=== PATIENT | female | born 1995 | race Caucasian/White ===

== ENCOUNTER 2022-02-16 20:12 | Emergency (ER) | payer BC, SELFPAY ==
[2022-02-16 20:23] VITALS: BP 123/67; PULSE 105; RESP 18; TEMP 36.9; O2SAT 99; BMI 30.3
--- NOTE | 2022-02-16 20:42 | CRLHL7_ITS ---
For Patients: As a result of the Cures Act, medical imaging exams and procedure reports are released immediately into your electronic medical record. You may view this report before your referring provider. If you have questions, please contact your health care provider. INDICATION: Cough. TECHNIQUE: Chest 2 view(s) COMPARISON: None available. FINDINGS: Postsurgical changes of median sternotomy. Heart size is within normal limits. Stent is noted at the aortic arch. Prominence of the central perihilar interstitial lung markings, nonspecific, can be seen with viral process versus reactive airways disease. No significant layering pleural effusion, no pneumothorax. No acute chest wall abnormality. IMPRESSION: Prominence of the central perihilar interstitial lung markings, nonspecific, can be seen with viral process versus reactive airways disease. Dictated by Sang Rogel MD @ 02/16/2022 9:17:38 PM (Electronically Signed)
--- NOTE | 2022-02-16 20:43 | ED_ITS ---
HPI - URI/Sore Throat General Chief Complaint: Cough Stated Complaint: Heart Condition,Stats are up and down Time Seen by Provider: 02/16/22 20:35 History of Present Illness HPI Narrative: Pt is a 26 year old woman with a history of hypoplastic left heart who presents with 2 days of cough and congestion. Pt has had a number of surgeries for her hypoplastic left heart in the past and has poor exercise tolerance. Review of her record shows that she is SP Fontan and Romain procedures. Pt is under close watch of her Career Development Manager. Pt returned from [place] in the past week and was noted to have an indurated insect bite on her abd and was placed on Keflex by her Career Development Manager. Pt has had no fevers, chills, nausea or vomiting. No chest pain. Mild shortness of breath is noted but her oxygen saturation is 99% on room air. Pt has had no treatments prior to arrival. No sick contacts. Pt is not vaccinated for COVID 19. Cough is nonproductive. No hemoptysis noted. Related Data Home Medications Medication Instructions Recorded Confirmed cephalexin 500 mg capsule 500 mg PO TID 02/16/22 02/16/22 Allergies Allergy/AdvReac Type Severity Reaction Status Date / Time hydrocodone Allergy Mild Itching Verified 02/16/22 20:41 oxycodone Allergy Mild Itching Verified 02/16/22 20:41 morphine AdvReac Mild Nausea/Vomi Verified 02/16/22 20:41 ting Review of Systems Status of ROS: Reports: 10 or more systems reviewed and unremarkable except as noted in History and below [facility] Medical History Bicornuate uterus Cardiac arrhythmia, unspecified Dyspnea on exertion History of left heart catheterization Hypoplastic left heart Surgical History History of Amplatzer atrial septal defect closure History of right heart catheterization Status post aortic coarctation stent placement Social History Smoking Status: Never smoker How often do you have a drink containing alcohol: never AUDIT-C Alcohol total score: 0 Non-prescribed substance use: denies use Exam Narrative: Exam Narrative: EXAM GENERAL: Patient appears comfortable and well. EYES: No scleral icterus. ENT: Tympanic membranes and oropharynx normal. THYROID: no thyroid nodules or thyromegaly. LYMPH: No supraclavicular or cervical lymphadenopathy. SKIN: Some induration noted at the previously mentioned bug bite on the left lower abd. No signs of infection or cellulitis. EXT: No dependent lower extremity pedal edema. HEART: Distant heart tones noted. LUNGS: Clear to auscultation bilaterally with no crackles or wheezes. ABD: Soft, non tender, non distended. PSYCH: Good eye contact, speech is not pressured. Const: Vital Signs, click to edit/add: Vital Signs - 24 hr 02/16/22 20:23 Temperature 98.4 F Pulse Rate [Right Pulse Oximeter] 105 H Respiratory Rate 18 Blood Pressure [Ri ght Upper Arm] 123/67 Pulse Oximetry 99 Oxygen Delivery Me thod Room Air Course Course Hospital Course: Pt seen and examined. Medical record reviewed. EKG shows mild sinus tachycardia upon my review. Chest X ray ordered. Viral studies collected. Reevaluation(s) Reevaluation #1: Chest x ray shows no acute cardiopulmonary process upon my review. Time: 21:05 Vital Signs Vital signs: Initial Vital Signs Temperature 98.4 F 02/16/22 20:23 Temperature Source Temporal Artery Scan 02/16/22 20:23 Pulse Rate 105 H 02/16/22 20:23 Respiratory Rate 18 02/16/22 20:23 Blood Pressure 123/67 02/16/22 20:23 Blood Pressure Mean 85 02/16/22 20:23 Blood Pressure Position Sitting 02/16/22 20:23 Pulse Oximetry 99 02/16/22 20:23 Oxygen Delivery Method 02/16/22 20:23 Vital Signs Temperature 98.4 F 02/16/22 20:23 Pulse Rate 105 H 02/16/22 20:23 Respiratory Rate 18 02/16/22 20:23 Blood Pressure 123/67 02/16/22 20:23 Pulse Oximetry 99 02/16/22 20:23 Oxygen Delivery Method 02/16/22 20:23 Temperature 98.4 F 02/16/22 20:23 Pulse Rate 105 H 02/16/22 20:23 Respiratory Rate 18 02/16/22 20:23 Blood Pressure 123/67 02/16/22 20:23 Pulse Oximetry 99 02/16/22 20:23 Oxygen Delivery Method 02/16/22 20:23 MDM - URI/Sore Throat MDM Narrative Medical decision making narrative: Pt is a 26 year old with a complex past medical history as noted above who presents with cough and congestion. Pt's EKG shows mild sinus tachycardia which is typical for her. Chest x ray shows no acute processes upon my review. Pt swabbed for COVID, RSV and Influenza. I did offer to call her Career Development Manager which she declined. Will treat symptomatically and follow up on her viral studies. Differential Diagnosis Differential diagnosis: Likely upper respiratory infection, croup, sinusitis, viral infection, bronchitis, influenza and pharyngitis Medical Records Attestation: I reviewed the patient's medical records. Discharge Plan Discharge Clinical Impression: Acute viral syndrome Condition: Stable Instructions: Viral Syndrome (ED) Additional Instructions: Tylenol Motrin Rest Fluids Await viral studies Contact your Career Development Manager if symptoms do not improve. Activity Level: No Restrictions Discharge Diet: Regular Prescriptions: No Action cephalexin 500 mg capsule 500 mg PO TID Label Comments: TAKE 1 CAPSULE BY MOUTH 3 TIMES A DAY FOR 7 DAYS Stand Alone Forms: [facility] [employer] Info Instructions
[2022-02-16 21:06] LABS: PCR FLU A POSITIVE PCR FLU A (Negative); PCR FLU B Negative PCR FLU B (Negative); PCR RSV Negative PCR RSV (Negative)
[2022-02-16 21:07] LABS: SARS PCR* Negative SARS-CoV-2 (Negative)
[2022-02-16 21:16] VITALS: BP 115/57; PULSE 108; RESP 20; TEMP 36.9; O2SAT 99
[2022-02-16 21:22] VITALS: BP 115/57; PULSE 108; RESP 20; TEMP 36.9
== END 2022-02-16 21:23 | disposition home or self-care (01) ==
PROVIDERS: Emergency Provider Internal Medicine
DX: B34.9 Viral infection, unspecified (principal)
CPT/HCPCS: 71046; 87502; 87634; 87635; 93005; 99283; 99284

== ENCOUNTER 2022-03-31 22:19 | Emergency (ER) | payer BC, SELFPAY ==
[2022-03-31 22:33] VITALS: BP 119/91; PULSE 93; RESP 16; TEMP 36.2; O2SAT 93; BMI 28.3
[2022-03-31 23:04] VITALS: BP 107/75; PULSE 87; RESP 16; O2SAT 95
--- NOTE | 2022-03-31 23:18 | CRLHL7_ITS ---
For Patients: As a result of the Cures Act, medical imaging exams and procedure reports are released immediately into your electronic medical record. You may view this report before your referring provider. If you have questions, please contact your health care provider. INDICATION: History of cardiac surgery. COMPARISON: 02/16/2022 chest radiographs. FINDINGS/IMPRESSION: Portable AP chest radiograph. Lungs appear clear of acute consolidation. No pleural effusions are noted. Cardiac configuration appears stable. There is an unchanged stent in the aortic arch. Median sternotomy wires are again noted. Dictated by Delfino Aviles MD @ 04/01/2022 12:49:44 AM Dictated by: Delfino Aviles MD @ 04/01/2022 00:50:21 (Electronically Signed)
--- NOTE | 2022-03-31 23:19 | ED.CHESTPAIN ---
HPI - Chest Pain General Chief Complaint: Chest Pain Stated Complaint: Half of heart condition,having chest pain&tightnes Time Seen by Provider: 03/31/22 23:08 History of Present Illness HPI narrative: 26 year old young woman presenting with two days of a general chest pressure/tightness in the mid chest. Intermittent stabs of pain which she says feels like when she ultimately needed ?a stent in my descending aorta?. Apparently they were also planning to dilate something. History of left side hypoplastic heart. Pending ZIO patch placement after conversation with project manager process development. No SOA, no fever, no cough or cold sxs. No radiation of symptoms into extremities. Related Data Home Medications Medication Instructions Recorded Confirmed cephalexin 500 mg capsule 500 mg PO TID 02/16/22 02/16/22 Previous Rx's Medication Instructions Recorded oseltamivir 75 mg capsule (Tamiflu) 75 mg PO Q12H 5 days #10 caps 02/16/22 Allergies Allergy/AdvReac Type Severity Reaction Status Date / Time hydrocodone Allergy Mild Itching Verified 02/16/22 20:41 oxycodone Allergy Mild Itching Verified 02/16/22 20:41 morphine AdvReac Mild Nausea/Vomi Verified 02/16/22 20:41 ting Review of Systems Status of ROS Reports: 6 or more systems reviewed and unremarkable except as noted in History and below [facility] Medical History Bicornuate uterus Cardiac arrhythmia, unspecified Dyspnea on exertion History of left heart catheterization Hypoplastic left heart Surgical History History of Amplatzer atrial septal defect closure History of right heart catheterization Status post aortic coarctation stent placement Social History Smoking Status: Never smoker How often do you have a drink containing alcohol: never AUDIT-C Alcohol total score: 0 Non-prescribed substance use: denies use Exam Narrative Exam Narrative: pleasant, nad. cn 2 - 12 look to be intact. skin warm and dry. well-perfused and with equal pulses in distal upper extremities. neck supple without mass, pulsatile or otherwise. lungs clear heart with regular rate and rhythm; no mrg appreciated. abd soft and nt. no LE edema or tenderness. Const Vital Signs, click to edit/add: Vital Signs - 24 hr 03/31/22 22:33 03/31/22 23:04 03/31/22 23:33 Temperature 97.1 F L Pulse Rate [Pulse Oximeter] 93 87 87 Respiratory Rate 16 16 16 Blood Pressure [Left Upper Arm] 119/91 H 107/75 107/75 Pulse Oximetry 93 95 94 Oxygen Delivery Method Room Air Room Air Room Air 04/01/22 00:23 04/01/22 01:24 Temperature Pulse Rate [Pulse Oximeter] 84 81 Respiratory Rate 16 16 Blood Pressure [Left Upper Arm] 108/63 Pulse Oximetry 94 95 Oxygen Delivery Method Room Air Room Air Documenting provider has reviewed patient's vital signs: yes Course Vital Signs Vital signs: Initial Vital Signs Temperature 97.1 F L 03/31/22 22:33 Temperature Source Temporal Artery Scan 03/31/22 22:33 Pulse Rate 93 03/31/22 22:33 Pulse Rhythm 03/31/22 22:33 Respiratory Rate 16 03/31/22 22:33 Blood Pressure 119/91 H 03/31/22 22:33 Blood Pressure Mean 100 03/31/22 22:33 Pulse Oximetry 93 03/31/22 22:33 Oxygen Delivery Method 03/31/22 22:33 Vital Signs Temperature 97.1 F L 03/31/22 22:33 Pulse Rate 93 03/31/22 22:33 Respiratory Rate 16 03/31/22 22:33 Blood Pressure 119/91 H 03/31/22 22:33 Pulse Oximetry 93 03/31/22 22:33 Oxygen Delivery Method 03/31/22 22:33 Temperature 97.1 F L 03/31/22 22:33 Pulse Rate 81 04/01/22 01:24 Respiratory Rate 16 04/01/22 01:24 Blood Pressure 108/63 04/01/22 00:23 Pulse Oximetry 95 04/01/22 01:24 Oxygen Delivery Method 04/01/22 01:24 MDM - Chest Pain MDM Narrative Medical decision making narrative: eval for pneumonia, pneumothorax, pe, dissection, ischemic cardiac event, inflammatory cardiac condition, arrythmia, gerd EKG reviewed as below. Looks similar to prior. CXR with what appear to be post-op changes o/w normal mediastinum. reviewed by me. Lab Data Attestation: I reviewed the patient's lab results. Labs: Lab Results 03/31/22 03/31/22 03/31/22 Range/Units 23:30 23:30 23:30 WBC 5.70 (4.50-11.00) K/uL RBC 4.43 (4.00-5.20) m/uL Hgb 13.2 (12.0-16.0) gm/dL Hct 41.2 (33.0-51.0) % MCV 93 (80-100) fL MCH 30 (26-34) pg MCHC 32 (32-36) gm/dL RDW Coeff of Jessie 13.5 (11.5-15.5) % Plt Count 171 (140-440) K/uL Neut % (Auto) 70.6 (42.0-72.0) % Lymph % (Auto) 17.5 L (20-44) % Valencia % (Auto) 7.5 (0.0-11.0) % Eos % (Auto) 3.7 (0.0-7.0) % Baso % (Auto) 0.5 (0.0-3.0) % Neut # (Auto) 4.02 (1.7-7.0) K/uL Lymph # (Auto) 1.00 (0.90-2.90) K/uL Valencia # (Auto) 0.40 (0.00-0.90) K/UL Eos # (Auto) 0.21 (0.00-0.50) K/uL Baso # (Auto) 0.03 (0.00-0.30) K/uL D-Dimer Quant (PE/DVT) < 0.27 (0.00-0.50) ug/ml Sodium 139 (135-149) mmol/L Potassium 3.8 (3.6-5.1) mmol/L Chloride 109 (96-114) mmol/L Carbon Dioxide 23 (20-32) mmol/L BUN 17 (5-24) mg/dL Creatinine 0.7 (0.5-1.5) mg/dL Estimated Creat Clear 88.25 Estimated GFR 123 ml/min Glucose 94 (60-115) mg/dL Calcium 8.8 (8.4-10.6) mg/dL Magnesium 2.0 (1.5-2.6) mg/dL Troponin I < 0.01 L (0.01-0.04) ng/mL C-Reactive Protein 1.2 H (0.5-1.0) mg/dL NT-Pro-B Natriuret Pep 173 pg/mL ECG Data Attestation: I personally reviewed and interpreted this ECG as follows: (Sinus rhythm rate of 91 incomplete right bundle. Right ventricle does look large possibly in the setting of hypoplastic left side. QT of 390. Similar to prior Similar to prior) Discharge Plan Discharge Clinical Impression: Chest pressure, Chest pain Patient Disposition: Home, Self-Care Condition: Improved Additional Instructions: Labs are overall reassuring. 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 Await the ZIO patch as recommended. Focus on hydration. Return for increasing and persistent pain, increasing shortness of breath, associated fever. Prescriptions: No Action cephalexin 500 mg capsule 500 mg PO TID Label Comments: TAKE 1 CAPSULE BY MOUTH 3 TIMES A DAY FOR 7 DAYS oseltamivir [Tamiflu] 75 mg capsule 75 mg PO Q12H 5 Days Qty: 10 0RF Follow Up/Referrals: Provider,Not a Local [Primary Care Provider] - Stand Alone Forms: [facility] Info Instructions
[2022-03-31 23:33] VITALS: BP 107/75; PULSE 87; RESP 16; O2SAT 94
[2022-03-31 23:41] LABS: Basophils Absolute Auto 0.03 K/uL (0.00-0.30); Basophils Percent Auto 0.5 % (0.0-3.0); Eosinophils Absolute Auto 0.21 K/uL (0.00-0.50); Eosinophils Percent Auto 3.7 % (0.0-7.0); Hematocrit 41.2 % (33.0-51.0); Hemoglobin* 13.2 gm/dL (12.0-16.0); Immature Granulocytes Abs Auto 0.01 K/uL (0.00-0.30); Immature Granulocytes Pct Auto 0.2 %; Lymphocytes Percent Auto 17.5 % (20-44); Mean Corpuscular HGB Conc 32 gm/dL (32-36); Mean Corpuscular Hemoglobin 30 pg (26-34); Mean Corpuscular Volume 93 fL (80-100); Monocytes Percent Auto 7.5 % (0.0-11.0); Neutrophils Absolute Auto 4.02 K/uL (1.7-7.0); Neutrophils Percent Auto 70.6 % (42.0-72.0); Platelet Count* 171 K/uL (140-440); RDW Coefficient of Variation % 13.5 % (11.5-15.5); Red Blood Count 4.43 m/uL (4.00-5.20)
[2022-03-31 23:43] LABS: Slide Review Reflex No
[2022-03-31 23:55] LABS: Chloride* 109 mmol/L (96-114); Sodium* 139 mmol/L (135-149)
[2022-03-31 23:57] LABS: Creatinine* 0.7 mg/dL (0.5-1.5); Est. Creatinine Clearance* 88.25; Estimated Glomerular Filt Rate 123 ml/min; Potassium* 3.8 mmol/L (3.6-5.1)
[2022-03-31 23:58] LABS: Blood Urea Nitrogen* 17 mg/dL (5-24); Carbon Dioxide* 23 mmol/L (20-32)
[2022-03-31 23:59] LABS: Calcium* 8.8 mg/dL (8.4-10.6); Glucose* 94 mg/dL (60-115)
[2022-04-01 00:01] LABS: C Reactive Protein* 1.2 mg/dL (0.5-1.0)
[2022-04-01 00:10] LABS: D Dimer Quantitative* < 0.27 ug/ml (0.00-0.50); NT Pro B Type NatriureticPept* 173 pg/mL
[2022-04-01 00:11] LABS: Troponin I* < 0.01 ng/mL (0.01-0.04)
[2022-04-01] MEDS: 0.9 % SODIUM CHLORIDE 1000 ml 1,000 ML IV (00:22)
[2022-04-01 00:23] VITALS: BP 108/63; PULSE 84; RESP 16; O2SAT 94
[2022-04-01 01:24] VITALS: PULSE 81; RESP 16; O2SAT 95
== END 2022-04-01 01:25 | disposition home or self-care (01) ==
PROVIDERS: Emergency Provider Family Medicine
DX: R07.9 Chest pain, unspecified (principal)
CPT/HCPCS: 36415; 71045; 80048; 83735; 83880; 84484; 85025; 85379; 86140; 93005; 94761; 99284; 99285; J7030

== ENCOUNTER 2023-08-01 12:59 | Emergency (ER) | payer OTHER, SELFPAY ==
[2023-08-01] VITALS (26 sets, daily range): BP systolic 102–132; BP diastolic 67–79; PULSE 80–91; RESP 18; TEMP 36.4; O2SAT 91–98; BMI 32.1
[2023-08-01 14:22] LABS: Basophils Absolute Auto 0.02 K/uL (0.00-0.30); Basophils Percent Auto 0.4 % (0.0-3.0); Eosinophils Absolute Auto 0.19 K/uL (0.00-0.50); Eosinophils Percent Auto 3.6 % (0.0-7.0); Hemoglobin* 14.9 gm/dL (12.0-16.0); Immature Granulocytes Abs Auto 0.01 K/uL (0.00-0.30); Immature Granulocytes Pct Auto 0.2 %; Lymphocytes Percent Auto 17.1 % (20-44); Mean Corpuscular HGB Conc 33 gm/dL (32-36); Mean Corpuscular Hemoglobin 31 pg (26-34); Mean Corpuscular Volume 94 fL (80-100); Monocytes Percent Auto 5.1 % (0.0-11.0); Neutrophils Percent Auto 73.6 % (42.0-72.0); Platelet Count* 163 K/uL (140-440); RDW Coefficient of Variation % 12.6 % (11.5-15.5); Red Blood Count 4.81 m/uL (4.00-5.20); White Blood Count* 5.32 K/uL (4.50-11.00)
[2023-08-01 14:30] LABS: Slide Review Reflex No
[2023-08-01 14:34] LABS: Chloride* 108 mmol/L (96-114); Sodium* 140 mmol/L (135-149)
[2023-08-01 14:35] LABS: Potassium* 4.1 mmol/L (3.6-5.1)
[2023-08-01 14:37] LABS: Anion Gap 6 mEq/L (7-15); Carbon Dioxide* 26 mmol/L (20-32); Creatinine* 0.7 mg/dL (0.5-1.5); Estimated Glomerular Filt Rate 122 ml/min
[2023-08-01 14:38] LABS: Blood Urea Nitrogen* 14 mg/dL (5-24); Calcium* 9.2 mg/dL (8.4-10.6); Glucose* 76 mg/dL (60-115); Magnesium* 2.1 mg/dL (1.5-2.6)
--- NOTE | 2023-08-01 14:41 | ED_ITS ---
HPI - Chest Pain General Date Seen: 08/01/23 <Carter Hendersonram - Last Filed: 08/01/23 16:05> Chief Complaint: Chest Pain <Carter Carmelo Nitesh - Last Filed: 08/01/23 16:05> Stated Complaint: half a heart, heavy, pain, O2 low <Carterguillermo Dowling - Last Filed: 08/01/23 16:05> Time Seen by Provider: 08/01/23 13:11 <Carter Dowling DO - Last Filed: 08/01/23 16:05> Source: patient <Carter Dowling DO - Last Filed: 08/01/23 16:05> Mode of arrival: ambulatory <Carter Carmelo Nitesh - Last Filed: 08/01/23 16:05> Limitations: no limitations <Carter Dowling - Last Filed: 08/01/23 16:05> History of Present Illness HPI narrative: Patient is a 27-year-old female presenting to the emergency department for chest pain and shortness of breath. She states she woke up this morning with the symptoms. States this pain is a 7/10 in intensity it is associated numbness and tingling of her right arm. States she has had symptoms like this several times in the past and has been evaluated several times with no new diagnosis being found. 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 She states this chest discomfort has been going on since the aortic stents and 2017. Does have a history of blood clots also. States when she had chest pain she called her court officer who told her to come to the emergency department for evaluation. Denies fevers, chills, lightheadedness, dizziness, abdominal pain, diarrhea, constipation, weakness. <Carter Dowling - Last Filed: 08/01/23 16:05> Related Data Home Medications: Home Medications ?Medication ?Instructions ?Recorded ?Confirmed escitalopram oxalate 10 mg tablet 20 mg PO DAILY 02/17/23 08/01/23 <Carter Dowling - Last Filed: 08/01/23 16:05> Allergies/Adverse Reactions: Allergies Allergy/AdvReac Type Severity Reaction Status Date / Time hydrocodone Allergy Mild Itching Verified 08/01/23 13:10 oxycodone Allergy Mild Itching Verified 08/01/23 13:10 vancomycin AdvReac Intermediate Verified 08/01/23 13:10 morphine AdvReac Mild Nausea/Vomi Verified 08/01/23 13:10 ting <Carter Dowling DO - Last Filed: 08/01/23 16:05> Review of Systems Status of ROS Reports: 10 or more systems reviewed and unremarkable except as noted in History and below <Carter Dowling DO - Last Filed: 08/01/23 16:05> [facility] Surgical History: Surgical History History of Amplatzer atrial septal defect closure ?Z87.74 - Personal history of (corrected) congenital malformations of heart and circulatory system (ICD-10) Status post aortic coarctation stent placement ?Z95.828 - Presence of other vascular implants and grafts (ICD-10) ?Z87.74 - Personal history of (corrected) congenital malformations of heart and circulatory system (ICD-10) History of right heart catheterization ?Z98.890 - Other specified postprocedural states (ICD-10) <Carter Dowling DO - Last Filed: 08/01/23 16:05> Social History: Social History Smoking Status: Never smoker Do you use any of these nicotine containing products: None How often do you have a drink containing alcohol: never How often do you have six or more drinks on one occasion: Never AUDIT-C Alcohol total score: 0 Non-prescribed substance use: denies use <Carter Dowling DO - Last Filed: 08/01/23 16:05> Exam Narrative Exam Narrative: Const: Well-nourished, Well-developed, in mild distress Eyes: PERRL, no conjunctival injection, and symmetrical lids HENT: Atraumatic external nose and ears. Moist mucous membranes. Neck: Symmetric, trachea midline, No thyromegaly. CVS: RRR, No murmurs or gallops. Peripheral pulses 2+ and equal in all extremities RESP: Unlabored respiratory effort. Clear to auscultation bilaterally. GI: Nontender/Nondistended, No rebound or guarding. MSK:Extremities w/o deformity, Normal Active ROM, no tenderness to palpation of chest Skin: Warm, Dry. No rashes or lesions. Neuro: Normal Muscle tone, No focal neurological deficits. Psych: Awake, Alert, & Oriented x3. Appropriate mood and affect. <Carter Dowling, DO - Last Filed: 08/01/23 16:05> Const Vital Signs, click to edit/add: Vital Signs - 24 hr 08/01/23 13:06 08/01/23 13:24 08/01/23 13:25 Temperature 97.6 F Pulse Rate 84 83 Pulse Rate [Right Pulse Oximeter] 91 Respiratory Rate 18 Blood Pressure 109/67 Blood Pressure [Left Upper Arm] 106/75 Pulse Oximetry 91 92 91 Oxygen Delivery Method Room Air 08/01/23 13:30 08/01/23 13:32 08/01/23 13:33 Temperature Pulse Rate 83 81 81 Pulse Rate [Right Pulse Oximeter] Respiratory Rate Blood Pressure 108/75 Blood Pressure [Left Upper Arm] Pulse Oximetry 92 92 92 Oxygen Delivery Method 08/01/23 13:46 08/01/23 14:01 08/01/23 14:15 Temperature Pulse Rate 80 82 81 Pulse Rate [Right Pulse Oximeter] Respiratory Rate Blood Pressure Blood Pressure [Left Upper Arm] Pulse Oximetry 93 95 94 Oxygen Delivery Method 08/01/23 14:30 08/01/23 14:32 08/01/23 14:45 Temperature Pulse Rate 80 81 81 Pulse Rate [Right Pulse Oximeter] Respiratory Rate Blood Pressure 108/79 Blood Pressure [Left Upper Arm] Pulse Oximetry 96 96 95 Oxygen Delivery Method 08/01/23 15:00 08/01/23 15:02 08/01/23 15:03 Temperature Pulse Rate 83 84 83 Pulse Rate [Right Pulse Oximeter] Respiratory Rate Blood Pressure 114/72 Blood Pressure [Left Upper Arm] Pulse Oximetry 96 98 96 Oxygen Delivery Method 08/01/23 15:15 08/01/23 15:31 08/01/23 15:32 Temperature Pulse Rate 81 87 87 Pulse Rate [Right Pulse Oximeter] Respiratory Rate Blood Pressure 132/77 Blood Pressure [Left Upper Arm] Pulse Oximetry 95 95 95 Oxygen Delivery Method 08/01/23 15:33 08/01/23 15:45 08/01/23 16:00 Temperature Pulse Rate 87 83 82 Pulse Rate [Right Pulse Oximeter] Respiratory Rate Blood Pressure Blood Pressure [Left Upper Arm] Pulse Oximetry 94 93 94 Oxygen Delivery Method 08/01/23 16:02 08/01/23 16:15 08/01/23 16:30 Temperature Pulse Rate 82 84 85 Pulse Rate [Right Pulse Oximeter] Respiratory Rate Blood Pressure 102/67 Blood Pressure [Left Upper Arm] Pulse Oximetry 95 95 96 Oxygen Delivery Method 08/01/23 16:31 08/01/23 16:45 Temperature Pulse Rate 85 86 Pulse Rate [Right Pulse Oximeter] Respiratory Rate Blood Pressure 109/71 Blood Pressure [Left Upper Arm] Pulse Oximetry 96 95 Oxygen Delivery Method <Carter Dowling, DO - Last Filed: 08/01/23 16:05> Vital Signs - 24 hr 08/01/23 13:06 08/01/23 13:24 08/01/23 13:25 Temperature 97.6 F Pulse Rate 84 83 Pulse Rate [Right Pulse Oximeter] 91 Respiratory Rate 18 Blood Pressure 109/67 Blood Pressure [Left Upper Arm] 106/75 Pulse Oximetry 91 92 91 Oxygen Delivery Method Room Air 08/01/23 13:30 08/01/23 13:32 08/01/23 13:33 Temperature Pulse Rate 83 81 81 Pulse Rate [Right Pulse Oximeter] Respiratory Rate Blood Pressure 108/75 Blood Pressure [Left Upper Arm] Pulse Oximetry 92 92 92 Oxygen Delivery Method 08/01/23 13:46 08/01/23 14:01 08/01/23 14:15 Temperature Pulse Rate 80 82 81 Pulse Rate [Right Pulse Oximeter] Respiratory Rate Blood Pressure Blood Pressure [Left Upper Arm] Pulse Oximetry 93 95 94 Oxygen Delivery Method 08/01/23 14:30 08/01/23 14:32 08/01/23 14:45 Temperature Pulse Rate 80 81 81 Pulse Rate [Right Pulse Oximeter] Respiratory Rate Blood Pressure 108/79 Blood Pressure [Left Upper Arm] Pulse Oximetry 96 96 95 Oxygen Delivery Method 08/01/23 15:00 08/01/23 15:02 08/01/23 15:03 Temperature Pulse Rate 83 84 83 Pulse Rate [Right Pulse Oximeter] Respiratory Rate Blood Pressure 114/72 Blood Pressure [Left Upper Arm] Pulse Oximetry 96 98 96 Oxygen Delivery Method 08/01/23 15:15 08/01/23 15:31 08/01/23 15:32 Temperature Pulse Rate 81 87 87 Pulse Rate [Right Pulse Oximeter] Respiratory Rate Blood Pressure 132/77 Blood Pressure [Left Upper Arm] Pulse Oximetry 95 95 95 Oxygen Delivery Method 08/01/23 15:33 08/01/23 15:45 08/01/23 16:00 Temperature Pulse Rate 87 83 82 Pulse Rate [Right Pulse Oximeter] Respiratory Rate Blood Pressure Blood Pressure [Left Upper Arm] Pulse Oximetry 94 93 94 Oxygen Delivery Method 08/01/23 16:02 08/01/23 16:15 08/01/23 16:30 Temperature Pulse Rate 82 84 85 Pulse Rate [Right Pulse Oximeter] Respiratory Rate Blood Pressure 102/67 Blood Pressure [Left Upper Arm] Pulse Oximetry 95 95 96 Oxygen Delivery Method 08/01/23 16:31 08/01/23 16:45 Temperature Pulse Rate 85 86 Pulse Rate [Right Pulse Oximeter] Respiratory Rate Blood Pressure 109/71 Blood Pressure [Left Upper Arm] Pulse Oximetry 96 95 Oxygen Delivery Method <Brian Gastelum MD - Last Filed: 08/01/23 17:06> Course Reevaluation(s) Time of Reevaluation #1: 17:05 <Brian Gastelum MD - Last Filed: 08/01/23 17:06> Reevaluation #1: Patient remains symptom-free, her EKGs are normal 2nd troponin is normal, per my conversation with Dr. Nam we will send her home. She will follow- up with Cardiology <Brian Gastelum MD - Last Filed: 08/01/23 17:06> Vital Signs Vital signs: Initial Vital Signs Temperature 97.6 F 08/01/23 13:06 Temperature Source Temporal Artery Scan 08/01/23 13:06 Pulse Rate 91 08/01/23 13:06 Pulse Rhythm Regular 08/01/23 13:06 Respiratory Rate 18 08/01/23 13:06 Blood Pressure 106/75 08/01/23 13:06 Blood Pressure Mean 85 08/01/23 13:06 Blood Pressure Position Sitting 08/01/23 13:06 Pulse Oximetry 91 08/01/23 13:06 Oxygen Delivery Method Room Air 08/01/23 13:06 Vital Signs Temperature 97.6 F 08/01/23 13:06 Pulse Rate 91 08/01/23 13:06 Respiratory Rate 18 08/01/23 13:06 Blood Pressure 106/75 08/01/23 13:06 Pulse Oximetry 91 08/01/23 13:06 Oxygen Delivery Method Room Air 08/01/23 13:06 Temperature 97.6 F 08/01/23 13:06 Pulse Rate 86 08/01/23 16:45 Respiratory Rate 18 08/01/23 13:06 Blood Pressure 109/71 08/01/23 16:31 Pulse Oximetry 95 08/01/23 16:45 Oxygen Delivery Method Room Air 08/01/23 13:06 <Carter Dowling DO - Last Filed: 08/01/23 16:05> Initial Vital Signs Temperature 97.6 F 08/01/23 13:06 Temperature Source Temporal Artery Scan 08/01/23 13:06 Pulse Rate 91 08/01/23 13:06 Pulse Rhythm Regular 08/01/23 13:06 Respiratory Rate 18 08/01/23 13:06 Blood Pressure 106/75 08/01/23 13:06 Blood Pressure Mean 85 08/01/23 13:06 Blood Pressure Position Sitting 08/01/23 13:06 Pulse Oximetry 91 08/01/23 13:06 Oxygen Delivery Method Room Air 08/01/23 13:06 Vital Signs Temperature 97.6 F 08/01/23 13:06 Pulse Rate 91 08/01/23 13:06 Respiratory Rate 18 08/01/23 13:06 Blood Pressure 106/75 08/01/23 13:06 Pulse Oximetry 91 08/01/23 13:06 Oxygen Delivery Method Room Air 08/01/23 13:06 Temperature 97.6 F 08/01/23 13:06 Pulse Rate 86 08/01/23 16:45 Respiratory Rate 18 08/01/23 13:06 Blood Pressure 109/71 08/01/23 16:31 Pulse Oximetry 95 08/01/23 16:45 Oxygen Delivery Method Room Air 08/01/23 13:06 <Brian Gastelum MD - Last Filed: 08/01/23 17:06> MDM - Chest Pain MDM Narrative Medical decision making narrative: Patient is a 27 year female presenting to emergency department for chest pain. She does have history of hypoplastic left heart and a to the 17 stat for coarctation of the thoracic aorta. Since then she has been having this intermittent chest pain. Does have a history of blood clots a D-dimer will be ordered to look for signs. Will also order troponin, CBC, BMP, magnesium, EKG, test. Chest is nontender to palpation in this does not seem musculoskeletal in nature. Patient's lab work returned showing no concerning abnormalities. test is negative. COVID/flu/RSV test is negative. Initial troponin less than 0.01 in will repeat this troponin. Chest x-ray reviewed by myself and the radiologist shows no concerning abnormalities. She has been satting in the low to mid 90s here in the emergency department. D-dimer within normal limits and blood clot seems unlikely. She is otherwise doing well at this time an EKG shows no concerning findings. Pending repeat troponin patient will be di scharged. Considering she has had these exact same symptoms in the past and states previously her court officer has told her there continue to monitor these symptoms I do not believe is necessary to contact her court officer as again she states these are exactly the same as she has had the past with no complications. <Carter Dowling, - Last Filed: 08/01/23 16:05> Lab Data Labs: Lab Results 08/01/23 08/01/23 Range/Units 14:05 16:05 WBC 5.32 (4.50-11.00) K/uL RBC 4.81 (4.00-5.20) m/uL Hgb 14.9 (12.0-16.0) gm/dL Hct 45.0 (33.0-51.0) % MCV 94 (80-100) fL MCH 31 (26-34) pg MCHC 33 (32-36) gm/dL RDW Coeff of Jessie 12.6 (11.5-15.5) % Plt Count 163 (140-440) K/uL Neut % (Auto) 73.6 H (42.0-72.0) % Lymph % (Auto) 17.1 L (20-44) % [place] % (Auto) 5.1 (0.0-11.0) % Eos % (Auto) 3.6 (0.0-7.0) % Baso % (Auto) 0.4 (0.0-3.0) % Neut # (Auto) 3.90 (1.7-7.0) K/uL Lymph # (Auto) 0.90 (0.90-2.90) K/uL [place] # (Auto) 0.30 (0.00-0.90) K/UL Eos # (Auto) 0.19 (0.00-0.50) K/uL Baso # (Auto) 0.02 (0.00-0.30) K/uL Abs Immat Gran (auto) 0.01 (0.00-0.30) K/uL Imm/Tot Granulo (auto) 0.2 % D-Dimer Quant (PE/DVT) < 0.27 (0.00-0.50) ug/ml Sodium 140 (135-149) mmol/L Potassium 4.1 (3.6-5.1) mmol/L Chloride 108 (96-114) mmol/L Carbon Dioxide 26 (20-32) mmol/L Anion Gap 6 L (7-15) mEq/L BUN 14 (5-24) mg/dL Creatinine 0.7 (0.5-1.5) mg/dL Estimated Creat Clear 91.90 Estimated GFR 122 ml/min Glucose 76 (60-115) mg/dL Calcium 9.2 (8.4-10.6) mg/dL Magnesium 2.1 (1.5-2.6) mg/dL Troponin I < 0.01 L < 0.01 L (0.01-0.04) ng/mL HCG, Qual Negative (Negative) SARS-CoV-2 (PCR) Negative SARS-CoV-2 (Negative) Influenza Type A (PCR) Negative PCR FLU A (Negative) Influenza Type B (PCR) Negative PCR FLU B (Negative) RSV (PCR) Negative PCR RSV (Negative) <Carter Dowling, - Last Filed: 08/01/23 16:05> Lab Results 08/01/23 08/01/23 Range/Units 14:05 16:05 WBC 5.32 (4.50-11.00) K/uL RBC 4.81 (4.00-5.20) m/uL Hgb 14.9 (12.0-16.0) gm/dL Hct 45.0 (33.0-51.0) % MCV 94 (80-100) fL MCH 31 (26-34) pg MCHC 33 (32-36) gm/dL RDW Coeff of Jessie 12.6 (11.5-15.5) % Plt Count 163 (140-440) K/uL Neut % (Auto) 73.6 H (42.0-72.0) % Lymph % (Auto) 17.1 L (20-44) % [place] % (Auto) 5.1 (0.0-11.0) % Eos % (Auto) 3.6 (0.0-7.0) % Baso % (Auto) 0.4 (0.0-3.0) % Neut # (Auto) 3.90 (1.7-7.0) K/uL Lymph # (Auto) 0.90 (0.90-2.90) K/uL [place] # (Auto) 0.30 (0.00-0.90) K/UL Eos # (Auto) 0.19 (0.00-0.50) K/uL Baso # (Auto) 0.02 (0.00-0.30) K/uL Abs Immat Gran (auto) 0.01 (0.00-0.30) K/uL Imm/Tot Granulo (auto) 0.2 % D-Dimer Quant (PE/DVT) < 0.27 (0.00-0.50) ug/ml Sodium 140 (135-149) mmol/L Potassium 4.1 (3.6-5.1) mmol/L Chloride 108 (96-114) mmol/L Carbon Dioxide 26 (20-32) mmol/L Anion Gap 6 L (7-15) mEq/L BUN 14 (5-24) mg/dL Creatinine 0.7 (0.5-1.5) mg/dL Estimated Creat Clear 91.90 Estimated GFR 122 ml/min Glucose 76 (60-115) mg/dL Calcium 9.2 (8.4-10.6) mg/dL Magnesium 2.1 (1.5-2.6) mg/dL Troponin I < 0.01 L < 0.01 L (0.01-0.04) ng/mL HCG, Qual Negative (Negative) SARS-CoV-2 (PCR) Negative SARS-CoV-2 (Negative) Influenza Type A (PCR) Negative PCR FLU A (Negative) Influenza Type B (PCR) Negative PCR FLU B (Negative) RSV (PCR) Negative PCR RSV (Negative) <Brian Gastelum MD - Last Filed: 08/01/23 17:06> Imaging Data Chest x-ray: Attestation: I have reviewed the pertinent imaging results. <Carter Dowling Last Filed: 08/01/23 16:05> Radiologist's impression: Cardiovascular and mediastinum: Normal heart size status post atrial closure. Aortic stent at the level of the arch. Lungs and pleural spaces: Lungs are clear. No sign of infiltrate or mass. No sign of pleural effusion. No pneumothorax. Bones and soft tissues: Status post median sternotomy. Dictated by Darron Izaguirre MD @ 08/01/2023 3:44:18 PM <Carter Dowling Last Filed: 08/01/23 16:05> ECG Data Attestation: I personally reviewed and interpreted this ECG as follows: <Carter Dowling Last Filed: 08/01/23 16:05> Prior ECG tracings: available for review <Carter Dowling Last Filed: 08/01/23 16:05> Interpretation: Normal sinus rhythm rate of 86 beats per minute, right axis deviation, right bundle-branch block, prolonged QT interval. No ST abnormalities. There are some inverted T-waves in mL some V1 through V4 seen in previous EKG on file. EKG looks very similar to previous EKGs on file <Carter Dowling Last Filed: 08/01/23 16:05> Discharge Plan Discharge Clinical Impression: Chest pain <Carter Dowling Last Filed: 08/01/23 16:05> Patient Disposition: Home, Self-Care <Carter Dowling Last Filed: 08/01/23 16:05> Condition: Stable <Carter Dowling Last Filed: 08/01/23 16:05> Instructions: Chest Pain (DC) <Carter Dowling Last Filed: 08/01/23 16:05> Additional Instructions: Make sure follow-up with your court officer about 2 chest pain. Return to emergency department for new worsening symptoms. <Carter Dowling Last Filed: 08/01/23 16:05> Prescriptions: No Action escitalopram oxalate 10 mg tablet 20 mg PO DAILY <Carter Dowling DO - Last Filed: 08/01/23 16:05> Follow Up/Referrals: Chava Wise MD [Primary Care Provider] - <Carter Dowling DO - Last Filed: 08/01/23 16:05> Stand Alone Forms: MyHealth Info Instructions <Carter Dowling DO - Last Filed: 08/01/23 16:05>
[2023-08-01 14:47] LABS: D Dimer Quantitative* < 0.27 ug/ml (0.00-0.50)
[2023-08-01 14:48] LABS: PCR FLU A Negative PCR FLU A (Negative); PCR FLU B Negative PCR FLU B (Negative); PCR RSV Negative PCR RSV (Negative); SARS PCR* Negative SARS-CoV-2 (Negative)
[2023-08-01 14:51] LABS: Troponin I* < 0.01 ng/mL (0.01-0.04)
--- NOTE | 2023-08-01 15:17 | CRLHL7_ITS ---
For Patients: As a result of the Century Cures Act, medical imaging exams and procedure reports are released immediately into your electronic medical record. You may view this report before your referring provider. If you have questions, please contact your health care provider. Indication: Chest pain Technique: Chest 2 views Comparison: None Findings/Impression: Cardiovascular and mediastinum: Normal heart size status post atrial closure. Aortic stent at the level of the arch. Lungs and pleural spaces: Lungs are clear. No sign of infiltrate or mass. No sign of pleural effusion. No pneumothorax. Bones and soft tissues: Status post median sternotomy. Dictated by Darron Izaguirre MD @ 08/01/2023 3:44:18 PM (Electronically Signed)
[2023-08-01 15:35] LABS: HCG Qualitative Serum* Negative (Negative)
[2023-08-01 17:02] LABS: Troponin I* < 0.01 ng/mL (0.01-0.04)
== END 2023-08-01 17:14 | disposition home or self-care (01) ==
PROVIDERS: Student in an Organized Health Care Education/Training Program; Emergency Provider Family Medicine; PCP Family Medicine
DX: R07.9 Chest pain, unspecified (principal)
CPT/HCPCS: 36415; 71046; 80048; 83735; 84484; 84703; 85025; 85379; 87631; 93005; 99283; 99284; 99285

== ENCOUNTER 2023-10-04 11:41 | Emergency (ER) | payer OTHER, SELFPAY ==
[2023-10-04 11:45] VITALS: BP 111/76; PULSE 98; RESP 16; TEMP 36.5; O2SAT 91; BMI 31.2
--- NOTE | 2023-10-04 12:04 | CRLHL7_ITS ---
For Patients: As a result of the Century Cures Act, medical imaging exams and procedure reports are released immediately into your electronic medical record. You may view this report before your referring provider. If you have questions, please contact your health care provider. Indication: Vaginal bleeding for 2 days. Hysterectomy 8 months prior. Technique: Transabdominal and transvaginal sonograms of the pelvis was performed. Doppler was also performed Comparison: None Findings: The uterus is absent. Right ovary if still present is not visualized. There is no right adnexal mass. No free fluid in the cul-de-sac Simple cystic structure on the left likely left ovarian in origin measuring 4.5 x 3.1 x 2.9 centimeters. A rim of ovarian tissue is noted surrounding this but the total measurement of 4.9 x 3.4 x 3.3 centimeters. Doppler flow was elicited from the peripheral tissue by color Doppler. The vagina is suboptimally evaluated by ultrasound and is probably the source of the bleeding. Further clinical evaluation regarding the bleeding is advised. Impression: 1. The uterus is absent. 2. Right ovary if still present is not visualized. No right adnexal mass. 3. Simple cyst left ovary measuring 4.5 x 3.1 x 2.9 centimeters. No definite evidence of torsion on the left by Doppler criteria. 4. The vagina suboptimally evaluated by ultrasound. The exact etiology of the vaginal bleeding is not visible on this exam and follow-up clinical evaluation is recommended in this regard. Dictated by Renzo Alfaro MD @ 10/04/2023 1:04:50 PM (Electronically Signed)
--- NOTE | 2023-10-04 12:06 | ED_ITS ---
HPI - Female Genitourinary General Chief complaint: Vaginal Bleeding Stated complaint: vaginal bleeding after hysterectomy Time Seen by Provider: 10/04/23 11:52 History of Present Illness HPI Narrative: This 27-year-old female comes in reporting 2 episodes of bright red blood per vagina that occurred 4 hours ago initially and then again 2 hours ago. She does not report any pain or other symptoms. She had a hysterectomy about 8 months ago. 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 She contacted her ground crewman mission support to said she should come in here for evaluation. She did start on progesterone about a week ago as her levels were low after the hysterectomy apparently and this was started to help her with her mood potentially. Related Data Home Medications ?Medication ?Instructions ?Recorded ?Confirmed escitalopram oxalate 10 mg tablet 20 mg PO DAILY 02/17/23 08/01/23 empagliflozin 10 mg tablet 10 mg PO DAILY 10/04/23 10/04/23 (Jardiance) hydroxyzine HCl 25 mg tablet 25 mg PO Q6H PRN anxiety 10/04/23 10/04/23 lurasidone 40 mg tablet 40 mg PO DAILY 10/04/23 10/04/23 progesterone micronized 100 mg 100 mg PO QPM 10/04/23 10/04/23 capsule Allergies Allergy/AdvReac Type Severity Reaction Status Date / Time hydrocodone Allergy Mild Itching Verified 08/01/23 13:10 oxycodone Allergy Mild Itching Verified 08/01/23 13:10 vancomycin AdvReac Intermediate Verified 08/01/23 13:10 morphine AdvReac Mild Nausea/Vomi Verified 08/01/23 13:10 ting Review of Systems Status of ROS: Reports: 10 or more systems reviewed and unremarkable except as noted in History and below Narrative: Constitutional: No fevers, no weight gain or loss. Eyes: No discharge. No vision changes. HENT: No congestion, no sore throat, no ear pain. Cardiovascular: No chest pain, no palpitations. Respiratory: No shortness of breath, no wheezes, no cough. Gastrointestinal: No abdominal pain, no vomiting, no diarrhea. Genitourinary: No dysuria, no hematuria. Two episodes of vaginal bleeding as described above. Musculoskeletal: Normal range of motion. Skin: No rashes, no pruritis. Neurological: No dizziness, weakness, sensory change, speech change. Endo/Heme/Allergies: No bruising or bleeding. No polydipsia. Pysch: no suicidality, no anxiety, no insomnia. All other systems reviewed and are negative. [facility] Surgical History History of Amplatzer atrial septal defect closure ?Z87.74 - Personal history of (corrected) congenital malformations of heart and circulatory system (ICD-10) Status post aortic coarctation stent placement ?Z95.828 - Presence of other vascular implants and grafts (ICD-10) ?Z87.74 - Personal history of (corrected) congenital malformations of heart and circulatory system (ICD-10) History of right heart catheterization ?Z98.890 - Other specified postprocedural states (ICD-10) Social History Smoking Status: Never smoker Do you use any of these nicotine containing products: None How often do you have a drink containing alcohol: never How often do you have six or more drinks on one occasion: Never AUDIT-C Alcohol total score: 0 Non-prescribed substance use: denies use Exam Narrative: Exam Narrative: Constitutional: Well-developed, well-nourished, no acute distress. HEENT: Normocephalic, atraumatic. Neck: Normal range of motion. Nontender. Supple. Heart: Regular. No murmurs. Normal rate. Intact distal pulses. Lungs: Clear to auscultation. No chest discomfort. No wheezes, rhonchi, or rales. Abdomen: Normal bowel sounds. Nontender. No rebound tenderness. Genitalia: Deferred. Back: No midline tenderness. Normal range of motion. Extremities: Normal range of motion. No injury. Skin: Intact. No rash. Warm. No erythema or pallor. Neurologic: No altered sensation. No weakness. Alert and oriented. Psychiatric: No suicidality. No anxiety or depression. No insomnia. Nursing notes and vitals signs are reviewed. Const: Vital Signs, click to edit/add: Vital Signs - 24 hr 10/04/23 11:45 Temperature 97.7 F Pulse Rate [Pulse Oximeter] 98 Respiratory Rate 16 Blood Pressure [Ri ght Upper Arm] 111/76 Pulse Oximetry 91 Oxygen Delivery Me thod Room Air Course Vital Signs Vital signs: Initial Vital Signs Temperature 97.7 F 10/04/23 11:45 Temperature Source Temporal Artery Scan 10/04/23 11:45 Pulse Rate 98 10/04/23 11:45 Respiratory Rate 16 10/04/23 11:45 Blood Pressure 111/76 10/04/23 11:45 Blood Pressure Mean 87 10/04/23 11:45 Blood Pressure Position Sitting 10/04/23 11:45 Pulse Oximetry 91 10/04/23 11:45 Oxygen Delivery Method Room Air 10/04/23 11:45 Vital Signs Temperature 97.7 F 10/04/23 11:45 Pulse Rate 98 10/04/23 11:45 Respiratory Rate 16 10/04/23 11:45 Blood Pressure 111/76 10/04/23 11:45 Pulse Oximetry 91 10/04/23 11:45 Oxygen Delivery Method Room Air 10/04/23 11:45 Temperature 97.7 F 10/04/23 11:45 Pulse Rate 98 10/04/23 11:45 Respiratory Rate 16 10/04/23 11:45 Blood Pressure 111/76 10/04/23 11:45 Pulse Oximetry 91 10/04/23 11:45 Oxygen Delivery Method Room Air 10/04/23 11:45 MDM - Female Genitourinary MDM Narrative Medical decision making narrative: This 27-year-old female reports 2 episodes of blood per vagina. She has had a hysterectomy so does uncertain where this may have come from. She does not report any trauma or injury that would trigger this. She denies having any pain and feels normal in every way. Hemoglobin today returns with normal finding as does pelvic transvaginal ultrasound. There was no sign of active bleeding and no blood on the ultrasound probe from the exam. This patient is okay to return home and advised to follow up with her regular physicians. She should return if symptoms are recurrent. Lab Data Labs: Lab Results 10/04/23 Range/Units 12:15 WBC 6.70 (4.50-11.00) K/uL RBC 5.10 (4.00-5.20) m/uL Hgb 15.7 (12.0-16.0) gm/dL Hct 47.8 (33.0-51.0) % MCV 94 (80-100) fL MCH 31 (26-34) pg MCHC 33 (32-36) gm/dL RDW Coeff of Jessie 12.7 (11.5-15.5) % Plt Count 180 (140-440) K/uL Neut % (Auto) 74.0 H (42.0-72.0) % Lymph % (Auto) 16.1 L (20-44) % Powell % (Auto) 6.0 (0.0-11.0) % Eos % (Auto) 3.6 (0.0-7.0) % Baso % (Auto) 0.3 (0.0-3.0) % Neut # (Auto) 5.00 (1.7-7.0) K/uL Lymph # (Auto) 1.10 (0.90-2.90) K/uL Powell # (Auto) 0.40 (0.00-0.90) K/UL Eos # (Auto) 0.24 (0.00-0.50) K/uL Baso # (Auto) 0.02 (0.00-0.30) K/uL Abs Immat Gran (auto) 0.00 (0.00-0.30) K/uL Imm/Tot Granulo (auto) 0.0 % Discharge Plan Discharge Clinical Impression: Vaginal bleeding Patient Disposition: Home, Self-Care Condition: Stable Additional Instructions: Continue current plans. Follow up with MD return if symptoms are recurrent or worsening. Prescriptions: No Action escitalopram oxalate 10 mg tablet 20 mg PO DAILY hydroxyzine HCl 25 mg tablet 25 mg PO Q6H PRN (Reason: anxiety) progesterone micronized 100 mg capsule 100 mg PO QPM lurasidone 40 mg tablet 40 mg PO DAILY Jardiance 10 mg tablet 10 mg PO DAILY Follow Up/Referrals: Chava Wise MD [Primary Care Provider] - Stand Alone Forms: GiveForward Info Instructions
[2023-10-04 12:26] LABS: Basophils Absolute Auto 0.02 K/uL (0.00-0.30); Basophils Percent Auto 0.3 % (0.0-3.0); Eosinophils Absolute Auto 0.24 K/uL (0.00-0.50); Eosinophils Percent Auto 3.6 % (0.0-7.0); Hematocrit 47.8 % (33.0-51.0); Hemoglobin* 15.7 gm/dL (12.0-16.0); Lymphocytes Percent Auto 16.1 % (20-44); Mean Corpuscular HGB Conc 33 gm/dL (32-36); Mean Corpuscular Hemoglobin 31 pg (26-34); Mean Corpuscular Volume 94 fL (80-100); Platelet Count* 180 K/uL (140-440); RDW Coefficient of Variation % 12.7 % (11.5-15.5)
[2023-10-04 12:28] LABS: Slide Review Reflex No
== END 2023-10-04 13:00 | disposition home or self-care (01) ==
PROVIDERS: Emergency Provider Emergency Medicine Emergency Medical Services; PCP Family Medicine
DX: N93.9 Abnormal uterine and vaginal bleeding, unspecified (principal); Z98.890 Other specified postprocedural states
CPT/HCPCS: 36415; 76830; 85025; 99283; 99284

== ENCOUNTER 2024-01-31 09:55 | Emergency (ER) | payer OTHER, SELFPAY ==
[2024-01-31 10:04] VITALS: BP 129/81; PULSE 102; RESP 14; TEMP 35.9; O2SAT 91; BMI 33.2
[2024-01-31 10:35] VITALS: PULSE 93; O2SAT 92
--- NOTE | 2024-01-31 10:36 | CRLHL7_ITS ---
For Patients: As a result of the Century Cures Act, medical imaging exams and procedure reports are released immediately into your electronic medical record. You may view this report before your referring provider. If you have questions, please contact your health care provider. INDICATION: Fever, shortness of breath COMPARISON: 02/16/2022 TECHNIQUE: PA and lateral 2 view chest. FINDINGS: Lung volumes are moderate. Patchy opacities in the left lower lobe. No pulmonary edema. No pleural effusion. No pneumothorax. No pneumomediastinum. Heart size is normal. Short segment stent at the aortic arch. Likely vascular occlusion device over the left lower chest. Multiple sternotomy wires, the superior and inferior most wires are broken, similar to prior. Bones: Normal for age. IMPRESSION: Patchy left lower lobe opacities are presumably infectious or inflammatory. Dictated by Pretty Olivier MD @ 01/31/2024 11:09:47 AM (Electronically Signed)
[2024-01-31 10:45] VITALS: PULSE 90; O2SAT 93
[2024-01-31 10:58] LABS: PCR FLU A Negative PCR FLU A (Negative); PCR FLU B Negative PCR FLU B (Negative); PCR RSV Negative PCR RSV (Negative); SARS PCR* POSITIVE SARS-CoV-2 (Negative)
--- OUTSIDE RECORDS SUMMARY | 2024-01-31 10:59 | XMS_ITS | Clinical Summary ---
Author Organization [facility] Address [address] [place] [address] Care Team Providers Care Cv Tech Name Role Phone Unavailable Primary Care Provider Unavailabl e Source Comments You are receiving this document as you are listed as the primary care provider,follow-up provider, or the patient has been referred to you for consultation.This is in compliance with the Medicare andMedicaid EHR Incentive Program,which states Providers who transition their patient to another setting of careor provider of care or refers their patient to another provider of care shouldprovide summary care record for each transition of care or referral. [facility] Allergies Active Allergy Reactions Criticality Noted Date Comments Gluten Meal Gastrointestinal 08/12/2018 Hydrocodone Itching Medium 02/24/2018 Morphine Anaphylaxis,Rash High 06/13/2017 Other reaction(s): Rash Oxycodone Itching Medium 02/24/2018 Nose Nose Nose Medications Medication Sig Dispensed Refills Start Date End Date Status LISINOPRIL 5 MG OR TABS Take one tablet by mouth every day. Active DIGOXIN 0.25 MG OR TABS 1 TABLET DAILY Active MULTI-VIT/FLUORID E OR None Entered Active APAP JR STR 160 MG OR CHEW Chew 2 tablets every 6 hours as needed for fever or pain 1 box/bottle 0 05/26/2006 Active Additional Information Patient not taking.Reported on 03/08/2021 IBUPROFEN 100 MG OR CHEW Chew 3 1/2 tablets every 6 hours needed for pain or fever. 1 bottle/box 0 05/26/2006 Active Additional Information Patient not taking.Reported on 03/08/2021 ALBUterol sulfate HFA 108 (90 Base) MCG/ACT inhalerIndication s:Cough,Wheezing Inhale 1-2 Puffs every 4 hours as needed for Wheezing. 1 Each 03/08/2021 Active Active Problems No known active problems Social History Tobacco Use Types Packs/Day Years Used Date Smoking Tobacco: Never Smokeless Tobacco: Never Sex and Gender Information Value Date Recorded Sex Assigned at Not on file Gender Identity Not on file Sexual Orientation Not on file Last Filed Vital Signs Vital Sign Reading Time Taken Comments Blood Pressure 109/76 03/08/2021 8:35 AM MOTION PICTURE CAMERAMAN Pulse 97 03/08/2021 8:35 AM MOTION PICTURE CAMERAMAN Temperature 37.2 C (98.9 F) 03/08/2021 8:35 AM MOTION PICTURE CAMERAMAN Respiratory Rate 18 03/08/2021 8:35 AM MOTION PICTURE CAMERAMAN Oxygen Saturation 94% 03/08/2021 8:35 AM MOTION PICTURE CAMERAMAN Inhaled Oxygen Concentration - - Weight 24.5 kg (54 lb) 05/26/2006 5:25 PM CDT Height - - Body Mass Index - - Plan of Treatment Health Maintenance Due Date Last Done Comments Cervical Cancer Screening Due 1996 Hep C Screening (Preventive Services) 1996 Adult Preventive Visit 2014 HepB (1) 10/21/2015 DTaP/Tdap/Td (7 - Tdap) 10/13/2019 10/13/19 10, 07/16/2001, 07/16/2001, Additional history exists COVID-19 Vaccine ( season) 2023 Influenza (#1) 2023 03/05/2019, 10/2019, 02/27/2019, Additional history exists Zoster/Shingles (1 of 2) 2046 Hib Completed 01/31/1998, 04/25, 05/11/1997, Additional history exists IPV (Polio) Completed 07/16/2001, 04/25, 03/17/1997, Additional history exists HepA Completed 01/29/2007, 06/12/2006 HPV Vaccine Completed 09/24/2012, 09/2010, 10/12/2009 Chlamydia Discontinued 09/28/2019 HIV Screening (Preventive Services) Completed 09/28/2019 Infant RSV Aged Out No longer eligi ble based on patient's age to complete this topic MCV4 Aged Out No longer eligi ble based on patient's age to complete this topic Pneumococcal Aged Out No longer eligi ble based on patient's age to complete this topic [address] [facility] [id number] Vanessa Davis Personal/Family Mother 1972 [address] [place] [address]
[2024-01-31 11:00] VITALS: PULSE 98; O2SAT 91
--- OUTSIDE RECORDS SUMMARY | 2024-01-31 11:00 | XMS_ITS | Encounter Summary ---
Author Organization [place] Address [address] [facility] [place] [address] Care Team Providers Care Judicial Law Clerk Name Role Phone Maryellen Monterroso Primary Care Provider Abby Nicolas MD Unavailable Reason for Visit * Reason Onset Date Comments Clinic Care Coordination - Follow-up 12/12/2023 Encounter Details Date Type Department Care Team (Late st Contact Info) Description 12/12/2023 MyC Medical Advice [facility] Heart [address] [address] Meño Pryor MD [id number] [place] [address] Clinic Care Coordination - Follow-up Social History Tobacco Use Types Packs/Day Years Used Date Smoking Tobacco: Never Smokeless Tobacco: Never Alcohol Use Standard Drinks/Week Comments Yes 0 (1 standard drink = 0.6 oz pur e alcohol) occasionally PHQ-2 Answer Date Recorded PHQ-2 Score 0 12/22/2021 Adolescent Education Answer Date Record ed Getting School Help Needed Not on file 11/17 Comments No Sex and Gender Information Value Date Recorded Sex Assigned at Not on file Legal Sex Female 4:04 AM ENGROSSER Gender Identity Not on file Sexual Orientation Not on file documented as of this encounter Plan of Treatment Upcoming Encounters Date Type Department Care Team (Late st Contact Info) Description 03/10/2024 10:00 AM ENGROSSER Lab [facility] [address] [place] [address] Meño Pryor MD [address] [place] [phone] 03/10/2024 10:30 AM ENGROSSER Appointment [facility] [address] [place] [address] Meño Pryor MD [address] [place] [address] [phone] 03/10/2024 1:00 PM ENGROSSER Ancillary Procedure [facility] Clinic [address] 3rd [place] [address] Meño Pyror MD [address] [place] [address] [phone] 03/10/2024 1:15 PM ENGROSSER Office Visit [facility] [address] [address] Meño Pryor MD [address] [place] [address] documented as of this encounter Visit Diagnoses Not on filedocumented in this encounter Care Teams Judicial Law Clerk Relationship Specialty Start Date End Date Maryellen Monterroso PCP - General Physician Administrative Associate 02/03/13 Abby Nicolas MD [address] [address] Pediatric Cardiology 02/02/15 documented as of this encounter
--- OUTSIDE RECORDS SUMMARY | 2024-01-31 11:00 | XMS_ITS | Encounter Summary ---
Author Organization [place] Address [address] [facility] [place] [address] Care Team Providers Care Cryptologic Technician Operator/Analyst Name Role Phone Maryellen Monterroso Primary Care Provider [phone] Abby Nicolas MD Unavailable [phone] Encounter Details Date Type Department Care Team (Late st Contact Info) Description 10/02/2023 MyC Medical Advice [facility] Clinic [address] [address] Meño Pryor MD [facility] [address] [phone] Social History Tobacco Use Types Packs/Day Years [...] on file Legal Sex Female 4:04 AM HOME HEALTH CARE WORKER Gender Identity Not on file Sexual Orientation Not on file documented as of this encounter Plan of Treatment Upcoming Encounters Date Type Department Care Team (Late st Contact Info) Description 03/10/2024 10:00 AM HOME HEALTH CARE WORKER Lab [facility] [address] [place] [address] Meño Pryor MD [address] [place] [address] [phone] 03/10/2024 10:30 AM HOME HEALTH CARE WORKER Appointment M [facility] [address] [place] [phone] Meño Pryor MD [address] [place] [address] [phone] 03/10/2024 1:00 PM HOME HEALTH CARE WORKER Ancillary Procedure [facility] [address]rd [place] [address] Meño Pryor MD [address] [place] [address] [phone] 03/10/2024 1:15 PM HOME HEALTH CARE WORKER Office Visit [facility] Heart [address] [address] Meño Pryor MD [address] [place] [address] [phone] documented as of this encounter Visit Diagnoses Not on filedocumented in this encounter Care Teams Cryptologic Technician Operator/Analyst Relationship Specialty Start Date End Date Maryellen Monterroso PCP - General Physician Box Office Attendant 02/03/13 Abby Nicolas MD [address] [place] [phone] Pediatric Cardiology 02/02/15 documented as of this encounter
--- OUTSIDE RECORDS SUMMARY | 2024-01-31 11:00 | XMS_ITS | Encounter Summary ---
Author Organization [place] Address [address] [facility] [place] [address] Care Team Providers Care Commercial Attorney Name Role Phone Maryellen Monterroso Primary Care Provider [phone] Abby Nicolas MD Unavailable [phone] Reason for Referral * Consultation (Routine: Next available opening) - Pending Review Specialty Diagnoses / Procedures Referred By Contac t Referred To Contact Cardiovascular Disease Diagnoses 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 Meño Pryor MD [address] [facility] [place] [address] Phone: tel: fax: Referral ID Status Reason Start Date Expiration Date V isits Requested Visits Authorized [id number] Pending Review 05/28/2023 05/27/2024 1 1 Question Answer Follow-up with: Self Reason for follow-up: Adult Congenital Scheduling Instructions: [facility] will call you to coordinate your care as prescribed by your provider. If you have concerns about scheduling, please call [phone]. Comments Follow up with Dr Pryor with an echo and labs prior [facility] will call you to coordinate your care as prescribed by your provider. If you have concerns about scheduling, please call [phone]. * CV Testing (Routine) - Pending Review Specialty Diagnoses / Procedures Referred By Contac t Referred To Contact Diagnoses 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 Procedures ECHO Congenital Transthoracic (TTE) [facility] ECHO XTHORACIC,MARIO ANOM,COMPLETE [facility] ECHO CONGENITAL W/CONTRAST [facility] ECHO CONGENITAL W/O CONTRAST [facility] DOPPLER ECHO PULSED, COMPLETE [facility] DOPPLER ECHO COLOR FLOW VELOCITY MAP [facility] STATISTIC IV PUSH SINGLE INITIAL SUBSTANCE NE DOPPLER ECHO PULSED, COMPLETE NE DOPPLER ECHO COLOR FLOW VELOCITY MAP NE ECHO XTHORACIC,MAIRO ANOM,COMPLETE NE ECHO CONGENITAL W/O CONTRAST HC DOPPLER ECHO PULSED, COMPLETE HC DOPPLER ECHO COLOR FLOW VELOCITY MAP HC STATISTIC IV PUSH SINGLE INITIAL SUBSTANCE HC ECHO CONGENITAL ANOM W/CONTRAST HC ECHO CONGENITAL ANOM W/O CONTRAST Meño Pryor MD [address] [address] Phone: tel: fax: Referral ID Status Reason Start Date Expiration Date V isits Requested Visits Authorized [id number] Pending Review 05/28/2023 05/27/2024 1 1 Reason for Visit * Reason Onset Date Comments Clinic Care Coordination - Follow-up 05/28/2023 Encounter Details Date Type Department Care Team (Late st Contact Info) Description 05/28/2023 MyC Medical Advice [facility] [place] [address] [facility] [address] [place] [phone] Meño Pryor MD [address] [facility] [address] [address] Clinic Care Coordination - Follow-up Social [...] on file Legal Sex Female 4:04 AM VP RESEARCH Gender Identity Not on file Sexual Orientation Not on file documented as of this encounter Plan of Treatment Upcoming Encounters Date Type Department Care Team (Late st Contact Info) Description 03/10/2024 10:00 AM VP RESEARCH Lab [facility] [address] [place] [address] Meño Pryor MD [address] [place] [phone] 03/10/2024 10:30 AM VP RESEARCH Appointment [facility] Care [address] [place] [address] Meño Pryor MD [address] [place] [address] [phone] 03/10/2024 1:00 PM VP RESEARCH Ancillary Procedure [facility] Heart [address] 3rd [place] [phone] Meño Pryor MD [address] [place] [phone] 03/10/2024 1:15 PM VP RESEARCH Office Visit [facility] Heart [address] [phone] Meño Pryor MD [address] [place] [phone] Scheduled Orders Name Type Priority Associated Diagnoses Order Schedule ECHO Congenital Transthoracic (TTE) Echocardiography Routine 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 Expected: 07/28/2023 (Approximate), Expires: 05/27/2024 Scheduled Referrals Name Type Priority Associated Diagnoses Orde r Schedule Follow-Up with Cardiology Referral Routine: Next available opening 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 Expected: 09/19/2023 (Approximate), Expires: 08/29/2024 documented as of this encounter 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 % 09/19/19 3:03 PM CDT [facility] Blood STRUCTURE OF LEFT UPPER LIMB / Unknown Venipuncture / Unknown 09/19/2023 11:58 AM CDT 09/19/2023 11:58 AM CDT Meño Pryor MD LAB - BLOOD ORDERABLES Final Result [facility] [address] [facility], Room [address] [address] * AFP tumor marker (09/19/2023 11:58 AM CDT) AFP tumor marker 4.6 <=8.3 ng/mL 09/19/2023 5:45 PM CDT [facility] Blood STRUCTURE OF LEFT UPPER LIMB / Unknown Venipuncture / Unknown 09/19/2023 11:58 AM CDT 09/19/2023 11:58 AM CDT Narrative [facility] - 09/19/2023 5:45 PM CDT This result is obtained using the [employer] AFP method on the tara e801 immunoassay analyzer. Results obtained with different assay methods or kits cannot be used interchangeably. Reference ranges apply to non- females only. us Meño Pryor MD LAB - BLOOD ORDERABLES Final Result LABORATORY [facility] Core Lab [address] [facility], [address] * Prealbumin (09/19/2023 11:58 AM CDT) Prealbumin 23.9 20.0 - 40.0 mg/dL 09/19/2023 5:23 PM CDT [facility] Blood STRUCTURE OF LEFT UPPER LIMB / Unknown Venipuncture / Unknown 09/19/2023 11:58 AM CDT 09/19/2023 11:58 AM CDT Meño Pryor MD LAB - BLOOD ORDERABLES Final Result Performing Organization Address City/[facility]/ZIP Co de Phone Number LABORATORY [facility] Core Lab [address] [facility], [address] [place] [address] * (ABNORMAL) IgG (09/19/2023 11:58 AM CDT) Immunoglobulin G 602(L) 610 - 1,616 mg/dL 09/20/2023 7:50 AM CDT SPECIALTY CORE/PROT/END O Blood STRUCTURE OF LEFT UPPER LIMB / Unknown Venipuncture / Unknown 09/19/2023 11:58 AM CDT 09/19/2023 11:58 AM CDT Meño Pryor MD LAB - BLOOD ORDERABLES Final Result [facility] CORE/PROT/ENDO [facility] Special[facility] Core/Prot/Endo [address] [facility], Room [address] documented in this encounter Visit Diagnoses Diagnosis Hypoplastic left heart syndrome- Primary Adult congenital heart disease Unspecified congenital anomaly of heart HLHS (hypoplastic left heart syndrome) 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 Other postprocedural status documented in this encounter Care Teams Commercial Attorney Relationship Specialty Start Date End Date Maryellen Monterroso PCP - General Physician Ground Control Approach Technician 02/03/13 Abby Nicolas MD [address] [address] Pediatric Cardiology 02/02/15 documented as of this encounter
--- OUTSIDE RECORDS SUMMARY | 2024-01-31 11:00 | XMS_ITS | Encounter Summary ---
Author Organization [place] Address [address] [facility] [place] [address] Care Team Providers Care Bituminous Distributor Operator Name Role Phone Maryellen Monterroso Primary Care Provider [phone] Abby Nicolas MD Unavailable [phone] Yenifer Ibrahim PA-C Unavailable [phone] Encounter Details Date Type Department Care Team ([facility] Contact Info) Description 11/27/2021 MyC Medical Advice [facility] Heart [address] [address] Starla Carter RN Social History Tobacco Use Types Packs/Day Years Used Date Smoking Tobacco: Never Smokeless Tobacco: Never Alcohol Use Standard Drinks/Week Comments Yes 0 (1 standard drink = 0.6 oz pur e alcohol) occasionally PHQ-2 Answer Date Recorded PHQ-2 Score 0 07/26/2020 Comments No Sex and Gender Information Value Date Recorded Sex Assigned at Not on file Legal Sex Female 4:04 AM MANUFACTURING LEAD Gender Identity Not on file Sexual Orientation Not on file documented as of this encounter Plan of Treatment Upcoming Encounters Date Type Department Care Team (Late st Contact Info) Description 03/10/2024 10:00 AM MANUFACTURING LEAD Lab [facility] [address] [place] [address] Meño Pryor MD [address] [place] [id number] 03/10/2024 10:30 AM MANUFACTURING LEAD Appointment [facility] Care [address] [place] [phone] Meño Pryor MD [address] [place] [address] [id number] 03/10/2024 1:00 PM MANUFACTURING LEAD Ancillary Procedure [facility] [address] [place] [phone] Meño Pryor MD [address] [place] [address] [id number] 03/10/2024 1:15 PM MANUFACTURING LEAD Office Visit [address] [phone] Meño Pryor MD [address] [place] [address] [phone] documented as of this encounter Visit Diagnoses Not on filedocumented in this encounter Care Teams Bituminous Distributor Operator Relationship Specialty Start Date End Date Maryellen Monterroso PCP - General Physician Tuna Purse Seiner 02/03/13 Abby Nicolas MD [address] [place] [address] [phone] Pediatric Cardiology 02/02/15 Yenifer Ibrahim PA-C [address] [place] [address] Assigned Neuroscience Provider 09/01/22 03/20/23 documented as of this encounter
--- OUTSIDE RECORDS SUMMARY | 2024-01-31 11:00 | XMS_ITS | Referral Summary ---
Author Organization [place] Address [address] [facility] [place] [address] Care Team Providers Care Internet Sourcer Name Role Phone Maryellen Monterroso Primary Care Provider [phone] Abby Nicolas MD Unavailable Encounters Date Type Department Care Team Description 01/27/[address] [phone] Meño Pryor MD Refill Request (empagliflozin (JARDIANCE) 10 MG TABS tablet 90 tablet 1 09/19/2023) 12/12/2023 MyC Medical Advice [address] [address] Meño Pryor MD Clinic Care Coordination - Follow-up from Last 3 Months Allergies Active Allergy Reactions Criticality Noted Date Comments Gluten Meal GI Disturbance 08/12/2018 Hydrocodone Itching 02/24/2018 Morphine 01/26/2018 Oxycodone Itching 02/24/2018 Nose Vancomycin Medium 08/29/2022 Medications escitalopram (LEXAPRO) 10 MG tablet Take 10 mg by mouth every morning 3 Active hydrOXYzine (ATARAX) 25 MG tablet TAKE 1 TABLET (25 MG) BY MOUTH EVERY 6 HOURS IF NEEDED FOR ITCHING. 3 Active amoxicillin-cla vulanate (AUGMENTIN) 875-125 MG tablet Take 1 tablet by mouth 2 times daily 3 Active clotrimazole (LOTRIMIN) 1 % external creamIndication s:Surgical wound infection Apply topically 2 times daily 28 g 3 Active Additional Information Patient not taking.Reported on 09/19/2023 cephALEXin (KEFLEX) 500 MG capsuleIndicati ons:Surgical wound infection Take 1 capsule (500 mg) by mouth 3 times daily For 5 days 15 capsule 3 Active Additional Information Patient not taking.Reported on 09/19/2023 cephALEXin (KEFLEX) 500 MG capsuleIndicati ons:Cellulitis of both lower extremities,Hyp oplastic left heart syndrome,Adult congenital heart disease Take 1 capsule (500 mg) by mouth 4 times daily For 7 days 28 capsule 3 Active Additional Information Patient not taking.Reported on 09/19/2023 metoprolol succinate ER (TOPROL XL) 25 MG 24 hr tabletIndicatio ns:Palpitations Take 0.5 tablets (12.5 mg) by mouth daily 45 tablet 4 Active empagliflozin (JARDIANCE) 10 MG TABS tabletIndicatio ns:Hypoplastic left heart syndrome,Adult congenital heart disease,HLHS (hypoplastic left heart syndrome),S/P Fontan procedure,Palpi tations Take 1 tablet (10 mg) by mouth daily 90 tablet 1 4 Active Active Problems Problem Noted Date Diagnosed Date Surgical wound infection 08/29/2022 Chest pain 03/03/2019 HLHS (hypoplastic left heart syndrome) 6 Cardiac arrhythmia 06/13/2006 Overview (01/26/2016): Overview: 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 Varicella 10/30/2001 Overview (01/26/2016): Overview: HAD DISEASE Hypoplastic left heart syndrome 1996 Overview (01/26/2016): Overview: Chainstitch Pants Outseamer is Dr Cory Velazquez in [facility] Resolved Problems Problem Noted Date Diagnosed Date Resolved Date Inadequate pain control 02/03/2013 07/2 10/2020 Apnea of 05/01/2006 09/22/2020 Immunizations Name Administration Dates Next Due Influenza Vaccine >6 months,quad, PF 03/05/2019 Social History Tobacco Use Types Packs/Day Years Used Date Smoking Tobacco: Never Smokeless Tobacco: Never Tobacco Cessation:Counseling Given: Not Answered Alcohol Use Standard Drinks/Week Comments Yes 0 (1 standard drink = 0.6 oz pur e alcohol) occasionally PHQ-2 Answer Date Recorded PHQ-2 Score 0 12/22/2021 Adolescent Education Answer Date Record ed Getting School Help Needed Not on file 11/17 Comments No Sex and Gender Information Value Date Recorded Sex Assigned at Not on file Legal Sex Female 4:04 AM FORMING MACHINE TENDER Gender Identity Not on file Sexual Orientation Not on file Last Filed Vital Signs Vital Sign Reading Time Taken Comments Blood Pressure 107/70 09/19/2023 9:33 AM CDT Pulse 71 09/19/2023 9:33 AM CDT Temperature 37 C (98.6 F) 12/12/2022 3:08 PM CDT Respiratory Rate 18 12/12/2022 3:08 PM CDT Oxygen Saturation 93% 09/19/2023 9:33 AM CDT Inhaled Oxygen Concentration - - Weight 79.4 kg (175 lb) 09/19/2023 9:33 AM CDT Height 152.4 cm (5') 08/29/2022 12:57 PM CDT Body Mass Index 34.18 08/29/2022 12:57 PM CDT Plan of Treatment Upcoming Encounters Date Type Department Care Team (Late st Contact Info) Description 03/10/2024 10:00 AM FORMING MACHINE TENDER [facility] Laboratory [address] [place] [address] Meño Pryor MD [address] [phone] 03/10/2024 10:30 AM FORMING MACHINE TENDER Appointment [facility] Heart Care [address] [place] [phone] Meño Pryor MD [address] [place] [address] 576854 03/10/2024 1:00 PM FORMING MACHINE TENDER Ancillary Procedure [facility] Heart [address] 3rd [place] [phone] Meño Pryor MD [address] [place] [address] [phone] 03/10/2024 1:15 PM FORMING MACHINE TENDER Office Visit [address] [phone] Meño Proyr MD [address] [place] [address] [phone] Procedures Procedure Name Priority Date/Time Associated Diagnosis Comments CHLAMYDIA TRACHOMATIS PCR STAT 04/07/2014 11:55 PM FORMING MACHINE TENDER Abdominal Pain, Right Lower Quadrant from Last 3 Months or Most Recently Relevant to Health Maintenance Results * Chlamydia trachomatis PCR (04/07/2014 11:55 PM FORMING MACHINE TENDER) Specimen Description Midstream Urine U [facility] Chlamydia Trachomatis PCR Negative Negative for C. trachomatis rRNA by technician submarine cable equipment mediated amplification. A negative result by technician submarine cable equipment mediated amplification does not preclude the presence of C. trachomatis infection because results are dependent on proper and adequate collection, absence of inhibitors, and sufficient rRNA to be detected. NEG [facility] Urine specimen (specimen) 04/07/2014 11:55 PM FORMING MACHINE TENDER 04/08/2014 1:47 AM FORMING MACHINE TENDER us Norman Woodall MD LAB - MICRO GENERAL ORDERABLES F inal Result [facility] [address] [place] [address], [facility] U OF [facility] from Last 3 Months or Most Recently Relevant to Health Maintenance Insurance [facility] INDIVIDUAL FAMILY [facility]ANS [facility] [employer]ILY [employer] Advance Directives For more information, please contact: [phone] * Full Code (Latest Code Status on File) Date Activated Date Inactivated Comments 08/29/2022 6:32 PM 08/30/2022 1:34 PM All basic and advanced life-sustaining interventions are performed as appropriate Question Answer Comments Code status determined by: Discussion with patie nt/ legal decision maker * Full Code Date Activated Date Inactivated Comments 01/27/2016 6:48 AM 02/24/2018 6:54 AM * Full Code Date Activated Date Inactivated Comments 02/03/2013 2:31 PM 01/27/2016 6:48 AM Care Teams Internet Sourcer Relationship Specialty Start Date End Date Maryellen Monterroso PCP - General Physician Attic Fans Mechanic 02/03/13 Abby Nicolas MD [address] [place] [address] Pediatric Cardiology 02/02/15
--- OUTSIDE RECORDS SUMMARY | 2024-01-31 11:00 | XMS_ITS | Encounter Summary ---
Author Organization [place] Address [address] [place] [address] Care Team Providers Care Pilot Control Operator Helper Name Role Phone Maryellen Monterroso Primary Care Provider [phone] Abby Nicolas MD Unavailable [phone] Yenifer Ibrahim PA-C Unavailable [phone] Encounter Details Date Type Department Care Team (Late st Contact Info) Description 11/07/2021 MyC Medical Advice [facility] [address] [address] Avelina Jackson CMA Social History Tobacco Use Types Packs/Day Years Used Date Smoking Tobacco: Never Smokeless Tobacco: Never Alcohol Use Standard Drinks/Week Comments Yes 0 (1 standard drink = 0.6 oz pur e alcohol) occasionally PHQ-2 Answer Date Recorded PHQ-2 Score 0 07/26/2020 Comments No Sex and Gender Information Value Date Recorded Sex Assigned at Not on file Legal Sex Female 4:04 AM ENGINEERING SPECIALIST TECHNICIAN Gender Identity Not on file Sexual Orientation Not on file COVID-19 Exposure Response Date Recorded In the last 10 days, have yo u been in contact with someone who was confirmed or suspected to have Coronavirus/COVID-19? No / Unsure 2021 3:07 PM CDT documented as of this encounter Plan of Treatment Upcoming Encounters Date Type Department Care Team (Late st Contact Info) Description 03/10/2024 10:00 AM ENGINEERING SPECIALIST TECHNICIAN Lab [facility] [address] [place] [address] Meño Pryor MD [address] [place] [address] [phone] 03/10/2024 10:30 AM ENGINEERING SPECIALIST TECHNICIAN Appointment [facility] Care [address] [place] [phone] Meño Pryor MD [address] [place] [address] [id number] 03/10/2024 1:00 PM ENGINEERING SPECIALIST TECHNICIAN Ancillary Procedure [facility] [address] [place] [address] 3rd [place] [address] Meño Pryor MD [address] [place] [address] [phone] 03/10/2024 1:15 PM ENGINEERING SPECIALIST TECHNICIAN Office Visit [facility] [address] [address] Meño Pryor MD [address] [place] [address] [phone] documented as of this encounter Visit Diagnoses Not on filedocumented in this encounter Care Teams Pilot Control Operator Helper Relationship Specialty Start Date End Date Kriss Maryellen M PCP - General Physician Machine Tank Operator 02/03/13 Abby Nicolas MD NPI: [id number] [place] [address] Pediatric Cardiology 02/02/15 Yenifer Ibrahim PA-C [address] [place] [address] Assigned Neuroscience Provider 09/01/22 03/20/23 documented as of this encounter
--- OUTSIDE RECORDS SUMMARY | 2024-01-31 11:00 | XMS_ITS | Clinical Summary ---
Author Organization [place] Address [address] [facility] [place] [address] Care Team Providers Care Unit Control Clerk Name Role Phone Maryellen Monterroso Primary Care Provider [phone] Abby Nicolas MD Unavailable Allergies Active Allergy Reactions Criticality Noted Date [...] left heart syndrome 1996 Overview (01/26/2016): Overview: Airfield Engineer Officer is Dr Cory Velazquez in [facility] Resolved Problems Problem Noted Date Diagnosed Date Resolved Date Inadequate pain control 02/03/20132 10/2020 Apnea of 05/01/2006 09/22/2020 Encounters Date Type Department Care Team Description 01/27/2024 [facility] [address] [address] Meño Pryor MD Refill Request (empagliflozin (JARDIANCE) 10 MG TABS tablet 90 tablet 1 09/19/2023) 12/12/2023 MyC Medical Advice [facility] Clinic [place] [id number] [place] [phone] Meño Pryor MD Clinic Care Coordination - Follow-up from Last 3 Months Immunizations Name Administration Dates Next Due Influenza [...] on file Legal Sex Female 4:04 AM REGISTRY NP Gender Identity Not on file Sexual Orientation [...] st Contact Info) Description 03/10/2024 10:00 AM REGISTRY NP Lab [facility] Laboratory [address] [place] [address] Meño Pryor MD [facility] [address] [id number] 03/10/2024 10:30 AM REGISTRY NP Appointment [facility] Care [address] [place] [phone] Meño Pryor MD [address] [place], [place] [address]D[address] [phone] 03/10/2024 1:00 PM REGISTRY NP Ancillary Procedure [facility] Heart [address] 3rd [place] [phone] Meño Pryor MD [address] [place] [address] 03/10/2024 1:15 PM REGISTRY NP Office Visit [address] [address] Meño Pryor MD [address] [place] [address] [phone] Health Maintenance Due Date Last Done Comments ANNUAL REVIEW OF HM ORDERS 1996 Pneumococcal Vaccine: Pediatrics (0 to 5 Years) and At-Risk Patients (6 to 64 Years) (1 of 2 - PCV) 2002 HIV SCREENING 10/21/2011 HEPATITIS C SCREENING 2014 ADVANCE CARE PLANNING 02/24/2023 02/24/2018 PHQ-2 (once per calendar year) 2023 12/22/2021, 07/26/2020 COVID-19 Vaccine ( season) 2023 INFLUENZA VACCINE (#1) 2023 , 03/14/2016, 11/09/2014, Additional history exists YEARLY PREVENTIVE VISIT 07/25/2024 07/26/2023 PAP 04/17/2025 04/17/2022, 07/27, 08/22/2016 DTAP/TDAP/TD IMMUNIZATION (8 - Td or Tdap) 07/25/2033 07/26/2023, 10/12/2009, 07/16/2001, Additional history exists RSV VACCINE (1 - 1-dose 75+ series) 10/21/2071 HEPATITIS B IMMUNIZATION Completed 998, 03/17/1997, 01/14/1997 HPV IMMUNIZATION Completed 09/24/2012, 09/2010, 10/12/2009 CHLAMYDIA SCREENING Discontinued 08/10/2021, 01/27/2019, 08/22/2016, Additional history exists MENINGITIS IMMUNIZATION Aged Out No l onger eligible based on patient's age to complete this topic RSV MONOCLONAL ANTIBODY Aged Out No l onger eligible based on patient's age to complete this topic Procedures Procedure Name Priority Date/Time Associated Diagnosis Comments CHLAMYDIA TRACHOMATIS PCR STAT 04/07/2014 11:55 PM REGISTRY NP Abdominal Pain, Right Lower Quadrant from Last 3 Months or Most Recently Relevant to Health Maintenance Results * Chlamydia trachomatis PCR (04/07/2014 11:55 PM REGISTRY NP) Specimen Description Midstream Urine U [facility] Chlamydia Trachomatis PCR Negative Negative for C. trachomatis rRNA by power distribution engineer mediated amplification. A negative result by power distribution engineer mediated amplification does not preclude the presence of C. trachomatis infection because results are dependent on proper and adequate collection, absence of inhibitors, and sufficient rRNA to be detected. NEG [facility] Urine specimen (specimen) 04/07/2014 11:55 PM REGISTRY NP 04/08/2014 1:47 AM REGISTRY NP Norman Woodall MD LAB - MICRO GENERAL ORDERABLES F inal Result [facility] [address] [place], [place] [address] U [facility] from Last 3 Months or Most Recently Relevant to Health Maintenance Insurance [employer] [address] [place] [address] [employer] Advance Directives For more information, please contact: [phone] * Full Code (Latest Code Status on [...] 2:31 PM 01/27/2016 6:48 AM Care Teams Unit Control Clerk Relationship Specialty Start Date End Date Maryellen Monterroso PCP - General Physician Clay Caster 02/03/13 Abby Nicolas MD [address] [address] Pediatric Cardiology 02/02/15
--- OUTSIDE RECORDS SUMMARY | 2024-01-31 11:00 | XMS_ITS | Encounter Summary ---
Author Organization [place] Address [address] [facility] [place] [address] Care Team Providers Care Saw Straightener Name Role Phone Maryellen Monterroso Primary Care Provider [phone] Abby Nicolas MD Unavailable [phone] Encounter Details Date Type Department Care Team (Late st Contact Info) Description 10/03/2023 MyC Medical Advice [facility] Heart [address] [address] CristinaDali torres Social History Tobacco Use Types Packs/Day Years [...] on file Legal Sex Female 4:04 AM BULK PLANT MANAGER Gender Identity Not on file Sexual Orientation Not on file documented as of this encounter Plan of Treatment Upcoming Encounters Date Type Department Care Team (Late st Contact Info) Description 03/10/2024 10:00 AM BULK PLANT MANAGER Lab [facility] [address] [place] [address] Meño Pryor MD [address] [place] [address] 03/10/2024 10:30 AM BULK PLANT MANAGER Appointment [facility] Care [address] [place] [phone] Meño Pryor MD [address] [place] [address] [phone] 03/10/2024 1:00 PM BULK PLANT MANAGER Ancillary Procedure [facility] Heart [address] 3rd [place] [phone] Meño Pryor MD [address] [place] [address] [phone] 03/10/2024 1:15 PM BULK PLANT MANAGER Office Visit [address] [phone] Meño Pryor MD [address] [place] [address] [phone] documented as of this encounter Visit Diagnoses Not on filedocumented in this encounter Care Teams Saw Straightener Relationship Specialty Start Date End Date Maryellen Monterroso PCP - General Physician It Senior Software Engineer Java 02/03/13 Abby Nicolas MD [address] [place] [address] [phone] Pediatric Cardiology 02/02/15 documented as of this encounter
--- OUTSIDE RECORDS SUMMARY | 2024-01-31 11:00 | XMS_ITS | Encounter Summary ---
Author Organization [place] Address [address] [facility] [place] [address] Care Team Providers Care Manager General Name Role Phone Maryellen Monterroso Primary Care Provider [phone] Abby Nicolas MD Unavailable [phone] Yenifer Ibrahim PA-C Unavailable [phone] Reason for Visit * Reason Onset Date Comments Appointment 10/06/2021 Pt would like to do her echo today - please call to advise Encounter Details Date Type Department Care Team (Late st Contact Info) Description 10/06/2021 Telephone [facility] [place] [address] [address] [place] [address] Meño Pryor MD [facility] [place], [place] [phone] Appointment (Pt would like to do her echo today - please call to advise) Social History Tobacco Use Types Packs/Day Years Used Date Smoking Tobacco: Never Smokeless Tobacco: Never Alcohol Use Standard Drinks/Week Comments Yes 0 (1 standard drink = 0.6 oz pur e alcohol) occasionally PHQ-2 Answer Date Recorded PHQ-2 Score 0 07/26/2020 Comments No Sex and Gender Information Value Date Recorded Sex Assigned at Not on file Legal Sex Female 4:04 AM ORACLE WMS CONSULTANT Gender Identity Not on file Sexual Orientation Not on file documented as of this encounter Miscellaneous Notes * Telephone Encounter - Ashlie Marcano - 10/06/2021 9:14 AM CDT [facility] Call Center Phone Message May a detailed message be left on voicemail: yes Reason for Call: Appointment Intake Referring Provider Name: Roya Diagnosis and/or Symptoms: Pt would like to change her Echo from the to today. Please call to advise if this is a possability. Action Taken: Message routed to: [facility] cardio Travel Screening: Not Applicable documented in this encounter Plan of Treatment Upcoming Encounters Date Type Department Care Team (Late st Contact Info) Description 03/10/2024 10:00 AM ORACLE WMS CONSULTANT Lab [facility] [address] [place] [address] Meño Pryor MD [address] [place] [address] 03/10/2024 10:30 AM ORACLE WMS CONSULTANT Appointment [facility] Care [address] [place] [phone] Meño Pryor MD [address] [place] [address] 03/10/2024 1:00 PM ORACLE WMS CONSULTANT Ancillary Procedure [facility] [place] [address] [facility] [address] 3rd [place] [address] Meño Pryor MD [address] [place] [address] 03/10/2024 1:15 PM ORACLE WMS CONSULTANT Office Visit [facility] [address] [place] [phone] Meño Pryor MD [address] [address] documented as of this encounter Visit Diagnoses Not on filedocumented in this encounter Care Teams Manager General Relationship Specialty Start Date End Date Kriss Maryellen M PCP - General Physician Pipe Smoking Machine Offbearer 02/03/13 [place] [address] [place] [address] Pediatric Cardiology 02/02/15 Yenifer Ibrahim PA-C [address] [place] [address] Assigned Neuroscience Provider 09/01/22 03/20/23 documented as of this encounter
--- OUTSIDE RECORDS SUMMARY | 2024-01-31 11:00 | XMS_ITS | Encounter Summary ---
Author Organization [place] Address [address] [facility] [place] [address] Care Team Providers Care Application Development Team Lead Name Role Phone KrissAnyadwoa Staton Primary Care Provider Abby Nicolas MD Unavailable [phone] Marilou Suresh MD Unavailable + Yenifer Ibrahim PA-C Unavailable [phone] Reason for Visit * Reason Onset Date Comments Appointment 07/06/2020 Patient being re ferred for S/P Fontan procedure, s/p Fontan, assess and follow liver by Meño Flores Encounter Details Date Type Department Care Team (Late st Contact Info) Description 07/06/2020 Telephone [facility] [address] [address] None Appointment (Patient being referred for S/P Fontan procedure, s/p Fontan, assess and follow liver by Meño Flores) Social History Tobacco Use Types Packs/Day Years Used Date Smoking Tobacco: Never Smokeless Tobacco: Never Alcohol Use Standard Drinks/Week Comments Yes 0 (1 standard drink = 0.6 oz pur e alcohol) occasionally Comments No Sex and Gender Information Value Date Recorded Sex Assigned at Not on file Legal Sex Female 4:04 AM CORPORATE MANAGER Gender Identity Not on file Sexual Orientation Not on file COVID-19 Exposure Response Date Recorded In the last month, have you been in contact with someone who was confirmed or suspected to have Coronavirus / COVID-19? No / Unsure 07/05/2020 8:41 AM CDT documented as of this encounter Miscellaneous Notes * Telephone Encounter - Zarina Rodrigues - 07/06/2020 9:33 AM CDT [facility] Phone Message May a detailed message be left on voicemail: yes Reason for Call: Patient being referred for S/P Fontan procedure, s/p Fontan, assess and follow liver by Meño Pryor. Entertainment Reporter sending TE message for clinic review and follow-up with patient, because Dxis not in guidelines for scheduling. Action Taken: Message routed to: [facility] Hepatology Travel Screening: Not Applicable documented in this encounter Plan of Treatment Upcoming Encounters Date Type Department Care Team (Late st Contact Info) Description 03/10/2024 10:00 AM CORPORATE MANAGER Lab [facility] [address] [place] [address] Meño Pryor MD [address] [place] [address] 03/10/2024 10:30 AM CORPORATE MANAGER Appointment [facility] Care [address] [place] [phone] Meño Pryor MD [address] [place] [address] 16[address] 03/10/2024 1:00 PM CORPORATE MANAGER Ancillary Procedure [facility] [place] [id number] [facility] 3rd [place] [phone] Meño Pryor MD [address] [place] [address] [phone] 03/10/2024 1:15 PM CORPORATE MANAGER Office Visit [facility] Heart [address] [phone] Meño Pryor MD [address] [place] [address] documented as of this encounter Visit Diagnoses Not on filedocumented in this encounter Care Teams Application Development Team Lead Relationship Specialty Start Date End Date Maryellen Monterroso PCP - General Physician Geographic Analyst 02/03/13 Abby Nicolas MD [address] [place] [address]774 Pediatric Cardiology 02/02/15 Marilou Suresh MD [address] [place] [address] Assigned Gastroenterology Provider 07/31/20 06/24/21 Yenifer Ibrahim PA-C [address] [place] [address] Assigned Neuroscience Provider 09/01/22 03/20/23 documented as of this encounter
--- OUTSIDE RECORDS SUMMARY | 2024-01-31 11:00 | XMS_ITS | Encounter Summary ---
Author Organization [place] Address [address] [place] [address] Care Team Providers Care Cloth Wire Weaver Name Role Phone Maryellen Monterroso Primary Care Provider [phone] Abby Nicolas MD Unavailable [phone] Encounter Details Date Type Department Care Team ([facility] Contact Info) Description 10/14/2023 MyC Medical Advice [facility] [address] [address] Starla Carter RN Social History [...] on file Legal Sex Female 4:04 AM LOG RAFTER Gender Identity Not on file Sexual Orientation Not on file documented as of this encounter Plan of Treatment Upcoming Encounters Date Type Department Care Team ([facility] st Contact Info) Description 03/10/2024 10:00 AM LOG RAFTER Lab [facility] [address] [place] [address] Meño Pryor MD [address] [place] [address] 03/10/2024 10:30 AM LOG RAFTER Appointment M [facility] Care [address] [place] [phone] Meño Pryor MD [address] [place] [address] [phone] 03/10/2024 1:00 PM LOG RAFTER Ancillary Procedure [facility] [address] [place] [phone] Meño Pryor MD [address] [place] [address] [phone] 03/10/2024 1:15 PM LOG RAFTER Office Visit [address] [phone] Meño Pryor MD [address] [place] [address] [phone] documented as of this encounter Visit Diagnoses Not on filedocumented in this encounter Care Teams Cloth Wire Weaver Relationship Specialty Start Date End Date Maryellen Monterroso PCP - General Physician Director Apparel 02/03/13 Abby Nicolas MD [address] [place] [address] [phone] Pediatric Cardiology 02/02/15 documented as of this encounter
--- OUTSIDE RECORDS SUMMARY | 2024-01-31 11:00 | XMS_ITS | Encounter Summary ---
Author Organization [place] Address [address] [facility] [place] [address] Care Team Providers Care Senior Case Manager Name Role Phone Maryellen Monterroso Primary Care Provider [phone] Abby Nicolas MD Unavailable [phone] Encounter Details Date Type Department Care Team (Late st Contact Info) Description 09/19/[address] [facility] Clinic [address] [address] Iwona Velazquez, RN [place], [place] [phone] Social History Tobacco Use Types Packs/Day Years [...] on file Legal Sex Female 4:04 AM SVP CHIEF MARKETING OFFICER Gender Identity Not on file Sexual Orientation Not on file documented as of this encounter Plan of Treatment Upcoming Encounters Date Type Department Care Team (Late st Contact Info) Description 03/10/2024 10:00 AM SVP CHIEF MARKETING OFFICER Lab [facility] [address] [place] [address] Meño Pryor MD [address] [place] [address] [phone] 03/10/2024 10:30 AM SVP CHIEF MARKETING OFFICER Appointment M [facility] Heart Care [address] [place] [phone] Meño Pryor MD [address] [place] [address] [phone] 03/10/2024 1:00 PM SVP CHIEF MARKETING OFFICER Ancillary Procedure [facility] Clinic [address] [place] [phone] Meño Pryor MD [address] [place] [address] 191904 03/10/2024 1:15 PM SVP CHIEF MARKETING OFFICER Office Visit [facility] Heart [address] [phone] Meño Pryor MD [address] [place] [address] [phone] documented as of this encounter Visit Diagnoses Not on filedocumented in this encounter Care Teams Senior Case Manager Relationship Specialty Start Date End Date Maryellen Monterroso PCP - General Physician Flower Buncher Or Picker 02/03/13 Abby Nicolas MD [address] [place] [address] [phone] Pediatric Cardiology 02/02/15 documented as of this encounter
--- OUTSIDE RECORDS SUMMARY | 2024-01-31 11:00 | XMS_ITS | Encounter Summary ---
Author Organization [place] Address [address] [facility] [place] [address] Care Team Providers Care Highway Truck Driver Name Role Phone Maryellen Monterroso Primary Care Provider Abby Nicolas MD Unavailable Reason for Visit * Reason Comments Refill Request empagliflozin (JARDI ANCE) 10 MG TABS tablet 90 tablet 1 09/19/2023 Encounter Details Date Type Department Care Team (Late st Contact Info) Description 01/27/[address] [facility] Clinic [address] [address] Meño Pryor MD [address] [place] [address] [place] [address] Refill Request (empagliflozin (JARDIANCE) 10 MG TABS tablet 90 tablet 1 09/19/2023) Social History Tobacco Use Types Packs/Day Years [...] on file Legal Sex Female 4:04 AM WAGE ADJUSTER Gender Identity Not on file Sexual Orientation Not on file documented as of this encounter Miscellaneous Notes * Telephone Encounter - Bess Craig RN - 01/31/2024 8:38 AM CST Images from the original note were not included. empagliflozin (JARDIANCE) 10 MG TABS tablet 90 tablet 1 09/19/2023 Last Office Visit: 09/19/23 Future Office visit: 03/10/24 Sodium Glucose Co-Transport Inhibitor Agents Kysjse9601/27/2024 12:28 AM Protocol Details Medication indicated for associated diagnosis Routing refill request to provider for review/approval because: NOT ON CARDIOLOGY REFILL PROTOCOL Bess Craig RN [facility] Central Nursing/Red Flag Triage & Med Refill Team ADJUSTER documented in this encounter Plan of Treatment Upcoming Encounters Date Type Department Care Team (Late st Contact Info) Description 03/10/2024 10:00 AM WAGE ADJUSTER Lab [facility] [address] [place] [address] Meño Pryor MD [address] [place] [address] 03/10/2024 10:30 AM WAGE ADJUSTER Appointment M [facility] Care [address] [place] [address] Meño Pryor MD [address] [place] [address] 03/10/2024 1:00 PM WAGE ADJUSTER Ancillary Procedure [facility] Heart Clinic [place] [address] [facility] 3rd [place] [phone] Meño Pryor MD [address] [phone] 03/10/2024 1:15 PM WAGE ADJUSTER Office Visit [facility] Heart [address] [phone] Meño Pryor MD [address] [place] [address] [phone] documented as of this encounter Visit Diagnoses Diagnosis 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
--- OUTSIDE RECORDS SUMMARY | 2024-01-31 11:00 | XMS_ITS | Encounter Summary ---
Author Organization [place] Address [address] [facility] [place] [address] Care Team Providers Care Scientific Writer Name Role Phone Maryellen Monterroso Primary Care Provider Abby Nicolas MD Unavailable [phone] Yenifer Ibrahim PA-C Unavailable [phone] Encounter Details Date Type Department Care Team (Late Contact Info) Description 10/04/2021 MyC Medical Advice [facility] Heart [address] [address] Avelina Jackson CMA Social History [...] on file Legal Sex Female 4:04 AM WASHING MACHINE REPAIRER Gender Identity Not on file Sexual Orientation Not on file documented as of this encounter Plan of Treatment Upcoming Encounters Date Type Department Care Team (Late Contact Info) Description 03/10/2024 10:00 AM WASHING MACHINE REPAIRER Lab [facility] [place] [address] [place] [address] Meño Pryor MD [address] [place] [address] [phone] 03/10/2024 10:30 AM WASHING MACHINE REPAIRER Appointment M [facility] Care [address] [place] [phone] Meño Pryor MD [address] [place] [address] [phone] 03/10/2024 1:00 PM WASHING MACHINE REPAIRER Ancillary Procedure [facility] Heart [address] 3rd [place] [address] Meño Pryor MD [address] [place] [address] [phone] 03/10/2024 1:15 PM WASHING MACHINE REPAIRER Office Visit [address] [phone] Meño Pryor MD [address] [place] [address] [phone] documented as of this encounter Visit Diagnoses Not on filedocumented in this encounter Care Teams Scientific Writer Relationship Specialty Start Date End Date Maryellen Monterroso PCP - General Physician Electromechanical Technologist 02/03/13 Abby Nicolas MD [address] [place] [address] [phone] Pediatric Cardiology 02/02/15 Yenifer Ibrahim PA-C [address] [place] [address] Assigned Neuroscience Provider 09/01/22 03/20/23 documented as of this encounter
--- OUTSIDE RECORDS SUMMARY | 2024-01-31 11:00 | XMS_ITS | Encounter Summary ---
Author Organization [place] Address [address] [facility] [place] [address] Care Team Providers Care Operations Forester Name Role Phone Maryellen Monterroso Primary Care Provider [phone] Abby Nicolas MD Unavailable [phone] Yenifer Ibrahim PA-C Unavailable [phone] Encounter Details Date Type Department Care Team (Late st Contact Info) Description 01/08/2023 MyC Medical Advice [facility] Heart Clinic [address] [address] Avelina Jackson CMA Social History [...] on file Legal Sex Female 4:04 AM TRIBUNAL MEMBER Gender Identity Not on file Sexual Orientation Not on file documented as of this encounter Plan of Treatment Upcoming Encounters Date Type Department Care Team (Late st Contact Info) Description 03/10/2024 10:00 AM TRIBUNAL MEMBER Lab [facility] [address] [place] [address] Meño Pryor MD [address] [place] [address] 03/10/2024 10:30 AM TRIBUNAL MEMBER Appointment M [facility] Heart Care [address] [place] [phone] Meño Pryor MD [address] [place] [address] [phone] 03/10/2024 1:00 PM TRIBUNAL MEMBER Ancillary Procedure [facility] Clinic [address] [place] [address] Meño Pryor MD [address] [place] [address] 580274 03/10/2024 1:15 PM TRIBUNAL MEMBER Office Visit [facility] Heart [address] [phone] Meño Pryor MD [address] [place] [address] [phone] documented as of this encounter Visit Diagnoses Not on filedocumented in this encounter Care Teams Operations Forester Relationship Specialty Start Date End Date Maryellen Monterroso PCP - General Physician Stage Electrician 02/03/13 Abby Nicolas MD [address] [place] [address] 649274 Pediatric Cardiology 02/02/15 Yenifer Ibrahim PA-C [address] [place] [address] Assigned Neuroscience Provider 09/01/22 03/20/23 documented as of this encounter
--- OUTSIDE RECORDS SUMMARY | 2024-01-31 11:00 | XMS_ITS | Encounter Summary ---
Author Organization [place] Address [address] [place] [address] Care Team Providers Care Urinalysis Technician Name Role Phone Maryellen Monterroso Primary Care Provider Abby Nicolas MD Unavailable [phone] Marilou Suresh MD Unavailable + Yenifer Ibrahim PA-C Unavailable [phone] Encounter Details Date Type Department Care Team (Late st Contact Info) Description 05/19/[address] [facility] Heart Clinic [address] [address] Unknown Social History Tobacco Use Types Packs/Day Years Used Date Smoking Tobacco: Never Smokeless Tobacco: Never Alcohol Use Standard Drinks/Week Comments Yes 0 (1 standard drink = 0.6 oz pur e alcohol) occasionally PHQ-2 Answer Date Recorded PHQ-2 Score 0 07/26/2020 Comments No Sex and Gender Information Value Date Recorded Sex Assigned at Not on file Legal Sex Female 4:04 AM RECREATIONAL LEADER Gender Identity Not on file Sexual Orientation Not on file documented as of this encounter Miscellaneous Notes * Telephone Encounter - Binta Louis - 05/19/2021 2:37 PM CDT Congenital Team Pt left a MyC message asking if she needs a cardiac update. I sent her a message back letting her know I would pass this message onto you. Thank you! documented in this encounter Plan of Treatment Upcoming Encounters Date Type Department Care Team (Late st Contact Info) Description 03/10/2024 10:00 AM RECREATIONAL LEADER Lab [facility] Laboratory [address] [place] [address] Meño Pryor MD [address] [place] [address] 03/10/2024 10:30 AM RECREATIONAL LEADER Appointment M [facility] Heart Care [address] [place] [address] Meño Pryor MD [address] [place] [address] [phone] 03/10/2024 1:00 PM RECREATIONAL LEADER Ancillary Procedure [facility] Heart [address] 3rd [place] [phone] Meño Pryor MD [address] [place] [address] [phone] 03/10/2024 1:15 PM RECREATIONAL LEADER Office Visit [facility] Heart [address] [phone] Meño Pryor MD [address] [place] [address] [phone] documented as of this encounter Visit Diagnoses Not on filedocumented in this encounter Care Teams Urinalysis Technician Relationship Specialty Start Date End Date Maryellen Monterroso PCP - General Physician Programmer Business 02/03/13 Abby Nicolas MD [address] [address] Pediatric Cardiology 02/02/15 Marilou Suresh MD [address] [address] Assigned Gastroenterology Provider 07/31/20 06/24/21 Yenifer Ibrahim PA-C [address] [phone] Assigned Neuroscience Provider 09/01/22 03/20/23 documented as of this encounter
--- OUTSIDE RECORDS SUMMARY | 2024-01-31 11:00 | XMS_ITS | Encounter Summary ---
Author Organization [place] Address [address] [facility] [place] [address] Care Team Providers Care Web Marketing Intern Name Role Phone Maryellen Monterroso Primary Care Provider [phone] Abby Nicolas MD Unavailable [phone] Yenifer Ibrahim PA-C Unavailable [phone] Reason for Referral * CV Testing (Routine) - Closed Specialty Diagnoses / Procedures Referred By Contwenceslao t Referred To Contact Cardiology Diagnoses Hypoplastic left heart syndrome Procedures ECHO Congenital Transthoracic (TTE) ZZHC ECHO XTHORACIC,MARIO ANOM,COMPLETE ZZHC ECHO CONGENITAL W/CONTRAST ZZHC ECHO CONGENITAL W/O CONTRAST ZZHC DOPPLER ECHO PULSED, COMPLETE ZZHC DOPPLER ECHO COLOR FLOW VELOCITY MAP ZZHC STATISTIC IV PUSH SINGLE INITIAL SUBSTANCE FL DOPPLER ECHO PULSED, COMPLETE FL DOPPLER ECHO COLOR FLOW VELOCITY MAP FL ECHO XTHORACIC,MARIO ANOM,COMPLETE FL ECHO CONGENITAL W/O CONTRAST HC DOPPLER ECHO PULSED, COMPLETE HC DOPPLER ECHO COLOR FLOW VELOCITY MAP HC STATISTIC IV PUSH SINGLE INITIAL SUBSTANCE HC ECHO CONGENITAL ANOM W/CONTRAST HC ECHO CONGENITAL ANOM W/O CONTRAST Meño Pryor MD [address] [place] [address] Phone: tel: fax: [facility] [address] [facility] [address] [place] [address] Phone: tel: fax: Referral ID Status Reason Start Date Expiration Date Visits Re quested Visits Authorized [id number] Closed 09/25/2021 09/25/2022 1 1 Reason for Visit * Reason Onset Date Comments Call to schedule test 09/25/2021 Candie b[place] Encounter Details Date Type Department Care Team (Late st Contact Info) Description 09/25/2021 [facility] [place] [address] [facility] [address] [place] [address] Meño Pryor MD [address] [facility] [place] [address] Call to schedule test (Candie congenital ) Social History Tobacco Use Types Packs/Day Years Used Date Smoking Tobacco: Never Smokeless Tobacco: Never Alcohol Use Standard Drinks/Week Comments Yes 0 (1 standard drink = 0.6 oz pur e alcohol) occasionally PHQ-2 Answer Date Recorded PHQ-2 Score 0 07/26/2020 Comments No Sex and Gender Information Value Date Recorded Sex Assigned at Not on file Legal Sex Female 4:04 AM JAVA CONSULTANT Gender Identity Not on file Sexual Orientation Not on file documented as of this encounter Miscellaneous Notes * Telephone Encounter - Dali Evans - 09/25/2021 5:03 PM CDT Scheduled and confirmed with pt.. * Telephone Encounter - Brisa Lezama - 09/25/2021 1:08 PM CDT [facility] Phone Message May a detailed message be left on voicemail: yes Reason for Call: Other: please call to schedule with Dr pryor Action Taken: Other: routed to cardiology Travel Screening: Not Applicable documented in this encounter Plan of Treatment Upcoming Encounters Date Type Department Care Team (Late st Contact Info) Description 03/10/2024 10:00 AM JAVA CONSULTANT Lab [facility] [address] [place] [address] Meño Pryor MD [address] [place] [address] [address] 03/10/2024 10:30 AM JAVA CONSULTANT Appointment [facility] [address] [place] [address] Meño Pryor MD [address] [place], [place] [address] [address] [address] 03/10/2024 1:00 PM JAVA CONSULTANT Ancillary Procedure [facility] [address] [place] [address] Meño Pryor MD [address] [place], [place] [address] [address] [address] 03/10/2024 1:15 PM JAVA CONSULTANT Office Visit [facility] [address] [phone] Meño Pryor MD [address] [place], [place] [address] [address] [id number] documented as of this encounter Results * ECHO CONGENITAL ADULT (TTE) (2021 3:27 PM CDT) Anatomical Region Laterality Modality Echocardiography 2021 3:13 PM CDT Narrative 2021 4:07 PM CDT [id number]^CANDIE^MEÑO^LOCO Study ID: [id number] [facility]'[address] [place] [address] Pediatric Echocardiogram Name: NEGRA DELMER L Study Date: 2021 03:13 PM Patient Location: [facility] Age: 26 yrs : 1995 Gender: Female HR: 93 Patient Class: Outpatient Height: 152 cm Ordering Provider: MEÑO PRYOR Weight: 68 kg Referring Provider: MEÑO PRYOR BSA: 1.6 m2 Performed By: Luisa Gardner Report approved by: James Goodman MD Reason For Study: Hypoplastic left heart syndrome ##### CONCLUSIONS ##### Hypoplastic left heart syndrome. Patient has undergone [place], Romain and Fontan operations. Status-post Fontan fenestration closure with a ASO device (04/2004). Status-post descending aorta stent placement (01/2016). No residual Fontan fenestration flow. Unobstructed flow across the aortic stent; normal abdominal aortic flow profile. Mild/moderate systemic tricuspid valve regurgitation. Moderate right ventricular dilation with qualitatively low-normal systolic function. Romain anastamosis and flow not well-seen. Low- velocity, phasic flow seen in the Fontan. No significant change from last echocardiogram. Technical information: A complete two dimensional, MMODE, spectral and color Doppler transthoracic echocardiogram is performed. Technically difficult study due to poor acoustic windows. Images are obtained from parasternal, apical, subcostal and suprasternal notch views. Prior echocardiogram available for comparison. ECG tracing shows regular rhythm. Segmental Anatomy: There is normal atrial arrangement. Absent left atrioventricular connection. 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 Systemic and pulmonary veins: The right-sided Romain shunt could not be visualized. There is laminar phasic color flow in the Romain shunt. Patient has undergone Fontan operation. The Fontan connection is widely patent with phasic laminar flow. Post device closure of Fontan fenestration. The pulmonary veins are not well visualized. Atria and atrial septum: The right and left atria are normal in size. Post atrial septectomy. There is laminar flow across the atrial level communication. Atrioventricular valves: The tricuspid valve is normal in appearance and motion. Upper mild (1-2+) tricuspid valve insufficiency. Mitral valve atresia. LV dp/dt 1212 mmHg/s. Ventricles and Ventricular Septum: There is moderate right ventricular enlargement. Low normal right ventricular systolic function. 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 There is no ventricular level shunting. Outflow tracts: Patient has undergone Ariana operation. The systemic outflow tract is unobstructed. There is no stenosis of the leland-aortic valve. There is trace insufficiency of the leland-aortic valve. Great arteries: The branch pulmonary arteries are not seen with this study. There is normal pulsatile flow in the descending abdominal aorta. Post stenting of coarctation of the aorta. There is no residual coarctation of the aorta. Coronaries: The coronary arteries are not evaluated. Effusions, catheters, cannulas and leads: No pericardial effusion. Doppler Measurements & Calculations LV dP/dt: 826.0 mmHg/s desc Ao max mart: 137.7 cm/sec desc Ao max P.6 mmHg Report approved by: Radha Du 2021 04:07 PM Procedure Note James Goodman MD - 2021 [id number]^CANDIE^MEÑO^LOCO Study ID:[id number] [place] [address] [facility] [place] [address] Pediatric Echocardiogram Name: DAVIS DELMER L Study Date: 2021 03:13 PM Patient Location:[facility] Age: 26 yrs : 1995 Gender: Female HR: 93 Patient Class: Outpatient Height: 152 cm Ordering Provider: MEÑO PRYOR Weight: 68 kg Referring Provider: MEÑO PRYOR BSA: 1.6 m2 Performed By: Luisa Gardner Report approved by: James Goodman MD Reason For Study: Hypoplastic left heart syndrome ##### CONCLUSIONS ##### Hypoplastic left heart syndrome. Patient has undergone [place], Glennand Fontan operations. Status-post Fontan fenestration closure with a ASOdevice (04/2004). Status-post descending aorta stent placement (01/2016). No residual Fontan fenestration flow. Unobstructed flow across theaortic stent; normal abdominal aortic flow profile. Mild/moderate systemictricuspid valve regurgitation. Moderate right ventricular dilation withqualitatively low-normal systolic function. Romain anastamosis and flow not well-seen.Low- velocity, phasic flow seen in the Fontan. No significant change from last echocardiogram. Technical information: A complete two dimensional, MMODE, spectral and color Dopplertransthoracic echocardiogram is performed. Technically difficult study due to pooracoustic windows. Images are obtained from parasternal, apical, subcostal and suprasternal notch views. Prior echocardiogram available for comparison.ECG tracing shows regular rhythm. Segmental Anatomy: There is normal atrial arrangement. Absent left atrioventricularconnection. 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 Systemic and pulmonary veins: The right-sided Romain shunt could not be visualized. There is laminarphasic color flow in the Romain shunt. Patient has undergone Fontan operation.The Fontan connection is widely patent with phasic laminar flow. Post device closure of Fontan fenestration. The pulmonary veins are not wellvisualized. Atria and atrial septum: The right and left atria are normal in size. Post atrial septectomy. Thereis laminar flow across the atrial level communication. Atrioventricular valves: The tricuspid valve is normal in appearance and motion. Upper mild(1-2+) tricuspid valve insufficiency. Mitral valve atresia. LV dp/dt 1212mmHg/s. Ventricles and Ventricular Septum: There is moderate right ventricular enlargement. Low normal rightventricular systolic function. 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 There isno ventricular level shunting. Outflow tracts: Patient has undergone Baltimore operation. The systemic outflow tract is unobstructed. There is no stenosis of the leland-aortic valve. There istrace insufficiency of the leland-aortic valve. Great arteries: The branch pulmonary arteries are not seen with this study. There isnormal pulsatile flow in the descending abdominal aorta. Post stenting ofcoarctation of the aorta. There is no residual coarctation of the aorta. Coronaries: The coronary arteries are not evaluated. Effusions, catheters, cannulas and leads: No pericardial effusion. Doppler Measurements & Calculations LV dP/dt: 826.0 mmHg/s desc Ao max mart: 137.7 cm/sec desc Ao max P.6 mmHg Report approved by: Radha Du 2021 04:07 PM us Meño Pryor MD CV ECHO ORDERABLES Edited Re jorge - Final documented in this encounter Visit Diagnoses Diagnosis Hypoplastic left heart syndrome- Primary Hypoplastic left heart syndrome documented in this encounter Care Teams Web Marketing Intern Relationship Specialty Start Date End Date Maryellen Monterroso PCP - General Physician Mesmerist 02/03/13 Abby Nicolas MD [address] [id number] Pediatric Cardiology 02/02/15 Yenifer Ibrahim PA-C [address] [id number] Assigned Neuroscience Provider 09/01/22 03/20/23 documented as of this encounter
[2024-01-31 11:03] LABS: Basophils Percent Auto 0.5 % (0.0-3.0); Eosinophils Percent Auto 4.2 % (0.0-7.0); Hematocrit 47.9 % (33.0-51.0); Lymphocytes Percent Auto 11.5 % (20-44); Mean Corpuscular HGB Conc 33 gm/dL (32-36); Mean Corpuscular Hemoglobin 31 pg (26-34); Mean Corpuscular Volume 93 fL (80-100); Monocytes Percent Auto 9.8 % (0.0-11.0); Platelet Count* 145 K/uL (140-440); RDW Coefficient of Variation % 12.8 % (11.5-15.5); Red Blood Count 5.18 m/uL (4.00-5.20); White Blood Count* 4.08 K/uL (4.50-11.00)
[2024-01-31 11:04] LABS: Slide Review Reflex No
[2024-01-31 11:15] VITALS: PULSE 98; O2SAT 94
[2024-01-31 11:20] LABS: Chloride* 109 mmol/L (96-114); Sodium* 141 mmol/L (135-149)
[2024-01-31 11:22] LABS: Creatinine* 0.6 mg/dL (0.5-1.5); Est. Creatinine Clearance* 101.16; Estimated Glomerular Filt Rate 126 ml/min
[2024-01-31 11:23] LABS: Anion Gap 11 mEq/L (7-15); Blood Urea Nitrogen* 10 mg/dL (5-24); Calcium* 9.2 mg/dL (8.4-10.6); Carbon Dioxide* 21 mmol/L (20-32); Glucose* 85 mg/dL (60-115)
--- NOTE | 2024-01-31 11:26 | ED_ITS ---
HPI - Fever General Date Seen: 01/31/24 Chief Complaint: Fever Stated Complaint: heart condition with potential influenza Time Seen by Provider: 01/31/24 10:09 Source: patient Mode of arrival: ambulatory Limitations: no limitations History of Present Illness HPI Narrative: Patient is a 28-year-old female presenting to emergency department for concerns of fevers, chills, congestion, diarrhea, hypoxia. 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 She states she is typically 95% range but in the past few days has been dipping down to 89 occasionally. Usually with past few days she has been around 92%. She spoke to her inspector optical instrument who recommended he get evaluated in the emergency department due to her condition. States the highest her temperature has been was 100.3. Has been taking Motrin consistently since symptoms started this past Saturday. Has some mild shortness of breath. Denies cough, hemoptysis, history of blood clots, lower extremity swelling, recent travel. Is not aware of any sick contacts. Has had some diarrhea that has improved. Denies nausea, weakness, numbness. States she has had decreased appetite but has been drinking plenty of fluids. Related Data Home Medications ?Medication ?Instructions ?Recorded ?Confirmed escitalopram oxalate 10 mg tablet 20 mg PO DAILY 02/17/23 01/31/24 empagliflozin 10 mg tablet 10 mg PO DAILY 10/04/23 01/31/24 (Jardiance) hydroxyzine HCl 25 mg tablet 25 mg PO Q6H PRN anxiety 10/04/23 01/31/24 lurasidone 40 mg tablet 20 mg PO DAILY 10/04/23 01/31/24 Previous Rx's ?Medication ?Instructions ?Recorded amoxicillin 500 mg tablet 1,000 mg (2 x 500 mg) PO TID 5 01/31/24 days #30 tabs Allergies Allergy/AdvReac Type Severity Reaction Status Date / Time hydrocodone Allergy Mild Itching Verified 01/31/24 10:03 oxycodone Allergy Mild Itching Verified 01/31/24 10:03 vancomycin AdvReac Intermediate Verified 01/31/24 10:03 morphine AdvReac Mild Nausea/Vomi Verified 01/31/24 10:03 ting Review of Systems Status of ROS Reports: 10 or more systems reviewed and unremarkable except as noted in History and below PFSH PFSH Surgical History History of Amplatzer atrial septal defect closure ?Z87.74 - Personal history of (corrected) congenital malformations of heart and circulatory system (ICD-10) Status post aortic coarctation stent placement ?Z95.828 - Presence of other vascular implants and grafts (ICD-10) ?Z87.74 - Personal history of (corrected) congenital malformations of heart and circulatory system (ICD-10) History of right heart catheterization ?Z98.890 - Other specified postprocedural states (ICD-10) Social History Smoking Status: Never smoker Do you use any of these nicotine containing products: None How often do you have a drink containing alcohol: never How often do you have six or more drinks on one occasion: Never AUDIT-C Alcohol total score: 0 Non-prescribed substance use: denies use Exam Narrative Exam Narrative: Const: Well-nourished, Well-developed, in mild distress Eyes: PERRL, no conjunctival injection, and symmetrical lids HENT: Atraumatic external nose and ears. Moist mucous membranes. Neck: Symmetric, trachea midline, No thyromegaly. CVS: RRR, No murmurs or gallops. Peripheral pulses 2+ and equal in all extremities RESP: Unlabored respiratory effort. Clear to auscultation bilaterally. GI: Nontender/Nondistended, No rebound or guarding. MSK:Extremities w/o deformity, Normal Active ROM Skin: Warm, Dry. No rashes or lesions. Neuro: Normal Muscle tone, No focal neurological deficits. Psych: Awake, Alert, & Oriented x3. Appropriate mood and affect. Const Vital Signs, click to edit/add: Vital Signs - 24 hr 01/31/24 10:04 01/31/24 10:35 01/31/24 10:45 Temperature 96.7 F L Pulse Rate 93 90 Pulse Rate [Pulse Oximeter] 102 H Respiratory Rate 14 Blood Pressure [Left Upper Arm] 129/81 Pulse Oximetry 91 92 93 Oxygen Delivery Method Room Air 01/31/24 11:00 01/31/24 11:15 01/31/24 12:04 Temperature 97.5 F L Pulse Rate 98 98 Pulse Rate [Pulse Oximeter] 94 Respiratory Rate 18 Blood Pressure [Left Upper Arm] 119/78 Pulse Oximetry 91 94 94 Oxygen Delivery Method Room Air Course Vital Signs Vital signs: Initial Vital Signs Temperature 96.7 F L 01/31/24 10:04 Temperature Source Temporal Artery Scan 01/31/24 10:04 Pulse Rate 102 H 01/31/24 10:04 Pulse Rhythm Regular 01/31/24 10:04 Respiratory Rate 14 01/31/24 10:04 Blood Pressure 129/81 01/31/24 10:04 Blood Pressure Mean 97 01/31/24 10:04 Blood Pressure Position Sitting 01/31/24 10:04 Pulse Oximetry 91 01/31/24 10:04 Oxygen Delivery Method Room Air 01/31/24 10:04 Vital Signs Temperature 96.7 F L 01/31/24 10:04 Pulse Rate 102 H 01/31/24 10:04 Respiratory Rate 14 01/31/24 10:04 Blood Pressure 129/81 01/31/24 10:04 Pulse Oximetry 91 01/31/24 10:04 Oxygen Delivery Method Room Air 01/31/24 10:04 Temperature 97.5 F L 01/31/24 12:04 Pulse Rate 94 01/31/24 12:04 Respiratory Rate 18 01/31/24 12:04 Blood Pressure 119/78 01/31/24 12:04 Pulse Oximetry 94 01/31/24 12:04 Oxygen Delivery Method Room Air 01/31/24 12:04 MDM - Fever MDM Narrative Medical decision making narrative: Patient is a 28-year-old female presenting for fever and shortness of breath. The differential diagnosis of shortness of breath is broad and includes common etiologies such as COPD, asthma, pneumonia, viral syndrome, etc. More serious etiologies considered include PE, CHF, coronary artery disease, pneumothorax, aortic dissection, aortic aneurysm. Since she is tachycardic 0102 she cannot be perked out and will have a D-dimer to look for signs of PE. CHF seems unlikely. She appears otherwise stable aortic dissection and aortic aneurysm seem unlikely. She has clear lungs and has never smoked so COPD/asthma or unlikely. Seems most likely to be viral syndrome. Will also check an x-ray for signs of pneumonia. Basic labs will be done sooner for other concerning findings. EKG and troponin order to look for signs of ACS especially considering her history. Patient is COVID positive. Rest of lab work shows no concerning abnormalities. On my review vital signs are stable throughout time in in the emergency department. Oximetry stayed in the low to mid 90s. conveyor monitor showed no concerning arrhythmias. D-dimer within normal limits. Troponin shows an EKG shows no acute concerning abnormalities. EKG looks like previous EKGs on file. Chest x-ray shows a patchy left lower lobe opacity that could be infectious or inflammatory as reviewed by myself and the radiologist. Considering the patient's history I will be cautious and treat this as an infection. Will give amoxicillin as it does not have any QT prolongation side effects. I spoke to her about Paxlovid for her COVID at this time she is not 1 it as she would have to stop her Latuda. This is reasonable and patient will be discharged just on amoxicillin. Lab Data Labs: Lab Results 01/31/24 01/31/24 01/31/24 Range/Units 10:10 10:50 11:29 WBC 4.08 L (4.50-11.00) K/uL RBC 5.18 (4.00-5.20) m/uL Hgb 16.0 (12.0-16.0) gm/dL Hct 47.9 (33.0-51.0) % MCV 93 (80-100) fL MCH 31 (26-34) pg MCHC 33 (32-36) gm/dL RDW Coeff of Jessie 12.8 (11.5-15.5) % Plt Count 145 (140-440) K/uL Neut % (Auto) 74.0 H (42.0-72.0) % Lymph % (Auto) 11.5 L (20-44) % Hampton % (Auto) 9.8 (0.0-11.0) % Eos % (Auto) 4.2 (0.0-7.0) % Baso % (Auto) 0.5 (0.0-3.0) % Neut # (Auto) 3.00 (1.7-7.0) K/uL Lymph # (Auto) 0.50 L (0.90-2.90) K/uL Hampton # (Auto) 0.40 (0.00-0.90) K/UL Eos # (Auto) 0.20 (0.00-0.50) K/uL Baso # (Auto) 0.00 (0.00-0.30) K/uL Abs Immat Gran (auto) 0.00 (0.00-0.30) K/uL Imm/Tot Granulo (auto) 0.0 % D-Dimer Quant (PE/DVT) 0.15 (0.00-0.50) ug/ml Sodium 141 (135-149) mmol/L Potassium 4.0 (3.6-5.1) mmol/L Chloride 109 (96-114) mmol/L Carbon Dioxide 21 (20-32) mmol/L Anion Gap 11 (7-15) mEq/L BUN 10 (5-24) mg/dL Creatinine 0.6 (0.5-1.5) mg/dL Estimated Creat Clear 101.16 Estimated GFR 126 ml/min Glucose 85 (60-115) mg/dL Calcium 9.2 (8.4-10.6) mg/dL Troponin I < 0.01 L (0.01-0.04) ng/mL SARS-CoV-2 (PCR) POSITIVE SARS-CoV-2 A (Negative) Influenza Type A (PCR) Negative PCR FLU A (Negative) Influenza Type B (PCR) Negative PCR FLU B (Negative) RSV (PCR) Negative PCR RSV (Negative) Lab Acknowledgement Test Added Imaging Data Chest x-ray: Attestation: I have reviewed the pertinent imaging results. Radiologist's impression: Patchy left lower lobe opacities are presumably infectious or inflammatory. Dictated by Pretty Olivier MD @ 01/31/2024 11:09:47 AM ECG Data Attestation: I personally reviewed and interpreted this ECG as follows: Prior ECG tracings: available for review Interpretation: Normal sinus rhythm rate 92 beats per minute, right axis deviation, incomplete right bundle-branch block, QT prolongation, inverted T-waves and lateral and septal leads. No ST abnormalities. Appears Just like previous EKGs on file Discharge Plan Discharge Clinical Impression: COVID Patient Disposition: Home, Self-Care Condition: Stable Instructions: COVID-19 (Coronavirus Disease 2019) (ED) Additional Instructions: Take the amoxicillin as directed. Return for new or worsening symptoms. Continue to monitor oxygen at home. Prescriptions: New amoxicillin 500 mg tablet 1,000 mg PO TID 5 Days Qty: 30 0RF No Action escitalopram oxalate 10 mg tablet 20 mg PO DAILY hydroxyzine HCl 25 mg tablet 25 mg PO Q6H PRN (Reason: anxiety) lurasidone 40 mg tablet 20 mg PO DAILY Jardiance 10 mg tablet 10 mg PO DAILY Follow Up/Referrals: Provider,Not a Local [Primary Care Provider] - Stand Alone Forms: Inform Direct Info Instructions
[2024-01-31 11:36] LABS: Troponin I* < 0.01 ng/mL (0.01-0.04)
[2024-01-31 11:41] LABS: D Dimer Quantitative* 0.15 ug/ml (0.00-0.50)
[2024-01-31 12:04] VITALS: BP 119/78; PULSE 94; RESP 18; TEMP 36.4; O2SAT 94
== END 2024-01-31 12:39 | disposition home or self-care (01) ==
PROVIDERS: Emergency Provider Student in an Organized Health Care Education/Training Program
DX: U07.1 COVID-19 (principal)
CPT/HCPCS: 36415; 71046; 80048; 84484; 85025; 85379; 87631; 93005; 99284; 99285

== ENCOUNTER 2024-04-22 13:13 | Emergency (ER) | payer OTHER, SELFPAY ==
--- OUTSIDE RECORDS SUMMARY | 2024-04-22 13:15 | XMS_ITS | Clinical Summary ---
Author Organization [employer] [facility] Address [address] [place] [id number] Care Team Providers Care Cork Insulation Setter Name Role Phone Deepthi Reyes MD Unavailable [phone] Claire Mai DO Primary Care Provider [phone] Allergies Active Allergy Reactions Criticality Noted Date Comments Hydrocodone Itching Medium 02/24/2018 Morphine Anaphylaxis,Rash High 06/13/2017 Other reaction(s): Rash Other reaction(s): Rash Other reaction(s): Rash Other reaction(s): Rash Oxycodone Itching Medium 02/24/2018 Nose Nose Nose Nose Nose Nose Nose Vancomycin vancomycin infusion reaction (cutaneous flushing/non-allergic reaction),Throat Swelling/Closing High 01/07/2023 Ghulam syndrome Medications albuterol HFA (PRO-AIR; VENTOLIN; PROVENTIL) 90 mcg/actuation inhalerIndicatio ns:SOB (shortness of breath) Inhale 1-2 Puffs by mouth every 4 hours if needed. 1 Each 0 Active escitalopram oxalate (LEXAPRO) 20 mg tabletIndication s:Generalized anxiety disorder Take 1 Tablet (20 mg) by mouth once daily in the morning. 90 Tablet 3 4 Active empagliflozin (JARDIANCE) 10 mg tablet Take 10 mg by mouth. 4 Active progesterone micronized (PROMETRIUM) 100 mg capsule TAKE 1 CAPSULE BY MOUTH EVERYDAY AT BEDTIME 4 Active fluconazole (DIFLUCAN) 200 mg tabletIndication s:Yeast infection involving the vagina and surrounding area Take 1 Tablet (200 mg) by mouth once daily. 1 Tablet 11 4 Active hydrOXYzine HCL (ATARAX) 10 mg tabletIndication s:Generalized anxiety disorder Take 1-2 Tablets (10-20 mg) by mouth 3 times daily if needed for Anxiety. 90 Tablet 4 Active lurasidone (LATUDA) 20 mg tabletIndication s:PTSD (post-traumatic stress disorder),Border line personality disorder (HC) TAKE 1 TABLET BY MOUTH EVERY DAY WITH A MEAL 30 Tablet 4 Active Active Problems Problem Noted Date Diagnosed Date Generalized anxiety disorder 11/07/2023 Borderline personality disorder 09/05/2023 Unspecified mood (affective) disorder 08/15/2023 PTSD (post-traumatic stress disorder) 08/15/2023 LGSIL of cervix of undetermined significance Overview (05/07/2022): 08/22/2016: ASCUS/HPV+ 06/16/2020: LSIL 07/07/2020: Rosie - benign 04/17/2022: ASCUS/HPV+ (16/18 neg) Plan: Pap and HPV due in 1 year. Dyspnea on exertion 11/24/2019 Status post aortic coarctation stent placement 0 07/24/2019 Bicornuate uterus 03/26/2016 History of Amplatzer atrial septal defect closur e 12/31/2010 Overview (07/07/2020): AMPLATZ device used to close a fenestration in the Fontan anastomosis AMPLATZ device used to close a fenestration in the Fontan anastomosis Cardiac dysrhythmia, unspecified 06/13/2006 Overview (08/02/2010): 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 Varicella without mention of complication 2001 Overview (05/01/2006): HAD DISEASE Hypoplastic left heart syndrome 1996 Overview (11/12/2019): [facility]HS S/P Romain and extracardiac Fontan. Fontan fenestration closed in 2004 with an Amplatzer device. Arch stents in 2015. Resolved Problems Problem Noted Date Diagnosed Date Resolved Date Retained products of conception, 11/24/2019 12/24/2022 S/P dilation and curettage 11/24/2019 1 Acute blood loss anemia 11/19/201911/27 Vaginal bleeding in 11/12/2019 05/09/2020 MPP Supervision of high-risk 11/05/2019 12/24/2022 Overview (11/10/2019): [facility] CONSULTATION ON 11/10/19 REASON FOR CONSULT: Maternal HLHS Fontan labs ordered for new baseline, can be drawn with labs with MF (INR, CMP, CBC, BNP, APTT, AFP tumor marker) TODAY'S APPOINTMENT: MD and Genetics Consultation & ultrasound exam PRIMARY DIAGNOSIS: 24 y.o. 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 Ariana Ajay-fontan LSVC to LPA Rmoain Fenestrated Fontan closed with Amplatzer ASD closure device (2004) Aortic coarctation - s/p stenting of the proximal descending aorta 01/2016 d/t elevated gradient in her proximal descending thoracic aortic arch (01/2016) Systemic RV with moderately reduced function Mild to moderate Systemic AV valve (tricupsid) regurgitation Hx CHF Fontan Associated Liver Disease - abnormal liver US at [place] (referred to hepatology) SAB X2 Bicornuate uterus Fibroid s/p myosure resection 2017 Abnormal pap 2017 - pt was unaware of results and has not had f/u mWHO Class IV: Systemic right ventricle with moderate decreased ventricular dysfunction = Maternal Cardiac Risk: 40-100%; NYHA Classification: II: slight limitation, symptoms with activity ACHD Anatomy Physiologic score (A-D): C CARPREG II SCORING Systemic ventricular dysfunction = 2.0 = 10% risk ALEXANDRA SCORING 2.51-3.5 = 43.1% LAST GROWTH: 10/10/19 8w4d REFERRING PHYSICIAN/PHONE/LAST UPDATE: Brisa Gómez MD Primary MD approves scheduling of recommended ultrasounds/testing: Yes SPECIALISTS/CONSULTS: Cardiology Dr Reyes/Dr Waters [facility] [phone] 10/28/19 High Risk -mWHO Class IV (moderately decreased systemic RV with mild to moderate TR) -she wishes to continue with and understand risks -meets criteria for 22-24 week echocardiogram (offered earlier echo at ~16 weeks but will defer as she would not consider an if her baby had cardiac defects) -establishing care with Cardiac MOMS program week of 11/01 -plan to follow monthly in cardiology clinic throughout her -echo each trimester -if has a miscarriage, needs to be admitted to hospital cardiac unit for monitoring of hemodynamics -aspirin timing per MFM, recommend starting as soon as safe form vaginal bleeding standpoint -full delivery plan will be determined closer to delivery, but anticipate recommending a vaginal delivery with assisted second stage pending no obstetric reason for with plan to delivery in cardiac ICU Plan: Medication: vitamin, recommend starting aspirin 81mg daily as soon as cleared by maternal medicine (holding off due to vaginal bleeding currently) Labs: fontan labs ordered for new baseline, can be drawn with labs with M (INR, CMP, CBC, BNP, APTT, AFP tumor marker) Cardiac testing: echo each trimester planning: currently with highly desired , if patient miscarriages she needs to be admitted to cardiac telemetry unit for monitoring until miscarriage completed Exercise recommendations: patient to self limit, ok to continue walking her dogs Lifestyle modification recommendations: 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 [facility] S/p Fontan pathway completion ([facility]). Fontan fenestration closure with Amplatzer device (04/2004). Proximal descending thoracic neoaortic arch stent (01/2016). 2. Bidirectional Romain pathway has laminar flow, free of thrombus and free of stenosis where visualized. 3. Extracardiac Fontan pathway is present with laminar flow. A Fontan fenestration is occluded with device noted, no residual shunt. 4. The tricuspid systemic AV valve has mild to moderate insufficiency. 5. The inferior vena cava is normal sized, no respiratory variation noted consistent with Fontan physiology. 6. Systemic right ventricular cavity size is mildly enlarged, global systolic RV function is moderately reduced. 7. No evidence of residual aortic coarctation with normal pulsatile flow in the abdominal aorta. 8. Patient is 11 weeks gestation, clark . PERTINENT LABS: Labs reviewed? Yes Normal? Yes 03/03/19 BNP: 74 PERTINENT MEDS: Preferred delivery location: [facility] PLAN OF CARE: Nexplanon in place 01/27/2019 0 Overview (01/27/2019): Nexplanon insertion: left arm, Vanessa Hale, MANI-BC 01/27/2019 MPP Encounter for preconcept ion MOMS consultation 12/12/2016 11/05/2019 Overview (12/12/2016): MPP MOMS PRECONCEPTION CONSULTATION ON 12/17/16 (prev consult 08/22/16 with MPP with last ) Patient not planning at this time per Dr Monterroso note 11/06/16. Needs to see Cardiology REASON FOR CONSULT: Type of Visit requested: Pre consult and all visits during and after What would you like to discuss or review? Provider Dr Piper to determine all necessary tests and procedures for patient TODAY'S APPOINTMENT: Consultation & Genetic Counseling PRIMARY DIAGNOSIS: 21 y.o. Recent demise @ 8w 09/02/16 Bicornuate uterus Hypoplastic Left Heart Syndrome-NEEDS SBE PROPHYLAXIS Cardiac catheterization with aortic stent placement to repair ascending aorta w/ stent placement 01/26/2016 Extracardiac Fontan anastomosis as a Baby ([facility]) April 2004 Amplatzer ASD closure device to close the Fontan fenestration. H/O [place], Romain, and Fontan operations H/O CHF 04/24/16 Diagnostic hysteroscopy, endometrial sampling REFERRING PHYSICIAN/PHONE/LAST UPDATE: Maryellen Monterroso [phone] Primary MD approves scheduling of recommended ultrasounds/testing: Yes SPECIALISTS/PHONE: Dr Kong Lu, ~ Urogynaecologist [facility] : Last seen for Pediatric Echo 08/08/16. LV 08/15/16 Report in Care Everywhere Cardiology -Had appointment at the [facility] 11/06/16. Patient cancelled it. 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 MUSICIAN INSTRUMENTAL did NOB after consult. NOB labs already completed and counsyl drawn. Remind her to start Vit D (sent to MY Chart) FUTURE APPOINTMENTS: Testing: Through Growth: 11/09/16 OB visits: Through 11/09/16 PRIMARY DIAGNOSIS: 20 y.o. Estimated Date of Delivery: 03/27/17 Bicornuate uterus Hypoplastic Left Heart Syndrome-NEEDS SBE PROPHYLAXIS Repair of ascending aorta w/ stent placement 01/2016 Extracardiac Fontan anastomosis as a Baby ([facility]) H/O CHF 04/24/16 Diagnostic hysteroscopy, endometrial sampling LAST GROWTH: 08/08/16 U/S @ [facility] Clinic per patient (no records) 08/02/16 5w 3d TESTING PLANS: REFERRING PHYSICIAN/PHONE/LAST UPDATE: Suri HINES Primary MD approves scheduling of recommended ultrasounds/testing: Unknown SPECIALISTS/PHONE: Dr Cory Velazquez ~ Urogynaecologist [facility] : Last seen for Pediatric Echo 08/08/16. Report in Care Everywhere Dr Shavonne Piper ~ appointment scheduled for 09/07/16 FERDINAND: FERDINAND signed for [facility]: CARE COORDINATION: Marta Nicolas and Marjorie Adame messaged 08/17/16 STOCK RAISER: GENETICS: 08/22/16 Counsyl sent; Planning First Tri Screen/NT in a few weeks CONSULTS: PROCEDURES: Repair of ascending aorta w/ stent placement 01/2016 Extracardiac Fontan anastomosis as a Baby ([facility]) History of Amplatzer atrial septal defect closure NURSING: DEPRESSION SCREEN Initial screen: Date PHQ-9 score: 24 week screen: Due ~ PHQ-9 score: Previous history of depression or anxiety? NO YES Tdap vaccine: GIVE BETWEEN 27 AND 36 WEEKS Date given: Treponema Pallidum: DRAW @ 28 WEEKS Date drawn: Plan for Gestational Diabetes screening: Plan screen @ for MEDS: PERTINENT/ABNORMAL LABS: Blood type: A positive Last pap: Initial Hgb 08/22/16 13.7 /Ferritin Hgb 28 wk Hgb 36 wk Repeat hgb anemic and compliant every 4 wks if/until >11.0 DELIVERY PLANS: Is the Delivery Plan of Care in the chart by 32 weeks? N/A Yes Date: Was Plan of Care reviewed with patient? N/A Yes Date: Planning/Not planning Tubal Ligation Is/Is not Medical assistance PLAN OF CARE:s Cough 06/13/2006 06/13/2006 Overview (06/13/2006): Croup premature 05/01/2006 09/28/2019 Encounters Date Type Department Care Team Description 04/21/2024 Refill [facility] [address] [place] [address] Ann Parkinson NP Refill Request (Lurasidone) 02/18/2024 Refill [facility] [address] [place] [address] Ann Parkinson NP Refill Request (Lurasidone) from Last 3 Months Immunizations Name Administration Dates Next Due AMB Influenza, IIV3 (Age >=3 years)(Flu Clinic Only) 12/08/2012 DTP 05/11/1997,03/17/1997,01/14/1997 DTaP 07/16/2001, 8,05/11/1997,1997,01/14/1997 HIB PRP-OMP (PedvaxHIB) 01/31/1998,05/11,03/17/1997,1996 Hepatitis A (Peds) 01/29/2007,06/12/2006 Hepatitis A (Peds),Unspecified 01/29/2007,2006 Hepatitis B (Peds) 07/14/1997,03/17/1997, 997 Hepatitis B, Unspecified 07/14/1997,03/17/1997,1 1996 Hib Conjugate, Unspecified 05/11/1997,03/17/1997 ,01/14/1997 Human Papilloma Virus Vaccine 09/24/2012, 011,10/12/2009 Inactivated Polio Vaccine 07/16/2001 Influenza Virus, Unspecified 03/05/2019,03/14/19 17,11/09/2014 Influenza, IIV3 (Age 6-35 mos) 01/31/1998 Influenza, IIV3 (Age >=3 years) 12/08/2012,12/27,11/10/2008 Influenza, IIV4 03/05/2019,03/14/2016,11/09/2014 Influenza, IIV4 (=>6mos) MDV 02/27/2019,11/10/19 15 MMR 07/16/2001,01/31/1998 Oral Polio Vaccine 05/11/1997,03/17/1997, 997 Tdap 07/26/2023,10/12/2009 Tdap, Unspecified 07/16/2001, 8,05/11/1997,1997,01/14/1997 Family History Medical History Relation Name Comments Alcoholism Brother Asthma Brother Bipolar disorder Brother Alcoholism Father Sober x11 years Arthritis Father Drug Abuse Father Sober x11 years Melanoma Maternal Aunt Avelina Alcoholism Mother Asthma Mother Bipolar disorder Mother Cancer-ovarian Mother Melanoma Other Jazmin Arthritis Paternal Grandfather Arthritis Paternal Grandmother Asthma Sister Cancer-breast No Family History Cancer-colon No Family History Relation Name Status Comments Brother Alive Father Alive Maternal Aunt Avelina Alive Mother Alive Other Jazmin Alive maternal great aunt Paternal Grandfather Paternal Grandmother Sister Alive Social History Tobacco Use Types Packs/Day Years Used Date Smoking Tobacco: Never Passive Smoke Exposure: Past Smokeless Tobacco: Never Tobacco Cessation:Counseling Given: Not Answered Comments:past exposure from stepmom smoking in house Alcohol Use Standard Drinks/Week Comments Not Currently 0 (1 standard drink = 0.6 oz pur e alcohol) Last used April 2023 / HC PHQ-2 Answer Date Recorded PHQ-2 TOTAL SCORE 2 09/26/2023 Social Connections Answer Date Recorded Do you often feel lonely or isolated from those around you? 0 07/26/2023 Financial Resource Strain Answer Date R ecorded Difficulty of Paying Living Expenses 3 07/26/2023 Difficulty of Paying Living Expenses Not on file 07/26/2023 Food Insecurity Answer Date Recorded Do you worry your food will run out before you are able to buy more? 1 07/26/2023 Transportation Needs Answer Date Record ed Does lack of transportation keep you from medica l appointments? 1 07/26/2023 Does lack of transportation keep you from work, meetings or getting things that you need? 1 07/26/2023 Housing Stability Answer Date Recorded What is your housing situation today? 1 07/26/2023 Utilities Answer Date Recorded Do you have trouble paying f or utilities (for example, heat, electricity, water, phone)? 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 Not on file Not on file Obstetrics History Para Term AB IAB SAB Ectopic Multiple Livin g Live Births 4 0 0 0 4 0 3 0 0 0 Date Outcome GA Total Labor Labor/2nd/3rd Weight Sex Type Anes PTL Rosana A1 A5 Name Clin 017 SAB 8w3 d Comments:D&C 07/2017 SAB 5w0 d SPONTAN EOUS 06/2018 SAB 6w0 d SPONTAN EOUS 020 AB 13w 4d Comments:D&C for incom plete Last Filed Vital Signs Vital Sign Reading Time Taken Comments Blood Pressure 107/64 08/13/2023 1:18 PM CDT Pulse 83 08/13/2023 1:18 PM CDT Temperature 36.8 C (98.3 F) 01/09/2023 10:21 AM BRAZING FURNACE OPERATOR Respiratory Rate 18 01/09/2023 10:2 1 AM BRAZING FURNACE OPERATOR Oxygen Saturation 92% 07/26/2023 10: 48 AM CDT Inhaled Oxygen Concentration - - Weight 78.3 kg (172 lb 11.2 oz) 08/13/2023 1:18 PM CDT Height 152.4 cm (5') 01/08/2023 6:20 AM BRAZING FURNACE OPERATOR Body Mass Index 33.73 01/08/2023 6:20 AM BRAZING FURNACE OPERATOR Plan of Treatment Upcoming Encounters Date Type Department Care Team (Late st Contact Info) Description 04/23/2024 10:15 AM BRAZING FURNACE OPERATOR Telemedicine [facility] [address] [place] [address] Ann Parkinson NP [address] [place] [address] Telehealth; Medication Management (Things are going good, had a few episodes, but working things out, things the medication is at the right dose/Having Heart Surgery on Saturday) Health Maintenance Due Date Last Done Comments Pneumococcal series for age 6-49 (1 of 2 - PCV) 10/21/2015 COVID-19 vaccine series (2023- season) 2023 Influenza for age 9-49 10/27/2023 0, 03/05/2019, 02/27/2019, Additional history exists BMI (ht and wt on same day) for age 18+ 11/27/2023 11/26/2022, 08/10/2021, 06/09/2021, Additional history exists Depression screening for age 12+ 09/25/2024 09/26/2023, 09/05/2023, 08/16/2023, Additional history exists Tetanus booster 07/25/2033 07/26/2023, 09/25, 07/16/2001, Additional history exists HIV for age 15-65 Completed 09/28/2019, 08/22/2016 Hepatitis C screening for ag e 18-79 Completed 09/28/2019 Pap test for age 21-65 Discontinued 3, 04/17/2022, 07/07/2020, Additional history exists Tdap Completed 07/26/2023, 09/25, 07/16/2001, Additional history exists Procedures Procedure Name Priority Date/Time Associated Diagnosis Comments HPV HIGH RISK Routine 04/17/2022 11:40 AM BRAZING FURNACE OPERATOR Screening for cervical cancer ANTI HIV 1/2 Routine 09/28/2019 11:30 AM CDT , unspecified gestational age ANTI HCV Routine 09/28/2019 11:30 AM CDT Supervision of high risk in first trimester from Last 3 Months or Most Recently Relevant to Health Maintenance Results * (ABNORMAL) HPV HIGH RISK (04/17/2022 11:40 AM BRAZING FURNACE OPERATOR) TYPE 16 Negative Negative 04/20/2022 11:14 AM BRAZING FURNACE OPERATOR [facility] TYPE 18 Negative Negative 04/20/2022 11:14 AM BRAZING FURNACE OPERATOR [facility] OTHER HIGH RISK TYPES Positive(A) Negative 04/20/2022 11:14 AM BRAZING FURNACE OPERATOR [facility] Other (Cervical) Non-Blood / Unknown 04/17/2022 11:40 AM BRAZING FURNACE OPERATOR 04/17/2022 6:38 PM BRAZING FURNACE OPERATOR Narrative [facility] - 04/20/2022 11:14 AM BRAZING FURNACE OPERATOR Specimen is positive for the DNA of any one of, or combination of, the following high risk HPV types: 31, 33, 35, 39, 45, 51, 52, 56, 58, 59, 66, 68. HPV types 16 and 18 DNA were undetectable or below the pre-set threshold. Methodology: Lianet Akash 4800 HPV Test Claire Mai DO MICROBIOLOGY Final Result [facility] [address] [place] [address], * ANTI HCV (09/28/2019 11:30 AM CDT) HEPATITIS C ANTIBODY Non-React martha Non-React martha 09/28/2019 8:59 PM CDT [facility] Comment:Antibodies to HCV no t detected; does not exclude the possibility of exposure to HCV. Blood BLOOD SPECIMEN / Unknown Venipuncture / Unknown 09/28/2019 11:30 AM CDT 09/28/2019 11:31 AM CDT us Beba Garcia CNM SEND OUTS Final Result Performing Organization Address City/[facility]/ZIP Co de Phone Number [facility] [address] [place] [address], [place] * ANTI HIV 1/2 (09/28/2019 11:30 AM CDT) HIV-1/HIV-2 ANTIBODY Non-Reacti ve Non-Reacti ve 09/28/2019 9:01 PM CDT [facility] Comment:HIV-1 p24 and HIV-1/ HIV-2 Ab not detected. Blood BLOOD SPECIMEN / Unknown Venipuncture / Unknown 09/28/2019 11:30 AM CDT 09/28/2019 11:31 AM CDT us Brisa Gómez MD SEND OUTS Final Re sult Performing Organization Address City/[facility] Co de Phone Number [facility] [address] [place] [address], from Last 3 Months or Most Recently Relevant to Health Maintenance Insurance [facility] BLUE CROSS OF [facility] INDIV[facility]UAL AND FAMILY PLANS BLUE CROSS OF [place] [id number] [facility] REJI [place]ODRIGUEZ [id number] [address] [facility] [place] [id number] [place] [id number] ATTN A/P [address] [address] [place] [address] [place] [address] Advance Directives * Full Code (Latest Code Status on File) Date Activated Date Inactivated Comments 01/08/2023 5:55 AM 01/09/2023 12:40 PM Question Answer Comments Code Status Discussion: Reviewed Preferences * Full Code Date Activated Date Inactivated Comments 11/23/2019 10:52 PM 11/24/2019 4:27 PM Question Answer Comments Code Status Discussion: Not Discussed * Full Code Date Activated Date Inactivated Comments 11/20/2019 7:21 AM 11/21/2019 9:22 PM Question Answer Comments Code Status Discussion: Discussed * Full Code Date Activated Date Inactivated Comments 11/18/2019 5:10 AM 11/20/2019 7:21 AM Question Answer Comments Code Status Discussion: Not Discussed * Full Code Date Activated Date Inactivated Comments 11/12/2019 11:57 AM 11/16/2019 2:42 PM Question Answer Comments Code Status Discussion: Discussed Care Teams Cork Insulation Setter Relationship Specialty Start Date End Date Claire Mai [place] [address] PCP - General Family Practice 07/26/23 Deepthi Reyes MD Adult Congenital Heart Disease Program Cardiology - Pediatric 10/29/19
--- OUTSIDE RECORDS SUMMARY | 2024-04-22 13:16 | XMS_ITS | Encounter Summary ---
Author Organization [place] Address [address] [facility] [place] [address] Care Team Providers Care Clipping Marker Name Role Phone Maryellen Monterroso Primary Care Provider [phone] Abby Nicolas MD Unavailable [phone] Encounter Details Date Type Department Care Team (Late st Contact Info) Description 10/03/2023 MyC Medical Advice [facility] [address] [address] Cristina, Tia Social History Tobacco Use Types Packs/Day Years [...] on file Legal Sex Female 4:04 AM MANAGER PET Gender Identity Not on file Sexual Orientation Not on file documented as of this encounter Plan of Treatment Upcoming Encounters Date Type Department Care Team (Latest Contact Info) Description 04/27/2024 7:30 AM MANAGER PET Lab [facility] [place] [facility] [address] [place] [address] 04/27/2024 9:30 AM MANAGER PET Hospital Encounter [facility] [address] [place] [address] Supa Herrera MD [address] [place], [place] [address] Hypoplastic left heart syndrome; S/P Fontan procedure; Adult congenital heart disease; Single ventricle 04/27/2024 9:30 AM MANAGER PET - 04/27/2024 11:30 AM MANAGER PET Surgery [facility] [address] [place] [address] Supa Herrera MD [address] [place], [place] [address] Congenital Right Heart Catheterization 05/28/2024 2:30 PM CDT Office Visit [facility] [place] [address] [facility] [address] [place] [address] Meño Pryor MD [address] [place] [id number] Scheduled Procedures Name Priority Associated Diagnoses Date/Ti wv Congenital Coronary Angiogram 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 04/27/2024 9:30 AM MANAGER PET documented as of this encounter Visit Diagnoses Not on filedocumented in this encounter Care Teams Clipping Marker Relationship Specialty Start Date End Date Maryellen Monterroso PCP - General Physician Periodicals Library Assistant 02/03/13 Abby Nicolas MD [facility] [address] [id number] Pediatric Cardiology 02/02/15 documented as of this encounter
--- OUTSIDE RECORDS SUMMARY | 2024-04-22 13:16 | XMS_ITS | Encounter Summary ---
Author Organization [place] Address [address] [facility] [place] [address] Care Team Providers Care Senior Safety Management Consultant Name Role Phone Maryellen Monterroso Primary Care Provider [phone] Abby Nicolas MD Unavailable [phone] Yenifer Ibrahim PA-C Unavailable [phone] Encounter Details Date Type Department Care Team (Late st Contact Info) Description 01/08/2023 Josi Medical Advice [facility] [address] [address] Avelina Jackson CMA Social History [...] on file Legal Sex Female 4:04 AM INSIGHT LEADER Gender Identity Not on file Sexual Orientation Not on file documented as of this encounter Plan of Treatment Upcoming Encounters Date Type Department Care Team (Latest Contact Info) Description 04/27/2024 7:30 AM INSIGHT LEADER Lab [facility] [address] [place] [address] 04/27/2024 9:30 AM INSIGHT LEADER Hospital Encounter [facility] [address] [place] [address] Supa Herrera MD [address] [place] [address] Hypoplastic left heart syndrome; S/P Fontan procedure; Adult congenital heart disease; Single ventricle 04/27/2024 9:30 AM INSIGHT LEADER - 04/27/2024 11:30 AM INSIGHT LEADER Surgery [facility] [address] [place] [address] Supa Herrera MD [address] [place] [address] Congenital Right Heart Catheterization 05/28/2024 2:30 PM CDT Office Visit [facility] [place] [address] [facility] [place] [address] Meño Pryor MD [address] [place], [place] [address] Scheduled Procedures Name Priority Associated Diagnoses Date/Ti co Congenital Coronary Angiogram 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
--- OUTSIDE RECORDS SUMMARY | 2024-04-22 13:16 | XMS_ITS | Clinical Summary ---
Author Organization [facility] Address [address] [place] [address] Care Team Providers Care Straddle Truck Operator Name Role Phone Unavailable Primary Care Provider [...] for each transition of care or referral. [facility] Allergies Active Allergy Reactions Criticality Noted Date Comments Gluten Meal Gastrointestinal 08/12/2018 Hydrocodone Itching Medium 02/24/2018 Morphine Anaphylaxis,Rash High 06/13/2017 Other reaction(s): Rash Oxycodone Itching Medium 02/24/2018 Nose Nose Nose Medications LISINOPRIL 5 MG OR TABS Take one tablet by mouth every day. Active DIGOXIN 0.25 MG OR TABS 1 TABLET DAILY Activ e MULTI-VIT/FLUOR NAKUL OR None Entered Active APAP JR STR 160 MG OR CHEW Chew 2 tablets every 6 hours as needed for fever or pain 1 box/bottle 0 7 Active Additional Information Patient not taking.Reported on 03/08/2021 IBUPROFEN 100 MG OR CHEW Chew 3 1/2 tablets every 6 hours needed for pain or fever. 1 bottle/box 0 7 Active Additional Information Patient not taking.Reported on 03/08/2021 ALBUterol sulfate HFA 108 (90 Base) MCG/ACT inhalerIndicati ons:Cough,Wheez ing Inhale 1-2 Puffs every 4 hours as needed for Wheezing. 1 Each 2 Active Active Problems No known active problems Social History Tobacco Use Types Packs/Day Years Used Date Smoking Tobacco: Never Smokeless Tobacco: Never Comments Unknown Sex and Gender Information Value Date Recorded Sex Assigned at Not on file Legal Sex Female 6:07 AM CDT Gender Identity Not on file Sexual Orientation Not on file Last Filed Vital Signs Vital Sign Reading Time Taken Comments Blood Pressure 109/76 03/08/2021 8:35 AM MEDICAL SOCIAL CONSULTANT Pulse 97 03/08/2021 8:35 AM MEDICAL SOCIAL CONSULTANT Temperature 37.2 C (98.9 F) 03/08/2021 8:35 AM MEDICAL SOCIAL CONSULTANT Respiratory Rate 18 03/08/2021 8:35 AM MEDICAL SOCIAL CONSULTANT Oxygen Saturation 94% 03/08/2021 8:35 AM MEDICAL SOCIAL CONSULTANT Inhaled Oxygen Concentration - - Weight 24.5 [...] 09/28/2019 HIV Screening (Preventive Services) Completed 09/28/2019 MCV4 Aged Out No longer eligi ble based on patient's age to complete this topic Meningococcal B Aged Out No longer el igible based on patient's age to complete this topic Pneumococcal Aged Out No longer eligi ble based on patient's age to complete this topic Insurance BCBS OUT OF STATE
--- OUTSIDE RECORDS SUMMARY | 2024-04-22 13:16 | XMS_ITS | Encounter Summary ---
Author Organization [place] Address [address] [facility] [place] [address] Care Team Providers Care Classification Clerk Name Role Phone Maryellen Monterroso Primary Care Provider [phone] Abby Nicolas MD Unavailable [phone] Yenifer Ibrahim PA-C Unavailable [phone] Reason for Referral * CV Testing (Routine) - Closed Specialty Diagnoses / Procedures Referred By Luz sanchez Referred To Contact Cardiology Diagnoses Hypoplastic left heart syndrome Procedures ECHO Congenital Transthoracic (TTE) ZZHC ECHO XTHORACIC,MARIO ANOM,COMPLETE ZZHC ECHO CONGENITAL W/CONTRAST ZZHC ECHO CONGENITAL W/O CONTRAST ZZHC DOPPLER ECHO PULSED, COMPLETE ZZHC DOPPLER ECHO COLOR FLOW VELOCITY MAP ZZHC STATISTIC IV PUSH SINGLE INITIAL SUBSTANCE NV DOPPLER ECHO PULSED, COMPLETE NV DOPPLER ECHO COLOR FLOW VELOCITY MAP NV ECHO XTHORACIC,MARIO ANOM,COMPLETE NV ECHO CONGENITAL W/O CONTRAST HC DOPPLER ECHO PULSED, COMPLETE HC DOPPLER ECHO COLOR FLOW VELOCITY MAP HC STATISTIC IV PUSH SINGLE INITIAL SUBSTANCE HC ECHO CONGENITAL ANOM W/CONTRAST HC ECHO CONGENITAL ANOM W/O CONTRAST Meño Pryor MD [address] [address] Phone: tel: fax: [facility] Cardiac Services [address] [facility] 3rd [place] [address] Phone: tel: fax: Referral ID Status Reason Start Date Expiration Date Visits Re quested Visits Authorized [id number] Closed 09/25/2021 09/25/2022 1 1 Reason for Visit * Reason Onset Date Comments Call to schedule test 09/25/2021 Candie hanna nital Encounter Details Date Type Department Care Team (Late st Contact Info) Description 09/25/2021 Telephone [facility] [place] [address] [facility] [address] [place] [address] Meño Pryor MD [address] [employer] [address] [phone] Call to schedule test (Candie congenital ) [...] on file Legal Sex Female 4:04 AM TRAINING PROFESSIONAL Gender Identity Not on file Sexual Orientation Not on file documented as of this encounter Miscellaneous Notes * Telephone Encounter - Dali Evans - 09/25/2021 5:03 PM CDT Scheduled and confirmed with pt.. * Telephone Encounter - Brisa Lezama - 09/25/2021 1:08 PM CDT [facility] Call Center Phone Message May a detailed message be left on voicemail: yes Reason for Call: Other: please call to schedule with Dr pryor Action Taken: Other: routed to cardiology Travel Screening: Not Applicable documented in this encounter Plan of Treatment Upcoming Encounters Date Type Department Care Team (Latest Contact Info) Description 04/27/2024 7:30 AM TRAINING PROFESSIONAL Lab [facility] [place] [facility] [address] [place] [address] 04/27/2024 9:30 AM TRAINING PROFESSIONAL Hospital Encounter [facility] [address] [place] [address] Supa Herrera MD [address] [place] [address] Hypoplastic left heart syndrome; S/P Fontan procedure; Adult congenital heart disease; Single ventricle 04/27/2024 9:30 AM TRAINING PROFESSIONAL - 04/27/2024 11:30 AM TRAINING PROFESSIONAL Surgery [facility] [address] [place] [address] Supa Herrera MD [address] [place] [address] Congenital Right Heart Catheterization 05/28/2024 2:30 PM CDT Office Visit [facility] [place] [address] [facility] [address] [place] [address] Meño Pryor MD [address] [place] [address] Scheduled Procedures Name Priority Associated Diagnoses Date/Ti me Congenital Coronary Angiogram 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 04/27/2024 9:30 AM TRAINING PROFESSIONAL documented as of this encounter Results * ECHO CONGENITAL ADULT (TTE) (2021 3:27 PM CDT) Anatomical Region Laterality Modality Echocardiography 2021 3:13 PM CDT Narrative 2021 4:07 PM CDT [id number]^CANDIE^MEÑO^LOCO Study ID: [id number] [facility] [address] Pediatric Echocardiogram Name: DELMER DAVIS Study Date: 2021 03:13 PM Patient Location: [facility] Age: 26 yrs : 1995 Gender: Female HR: 93 Patient Class: Outpatient Height: 152 cm Ordering Provider: MEÑO PRYOR Weight: 68 kg Referring Provider: MEÑO PRYRO BSA: 1.6 m2 Performed By: Luisa Gardner Report approved by: James Goodman MD Reason For Study: Hypoplastic left heart syndrome ##### CONCLUSIONS ##### Hypoplastic left heart syndrome. Patient has undergone Vinemont, Romain and Fontan operations. Status-post Fontan fenestration [...] Procedure Note James Goodman MD - 2021 [id number]^CANDIE^MEÑO^LOCO Study ID:[id number] [address] [address] Pediatric Echocardiogram Name: DELMER DAVIS Study Date: 2021 03:13 PM Patient Location:[facility] Age: 26 yrs : 1995 Gender: Female HR: 93 Patient Class: Outpatient Height: 152 cm Ordering Provider: MEÑO PRYOR Weight: 68 kg Referring Provider: MEÑO PRYOR BSA: 1.6 m2 Performed By: Luisa Gardner Report approved by: James Goodman MD Reason For Study: Hypoplastic left heart syndrome ##### CONCLUSIONS ##### Hypoplastic left heart syndrome. Patient has undergone Ariana, Glennand Fontan operations. Status-post Fontan fenestration closure [...] level shunting. Outflow tracts: Patient has undergone Vinemont operation. The systemic outflow tract is unobstructed. 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
--- OUTSIDE RECORDS SUMMARY | 2024-04-22 13:16 | XMS_ITS | Clinical Summary ---
Author Organization [facility] Address [address] [address] Phone Care Team Providers Care Pitch Worker Name Role Phone Elsewhere, Pcp Primary Care Provider Unavailabl e Allergies Active Allergy Reactions Criticality Noted Date Comments Morphine Anaphylaxis 06/13/2017 Medications No known medications Active Problems Problem Noted Date Diagnosed Date Hypoplastic left heart 06/13/2017 Social History Tobacco Use Types Packs/Day Years Used Date Smoking Tobacco: Never Smokeless Tobacco: Never PHQ-2 Answer Date Recorded PHQ-2 Score 0 12/16/2017 Comments Unknown Sex and Gender Information Value Date Recorded Sex Assigned at Not on file Legal Sex Female 3:19 PM FILTRATION SUPERVISOR Gender Identity Not on file Sexual Orientation Not on file Obstetrics History Last Filed Vital Signs Vital Sign Reading Time Taken Comments Blood Pressure 109/63 09/25/2020 10:30 AM CDT Pulse 86 09/25/2020 10:30 AM CDT Temperature 36.8 C (98.3 F) 09/25/2020 7:26 AM CDT Respiratory Rate 21 09/25/2020 10:3 0 AM CDT Oxygen Saturation 94% 09/25/2020 10: 30 AM CDT Inhaled Oxygen Concentration - - Weight 68.4 kg (150 lb 11.2 oz) 09/25/2020 7:26 AM CDT Height 154.9 cm (5' 1) 09/25/2020 7:26 AM CDT Body Mass Index 28.47 09/25/2020 7:26 AM CDT Plan of Treatment Health Maintenance Due Date Last Done Comments Cervical Cancer Screening 1995 Last pap w/ HPV Testing 1995 Last pap w/o HPV Testing 1995 Hepatitis B Vaccine (Standin g Order) (1 of 3 - 19+ 3-dose series) 10/21/2015 PERTUSSIS (Standing Order) 10/21/2015 TETANUS (Standing Order) 10/21/2015 COVID-19 Vaccine (2023-2 5 season) 2023 Influenza Vaccine Seasonal (Standing Order) (#1) 2023 HPV Vaccine (Standing Order) Aged Out No longer eligible based on patient's age to complete this topic Pneumococcal/PCV20 Vaccine: Pediatrics (2-5 yrs) and At-Risk Patients (6-49 yrs) (Standing Order) Aged Out No longer eligible b ased on patient's age to complete this topic Care Teams Pitch Worker Relationship Specialty Start Date End Date Elsewhere, Pcp PCP - General 09/25/20
--- OUTSIDE RECORDS SUMMARY | 2024-04-22 13:16 | XMS_ITS | Encounter Summary ---
Author Organization [place] Address [address] [facility] [place] [address] Care Team Providers Care Drawer In Name Role Phone Maryellen Monterroso Primary Care Provider [phone] Abby Nicolas MD Unavailable [phone] Yenifer Ibrahim PA-C Unavailable [phone] Encounter Details Date Type Department Care Team (Late st Contact Info) Description 10/04/2021 [facility] [address] [address] Avelina Jackson CMA Social History [...] file Legal Sex Female 4:04 AM MANAGER GOLF Gender Identity Not on file Sexual Orientation Not on file documented as of this encounter Plan of Treatment Upcoming Encounters Date Type Department Care Team (Latest Contact Info) Description 04/27/2024 7:30 AM MANAGER GOLF Lab [facility] [place] [facility] [address] [place] [address] 04/27/2024 9:30 AM MANAGER GOLF Hospital Encounter [facility] [address] [place] [address] Supa Herrera MD [address] [place], [place] [address] Hypoplastic left heart syndrome; S/P Fontan procedure; Adult congenital heart disease; Single ventricle 04/27/2024 9:30 AM MANAGER GOLF - 04/27/2024 11:30 AM MANAGER GOLF Surgery [facility] [address] [place] [address] Supa Herrera MD [address] [place], [place] [address] Congenital Right Heart Catheterization 05/28/2024 2:30 PM CDT Office Visit [facility] [place] [address] [facility] [address] [place] [address] Meño Pryor MD [address] [place] [address] Scheduled Procedures Name Priority Associated Diagnoses Date/Ti pa Congenital Coronary Angiogram 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
--- OUTSIDE RECORDS SUMMARY | 2024-04-22 13:16 | XMS_ITS | Encounter Summary ---
Author Organization [place] Address [address] [facility] [place] [address] Care Team Providers Care Sock Mender Name Role Phone KrissAnyadwoa Staton Primary Care Provider Abby Nicolas MD Unavailable [phone] Marilou Suresh MD Unavailable + Yenifer Ibrahim PA-C Unavailable [phone] Reason for Visit * Reason Onset Date Comments Appointment 07/06/2020 Patient being re ferred for S/P Fontan procedure, s/p Fontan, assess and follow liver by Meño Flores Encounter Details Date Type Department Care Team (Late st Contact Info) Description 07/06/2020 Telephone [facility]atology Clinic [address] [address] None Appointment (Patient being referred [...] on file Legal Sex Female 4:04 AM RETENTION SPECIALIST Gender Identity Not on file Sexual Orientation Not on file COVID-19 Exposure Response Date Recorded In the last month, have you been in contact with someone who was confirmed or suspected to have Coronavirus / COVID-19? No / Unsure 07/05/2020 8:41 AM CDT documented as of this encounter Miscellaneous Notes * Telephone Encounter - Zarina Rodrigues - 07/06/2020 9:33 AM CDT [facility] Phone Message May a detailed message be left on voicemail: yes Reason for Call: Patient being referred for S/P Fontan procedure, s/p Fontan, assess and follow liver by Meño Pryor. Glass Cutting Machine Operator sending TE message for clinic review and follow-up with patient, because Dxis not in guidelines for scheduling. Action Taken: Message routed to: [facility] Hepatology Travel Screening: Not Applicable documented in this encounter Plan of Treatment Upcoming Encounters Date Type Department Care Team (Latest Contact Info) Description 04/27/2024 7:30 AM RETENTION SPECIALIST Lab [facility] Laboratory [address] [place] [address] 04/27/2024 9:30 AM RETENTION SPECIALIST Hospital Encounter [facility] [address] [place] [address] Supa Herrera MD [address] [place] [address] Hypoplastic left heart syndrome; S/P Fontan procedure; Adult congenital heart disease; Single ventricle 04/27/2024 9:30 AM RETENTION SPECIALIST - 04/27/2024 11:30 AM RETENTION SPECIALIST Surgery 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 04/27/2024 9:30 AM RETENTION SPECIALIST documented as of this encounter Visit Diagnoses Not on filedocumented in this encounter Care Teams Sock Mender Relationship Specialty Start Date End Date Maryellen Monterroso PCP - General Physician Truck And Transport Mechanic 02/03/13 Abby Nicolas MD [address] [place], [place] [address] Pediatric Cardiology 02/02/15 Marilou Suresh MD [address] [facility] [address] [place] [address] Assigned Gastroenterology Provider 07/31/20 06/24/21 Yenifer Ibrahim PA-C [address] [address] Assigned Neuroscience Provider 09/01/22 03/20/23 documented as of this encounter
--- OUTSIDE RECORDS SUMMARY | 2024-04-22 13:16 | XMS_ITS | Encounter Summary ---
Author Organization [place] Address [address] [facility] [place] [address] Care Team Providers Care Web Methods Developer Name Role Phone KrissMaryellen Shemar Primary Care Provider Abby Nicolas MD Unavailable [phone] Encounter Details Date Type Department Care Team (Late st Contact Info) Description 10/02/[address] [facility] [address] [address] Meño Pryor MD [address] [facility] [place], [place] [address] Social History Tobacco Use Types Packs/Day Years [...] on file Legal Sex Female 4:04 AM TIRE TRUCKER Gender Identity Not on file Sexual Orientation Not on file documented as of this encounter Plan of Treatment Upcoming Encounters Date Type Department Care Team (Latest Contact Info) Description 04/27/2024 7:30 AM TIRE TRUCKER Lab [facility] Laboratory [address] [place] [address] 04/27/2024 9:30 AM TIRE TRUCKER Hospital Encounter [facility] [address] [place] [address] Supa Herrera MD [address] [place] [address] Hypoplastic left heart syndrome; S/P Fontan procedure; Adult congenital heart disease; Single ventricle 04/27/2024 9:30 AM TIRE TRUCKER - 04/27/2024 11:30 AM TIRE TRUCKER Surgery [facility] [address] [place] [address] Supa Herrera MD [address] [place] [id number] Congenital Right Heart Catheterization 05/28/2024 2:30 PM CDT Office Visit 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
--- OUTSIDE RECORDS SUMMARY | 2024-04-22 13:16 | XMS_ITS | Encounter Summary ---
Author Organization [place] Address [address] [facility] [place] [address] Care Team Providers Care Labeling Strategist Name Role Phone Maryellen Monterroso Shemar Primary Care Provider Abby Nicolas MD Unavailable [phone] Marilou Suresh MD Unavailable + Yenifer Ibrahim PA-C Unavailable [phone] Encounter Details Date Type Department Care Team (Late st Contact Info) Description 05/19/2021 Telephone [facility] [address] [address] Unknown Social History Tobacco Use Types Packs/Day Years Used Date Smoking Tobacco: Never Smokeless Tobacco: Never Alcohol Use Standard Drinks/Week Comments Yes 0 (1 standard drink = 0.6 oz pur e alcohol) occasionally PHQ-2 Answer Date Recorded PHQ-2 Score 0 07/26/2020 Comments No Sex and Gender Information Value Date Recorded Sex Assigned at Not on file Legal Sex Female 4:04 AM SAIL FINISHER HAND Gender Identity Not on file Sexual Orientation [...] (Latest Contact Info) Description 04/27/2024 7:30 AM SAIL FINISHER HAND Lab [facility] Laboratory [address] [place] [address] 04/27/2024 9:30 AM SAIL FINISHER HAND Hospital Encounter [facility] [address] [place] [address] Supa Herrera MD [address] [place], [place] [address] Hypoplastic left heart syndrome; S/P Fontan procedure; Adult congenital heart disease; Single ventricle 04/27/2024 9:30 AM SAIL FINISHER HAND - 04/27/2024 11:30 AM SAIL FINISHER HAND Surgery [facility] [address] [place] [address] Supa Herrera MD [address] [place], [place] [phone] Congenital Right Heart Catheterization 05/28/2024 2:30 PM CDT Office Visit [facility] [place] [address] [facility] [address] [place] [address] Meño Pryor MD [address] [place] [address] Scheduled Procedures Name Priority Associated Diagnoses Date/Ti me Congenital Coronary Angiogram 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 04/27/2024 9:30 AM SAIL FINISHER HAND documented as of this encounter Visit Diagnoses Not on filedocumented in this encounter Care Teams Labeling Strategist Relationship Specialty Start Date End Date Maryellen Monterroso PCP - General Physician Federal Mediation Commissioner 02/03/13 Abby Nicolas MD [facility] [address] [address] Pediatric Cardiology 02/02/15 Marilou Suresh MD [address] [place] [id number] Assigned Gastroenterology Provider 07/31/20 06/24/21 Yenifer Ibrahim PA-C [address] [place] [id number] Assigned Neuroscience Provider 09/01/22 03/20/23 documented as of this encounter
--- OUTSIDE RECORDS SUMMARY | 2024-04-22 13:16 | XMS_ITS | Encounter Summary ---
Author Organization [place] Address [address] 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 will call you to coordinate your care as prescribed by your provider. If you have concerns about scheduling, please call [phone]. Comments Follow up with Dr Pryor with an echo and labs prior [facility] will call you to coordinate your care as prescribed by your provider. If you have concerns about scheduling, please call [phone]. 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 Procedures ECHO Congenital Transthoracic (TTE) [facility] ECHO XTHORACIC,MARIO ANOM,COMPLETE [facility] ECHO CONGENITAL W/CONTRAST [facility] ECHO CONGENITAL W/O CONTRAST [facility] DOPPLER ECHO PULSED, COMPLETE [facility] DOPPLER ECHO COLOR FLOW VELOCITY MAP [facility] STATISTIC IV PUSH SINGLE INITIAL SUBSTANCE TN DOPPLER ECHO PULSED, COMPLETE TN DOPPLER ECHO COLOR FLOW VELOCITY MAP TN ECHO XTHORACIC,MARIO ANOM,COMPLETE TN ECHO CONGENITAL W/O CONTRAST HC DOPPLER ECHO PULSED, COMPLETE HC DOPPLER ECHO COLOR FLOW VELOCITY MAP HC STATISTIC IV PUSH SINGLE INITIAL SUBSTANCE HC ECHO CONGENITAL ANOM W/CONTRAST HC ECHO CONGENITAL ANOM W/O CONTRAST Meño Pryor MD [address] [place] [address] [address] Phone: tel: fax: Referral ID Status Reason Start Date Expiration Date V isits Requested Visits Authorized [id number] Pending Review 05/28/2023 05/27/2024 1 1 Reason for Visit * Reason Onset Date Comments Clinic Care Coordination - Follow-up 05/28/2023 Encounter Details Date Type Department Care Team (Late st Contact Info) Description 05/28/[address] 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 Gender Identity Not on file Sexual Orientation Not on file documented as of this encounter Plan of Treatment Upcoming Encounters Date Type Department Care Team (Latest Contact Info) Description 04/27/2024 7:30 AM ROUTE RELIEF DRIVER Lab [facility] Laboratory [address] [place] [address] 04/27/2024 9:30 AM ROUTE RELIEF DRIVER Hospital Encounter [facility] [address] [place] [address] Supa Herrera MD [address] [facility] [address] [place] [address] Hypoplastic left heart syndrome; S/P Fontan procedure; Adult congenital heart disease; Single ventricle 04/27/2024 9:30 AM ROUTE RELIEF DRIVER - 04/27/2024 11:30 AM ROUTE RELIEF DRIVER Surgery [facility] [address] [place] [address] Supa Herrera MD [address] [place] [address] Congenital Right Heart Catheterization 05/28/2024 2:30 PM CDT Office Visit 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 Expected: 07/28/2023 (Approximate), Expires: 05/27/2024 Scheduled Procedures Name Priority Associated Diagnoses Date/Ti me Congenital Coronary Angiogram 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 Meño Pryor MD LAB - BLOOD ORDERABLES Final Result LABORATORY [facility] [place] [facility] [address] [facility], [address] [address] * Prealbumin (09/19/2023 11:58 AM CDT) Prealbumin 23.9 20.0 - 40.0 mg/dL 09/19/2023 5:23 PM CDT LABORATORY Blood STRUCTURE OF LEFT UPPER LIMB / Unknown Venipuncture / Unknown 09/19/2023 11:58 AM CDT 09/19/2023 11:58 AM CDT Meño Pryor MD LAB - BLOOD ORDERABLES Final Result LABORATORY [facility] Core Lab [address] [facility], [address] [address] * (ABNORMAL) IgG (09/19/2023 11:58 AM CDT) Immunoglobulin G 602(L) 610 - 1,616 mg/dL 09/20/2023 7:50 AM CDT SPECIALTY CORE/PROT/END O Blood STRUCTURE OF LEFT UPPER LIMB / Unknown Venipuncture / Unknown 09/19/2023 11:58 AM CDT 09/19/2023 11:58 AM CDT Meño Pryor MD LAB - BLOOD ORDERABLES Final Result SPECIALTY CORE/PROT/ENDO [facility] Special[facility] Core/Prot/Endo [address] [facility], [address] documented in this encounter Visit Diagnoses Diagnosis Hypoplastic left heart syndrome- Primary Adult congenital heart disease Unspecified congenital anomaly of heart HLHS (hypoplastic left heart syndrome) 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 Other postprocedural status 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
--- OUTSIDE RECORDS SUMMARY | 2024-04-22 13:16 | XMS_ITS | Clinical Summary ---
Author Organization [place] Address [address] [facility] [place] [address] Care Team Providers Care Credit Card Interviewer Name Role Phone Maryellen Monterroso Primary Care Provider [phone] Abby Nicolas MD Unavailable Allergies Active Allergy [...] wound infection Apply topically 2 times daily g 3 Active Additional Information Patient not taking.Reported on 03/10/2024 cephALEXin (KEFLEX) 500 MG capsuleIndicati ons:Surgical wound infection Take 1 capsule (500 mg) by mouth 3 times daily For 5 days 15 capsule 3 Active Additional Information Patient not taking.Reported on 03/10/2024 cephALEXin (KEFLEX) 500 MG capsuleIndicati ons:Cellulitis of both lower extremities,Hyp oplastic left heart syndrome,Adult congenital heart disease Take 1 capsule (500 mg) by mouth 4 times daily For 7 days 28 capsule 3 Active Additional Information Patient not taking.Reported on 03/10/2024 metoprolol succinate ER (TOPROL XL) 25 MG 24 hr tabletIndicatio ns:Palpitations Take 0.5 tablets (12.5 mg) by mouth daily 45 tablet 4 Active Additional Information Patient not taking.Reported on 03/10/2024 empagliflozin (JARDIANCE) 10 MG TABS tabletIndicatio ns:Hypoplastic left heart syndrome,Adult congenital heart disease,HLHS (hypoplastic left heart syndrome),S/P Fontan procedure,Palpi tations TAKE 1 TABLET (10 MG) BY MOUTH DAILY. 90 tablet 3 4 Active Additional Information Patient not taking.Reported on 03/10/2024 lurasidone (LATUDA) 20 MG TABS tablet Take 20 mg by mouth daily. 4 Active Active Problems Problem Noted Date Diagnosed Date Surgical wound infection 08/29/2022 Chest pain 03/03/2019 HLHS (hypoplastic left heart syndrome) 6 Cardiac arrhythmia 06/13/2006 Overview (01/26/2016): Overview: 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 Varicella 10/30/2001 Overview (01/26/2016): Overview: HAD DISEASE Hypoplastic left heart syndrome 1995 Overview (01/26/2016): Overview: [employer] is Dr Cory Velazquez in [place] [facility] Resolved Problems Problem Noted Date Diagnosed Date Resolved Date Inadequate pain control 02/03/201308/26 Apnea of 05/01/2006 09/22/2020 Encounters Date Type Department Care Team Description 04/20/2024 MyC Medical Advice [address] [phone] Meño Schreiber MD 04/17/2024 MyC Medical Advice [facility] Interventional Radiology [address] [place] [phone] Phill Johnson RN 04/10/2024 4:00 PM DIRECTOR EMERGENCY DEPARTMENT Ancillary Procedure [facility] [address] [place] [phone] Meño Schreiber MD Hypoplastic left heart syndrome; Adult congenital heart disease; HLHS (hypoplastic left heart syndrome); S/P Fontan procedure; Palpitations 04/10/2024 Travel 03/24/2024 Orders Only [facility] Interventional Radiology [address] [place] [phone] Kelsy Greenfield, ISIDRO GEAR GRINDER 03/10/2024 1:15 PM DIRECTOR EMERGENCY DEPARTMENT Office Visit [address] [phone] Meño Schreiber MD Hypoplastic left heart syndrome; Adult congenital heart disease; HLHS (hypoplastic left heart syndrome); S/P Fontan procedure; Palpitations 03/10/2024 1:00 PM DIRECTOR EMERGENCY DEPARTMENT Ancillary Procedure [address] [place] [phone] Meño Schreiber MD Hypoplastic left heart syndrome; Adult congenital heart disease; HLHS (hypoplastic left heart syndrome); S/P Fontan procedure; Palpitations 03/10/2024 10:00 AM DIRECTOR EMERGENCY DEPARTMENT Lab [facility] [address] [place] [phone] Meño Schreiber MD Hypoplastic left heart syndrome; Adult congenital heart disease; HLHS (hypoplastic left heart syndrome); S/P Fontan procedure; Palpitations 03/10/2024 9:42 AM DIRECTOR EMERGENCY DEPARTMENT - 03/10/2024 11:59 PM DIRECTOR EMERGENCY DEPARTMENT Hospital Encounter [facility] [address] [place] [phone] Meño Schreiber MD Hypoplastic left heart syndrome; Adult congenital heart disease; HLHS (hypoplastic left heart syndrome); S/P Fontan procedure; Palpitations Discharge Disposition: Home or Self Care 03/10/2024 9:04 AM DIRECTOR EMERGENCY DEPARTMENT - 03/10/2024 9:41 AM DIRECTOR EMERGENCY DEPARTMENT Hospital Encounter [facility] [address] [place] [phone] Meño Schreiber MD Hypoplastic left heart syndrome; Adult congenital heart disease; S/P Fontan procedure; Hypoxemia Discharge Disposition: Home or Self Care 03/10/2024 Care Coord[address] [phone] Starla Carter RN Clinic Care Coordination - Follow-up 03/10/2024 Travel 02/27/2024 MyC Medical Advice [address] [phone] Meño Schreiber MD Clinic Care Coordination - Follow-up 01/27/[address] [phone] eMño Schreiber MD Refill Request (empagliflozin (JARDIANCE) 10 MG TABS tablet 90 tablet 1 09/19/2023) from Last 3 Months Immunizations Name Administration [...] on file Legal Sex Female 4:04 AM DIRECTOR EMERGENCY DEPARTMENT Gender Identity Not on file Sexual Orientation Not on file Last Filed Vital Signs Vital Sign Reading Time Taken Comments Blood Pressure 95/64 03/10/2024 1:18 PM DIRECTOR EMERGENCY DEPARTMENT Pulse 96 03/10/2024 1:18 PM DIRECTOR EMERGENCY DEPARTMENT Temperature 37 C (98.6 F) 12/12/2022 3:08 PM CDT Respiratory Rate 18 12/12/2022 3:08 PM CDT Oxygen Saturation 94% 03/10/2024 1:18 PM DIRECTOR EMERGENCY DEPARTMENT Inhaled Oxygen Concentration - - Weight 81 kg (178 lb 9.6 oz) 03/10/2024 1:18 PM DIRECTOR EMERGENCY DEPARTMENT Height 152.4 cm (5') 03/10/2024 10:00 AM DIRECTOR EMERGENCY DEPARTMENT Body Mass Index 34.88 03/10/2024 10:00 AM DIRECTOR EMERGENCY DEPARTMENT Plan of Treatment Upcoming Encounters Date Type Department Care Team (Latest Contact Info) Description 04/27/2024 7:30 AM DIRECTOR EMERGENCY DEPARTMENT Lab [facility] [address] [place] [phone] 04/27/2024 9:30 AM DIRECTOR EMERGENCY DEPARTMENT Hospital Encounter [facility] [address] [place] [phone] Supa Herrera MD [address] [place], [place] [phone] Hypoplastic left heart syndrome; S/P Fontan procedure; Adult congenital heart disease; Single ventricle 04/27/2024 9:30 AM DIRECTOR EMERGENCY DEPARTMENT - 04/27/2024 11:30 AM DIRECTOR EMERGENCY DEPARTMENT Surgery [facility] [address] [place] [phone] Supa Herrera MD [address] [place] [id number] Congenital Right Heart Catheterization 05/28/2024 2:30 PM CDT Office Visit [facility] [place] [address] [facility] [address] [place] [address] CandieMeño MD [address] [facility] [place] [address] Scheduled Procedures Name Priority Associated Diagnoses Date/Ti me Congenital Coronary Angiogram 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 04/27/2024 9:30 AM DIRECTOR EMERGENCY DEPARTMENT Health Maintenance Due Date Last Done Comments ANNUAL REVIEW OF HM ORDERS 1995 Pneumococcal Vaccine: Pediatrics (0 to 5 Years) and At-Risk Patients (6 to 49 Years) (1 of 2 - PCV) 10/21/2015 ADVANCE CARE PLANNING 02/24/2023 02/24/2018 COVID-19 Vaccine ( - season) 2023 INFLUENZA VACCINE (#1) 2023 , 02/27/2019, 03/14/2016, Additional history exists PHQ-2 (once per calendar year) 2024 12/22/2021, 07/26/2020 YEARLY PREVENTIVE VISIT 07/25/2024 07/26/2023 PAP 04/17/2025 04/17/2022, 07/27, 08/22/2016 DTAP/TDAP/TD IMMUNIZATION (8 - Td or Tdap) 07/25/2033 07/26/2023, 10/12/2009, 07/16/2001, Additional history exists ZOSTER IMMUNIZATION (1 of 2) 2046 HEPATITIS B IMMUNIZATION Completed 998, 03/17/1997, 01/14/1997 HPV IMMUNIZATION Completed 09/24/2012, 09/2010, 10/12/2009 HEPATITIS C SCREENING Completed 09/28/2019 HIV SCREENING Completed 09/28/2019, 08/22/2016 CHLAMYDIA SCREENING Discontinued 08/10/2021, 01/27/2019, 08/22/2016, Additional history exists MENINGITIS IMMUNIZATION Aged Out No l onger eligible based on patient's age to complete this topic Procedures Procedure Name Priority Date/Time Associated Diagnosis Comments MR ELASTOGRAPHY W LIVER W/O & W CONTRAST Routine 04/10/2024 3:46 PM DIRECTOR EMERGENCY DEPARTMENT 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 Palpitations EKG 12-LEAD, TRACING ONLY Routine 03/10/2024 1:13 PM DIRECTOR EMERGENCY DEPARTMENT Palpitations ECHO CONGENITAL ADULT (TTE) Routine 03/10/2024 1:09 PM DIRECTOR EMERGENCY DEPARTMENT 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 Palpitations CARDIOPULMONARY STRESS TEST - ADULT Routine 03/10/2024 10:57 AM DIRECTOR EMERGENCY DEPARTMENT 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 Palpitations XR CHEST 2 VIEWS Routine 03/10/2024 10:4 6 AM DIRECTOR EMERGENCY DEPARTMENT 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 Hypoxemia HEMOGLOBIN A1C Add-On 03/10/2024 9:38 AM DIRECTOR EMERGENCY DEPARTMENT 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 HEPATIC FUNCTION PANEL Add-On 9:38 AM DIRECTOR EMERGENCY DEPARTMENT 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 N TERMINAL PRO BNP OUTPATIENT Add-On 03/10/2024 9:38 AM DIRECTOR EMERGENCY DEPARTMENT 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 EXTRA PURPLE TOP TUBE Routine 03/10/2024 9:38 AM DIRECTOR EMERGENCY DEPARTMENT EXTRA TUBE Routine 03/10/2024 9:38 AM DIRECTOR EMERGENCY DEPARTMENT BASIC METABOLIC PANEL Routine 03/10/2024 9:38 AM DIRECTOR EMERGENCY DEPARTMENT 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 Palpitations CHLAMYDIA TRACHOMATIS PCR STAT 04/07/2014 11:55 PM DIRECTOR EMERGENCY DEPARTMENT Abdominal Pain, Right Lower Quadrant from Last 3 Months or Most Recently Relevant to Health Maintenance Results * MR Elastography w Liver w/o&w Contrast (04/10/2024 3:46 PM DIRECTOR EMERGENCY DEPARTMENT) Anatomical Region Laterality Modality Abdomen/Pelvis, SUBRAD MR BODY, UMP MR BODY, RAD MR Magnetic Resonance Impressions 04/14/2024 11:31 AM DIRECTOR EMERGENCY DEPARTMENT IMPRESSION: 1. Focal arterial enhancing observation in segment IVb adjacent to the gallbladder, indeterminate, may represent focal nodular hyperplasia, adenoma, regenerative nodule, atypical hemangioma or vascular phenomenon. Recommend attention on follow-up in 3-6 months 2. MR Elastography: Averaged liver stiffness index (kPa) measures 4.5. 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 3. Borderline hepatomegaly. Mild splenomegaly. Additional incidental findings as above. Suggested guidelines for interpretation of liver stiffness with MRE at 60 Hz: (Magn Reson Imaging Clin N Am. 2013;22(3):433-46) <2.5 kPa: normal 2.5 - 2.9 kPa: normal or inflammation 2.9 - 3.5 kPa: stage 1 to 2 fibrosis 3.5 - 4 kPa: stage 2 to 3 fibrosis 4 - 5 kPa: stage 3 to 4 fibrosis >5 kPa: stage 4 fibrosis or cirrhosis I have personally reviewed the examination and initial interpretation and I agree with the findings. 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 COMPARISON: Abdomen/pelvis CT with contrast 04/07/2014. TECHNIQUE: Liver MR: Images were acquired with and without intravenous contrast through the abdomen. The following MR images were acquired: TrueFISP, multiplanar T2 weighted, axial T1 in/out of phase, diffusion-weighted and elastography. Multiplanar T1-weighted images with fat saturation were before contrast administration and at multiple time points following the administration of intravenous contrast. Contrast dose: 8 mL Gadavist. FINDINGS Liver: Lobulated/nodular contour of the liver, with heterogenous enhancement. Borderline hepatomegaly. No diffuse iron deposition or hepatic steatosis. Fat signal fraction for region of interest drawn in the right lobe of liver disease is 5.8%. MR elastography images are satisfactory for interpretation. The average liver stiffness measures 4.5 kPa. Mild heterogenous enhancement of the liver Gallbladder: No cholelithiasis. No intrahepatic or extrahepatic biliary ductal dilation. Focal arterial phase enhancing observation is seen in segment 4B adjacent to the gallbladder measuring up to 1.3 cm (65/48) with no definite washout, no hyperintensity on diffusion-weighted images, no decreased signal on T1-weighted images. Pancreas: Normal intrinsic T1 signal. No masslike lesion or pancreatic ductal dilatation. Spleen: Mild splenomegaly with the spleen measuring 13.5 cm in craniocaudal dimension. No focal splenic lesion. Adrenal glands: No mass or nodule Kidneys: No hydronephrosis Bowel: No high-grade bowel obstruction Lymph nodes: Borderline enlarged node anterior to the pancreatic head (58/32), measuring 10 mm. Blood vessels: No abdominal aortic aneurysm. Left-sided IVC, congenital variant. Mesentery and abdominal wall: Normal. Ascites: None. Bones and soft tissues: No aggressive osseous lesion. Prior sternotomy. Lung bases: Postsurgical changes of the chest. No pleural effusion. 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 COMPARISON: Abdomen/pelvis CT with contrast 04/07/2014. TECHNIQUE: Liver MR: Images were acquired with and without intravenous contrast through the abdomen. The following MR images were acquired: TrueFISP, multiplanar T2 weighted, axial T1 in/out of phase, diffusion-weighted and elastography. Multiplanar T1-weighted images with fat saturation were before contrast administration and at multiple time points following the administration of intravenous contrast. Contrast dose: 8 mL Gadavist. FINDINGS Liver: Lobulated/nodular contour of the liver, with heterogenous enhancement. Borderline hepatomegaly. No diffuse iron deposition or hepatic steatosis. Fat signal fraction for region of interest drawn in the right lobe of liver disease is 5.8%. MR elastography images are satisfactory for interpretation. The average liver stiffness measures 4.5 kPa. Mild heterogenous enhancement of the liver Gallbladder: No cholelithiasis. No intrahepatic or extrahepatic biliary ductal dilation. Focal arterial phase enhancing observation is seen in segment 4B adjacent to the gallbladder measuring up to 1.3 cm (65/48) with no definite washout, no hyperintensity on diffusion-weighted images, no decreased signal on T1-weighted images. Pancreas: Normal intrinsic T1 signal. No masslike lesion or pancreatic ductal dilatation. Spleen: Mild splenomegaly with the spleen measuring 13.5 cm in craniocaudal dimension. No focal splenic lesion. Adrenal glands: No mass or nodule Kidneys: No hydronephrosis Bowel: No high-grade bowel obstruction Lymph nodes: Borderline enlarged node anterior to the pancreatic head (58/32), measuring 10 mm. Blood vessels: No abdominal aortic aneurysm. Left-sided IVC, congenital variant. Mesentery and abdominal wall: Normal. Ascites: None. Bones and soft tissues: No aggressive osseous lesion. Prior sternotomy. Lung bases: Postsurgical changes of the chest. No pleural effusion. IMPRESSION: 1. Focal arterial enhancing observation in segment IVb adjacent to the gallbladder, indeterminate, may represent focal nodular hyperplasia, adenoma, regenerative nodule, atypical hemangioma or vascular phenomenon. Recommend attention on follow-up in 3-6 months 2. MR Elastography: Averaged liver stiffness index (kPa) measures 4.5. 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 3. Borderline hepatomegaly. Mild splenomegaly. Additional incidental findings as above. Suggested guidelines for interpretation of liver stiffness with MRE at 60 Hz: (Magn Reson Imaging Clin N Am. 2014 Sep;22(3):433-46) <2.5 kPa: normal 2.5 - 2.9 kPa: normal or inflammation 2.9 - 3.5 kPa: stage 1 to 2 fibrosis 3.5 - 4 kPa: stage 2 to 3 fibrosis 4 - 5 kPa: stage 3 to 4 fibrosis >5 kPa: stage 4 fibrosis or cirrhosis I have personally reviewed the examination and initial interpretation and I agree with the findings. LIONEL LAU MD us Meño Schreiber MD IMG MRI ORDERABLES Final Res ult * EKG 12-lead, tracing only (Same Day) (03/10/2024 1:13 PM DIRECTOR EMERGENCY DEPARTMENT) Systolic Blood Pressure mmHg RADIOLOGY RESULTS Diastolic Blood Pressure mmHg RADIOLOGY RESULTS Ventricular Rate 91 BPM RAD IOLOGY RESULTS Atrial Rate 91 [address] Interval 174 ms RADIOLOG Y RESULTS QRS Duration 106 ms RADIOLO GY RESULTS QT 384 ms RADIOLOGY RESULTS QTc 472 ms RADIOLOGY RESULTS P [place] 20 degrees RADIOLOGY RESULTS R AXIS 123 degrees RADIOLOGY RESULTS T [place] -1 degrees RADIOLOGY RESULTS Interpretation ECG Sinus rhythm Right axis deviation Incomplete right bundle branch block T wave abnormality, consider anterior ischemia Prolonged QT Abnormal ECG When compared with ECG of 19-Sep-2023 09:24, No significant change was found Confirmed by fellow Humble Hodge ([id number]) on 03/12/2024 2:55:37 PM Confirmed by MD NOAH, DEBORA ([id number]) on 03/12/2024 6:53:57 PM RADIOLOGY RESULTS 03/10/2024 1:13 PM DIRECTOR EMERGENCY DEPARTMENT 03/12/2024 6:53 PM DIRECTOR EMERGENCY DEPARTMENT us Meño Schreiber MD ECG ORDERABLES Edited Resul t - Final RADIOLOGY RESULTS * ECHO CONGENITAL ADULT (TTE) (03/10/2024 1:09 PM DIRECTOR EMERGENCY DEPARTMENT) Anatomical Region Laterality Modality Echocardiography 03/10/2024 12:4 4 PM DIRECTOR EMERGENCY DEPARTMENT Narrative 03/10/2024 1:17 PM DIRECTOR EMERGENCY DEPARTMENT [id number]^CANDIE^ALBA Study ID: [id number] [facility] [address] [address] Pediatric Echocardiogram Name: DELMER DAVIS Study Date: 03/10/2024 12:44 PM Patient Location: [facility] Age: 28 yrs : 1995 Gender: Female Patient Class: Outpatient Height: 152 cm Ordering Provider: MEÑO SCHREIBER Weight: 81 kg Referring Provider: MEÑO SCHREIBER BSA: 1.8 m2 Performed By: Angela Pickering Report approved by: Cristian Appiah MD Reason For Study: Hypoplastic left heart syndrome, Adult congenital heart disease, ##### CONCLUSIONS ##### Hypoplastic left heart syndrome. Patient has undergone Dewy Rose, Romain and Fontan operations. Status-post Fontan fenestration closure with a ASO device (04/2004). Descending thoracic aorta stent placement (01/2016). No residual Fontan fenestration flow is detected. Low-velocity, phasic flow seen in the Fontan. There is laminar phasic color flow in the Romain shunt and into the LPAand RPA. Unobstructed flow across the aortic stent; normal abdominal aortic flow profile. Mild/moderate systemic tricuspid valve regurgitation. Moderate right ventricular dilation with qualitatively low- normal systolic function. Technical information: A complete two dimensional, MMODE, [...] valve insufficiency. Mitral valve atresia. LV dp/dt 932 mmHg/s. Ventricles and Ventricular Septum: There is moderate right ventricular enlargement. Low normal right ventricular systolic function. 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 There is no ventricular level shunting. Outflow tracts: Patient has undergone Ariana operation. The systemic outflow tract is unobstructed. There is no stenosis of the leland-aortic valve. There is trace insufficiency of the leland-aortic valve. Great arteries: There is unobstructed flow in both branch pulmonary arteries. There is normal pulsatile flow in the descending abdominal aorta. Post stenting of coarctation of the aorta. There is no residual coarctation of the aorta. Coronaries: The coronary arteries are not evaluated. Effusions, catheters, cannulas and leads: No pericardial effusion. Doppler Measurements & Calculations Calculated Coarct Gradient: 5.1 mmHg LV dP/dt: 932.0 mmHg/s asc Ao max mart: 65.6 cm/sec desc Ao max mart: 138.9 cm/sec asc Ao max P.7 mmHg desc Ao max P.7 mmHg desc Ao mean P.6 mmHg Report approved by: Cristian Appiah MD on 03/10/2024 01:17 PM Procedure Note Cristian Appiah MD - 03/10/2024 [id number]^CANDIE^MEÑO^LOCO Study ID:[id number] [id number] [place] [address] Pediatric Echocardiogram Name: DELMER DAVIS Study Date: 03/10/2024 12:44 PM Patient Location:[facility] Age: 28 yrs : 1995 Gender: Female Patient Class: Outpatient Height: 152 cm Ordering Provider: MEÑO SCHREIBER Weight: 81 kg Referring Provider: MEÑO SCHREIBER BSA: 1.8 m2 Performed By: Angela Pickering Report approved by: Cristian Appiah MD Reason For Study: Hypoplastic left heart syndrome, Adult congenitalheart disease, ##### CONCLUSIONS ##### Hypoplastic left heart syndrome. Patient has undergone Dewy Rose, Glennand Fontan operations. Status-post Fontan fenestration closure with a ASOdevice (04/2004). Descending thoracic aorta stent placement (01/2016). No residual Fontan fenestration flow is detected. Low-velocity, phasicflow seen in the Fontan. There is laminar phasic color flow in the Romain shuntand into the LPAand RPA. Unobstructed flow across the aortic stent; normal abdominal aortic flow profile. Mild/moderate systemic tricuspid valve regurgitation. Moderate right ventricular dilation with qualitativelylow- normal systolic function. Technical information: A complete two dimensional, MMODE, [...] valve insufficiency. Mitral valve atresia. LV dp/dt 932mmHg/s. Ventricles and Ventricular Septum: There is moderate right ventricular enlargement. Low normal rightventricular systolic function. 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 There isno ventricular level shunting. Outflow tracts: Patient has undergone Ariana operation. The systemic outflow tract is unobstructed. There is no stenosis of the leland-aortic valve. There istrace insufficiency of the leland-aortic valve. Great arteries: There is unobstructed flow in both branch pulmonary arteries. There isnormal pulsatile flow in the descending abdominal aorta. Post stenting ofcoarctation of the aorta. There is no residual coarctation of the aorta. Coronaries: The coronary arteries are not evaluated. Effusions, catheters, cannulas and leads: No pericardial effusion. Doppler Measurements & Calculations Calculated Coarct Gradient: 5.1 mmHg LV dP/dt: 932.0 mmHg/s asc Ao max mart: 65.6 cm/sec desc Ao max mart: 138.9 cm/sec asc Ao max P.7 mmHg desc Ao max P.7 mmHg desc Ao mean P.6 mmHg Report approved by: Cristian Appiah MD on 03/10/2024 01:17 PM us Meño Schreiber MD CV ECHO ORDERABLES Edited Re sult - Final * Cardiopulmonary Stress Test - Adult (03/10/2024 10:57 AM DIRECTOR EMERGENCY DEPARTMENT) Target HR 193 Exercise duration (min) 5 min Exercise duration (sec) 58 sec Estimated workload 7.0 METS Angina Index 0 Max 20,625 CARPULSTRPH1 2 mins CARPULSTRPH1 103 bpm CARPULBPPH1 110/65 mmHg CARPULSTRPH1 95 % SpO2 CARPULSTRPH2 4 mins CARPULSTRPH2 121 bpm CARPULBPPH2 128/70 mmHg CARPULSTRPH2 90 % SpO2 CARPULSTRPH3 5 mins [id number] C 58 sec CARPULSTRPH3 165 bpm CARPULBPPH3 125/90 mmHg CARPULSTRPH3 93 % SpO2 Baseline BP 116/76 mmHg Baseline HR 79 bpm Rest BP 113/71 mmHg Rest 86 bpm Last Stress BP 125/90 mmHg Max HR 165 Max Predicted HR 85 % PREDICTED VO2MAX 34.3 Max 14.40 ml/kg/min Predicted 34.30 ml/kg/min Percent 42 % RER 1.05 VE/VCO2 [place] 34.22 Actual SVC (L) 2.65 Predicted SVC (L) 3.31 Percent SVC (L) 80 % Actual FVC (L) 2.68 Predicted FVC (L) 3.31 Percent FVC (L) 81 % Actual FVC (L) 2.41 Predicted FVC (L) 2.86 Percent FVC (L) 84 % Actual FEV 1.0/FVC % 89.9 Predicted FEV 1.0/ FVC % 85.1 Percent FEV 1.0 FVC% 106 % Rest 4.30 ml/kg/min Max 14.40 ml/kg/min Rest 1.20 Rest 274.00 ml/min Max 1,299.00 ml/min Rest 0.79 Max 1.05 Rest 4.00 ml/beat Max 7.00 ml/beat Rest 11.60 l/min Max 45.80 l/min Rest 446.00 ml Max 1,365.00 ml Rest 26.00 br/min Max 34.00 br/min Rest 86.30 Max 45.80 Rest 33.00 Max 36.00 Rest 42.00 Max 35.00 Max 34.22 Rest 110.00 Max 117.00 Rest 29.00 Max 31.00 Rest 96.00 % Max 93.00 % Anatomical Region Laterality Modality Other Narrative 03/11/2024 7:37 AM DIRECTOR EMERGENCY DEPARTMENT A cardiopulmonary stress test was performed following a Jimbo ramp protocol with the patient exercising for 5 minutes and 58 seconds under the supervision of Dr. Turk. Heart rate demonstrated a normal response to exercise. Blood pressure demonstrated a blunted response to exercise. Pt achieved an extremely impaired, class III functional capacity. Pt appears to have a cardiac and pulmonary limitation to exercise due to the patients low vo2 max, low o2 pulse, anaerobic threshold not being achieved, breathing reserve<50%, abnormal bp response, and a drop in o2 saturation during exercise. Stress Findings A cardiopulmonary stress test was performed following a Jimbo ramp protocol with the patient exercising for 5 minutes and 58 seconds under the supervision of Dr. Turk. Heart rate demonstrated a normal response to exercise. Blood pressure demonstrated a blunted response to exercise. The patient's exercise capacity is extremely impaired. The test was stopped due to dyspnea. The patient reported dyspnea during the stress test. Functional capacity response is Class III: 25-49%. The patient experienced no angina during the test. ECG Baseline electrocardiogram demonstrates sinus rhythm with right axis of deviation, RVH, nonspecific ST-T abnormalities and right bundle branch block. The stress electrocardiogram was non-diagnostic. The stress electrocardiogram was non- diagnostic due to baseline ST changes. There were no arrhythmias during stress. There were no arrhythmias during recovery. Cardiopulmonary Prior study A prior study was conducted on 12/22/2021. This study has changes noted with the prior study. when compared to the previous cpx, pt's vo2 max decreased about 32% Cardiopulmonary Anaerobic threshold Pt did not reach anaerobic threshold. us Meño Schreiber MD CV CARDIAC SERVICES ORDERABL ES Final Result * X-ray Chest 2 vws* (03/10/2024 10:46 AM DIRECTOR EMERGENCY DEPARTMENT) Anatomical Region Laterality Modality Chest Digital Radiogra phy Narrative 03/10/2024 10:54 AM DIRECTOR EMERGENCY DEPARTMENT Chest 2 views INDICATION: Hypoplastic left heart syndrome. Post Fontan. Hypoxemia. COMPARISON: Chest CT 08/29/2022. Plain films 03/03/2019. FINDINGS: Proximal descending thoracic aortic and distal arch stat median sternotomy. No new pulmonary opacities or ectopic air collections. ASD closure. Heart size normal. Bony structures otherwise grossly intact. COMPARISON: Post Fontan and chest radiographs unchanged with distal arch/proximal descending thoracic aorta stent with ASD closure and other median sternotomy. CECI TAVERAS MD Procedure Note Ceci Taveras MD - 03/10/2024 Chest 2 views INDICATION: Hypoplastic left heart syndrome. Post Fontan. Hypoxemia. COMPARISON: Chest CT 08/29/2022. Plain films 03/03/2019. FINDINGS: Proximal descending thoracic aortic and distal arch stat median sternotomy. No new pulmonary opacities or ectopic air collections. ASD closure. Heart size normal. Bony structures otherwise grossly intact. COMPARISON: Post Fontan and chest radiographs unchanged with distal arch/proximal descending thoracic aorta stent with ASD closure and other median sternotomy. CECI TAVERAS MD Meño Schreiber MD IMG DIAGNOSTIC IMAGING ORDER CHANA Final Result * Extra Purple Top Tube (03/10/2024 9:38 AM DIRECTOR EMERGENCY DEPARTMENT) [facility] Hold Specimen JI 03/10/2024 11:31 AM DIRECTOR EMERGENCY DEPARTMENT [facility] Blood STRUCTURE OF LEFT UPPER LIMB / Unknown Venipuncture / Unknown 03/10/2024 9:38 AM DIRECTOR EMERGENCY DEPARTMENT 03/10/2024 10:21 AM DIRECTOR EMERGENCY DEPARTMENT Meño Schreiber MD LAB - BLOOD ORDERABLES Final Result [facility] Core Lab [address] [facility], [address] [place] [address] * N terminal pro BNP outpatient (03/10/2024 9:38 AM DIRECTOR EMERGENCY DEPARTMENT) [facility] N Terminal Pro BNP Outpatient 120 0 - 450 pg/mL 03/10/2024 2:19 PM DIRECTOR EMERGENCY DEPARTMENT [facility] Comment: Reference range shown and results flagged as abnormal are for the outpatient, non acute settings. Establishing a baseline value for each individual patient is useful for follow-up. Suggested inpatient cut points for confirming diagnosis of CHF in an acute setting are: >450 pg/mL (age 18 to less than 50) >900 pg/mL (age 50 to less than 75) >1800 pg/mL (75 yrs and older) An inpatient or emergency department NT-proPBNP <300 pg/mL effectively rules out acute CHF, with 99% negative predictive value. Blood STRUCTURE OF LEFT UPPER LIMB / Unknown Venipuncture / Unknown 03/10/2024 9:38 AM DIRECTOR EMERGENCY DEPARTMENT 03/10/2024 10:06 AM DIRECTOR EMERGENCY DEPARTMENT us Meño Schreiber MD LAB - BLOOD ORDERABLES Final Result [facility] Lab [address] [facility], [address] [phone] * Hepatic panel (03/10/2024 9:38 AM DIRECTOR EMERGENCY DEPARTMENT) Protein Total 6.8 6.4 - 8.3 g/dL 03/10/2024 2:19 PM DIRECTOR EMERGENCY DEPARTMENT [facility] Albumin 4.8 3.5 - 5.2 g/dL 03/10/2024 2:19 PM DIRECTOR EMERGENCY DEPARTMENT [facility] Bilirubin Total 0.8 <=1.2 mg/dL 03/10/2024 2:19 PM DIRECTOR EMERGENCY DEPARTMENT [facility] Alkaline Phosphatase 48 40 - 150 U/L 03/10/2024 2:19 PM DIRECTOR EMERGENCY DEPARTMENT [facility] AST 32 0 - 45 U/L 03/10/2024 2:19 PM DIRECTOR EMERGENCY DEPARTMENT [facility] ALT 35 0 - 50 U/L 03/10/2024 2:19 PM DIRECTOR EMERGENCY DEPARTMENT [facility] Bilirubin Direct 0.22 0.00 - 0.30 mg/dL 03/10/2024 2:19 PM DIRECTOR EMERGENCY DEPARTMENT [facility] Blood STRUCTURE OF LEFT UPPER LIMB / Unknown Venipuncture / Unknown 03/10/2024 9:38 AM DIRECTOR EMERGENCY DEPARTMENT 03/10/2024 10:06 AM DIRECTOR EMERGENCY DEPARTMENT Meño Schreiber MD LAB - BLOOD ORDERABLES Final Result [facility] [address] [facility], [address] * Hemoglobin A1c (03/10/2024 9:38 AM DIRECTOR EMERGENCY DEPARTMENT) Pathologist [facility] Estimated Average Glucose 114 <117 mg/dL 03/11/2024 1:45 AM DIRECTOR EMERGENCY DEPARTMENT [facility] Hemoglobin A1C 5.6 <5.7 % 03/11/2024 1:45 AM DIRECTOR EMERGENCY DEPARTMENT [facility] Comment: Normal <5.7% Prediabetes 5.7-6.4% Diabetes 6.5% or higher Note: Adopted from ADA consensus guidelines. Blood STRUCTURE OF LEFT UPPER LIMB / Unknown Venipuncture / Unknown 03/10/2024 9:38 AM DIRECTOR EMERGENCY DEPARTMENT 03/10/2024 10:21 AM DIRECTOR EMERGENCY DEPARTMENT Meño Schreiber MD LAB - BLOOD ORDERABLES Final Result Performing Organization Address [facility] de Phone Number [facility] Lab [address] [facility], [address] * Basic metabolic panel (03/10/2024 9:38 AM DIRECTOR EMERGENCY DEPARTMENT) [facility] Sodium 140 135 - 145 mmol/L 03/10/2024 10:44 AM DIRECTOR EMERGENCY DEPARTMENT [facility] Potassium 4.2 3.4 - 5.3 mmol/L 03/10/2024 10:44 AM DIRECTOR EMERGENCY DEPARTMENT [facility] Chloride 107 98 - 107 mmol/L 03/10/2024 10:44 AM DIRECTOR EMERGENCY DEPARTMENT [facility] Carbon Dioxide (CO2) 23 22 - 29 mmol/L 03/10/2024 10:44 AM DIRECTOR EMERGENCY DEPARTMENT [facility] Anion Gap 10 7 - 15 mmol/L 03/10/2024 10:44 AM DIRECTOR EMERGENCY DEPARTMENT [facility] Urea Nitrogen 15.3 6.0 - 20.0 mg/dL 03/10/2024 10:44 AM DIRECTOR EMERGENCY DEPARTMENT [facility] Creatinine 0.85 0.51 - 0.95 mg/dL 03/10/2024 10:44 AM DIRECTOR EMERGENCY DEPARTMENT [facility] GFR Estimate >90 >60 mL/min/1.7 3m2 03/10/2024 10:44 AM DIRECTOR EMERGENCY DEPARTMENT [facility] Comment:eGFR calculated usin 2020 CKD-EPI equation. Calcium 9.3 8.8 - 10.4 mg/dL 03/10/2024 10:44 AM DIRECTOR EMERGENCY DEPARTMENT [facility] Comment:Reference intervals for this test were updated on 09/10/2023 to reflect our healthy population more accurately. There may be differences in the flagging of prior results with similar values performed with this method. Those prior results can be interpreted in the context of the updated reference intervals. Glucose 98 70 - 99 mg/dL 03/10/2024 10:44 AM DIRECTOR EMERGENCY DEPARTMENT [facility] Blood STRUCTURE OF LEFT UPPER LIMB / Unknown Venipuncture / Unknown 03/10/2024 9:38 AM DIRECTOR EMERGENCY DEPARTMENT 03/10/2024 10:06 AM DIRECTOR EMERGENCY DEPARTMENT us Meño Schreiber MD LAB - BLOOD ORDERABLES Final Result [facility] Lab [address] [facility], [address] * Chlamydia trachomatis PCR (04/07/2014 11:55 PM DIRECTOR EMERGENCY DEPARTMENT) Specimen Description Midstream Urine U [facility] Chlamydia Trachomatis PCR Negative Negative for C. trachomatis rRNA by relations manager mediated amplification. A negative result by relations manager mediated amplification does not preclude the presence of C. trachomatis infection because results are dependent on proper and adequate collection, absence of inhibitors, and sufficient rRNA to be detected. NEG [facility] Urine specimen (specimen) 04/07/2014 11:55 PM DIRECTOR EMERGENCY DEPARTMENT 04/08/2014 1:47 AM DIRECTOR EMERGENCY DEPARTMENT us Norman Woodall MD LAB - MICRO GENERAL ORDERABLES F inal Result Performing Organization Address City/[facility]/ZIP Co de Phone Number [facility] [address] U OF [facility] from Last 3 Months or Most Recently Relevant to Health Maintenance Insurance [address] [place] [address] [employer] [address] [place] [address] [employer] Advance Directives For more information, please contact: [phone] * Full Code (Latest Code Status on [...] 2:31 PM 01/27/2016 6:48 AM Care Teams Credit Card Interviewer Relationship Specialty Start Date End Date Maryellen Monterroso PCP - General Physician Sql Analyst 02/03/13 Abby Nicolas MD [address] [place] [id number] Pediatric Cardiology 02/02/15
--- OUTSIDE RECORDS SUMMARY | 2024-04-22 13:16 | XMS_ITS | Encounter Summary ---
Author Organization [employer] Address [address] [facility] [place] [address] Care Team Providers Care Senior Commissary Agent Name Role Phone Kriss Maryellen Shemar Primary Care Provider [phone] Abby Nicolas MD Unavailable [phone] Encounter Details Date Type Department Care Team (Late st Contact Info) Description 09/19/2023 MyC Medical Advice [facility] [address] [address] Iwona Velazquez, [place] [address] Social History Tobacco Use Types Packs/Day Years [...] on file Legal Sex Female 4:04 AM CHIEF REVENUE OFFICER Gender Identity Not on file Sexual Orientation Not on file documented as of this encounter Plan of Treatment Upcoming Encounters Date Type Department Care Team (Latest Contact Info) Description 04/27/2024 7:30 AM CHIEF REVENUE OFFICER Lab [facility] [address] [place] [address] 04/27/2024 9:30 AM CHIEF REVENUE OFFICER Hospital Encounter [facility] [address] [place] [address] Supa Herrera MD [address] [place] [address] Hypoplastic left heart syndrome; S/P Fontan procedure; Adult congenital heart disease; Single ventricle 04/27/2024 9:30 AM CHIEF REVENUE OFFICER - 04/27/2024 11:30 AM CHIEF REVENUE OFFICER Surgery [facility] [address] [place] [address] Supa Herrera MD [address] [place], [place] [address] Congenital Right Heart Catheterization 05/28/2024 2:30 PM CDT Office Visit [facility] [place] [address] [facility] [address] [place] [phone] Meño Pryor MD [facility] [place] [address] Scheduled Procedures Name Priority Associated Diagnoses Date/Ti nh Congenital Coronary Angiogram 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 04/27/2024 9:30 AM CHIEF REVENUE OFFICER documented as of this encounter Visit Diagnoses Not on filedocumented in this encounter Care Teams Senior Commissary Agent Relationship Specialty Start Date End Date Maryellen Monterroso PCP - General Physician Mill Roll Operator 02/03/13 Abby Nicolas MD [address] [address] Pediatric Cardiology 02/02/15 documented as of this encounter
--- OUTSIDE RECORDS SUMMARY | 2024-04-22 13:16 | XMS_ITS | Encounter Summary ---
Author Organization [employer] Address [address] [facility] [address] Care Team Providers Care Toe Former Name Role Phone Kriss Maryellen Staton Primary Care Provider [phone] Abby Nicolas MD Unavailable [phone] Encounter Details Date Type Department Care Team (Late st Contact Info) Description 10/14/2023 MyC Medical Advice [facility] [address] [address] Starla Carter, RN Social History Tobacco Use Types Packs/Day [...] on file Legal Sex Female 4:04 AM CHARGER Gender Identity Not on file Sexual Orientation Not on file documented as of this encounter Plan of Treatment Upcoming Encounters Date Type Department Care Team (Latest Contact Info) Description 04/27/2024 7:30 AM CHARGER Lab [facility] [place] [facility] [address] [place] [address] 04/27/2024 9:30 AM CHARGER Hospital Encounter [facility] [address] [place] [address] Supa Herrera MD [address] [place] [address] Hypoplastic left heart syndrome; S/P Fontan procedure; Adult congenital heart disease; Single ventricle 04/27/2024 9:30 AM CHARGER - 04/27/2024 11:30 AM CHARGER Surgery [facility] [address] [place] [address] Supa Herrera MD [address] [place] [address] Congenital Right Heart Catheterization 05/28/2024 2:30 PM CDT Office Visit [facility] [place] [address] [facility] [address] [place] [address] Meño Pryor MD [address] [place] [phone] Scheduled Procedures Name Priority Associated Diagnoses Date/Ti ar Congenital Coronary Angiogram 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 04/27/2024 9:30 AM CHARGER documented as of this encounter Visit Diagnoses Not on filedocumented in this encounter Care Teams Toe Former Relationship Specialty Start Date End Date Maryellen Monterroso PCP - General Physician Denture Packer 02/03/13 Abby Nicolas MD [facility] [address] [address] Pediatric Cardiology 02/02/15 documented as of this encounter
--- OUTSIDE RECORDS SUMMARY | 2024-04-22 13:16 | XMS_ITS | Data Portability ---
Author Organization [place] - [facility], [employer] Address [address] [place] [address] Assessment Encounter Date Assessment Date Assessment LastModified by Organization Details LastModified Time 01/07/2024 01/07/2024 Discussed medical condition with patient. Given current signs of infection, I recommended incision and drainage of the affected nail border. Risks and benefits of the procedure discussed and patient ultimately wished to proceed. Obtained verbal and written consent prior to start of procedure. Please see procedure note below for more details. Educated patient on postprocedure cares (Epsom salt soaks followed by application of triple antibiotic ointment and a band-aid). Given that this is a recurrent issue, discussed the possibility of permanent excision of the symptomatic nail border after the infection has resolved. Educated patient on the etiology, prognosis, treatment options for verruca plantaris. Debrided lesions today using a #15 blade down to pinpoint bleeding. Recommended that patient use salicylic acid and duct tape for first line treatment. We briefly discussed the role of cantharidin once she has healed from her current nail procedure. Patient verbalized understanding and is in agreement with the above treatment plan. Patient will return to clinic in 2 weeks for reevaluation. [email or web address] Not available 01/07/2024 13:35:18 Plan of Treatment Reminders Order Date Submit Date Provider Last Modified By Organization Details Last Modified Time Details Appointments None record ed. Lab None record ed. Referral None record ed. Procedures None record ed. Surgeries None record ed. Imaging None record ed. Medication Orders None record ed. Patient TargetsNo targets recorded. Patient InstructionsNo instructions recorded. Reason for Referral None Reported. Procedures Surgical History Date Name Laterality Status Provider Name and Address Organization Details Recorded Time 01/07/2024 [email or web address] completed LUCIANO RAMIREZ DPM [address] [place], [address], [place] - [facility] 01/07/2024 13:32:28 Imaging Results None recorded. Procedure Notes None recorded. Medical Equipment None Reported. Allergies Allergen ID Allergen Name Allergen Category Reaction Reaction Severity Criticality Documentation Date Start Date Code Code System Note Provider Name and Address Organization Details Recorded Time morphine medicatio n Not available Not available Not available 01/07/2024 7052 RxNorm Domi Diogo null, [facility] 4 10:23:26 [address]3536 acetamino phen / hydrocodo ne medicatio n Not available Not available Not available 01/07/2024 20587 2 RxNorm Domi Diogo null, [facility] 4 10:23:39 [address]7981 oxycodone medicatio n Not available Not available Not available 01/07/2024 7804 RxNorm Domi Diogo null, [facility] 4 10:23:59 vancomyci n medicatio n Not available Not available Not available 01/07/2024 68874 RxNorm Domi Diogo null, [facility] 4 10:24:12 Medications Name Sig Start Date Stop Date Status Note LastModified by Organization Details LastModified Time ofloxacin 0.3 % eye drops APPLY 1-2 DROPS INTO THE AFFECTED EYE(S) 4 TIMES PER DAY FOR 5-7 DAYS active Not Available Not Available No t Available fluconazole 150 mg tablet TAKE 1 TABLET BY MOUTH ONE TIME FOR 1 DOSE. active Not Available Not Available No t Available fluconazole 200 mg tablet TAKE 1 TABLET BY MOUTH EVERY DAY active Not Available Not Available No t Available tramadol 50 mg tablet TAKE 1 TABLET (50 MG) BY MOUTH FOUR TIMES DAILY. active Not Available Not Available No t Available hydromorphone 2 mg tablet active Not Available Not Available Not Available cephalexin 500 mg capsule TAKE 1 CAPSULE BY MOUTH 4 TIMES A DAY FOR 5 DAYS active Not Available Not Available No t Available polymyxin B sulfate 10,000 unit-trimethop rim 1 mg/mL eye drops INSTILL 1 DROP INTO EYE(S) EVERY 3 HOURS FOR 7 DAYS WHILE AWAKE,DO NOT EXCEED 6 DOSES IN 24 HOURS active Not Available Not Available No t Available hydroxyzine HCl 25 mg tablet TAKE 1 TABLET BY MOUTH EVERY 6 HOURS IF NEEDED FOR ANXIETY. active Not Available Not Available No t Available hydroxyzine HCl 10 mg tablet TAKE 1-2 TABLETS (10-20 MG) BY MOUTH 3 TIMES DAILY IF NEEDED FOR ANXIETY. active Not Available Not Available No t Available progesterone micronized 100 mg capsule TAKE 1 CAPSULE BY MOUTH EVERYDAY AT BEDTIME active Not Available Not Available No t Available amoxicillin 875 mg-potassium clavulanate 125 mg tablet TAKE 1 TABLET BY MOUTH TWICE A DAY FOR 5 DAYS active Not Available Not Available No t Available escitalopram 10 mg tablet TAKE 1 TABLET BY MOUTH EVERY MORNING active Not Available Not Available No t Available escitalopram 20 mg tablet TAKE 1 TABLET (20 MG) BY MOUTH ONCE DAILY IN THE MORNING. active Not Available Not Available No t Available lurasidone 40 mg tablet TAKE 1 TABLET (40 MG) BY MOUTH ONCE DAILY WITH A MEAL. active Not Available Not Available No t Available lurasidone 20 mg tablet TAKE 1 TABLET BY MOUTH EVERY DAY WITH A MEAL active Not Available Not Available No t Available Jardiance 10 mg tablet TAKE 1 TABLET (10 MG) BY MOUTH DAILY. active Not Available Not Available No t Available Vitals Date Recorded Body height Body mass index (BMI) Body weight Provider Name and Address Organization Details Last Updated DateTime 01/07/2024 152.4 cm 33.2 kg/m2 82434.7 g Domi MENDOZA - [facility] 01/07/2024 10:23:14 Social History None recorded. Functional Status None recorded. Mental Status None recorded. Family History Nothing Reported. Medical History No medical history recorded. Gynecological HistoryNo gynecological history recorded. Obstetrics History GPAL:G 0 P 0 0 0 0 Past Encounters Encounter ID Performer Location Encounter Start Date Encounter Closed Date Diagnosis/Indication Diagnosis SNOMED-CT Code Diagnosis ICD10 Code Diagnosis Note [id number] LUCIANO RAMIREZ DPM [place] [facility] [address] [place] [address] 01/07/2024 10:22:27 01/07/2024 17:37:29 Abscess of toe of right foot 9829815268 3684572 L02.611 Ingrowing nail 573720447 L60.0 Verruca plantaris 255896 08 B07.0 Health Concerns Section Related Observation LastModified by Organization Detai ls LastModified Time None Recorded Concern Status LastModified by Organization Details LastModified Time None Recorded Advance Directives Directive None Recorded Payers Encounter Date Sequence Insurance Name Policy Number Policy Pace Covered Member ID Pace Member ID Guarantor Name 01/07/2024 1 [employer] - INDIVIDUAL AND FAMILY (HMO) [id number] 1 Trish Davis [id number] Trish Davis Notes Date Note Type Note Provider Name and Address Organization Details Recorded Time 01/07/2024 text/html The patient presents with complaints of an ingrown nail on the right great toe, affecting the outside edge. The issue began in May and was initially treated at an urgent care facility where the nail was removed, and the area was numbed. The patient followed the recommended care instructions, but the ingrown nail recurred. On December 17, the patient attempted to remove the nail themselves, which provided temporary relief but did not resolve the issue. The patient reports that the condition has worsened, with increased swelling and pain, making it difficult to walk. The patient has no prior history of ingrown nails and attributes the onset to a pedicure at a questionable facility. She also relates to calluses to the bottom of her great toe on the right foot that first began around the same time. LUCIANO RAMIREZ, CLARE [address] [place], [address], [facility] - [facility] 01/07/2024 13:35:53 OBGyn Episode No OBEpisode recorded.
--- OUTSIDE RECORDS SUMMARY | 2024-04-22 13:17 | XMS_ITS | Encounter Summary ---
Author Organization [place] Address [address] [facility] [address] Care Team Providers Care Wire Inserter Name Role Phone Maryellen Mnoterroso Primary Care Provider [phone] Abby Nicolas MD Unavailable [phone] Yenifer Ibrahim PA-C Unavailable [phone] Encounter Details Date Type Department Care Team (Late st Contact Info) Description 11/27/2021 [facility] Medical Advice [facility] [address] [address] Starla Carter RN Social History [...] on file Legal Sex Female 4:04 AM ANIMAL TRAPPER Gender Identity Not on file Sexual Orientation Not on file documented as of this encounter Plan of Treatment Upcoming Encounters Date Type Department Care Team (Latest Contact Info) Description 04/27/2024 7:30 AM ANIMAL TRAPPER Lab [facility] [place] [facility] [address] [place] [address] 04/27/2024 9:30 AM ANIMAL TRAPPER Hospital Encounter [facility] Heart Care [address] [place] [address] Supa Herrera MD [address] [place] [address] Hypoplastic left heart syndrome; S/P Fontan procedure; Adult congenital heart disease; Single ventricle 04/27/2024 9:30 AM ANIMAL TRAPPER - 04/27/2024 11:30 AM ANIMAL TRAPPER Surgery [facility] Care [address] [place] [address] Supa Herrera MD [address] [place] [address] Congenital Right Heart Catheterization 05/28/2024 2:30 PM CDT Office Visit [facility] [place] [address] [facility] [address] [place] [address] Meño Pryor MD [address] [place] [address] [id number] Scheduled Procedures Name Priority Associated Diagnoses Date/Ti mn Congenital Coronary Angiogram 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 04/27/2024 9:30 AM ANIMAL TRAPPER documented as of this encounter Visit Diagnoses Not on filedocumented in this encounter Care Teams Wire Inserter Relationship Specialty Start Date End Date Maryellen Monterroso PCP - General Physician Supervisor Mapping 02/03/13 Abby Nicolas MD [facility] [address] [address] Pediatric Cardiology 02/02/15 Yenifer Ibrahim PA-C [address] [place] [address] Assigned Neuroscience Provider 09/01/22 03/20/23 documented as of this encounter
--- OUTSIDE RECORDS SUMMARY | 2024-04-22 13:17 | XMS_ITS | Encounter Summary ---
Author Organization [place] Address [address] [facility] [place] [address] Care Team Providers Care Biomedical Engineering Professor Name Role Phone Maryellen Monterroso Primary Care Provider Abby Nicolas MD Unavailable [phone] Yenifer Ibrahim PA-C Unavailable [phone] Reason for Visit * Reason Onset Date Comments Appointment 10/06/2021 Pt would like to do her echo today - please call to advise Encounter Details Date Type Department Care Team (Late st Contact Info) Description 10/06/2021 Telephone [facility] [place] [address] [facility] [address] [place] [address] Meño Pryor MD [address] [facility] [place] [address] Appointment (Pt would like to do her [...] on file Legal Sex Female 4:04 AM SURGICAL PHYSICIAN ASSISTANT Gender Identity Not on file Sexual Orientation Not on file documented as of this encounter Miscellaneous Notes * Telephone Encounter - Ashlie Marcano - 10/06/2021 9:14 AM CDT [facility] Call Center Phone Message May a [...] (Latest Contact Info) Description 04/27/2024 7:30 AM SURGICAL PHYSICIAN ASSISTANT Lab [facility] Laboratory [address] [place] [address] 04/27/2024 9:30 AM SURGICAL PHYSICIAN ASSISTANT Hospital Encounter [facility] Heart Care [address] [place] [address] Supa Herrera MD [address] [place] [address] Hypoplastic left heart syndrome; S/P Fontan procedure; Adult congenital heart disease; Single ventricle 04/27/2024 9:30 AM SURGICAL PHYSICIAN ASSISTANT - 04/27/2024 11:30 AM SURGICAL PHYSICIAN ASSISTANT Surgery [facility] Care [address] [place] [address] Supa Herrera MD [address] [place] [address] Congenital Right Heart Catheterization 05/28/2024 2:30 PM CDT Office Visit [facility] [place] [address] [facility] [address] [place] [address] Meño Pryor MD [address] [facility] [place] [address] Scheduled Procedures Name Priority Associated Diagnoses Date/Ti ga Congenital Coronary Angiogram 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
--- OUTSIDE RECORDS SUMMARY | 2024-04-22 13:17 | XMS_ITS | Encounter Summary ---
Author Organization [place] Address [address] [facility] [place] [address] Care Team Providers Care Application Coordinator Name Role Phone KrissMaryellen Shemar Primary Care Provider Abby Nicolas MD Unavailable [phone] Encounter Details Date Type Department Care Team (Late st Contact Info) Description 04/20/2024 [facility] Medical Advice [facility] Heart Clinic [address] [address] Meño Pryor MD [address] [facility] [place], [place] [id number] Social History Tobacco Use Types Packs/Day Years [...] on file Legal Sex Female 4:04 AM SHEET ROCK TAPER HELPER Gender Identity Not on file Sexual Orientation Not on file documented as of this encounter Miscellaneous Notes * Telephone Encounter - Starla Carter RN - 04/21/2024 4:50 PM CST Blood work no longer needed, Dr Pryor consulted patient T ROCK TAPER HELPER documented in this encounter Plan of Treatment Upcoming Encounters Date Type Department Care Team (Latest Contact Info) Description 04/27/2024 7:30 AM SHEET ROCK TAPER HELPER Lab [facility] Laboratory [address] [place] [address] 04/27/2024 9:30 AM SHEET ROCK TAPER HELPER Hospital Encounter [facility] Heart Care [address] [place] [address] Supa Herrera MD [address] [place] [address] Hypoplastic left heart syndrome; S/P Fontan procedure; Adult congenital heart disease; Single ventricle 04/27/2024 9:30 AM SHEET ROCK TAPER HELPER - 04/27/2024 11:30 AM SHEET ROCK TAPER HELPER Surgery [facility] Care [address] [place] [address] Supa Herrera MD [address] [place] [address] Congenital Right Heart Catheterization 05/28/2024 2:30 PM CDT Office Visit [facility] [place] [address] [facility] [address] [place] [address] Meño Pryor MD [address] [place] [address] Scheduled Procedures Name Priority Associated Diagnoses Date/Ti me Congenital Coronary Angiogram 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
--- OUTSIDE RECORDS SUMMARY | 2024-04-22 13:17 | XMS_ITS | Encounter Summary ---
Author Organization [place] Address [address] [facility] [place] [address] Care Team Providers Care Excelsior Machine Feeder Name Role Phone Maryellen Monterroso Primary Care Provider [phone] Abby Nicolas MD Unavailable [phone] Reason for Visit * Diagnostic Imaging MRI (Routine) - Closed Specialty Diagnoses / Procedures Referred By Contac t Referred To Contact Radiology. 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 [address] 1[address] [place] [address] Meño Pryor MD [address] [place] [address] Hypoplastic left heart syndrome; Adult congenital heart disease; HLHS (hypoplastic left heart syndrome); S/P Fontan procedure; Palpitations Social History Tobacco Use Types Packs/Day Years [...] on file Legal Sex Female 4:04 AM SUPERVISOR GATE SERVICES Gender Identity Not on file Sexual Orientation Not on file documented as of this encounter Plan of Treatment Upcoming Encounters Date Type Department Care Team (Latest Contact Info) Description 04/27/2024 7:30 AM SUPERVISOR GATE SERVICES Lab [facility] Laboratory [address] [place] [address] 04/27/2024 9:30 AM SUPERVISOR GATE SERVICES Hospital Encounter [facility] Heart Care [address] [place] [address] Supa Herrera MD [address] [place] [address] Hypoplastic left heart syndrome; S/P Fontan procedure; Adult congenital heart disease; Single ventricle 04/27/2024 9:30 AM SUPERVISOR GATE SERVICES - 04/27/2024 11:30 AM SUPERVISOR GATE SERVICES Surgery [facility] Heart Care [address] [place] [address] Supa Herrera MD [address] [place] [address] Congenital Right Heart Catheterization 05/28/2024 2:30 PM CDT Office Visit [facility] [place] [address] [facility] [address] [place] [address] Meoñ Pryor MD [address] [facility] [place] [address] Scheduled Procedures Name Priority Associated Diagnoses Date/Ti me Congenital Coronary Angiogram 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 04/27/2024 9:30 AM SUPERVISOR GATE SERVICES documented as of this encounter Procedures Procedure Name Priority Date/Time Associated Diagnosis Comments MR ELASTOGRAPHY W LIVER W/O & W CONTRAST Routine 04/10/2024 3:46 PM SUPERVISOR GATE SERVICES 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 Focal arterial enhancing observation in [...] and I agree with the findings. LIONEL JACK MD Narrative 04/14/2024 11:31 AM SUPERVISOR GATE SERVICES Exam: MR ELASTOGRAPHY W LIVER W/O & [...] chest. No pleural effusion. Procedure Note Lionel Jack MD - 04/14/2024 Exam: MR ELASTOGRAPHY W [...] and I agree with the findings. 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 Other postprocedural status Palpitations 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 $Given 04/10/2024 4:29 PM SUPERVISOR GATE SERVICES 8 mLs documented in this encounter Care Teams Excelsior Machine Feeder Relationship Specialty Start Date End Date Kriss Maryellen M PCP - General Physician Machine Bander And Cellophaner Helper 02/03/13 Abby Nicolas MD [address] [address] Pediatric Cardiology 02/02/15 documented as of this encounter
--- OUTSIDE RECORDS SUMMARY | 2024-04-22 13:17 | XMS_ITS | Encounter Summary ---
Author Organization [place] Address [address] [facility] [place] [address] Care Team Providers Care Horseshoer Name Role Phone KrissMaryellen johnson Shemar Primary Care Provider [phone] Abby Nicolas MD Unavailable [phone] Encounter Details Date Type Department Care Team (Latest Contact Info) Description 04/10/2024 Travel Social History Tobacco Use Types Packs/Day Years [...] on file Legal Sex Female 4:04 AM CORE FEEDER Gender Identity Not on file Sexual Orientation Not on file documented as of this encounter Plan of Treatment Upcoming Encounters Date Type Department Care Team (Latest Contact Info) Description 04/27/2024 7:30 AM CORE FEEDER [facility] Laboratory [address] [place] [address] 04/27/2024 9:30 AM CORE FEEDER Hospital Encounter [facility] Heart Care [address] [place] [address] Supa Herrera MD [address] [place] [address] Hypoplastic left heart syndrome; S/P Fontan procedure; Adult congenital heart disease; Single ventricle 04/27/2024 9:30 AM CORE FEEDER - 04/27/2024 11:30 AM CORE FEEDER Surgery [facility] Care [address] [place] [address] Supa Herrera MD [address] [place] [address] Congenital Right Heart Catheterization 05/28/2024 2:30 PM CDT Office Visit [facility] Specialty [facility] [place] [address] [facility] [address] [place] [address] Meño Pryor MD [address] [place] [address] Scheduled Procedures Name Priority Associated Diagnoses Date/Ti nj Congenital Coronary Angiogram 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
--- OUTSIDE RECORDS SUMMARY | 2024-04-22 13:17 | XMS_ITS | Encounter Summary ---
Author Organization [place] Address [address] [facility] [place] [address] Care Team Providers Care Boarding House Manager Name Role Phone KrissMaryellen johnson Shemar Primary Care Provider [phone] Abby Nicolas MD Unavailable [phone] Encounter Details Date Type Department Care Team (Late st Contact Info) Description 03/24/2024 Orders Only [facility] Interventional Radiology [address] [place] [address] Kelsy Greenfield APRN [employer]UR[employer]ES[employer] COUNSELOR [address] [place] [address] Social History Tobacco Use Types [...] on file Legal Sex Female 4:04 AM OBSERVATION NURSE Gender Identity Not on file Sexual Orientation Not on file documented as of this encounter Plan of Treatment Upcoming Encounters Date Type Department Care Team (Latest Contact Info) Description 04/27/2024 7:30 AM OBSERVATION NURSE Lab [facility] Laboratory [address] [place] [address] 04/27/2024 9:30 AM OBSERVATION NURSE Hospital Encounter [facility] Heart Care [address] [place] [address] Supa Herrera MD [address] [place] [address] Hypoplastic left heart syndrome; S/P Fontan procedure; Adult congenital heart disease; Single ventricle 04/27/2024 9:30 AM OBSERVATION NURSE - 04/27/2024 11:30 AM OBSERVATION NURSE Surgery [facility] Heart Care [address] [place] [address] Supa Herrera MD [address] [place] [id number] Congenital Right Heart Catheterization 05/28/2024 2:30 PM CDT Office Visit [facility] Pediatric Specialty Clinic [place] [address] [facility] [address] [place] [address] Meño Pryor MD [facility] [place] [address] Scheduled Procedures Name Priority Associated Diagnoses Date/Ti me Congenital Coronary Angiogram 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
--- OUTSIDE RECORDS SUMMARY | 2024-04-22 13:17 | XMS_ITS | Encounter Summary ---
Author Organization [place] Address [address] [facility] 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 Palpitations Procedures Cardiopulmonary Stress Test - Adult Meño Pryor MD [address] [facility] [address] [place] [address] Phone: tel: fax: [facility] [address] [place] [address] Phone: tel: Referral ID Status Reason Start Date Expiration Date Visits Re quested Visits Authorized [id number] Closed 09/19/2023 09/18/2024 1 1 R FABRICATOR Reason for Visit * CV Testing (Routine) - Closed Specialty Diagnoses / Procedures Referred By Luz t Referred To Contact Cardiology Diagnoses 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 Palpitations Procedures Cardiopulmonary Stress Test - Adult Meño Pryor MD [facility] NOLAN DEMARCO [address] [address] Phone: tel: fax: [facility] [address] [place] [address] Phone: tel: Referral ID Status Reason Start Date Expiration Date Visits Re quested Visits Authorized [id number] Closed 09/19/2023 09/18/2024 1 1 Encounter Details Date Type Department Care Team (Late st Contact Info) Description 03/10/2024 9:42 AM REBAR FABRICATOR - 03/10/2024 11:59 PM REBAR FABRICATOR Hospital Encounter [facility] [address] [place] [address] Meño Pryor MD [address] [place] [address] [id number] Hypoplastic left heart syndrome; Adult congenital heart disease; HLHS (hypoplastic left heart syndrome); S/P Fontan procedure; Palpitations Discharge Disposition: Home or Self Care Social History Tobacco Use Types Packs/Day Years [...] on file Legal Sex Female 4:04 AM REBAR FABRICATOR Gender Identity Not on file Sexual Orientation Not on file documented as of this encounter Last Filed Vital Signs Vital Sign Reading Time Taken Comments Blood Pressure - - Pulse - - Temperature - - Respiratory Rate - - Oxygen Saturation - - Inhaled Oxygen Concentration - - Weight 80.6 kg (177 lb 11.1 oz) 025 10:00 AM REBAR FABRICATOR Height 152.4 cm (5') 03/10/2024 10:00 AM REBAR FABRICATOR Body Mass Index 34.7 03/10/2024 10:00 AM REBAR FABRICATOR documented in this encounter Medications at Time of Discharge amoxicillin-clav ulanate (AUGMENTIN) 875-125 MG tablet Take 1 tablet by mouth 2 times daily 08/22/2022 cephALEXin (KEFLEX) 500 MG capsuleIndicatio ns:Cellulitis of both lower extremities,Hypo plastic left heart syndrome,Adult congenital heart disease Take 1 capsule (500 mg) by mouth 4 times daily For 7 days 28 capsule 10/23/2022 cephALEXin (KEFLEX) 500 MG capsuleIndicatio ns:Surgical wound infection Take 1 capsule (500 mg) by mouth 3 times daily For 5 days 15 capsule 09/03/2022 clotrimazole (LOTRIMIN) 1 % external creamIndications :Surgical wound infection Apply topically 2 times daily 28 g 08/30/2022 empagliflozin (JARDIANCE) 10 MG TABS tabletIndication s:Hypoplastic left heart syndrome,Adult congenital heart disease,HLHS (hypoplastic left heart syndrome),S/P Fontan procedure,Palpit ations TAKE 1 TABLET (10 MG) BY MOUTH DAILY. 90 tablet 3 01/31/2024 escitalopram (LEXAPRO) 10 MG tablet Take 10 mg by mouth every morning 06/14/2022 hydrOXYzine (ATARAX) 25 MG tablet TAKE 1 TABLET (25 MG) BY MOUTH EVERY 6 HOURS IF NEEDED FOR ITCHING. 06/12/2022 lurasidone (LATUDA) 20 MG TABS tablet Take 20 mg by mouth daily. 02/20/2024 metoprolol succinate ER (TOPROL XL) 25 MG 24 hr tabletIndication s:Palpitations Take 0.5 tablets (12.5 mg) by mouth daily 45 tablet 03/14/2023 documented as of this encounter Plan of Treatment Upcoming Encounters Date Type Department Care Team (Latest Contact Info) Description 04/27/2024 7:30 AM [facility] Laboratory [address] [place] [address] 04/27/2024 9:30 AM REBAR FABRICATOR Hospital Encounter [facility] [address] [place] [address] Supa Herrera MD [address] [place] [address] Hypoplastic left heart syndrome; S/P Fontan procedure; Adult congenital heart disease; Single ventricle 04/27/2024 9:30 AM REBAR FABRICATOR - 04/27/2024 11:30 AM REBAR FABRICATOR Surgery [facility] [address] [place] [address] Supa Herrera MD [address] [place] [address] Congenital Right Heart Catheterization 05/28/2024 2:30 PM CDT Office Visit [facility] [place] [address] [facility] [address] [place] [address] Meño Pryor MD [address] [facility] [address] [address] Scheduled Procedures Name Priority Associated Diagnoses Date/Ti me Congenital Coronary Angiogram 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 04/27/2024 9:30 AM REBAR FABRICATOR documented as of this encounter Procedures Procedure Name Priority Date/Time Associated Diagnosis Comments CARDIOPULMONARY STRESS TEST - ADULT Routine 03/10/2024 10:57 AM REBAR FABRICATOR 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 Palpitations documented in this encounter Results * Cardiopulmonary Stress Test - Adult (03/10/2024 10:57 AM REBAR FABRICATOR) Target HR 193 Exercise duration (min) 5 min Exercise duration (sec) 58 sec Estimated workload 7.0 METS Angina Index 0 Max 20,625 CARPULSTRPH1 2 mins CARPULSTRPH1 103 bpm CARPULBPPH1 110/65 mmHg CARPULSTRPH1 95 % SpO2 CARPULSTRPH2 4 mins CARPULSTRPH2 121 bpm CARPULBPPH2 128/70 mmHg CARPULSTRPH2 90 % SpO2 CARPULSTRPH3 5 mins [id number] C 58 sec CARPULSTRPH3 165 bpm CARPULBPPH3 125/90 mmHg CARPULSTRPH3 93 % SpO2 Baseline BP 116/76 mmHg Baseline HR 79 bpm Rest BP 113/71 mmHg Rest 86 bpm Last Stress BP 125/90 mmHg Max HR 165 Max Predicted HR 85 % PREDICTED VO2MAX 34.3 Max 14.40 ml/kg/min Predicted 34.30 ml/kg/min Percent 42 % RER 1.05 VE/VCO2 Warren 34.22 Actual SVC (L) 2.65 Predicted SVC [...] Laterality Modality Other Narrative 03/11/2024 7:37 AM REBAR FABRICATOR A cardiopulmonary stress test was performed following [...] threshold Pt did not reach anaerobic threshold. Meño Pryor MD [facility] ORDERABL ES Final Result documented in this encounter Visit Diagnoses Diagnosis [...] ventricle documented in this encounter Care Teams Account Adjuster Relationship Specialty Start Date End Date Maryellen Monterroso PCP - General Physician Bit And Shank Department Supervisor 02/03/13 Abby Nicolas MD [facility] [address] [address] Pediatric Cardiology 02/02/15 documented as of this encounter
--- OUTSIDE RECORDS SUMMARY | 2024-04-22 13:17 | XMS_ITS | Encounter Summary ---
Author Organization [place] Address [address] [facility] [place] [address] Care Team Providers Care Monorail Helper Name Role Phone Maryellen Monterroso Primary Care Provider [phone] Abby Nicolas MD Unavailable [phone] Reason for Referral * Diagnostic Imaging XR (Routine) - Pending Review Specialty Diagnoses / Procedures Referred By Contwenceslao t Referred To Contact Radiology. 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 Hypoxemia Procedures X-ray Chest 2 vws* Meño Pryor MD [address] [facility] [address] [address] [place] [address] Phone: tel: fax: Referral ID Status Reason Start Date Expiration Date V isits Requested Visits Authorized [id number] Pending Review 02/27/2024 02/26/2025 1 1 Encounter Details Date Type Department Care Team (Late st Contact Info) Description 03/10/2024 9:04 AM WOMEN'S MINISTRY DIRECTOR - 03/10/2024 9:41 AM WOMEN'S MINISTRY DIRECTOR Hospital Encounter [facility] Imaging [address] [place] [phone] Meño Pryor MD [address] [place] [address] Hypoplastic left heart syndrome; Adult congenital heart disease; S/P Fontan procedure; Hypoxemia Discharge Disposition: Home or Self Care Social [...] on file Legal Sex Female 4:04 AM WOMEN'S MINISTRY DIRECTOR Gender Identity Not on file Sexual Orientation Not on file documented as of this encounter Medications at Time of Discharge [...] (Latest Contact Info) Description 04/27/2024 7:30 AM WOMEN'S MINISTRY DIRECTOR Lab [facility] Laboratory [address] [place] [address] 04/27/2024 9:30 AM WOMEN'S MINISTRY DIRECTOR Hospital Encounter [facility] Heart Care [address] [place] [phone] Supa Herrera MD [address] [place] [address] Hypoplastic left heart syndrome; S/P Fontan procedure; Adult congenital heart disease; Single ventricle 04/27/2024 9:30 AM WOMEN'S MINISTRY DIRECTOR - 04/27/2024 11:30 AM WOMEN'S MINISTRY DIRECTOR Surgery [facility] Care [address] [place] [phone] Supa Herrera MD [address] [place] [address] Congenital Right Heart Catheterization 05/28/2024 2:30 PM CDT Office Visit 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 04/27/2024 9:30 AM WOMEN'S MINISTRY DIRECTOR documented as of this encounter Procedures Procedure Name Priority Date/Time Associated Diagnosis Comments XR CHEST 2 VIEWS Routine 03/10/2024 10:4 6 AM WOMEN'S MINISTRY DIRECTOR 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
--- OUTSIDE RECORDS SUMMARY | 2024-04-22 13:17 | XMS_ITS | Encounter Summary ---
Author Organization [place] Address [address] [facility] [place] [address] Care Team Providers Care Care Coordination Manager Name Role Phone Maryellen Monterroso Primary Care Provider [phone] Abby Nicolas MD Unavailable [phone] Reason for Referral * Therapeutic Imaging/IR (Routine: Next available opening) - Authorized Specialty Diagnoses / Procedures Referred By Contac t Referred To Contact Radiology. 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 Procedures Case Request Broadcast Operations Director: Congenital Right Heart Catheterization, Congenital Left Heart Catheterization, Congenital Coronary Angiogram Supa Herrera MD [address] [facility] [address] [place] [address] Phone: tel: fax: Referral ID Status Reason Start Date Expiration Date V isits Requested Visits Authorized [id number] Pending Review 03/23/2024 03/23/2025 1 1 MACHINE RUNNER * Consultation (Routine: Next available opening) - Pending Review Specialty Diagnoses / Procedures Referred By Luz sanchez Referred To Contact Cardiovascular Disease Diagnoses 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 If you have concerns about scheduling, please call [phone]. Comments Follow up with Dr Pryor 1 month after heart cath is complete [facility] will call you to coordinate your care as prescribed by your provider. If you have concerns about scheduling, please call [phone]. MACHINE RUNNER Reason for Visit * Reason Comments Clinic Care Coordination - Follow-up Encounter Details Date Type Department Care Team (Latest Contact Info) Description 03/10/2024 Care Coordination [facility] Heart Clinic [address] [address] Starla Carreno, RN Clinic Care Coordination - Follow-up Social History [...] on file Legal Sex Female 4:[address] RUNNER Gender Identity Not on file Sexual Orientation Not on file documented as of this encounter Miscellaneous Notes * Addendum Note - Starla Carreno RN - 03/10/2024 4:22 PM CSTAddended by: STARLA CARRENO on: 03/23/2024 05:07 PM Modules accepted: Orders MACHINE RUNNER * Addendum Note - Starla Carreno RN - 03/10/2024 4:22 PM CSTAddended by: STARLA CARRENO on: 03/24/2024 12:13 PM Modules accepted: Orders MACHINE RUNNER documented in this encounter Plan of Treatment Upcoming Encounters Date Type Department Care Team (Latest Contact Info) Description 04/27/2024 7:[address] MACHINE RUNNER Lab [facility] Laboratory [address] [place] [address] 04/27/2024 9:[address] MACHINE RUNNER Hospital Encounter [facility] [address] [place] [address] April, Supa Wilde MD [address] [place] [address] Hypoplastic left heart syndrome; S/P Fontan procedure; Adult congenital heart disease; Single ventricle 04/27/2024 9:[address] MACHINE RUNNER - 04/27/2024 11:[address] MACHINE RUNNER Surgery [facility] [address] [place] [address] April, Supa Wilde MD [address] [place] [address] Congenital Right Heart Catheterization 05/28/2024 2:30 PM CDT Office Visit [facility] [place] [address] [place] [address] Meño Pryor MD [address] [place] [address] Scheduled Orders Name Type Priority Associated Diagnoses Order Schedule IR Liver Biopsy Percutaneous Imaging Routine: Next available opening 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 Palpitations Hypoxemia Single ventricle Expected: 04/27/2024 (Approximate), Expires: 06/22/2024 Scheduled Procedures Name Priority Associated Diagnoses Date/Ti mi Congenital Coronary Angiogram 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 04/27/2024 9:[address] MACHINE RUNNER Scheduled Referrals Name Type Priority Associated Diagnoses Orde r Schedule Follow-Up with Cardiology ADULT CONGENITAL AND CV GENETICS Referral Routine: Next available opening 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 Expected: 06/08/2024 (Approximate), Expires: 03/10/2025 documented as of this encounter Visit Diagnoses Diagnosis Hypoplastic left heart syndrome- Primary S/P Fontan procedure Other postprocedural status Adult congenital heart disease Unspecified congenital anomaly of heart Palpitations Hypoxemia 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
--- OUTSIDE RECORDS SUMMARY | 2024-04-22 13:17 | XMS_ITS | Encounter Summary ---
Author Organization [place] Address [address] [facility] [place] [address] Care Team Providers Care Media Strategist Name Role Phone Maryellen Monterroso Primary Care Provider Abby Nicolas MD Unavailable [phone] Encounter Details Date Type Department Care Team (Late st Contact Info) Description 03/10/2024 10:00 AM [facility] Laboratory [address] [place] [address] Meño Pryor MD [facility] [place], [place] [address] Hypoplastic left heart syndrome; Adult congenital heart [...] on file Legal Sex Female 4:04 AM HORSE TRAINER Gender Identity Not on file Sexual Orientation Not on file documented as of this encounter Plan of Treatment Upcoming Encounters Date Type Department Care Team (Latest Contact Info) Description 04/27/2024 7:30 AM HORSE TRAINER Lab [facility] Laboratory [address] [place] [address] 04/27/2024 9:30 AM HORSE TRAINER Hospital Encounter [facility] [address] [place] [address] Supa Herrera MD [address] [place] [address] Hypoplastic left heart syndrome; S/P Fontan procedure; Adult congenital heart disease; Single ventricle 04/27/2024 9:30 AM HORSE TRAINER - 04/27/2024 11:30 AM HORSE TRAINER Surgery [facility] [address] [place] [address] Supa Herrera MD [address] [place] [address] Congenital Right Heart Catheterization 05/28/2024 2:30 PM CDT Office Visit [facility] [place] [address] [facility] [address] [place] [address] Meño Pryor MD [address] [place], [place] [address] Scheduled Procedures Name Priority Associated Diagnoses Date/Ti me Congenital Coronary Angiogram 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 04/27/2024 9:30 AM HORSE TRAINER documented as of this encounter Procedures Procedure Name Priority Date/Time Associated Diagnosis Comments N TERMINAL PRO BNP OUTPATIENT Add-On 03/10/2024 9:38 AM HORSE TRAINER 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 HEPATIC FUNCTION PANEL Add-On 03/10/2024 9:38 AM HORSE TRAINER 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 BASIC METABOLIC PANEL Routine 03/10/2024 9:38 AM HORSE TRAINER 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 Palpitations documented in this encounter Results * Hepatic panel (03/10/2024 9:38 AM HORSE TRAINER) Protein Total 6.8 6.4 - 8.3 g/dL 03/10/2024 2:19 PM HORSE TRAINER [facility] Albumin 4.8 3.5 - 5.2 g/dL 03/10/2024 2:19 PM HORSE TRAINER [facility] Bilirubin Total 0.8 <=1.2 mg/dL 03/10/2024 2:19 PM HORSE TRAINER [facility] Alkaline Phosphatase 48 40 - 150 U/L 03/10/2024 2:19 PM HORSE TRAINER [facility] AST 32 0 - 45 U/L 03/10/2024 2:19 PM HORSE TRAINER [facility] ALT 35 0 - 50 U/L 03/10/2024 2:19 PM HORSE TRAINER [facility] Bilirubin Direct 0.22 0.00 - 0.30 mg/dL 03/10/2024 2:19 PM HORSE TRAINER [facility] Blood STRUCTURE OF LEFT UPPER LIMB / Unknown Venipuncture / Unknown 03/10/2024 9:38 AM HORSE TRAINER 03/10/2024 10:06 AM HORSE TRAINER us Meño Pryor MD LAB - BLOOD ORDERABLES Final Result [facility] [place] Core Lab [address] [facility] [place] [address] * N terminal pro BNP outpatient (03/10/2024 9:38 AM HORSE TRAINER) N Terminal Pro BNP Outpatient 120 0 - 450 pg/mL 03/10/2024 2:19 PM HORSE TRAINER [facility] Comment: Reference range shown and [...] Unknown Venipuncture / Unknown 03/10/2024 9:38 AM HORSE TRAINER 03/10/2024 10:06 AM HORSE TRAINER us Meño Pryor MD LAB - BLOOD ORDERABLES Final Result [facility] Core Lab [address] [facility], [address] [address] * Basic metabolic panel (03/10/2024 9:38 AM HORSE TRAINER) Sodium 140 135 - 145 mmol/L 03/10/2024 10:44 AM HORSE TRAINER [facility] Potassium 4.2 3.4 - 5.3 mmol/L 03/10/2024 10:44 AM HORSE TRAINER [facility] Chloride 107 98 - 107 mmol/L 03/10/2024 10:44 AM HORSE TRAINER [facility] Carbon Dioxide (CO2) 23 22 - 29 mmol/L 03/10/2024 10:44 AM HORSE TRAINER [facility] Anion Gap 10 7 - 15 mmol/L 03/10/2024 10:44 AM HORSE TRAINER [facility] Urea Nitrogen 15.3 6.0 - 20.0 mg/dL 03/10/2024 10:44 AM HORSE TRAINER [facility] Creatinine 0.85 0.51 - 0.95 mg/dL 03/10/2024 10:44 AM HORSE TRAINER [facility] GFR Estimate >90 >60 mL/min/1.7 3m2 03/10/2024 10:44 AM HORSE TRAINER [facility] Comment:eGFR calculated usin 2020 CKD-EPI equation. Calcium 9.3 8.8 - 10.4 mg/dL 03/10/2024 10:44 AM HORSE TRAINER [facility] Comment:Reference intervals for this test were updated on 09/10/2023 to reflect our healthy population more accurately. There may be differences in the flagging of prior results with similar values performed with this method. Those prior results can be interpreted in the context of the updated reference intervals. Glucose 98 70 - 99 mg/dL 03/10/2024 10:44 AM HORSE TRAINER [facility] Blood STRUCTURE OF LEFT UPPER LIMB / Unknown Venipuncture / Unknown 03/10/2024 9:38 AM HORSE TRAINER 03/10/2024 10:06 AM HORSE TRAINER us Meño Pryor MD LAB - BLOOD ORDERABLES Final Result [facility] [place] [facility] [address] [facility] [place] [address] documented in this encounter Visit Diagnoses Diagnosis [...] ventricle documented in this encounter Care Teams Media Strategist Relationship Specialty Start Date End Date Maryellen Monterroso PCP - General Physician Residential Case Manager 02/03/13 Abby Nicolas MD [address] [address] Pediatric Cardiology 02/02/15 documented as of this encounter
--- OUTSIDE RECORDS SUMMARY | 2024-04-22 13:17 | XMS_ITS | Encounter Summary ---
Author Organization [place] Address [address] [facility] [place] [address] Care Team Providers Care Director Family Name Role Phone Maryellen Monterroso Primary Care Provider [phone] Abby Nicolas MD Unavailable [phone] Yenifer Ibrahim PA-C Unavailable [phone] Encounter Details Date Type Department Care Team (Late st Contact Info) Description 11/07/2021 Josi Medical Advice [facility] [address] [address] Avelina Jackson CMA Social History [...] on file Legal Sex Female 4:04 AM LANDING SUPPORT SPECIALIST Gender Identity Not on file Sexual Orientation Not on file COVID-19 Exposure Response Date Recorded In the last 10 days, have santhosh u been in contact with someone who was confirmed or suspected to have Coronavirus/COVID-19? No / Unsure 2021 3:07 PM CDT documented as of this encounter Plan of Treatment Upcoming Encounters Date Type Department Care Team (Latest Contact Info) Description 04/27/2024 7:30 AM LANDING SUPPORT SPECIALIST Lab [facility] [address] [place] [address] 04/27/2024 9:30 AM LANDING SUPPORT SPECIALIST Hospital Encounter [facility] [address] [place] [address] April, Supa Wilde MD [address] [place], [place] [phone] Hypoplastic left heart syndrome; S/P Fontan procedure; Adult congenital heart disease; Single ventricle 04/27/2024 9:30 AM LANDING SUPPORT SPECIALIST - 04/27/2024 11:30 AM LANDING SUPPORT SPECIALIST Surgery [facility] [address] [place] [address] April, Supa Wilde MD [address] [place], [place] [phone] Congenital Right Heart Catheterization 05/28/2024 2:30 PM CDT Office Visit [facility] [place] [address] [facility] [address] [place] [address] Meño Pryor MD [address] [place], [place] [phone] Scheduled Procedures Name Priority Associated Diagnoses Date/Ti az Congenital Coronary Angiogram 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
--- OUTSIDE RECORDS SUMMARY | 2024-04-22 13:17 | XMS_ITS | Encounter Summary ---
Author Organization [place] Address [address] [facility] 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 Palpitations Procedures ECHO Congenital Transthoracic (TTE) [facility] ECHO XTHORACIC,MARIO ANOM,COMPLETE [facility] ECHO CONGENITAL W/CONTRAST [facility] ECHO CONGENITAL W/O CONTRAST [facility] DOPPLER ECHO PULSED, COMPLETE [facility] DOPPLER ECHO COLOR FLOW VELOCITY MAP [facility] STATISTIC IV PUSH SINGLE INITIAL SUBSTANCE OR DOPPLER ECHO PULSED, COMPLETE OR DOPPLER ECHO COLOR FLOW VELOCITY MAP OR ECHO XTHORACIC,MARIO ANOM,COMPLETE OR ECHO CONGENITAL W/O CONTRAST HC DOPPLER ECHO PULSED, COMPLETE HC DOPPLER ECHO COLOR FLOW VELOCITY MAP HC STATISTIC IV PUSH SINGLE INITIAL SUBSTANCE HC ECHO CONGENITAL ANOM W/CONTRAST HC ECHO CONGENITAL ANOM W/O CONTRAST Meño Pryor MD [address] [facility] [address] [address] Phone: tel: fax: [facility] [address] [address] Phone: tel: fax: Referral ID Status Reason Start Date Expiration Date Visits Re quested Visits Authorized [id number] Closed 09/19/2023 09/18/2024 1 1 Encounter Details Date Type Department Care Team (Late st Contact Info) Description 03/10/2024 1:00 PM MANAGER CASH Ancillary Procedure [address] [address] Meño Pryor MD [address] [facility] [address] [address] Hypoplastic left heart syndrome; Adult congenital heart [...] file Legal Sex Female 4:04 AM MANAGER CASH Gender Identity Not on file Sexual Orientation Not on file documented as of this encounter Plan of Treatment Upcoming Encounters Date Type Department Care Team (Latest Contact Info) Description 04/27/2024 7:30 AM MANAGER CASH Lab [facility] [address] [place] [address] 04/27/2024 9:30 AM MANAGER CASH Hospital Encounter [facility] [address] [place] [phone] Supa Herrera MD [address] [place] [id number] Hypoplastic left heart syndrome; S/P Fontan procedure; Adult congenital heart disease; Single ventricle 04/27/2024 9:30 AM MANAGER CASH - 04/27/2024 11:30 AM MANAGER CASH Surgery [facility] [address] [place] [address] Supa Herrera MD [address] [place] [id number] Congenital Right Heart Catheterization 05/28/2024 2:30 PM CDT Office Visit [facility] [place] [address] [facility] [address] [place] [phone] CandieMeño MD [address] [place] [address] Scheduled Procedures Name Priority Associated Diagnoses Date/Ti me Congenital Coronary Angiogram 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 04/27/2024 9:30 AM MANAGER CASH documented as of this encounter Procedures Procedure Name Priority Date/Time Associated Diagnosis Comments ECHO CONGENITAL ADULT (TTE) Routine 03/10/2024 1:09 PM MANAGER CASH 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 Palpitations EXTRA TUBE Routine 03/10/2024 9:38 AM MANAGER CASH EXTRA PURPLE TOP TUBE Routine 03/10/2024 9:38 AM MANAGER CASH HEMOGLOBIN A1C Add-On 03/10/2024 9:38 AM MANAGER CASH 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 documented in this encounter Results * ECHO CONGENITAL ADULT (TTE) (03/10/2024 1:09 PM MANAGER CASH) Anatomical Region Laterality Modality Echocardiography 03/10/2024 12:4 4 PM MANAGER CASH Narrative 03/10/2024 1:17 PM [facility] [id number]^CANDIE^MEÑO^LOCO Study ID: [id number] [address] [address] Pediatric Echocardiogram Name: DELMER DAVIS Study Date: 03/10/2024 12:44 PM Patient Location: [facility] Age: 28 yrs : 1995 Gender: Female Patient Class: Outpatient Height: 152 cm Ordering Provider: MEÑO PRYOR Weight: 81 kg Referring Provider: MEÑO PRYOR BSA: 1.8 m2 Performed By: Angela Pickering Report approved by: Cristian Appiah MD Reason For Study: Hypoplastic left heart syndrome, Adult congenital heart disease, ##### CONCLUSIONS ##### Hypoplastic left heart syndrome. Patient has undergone Ariana, Romain and Fontan operations. Status-post Fontan fenestration [...] level shunting. Outflow tracts: Patient has undergone [place] operation. The systemic outflow tract is unobstructed. [...] Procedure Note Cristian Appiah MD - 03/10/2024 [id number]^CANDIE^MEÑO^LOCO Study ID:[id number] [facility] [address] Pediatric Echocardiogram Name: DELMER DAVIS Study Date: 03/10/2024 12:44 PM Patient Location:[facility] Age: 28 yrs : 1995 Gender: Female Patient Class: Outpatient Height: 152 cm Ordering Provider: MEÑO PRYOR Weight: 81 kg Referring Provider: MEÑO PRYOR BSA: 1.8 m2 Performed By: Angela Pickering [...] Cristian Appiah MD on 03/10/2024 01:17 PM Meño Pryor MD CV ECHO ORDERABLES Edited Re sult - Final * Hemoglobin A1c (03/10/2024 9:38 AM MANAGER CASH) Pathologist [facility] Estimated Average Glucose 114 <117 mg/dL 03/11/2024 1:45 AM MANAGER CASH [facility] Hemoglobin A1C 5.6 <5.7 % 03/11/2024 1:45 AM MANAGER CASH [facility] Comment: Normal <5.7% Prediabetes 5.7-6.4% Diabetes 6.5% or higher Note: Adopted from ADA consensus guidelines. Blood STRUCTURE OF LEFT UPPER LIMB / Unknown Venipuncture / Unknown 03/10/2024 9:38 AM MANAGER CASH 03/10/2024 10:21 AM MANAGER CASH Meño Pryor MD LAB - BLOOD ORDERABLES Final Result [facility] [place] [facility] [address] [facility], [address] [place] [id number] * Extra Purple Top Tube (03/10/2024 9:38 AM MANAGER CASH) Hold Specimen JIC 03/10/2024 11:31 AM MANAGER CASH [facility] Blood STRUCTURE OF LEFT UPPER LIMB / Unknown Venipuncture / Unknown 03/10/2024 9:38 AM MANAGER CASH 03/10/2024 10:21 AM MANAGER CASH Meño Pryor MD LAB - BLOOD ORDERABLES Final Result [facility] [place] [facility] [address] [facility] [facility], [address] [place] [address], [facility] documented in this encounter Visit Diagnoses Diagnosis [...] ventricle documented in this encounter Care Teams Intake Clinician Relationship Specialty Start Date End Date Maryellen Monterroso PCP - General Physician Guidance Adviser 02/03/13 Abby Nicolas MD [address] [place] [address] Pediatric Cardiology 02/02/15 documented as of this encounter
--- OUTSIDE RECORDS SUMMARY | 2024-04-22 13:17 | XMS_ITS | Encounter Summary ---
Author Organization [place] Address [address] [facility] [place] [address] Care Team Providers Care Design Engineering Technician Name Role Phone Maryellen Monterroso Primary Care Provider [phone] Abby Nicolas MD Unavailable [phone] Reason for Visit * Reason Comments Follow Up RETURN CONGENITAL HE ART * Consultation (Routine: Next available opening) - Closed Specialty Diagnoses / Procedures Referred By Luz sanchez Referred To Contact Cardiovascular Disease Diagnoses Hypoplastic left heart syndrome Meño Pryor MD [address] [facility] [place] [address] Phone: tel: fax: Referral ID Status Reason Start Date Expiration Date Visits Re quested Visits Authorized [id number] Closed 09/25/2021 09/25/2022 1 1 Encounter Details Date Type Department Care Team (Late st Contact Info) Description 03/10/2024 1:15 PM ORACLE FUSION MIDDLEWARE DEVELOPER Office Visit [facility] [address] [address] Meño Pryor MD [address] [facility] [address] [place] [address] Hypoplastic left heart syndrome; Adult congenital heart [...] file Legal Sex Female 4:04 AM ORACLE FUSION MIDDLEWARE DEVELOPER Gender Identity Not on file Sexual Orientation Not on file documented as of this encounter Last Filed Vital Signs Vital Sign Reading Time Taken Comments Blood Pressure 95/64 03/10/2024 1:18 PM ORACLE FUSION MIDDLEWARE DEVELOPER Pulse 96 03/10/2024 1:18 PM ORACLE FUSION MIDDLEWARE DEVELOPER Temperature - - Respiratory Rate - - Oxygen Saturation 94% 03/10/2024 1:18 PM ORACLE FUSION MIDDLEWARE DEVELOPER Inhaled Oxygen Concentration - - Weight 81 kg (178 lb 9.6 oz) 03/10/2024 1:18 PM ORACLE FUSION MIDDLEWARE DEVELOPER Height - - Body Mass Index 34.88 03/10/2024 10:00 AM ORACLE FUSION MIDDLEWARE DEVELOPER documented in this encounter Patient Instructions * Patient Instructions* Starla Carter RN - 03/10/2024 1:15 PM ORACLE FUSION MIDDLEWARE DEVELOPER Images from the original note were not included. Thank you for visiting the Adult Congenital and Cardiovascular Genetics Clinic at the [facility]. Cardiology Providers you saw during your visit: Meño Pryor MD Diagnosis: Fontan Results: Meño Pryor MD reviewed the results of your EKG, lab, CPX, xray and echocardiogram testingtoday in clinic. If you have questions or concerns, please call us at [phone] or contact us through [employer]. Recommendations from your Cardiology Provider TODAY: Complete a liver MRI- we will reach out to schedule Complete a heart cath with liver biopsy- we will reach out to schedule Follow-up Plan: Follow up with Dr Pryor 1 month after heart cath If you have questions or concerns, please call us at [phone] or contact us through [employer]. Our fax number is [phone] Starla Carter RN RN, BSN Sue Cleveland (Scheduling) Nurse Unified Communications Engineer Clinic Sales Project Administrator Adult Congenital and CV Genetics Adult Congenital and CV Genetics [facility] For after hours urgent needs, call [phone] and ask to speak to the On-Call Auto Parts Clerk. For emergencies call [phone]. Additional Important Information for Your Heart Health General Cardiac Recommendations: Continue to eat a heart healthy, low salt diet. Continue to get 20-30 minutes of aerobic activity, 4-5 days per week. Examples of aerobic activity include walking, running, swimming, cycling, etc. Continue to observe good oral hygiene, with regular dental visits. SBE prophylaxis (antibiotics needed before dental appointments): Yes____ No____ SBE prophylaxis applies to patients with certain heart conditions who are recommended to take antibiotics before dental appointments and other specific procedures. These antibiotics are to help prevent an infection of the heart (endocarditis) that certain patients are at higher risk of developing. The guidelines used come from the [place] [employer] and are periodically updated. If YES is checked, follow the recommendations outlined below: Take antibiotic(s) prior to recommended dental procedures and procedures involving the respiratory tract or procedures involving infections of the skin, muscle or bones. SBE prophylaxis is not needed for routine gastrointestinal and genitourinary procedures (ie. Colonoscopy or vaginal delivery) Observe good oral hygiene daily, as advised by your dentist. Get regular professional dental care. Keep cuts and other open injuries clean. All infections should be treated as soon as possible. Symptoms of Infective Endocarditis could include: fever lasting more than 4-5 days or a recurrent fever that initially resolves but returns within 1-2 days). Call us a [phone] if you are experiencing these symptoms. FASTING CHOLESTEROL was checked in the last 5 years YES__X__ NO____ (2021) If no, please follow up with your primary care physician. You should have a cholesterol screening every 5 years at minimum, and every year if taking a medication for your cholesterol levels. LE FUSION MIDDLEWARE DEVELOPER documented in this encounter Progress Notes * Meño Pryor MD - 03/10/2024 1:15 PM CST Images from the original note were not included. Adult Congenital Cardiology Visit Primary MD: Dr. 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 She has been [facility] at both [place] and [facility]. Last cath 2017 with coarct stenting. Last visit was in August 2023. She is here today with her Dashawn for a follow up visit. In the interim since her last visit, Alan had COVID with mild desaturations, successfully treated as an outpatient. She was recently started on Latuda by her primary and thinks it is helping. She has had multiple episodes of skin breakdown underneath her breasts and is interested in breast reduction surgery. Alan has had intermittent chest pain for the past 1.5 years. Normally, it only happens a few times a week, or not at all. No associated diaphoresis, nausea, vomiting. She feels she is more short of breath and has mildly reduced exercise tolerance over the last several years. 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 No edema, palpitations, loose stools. Palpitations improved on low dosemetoprolol. She has had multiple miscarriages. S/P hysterectomy in 2023. H/O diarrhea better since starting herself on a gluten free diet, but has never been diagnosed with Celiac disease formally. She denies abdominal pain, vision changes, headaches, cough, congestion, fevers. Cardiac medications Metoprolol XL 12.5 mg daily - not taking Other medications: Latuda 20 mg daily PAST MEDICAL HISTORY: Cardiac Hx as above Past Medical History: Diagnosis Date Apnea of 05/01/2006 Cardiac arrhythmia 06/13/2006 Overview: 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 Hypoplastic left heart syndrome Inadequate pain control 02/03/2013 Miscarriage Bicorn uterus Miscarriages PAST SURGICAL HISTORY: hysterectomy for endometriosis (fall 2022) at [facility] without complications. Past Surgical History: Procedure Laterality Date CARDIAC SURGERY fontan and ariana CV HEART BIOPSY N/A 02/24/2018 Procedure: HEART BIOPSY; Surgeon: Abby Schaefer MD; Location: HEART PEDS CARDIAC KNIFE SETTER GRINDER MACHINE DILATION AND CURETTAGE HEART CATH CHILD 04/02/2013 Procedure: HEART CATH CHILD; Right and Left Heart Cath; Surgeon: Renzo Villarreal MD; Location: [facility] OR HEART CATH CHILD N/A 01/26/2016 Procedure: HEART CATH CHILD; Surgeon: Abby Schaefer MD; Location: [facility] OR IR LIVER BIOPSY PERCUTANEOUS 08/02/2020 PEDS HEART CATHETERIZATION N/A 02/24/2018 Procedure: HEART CATH, Lashonda Stent Dilation; Surgeon: Abby Schaefer MD; Location: [facility] HEART PEDS CARDIAC KNIFE SETTER GRINDER MACHINE FAMILY HISTORY: No known cardiac history, HTN, HLD. Patient's mother has had anemia in the past. SOCIAL HISTORY: Social History , considering adoption . Drinks 4-5 drinks 2-3 times per week. Uses marijuana edibles at night to sleep most nights. Denies any tobacco use. MEDICATIONS: Current Outpatient Medications Medication Sig Dispense Refill lurasidone (LATUDA) 20 MG TABS tablet Take 20 mg by mouth daily. amoxicillin-clavulanate (AUGMENTIN) 875-125 MG tablet Take 1 tablet by mouth 2 times daily (Patientnot taking: Reported on 09/19/2023) cephALEXin (KEFLEX) 500 MG capsule Take 1 capsule (500 mg) by mouth 4 times daily For 7 days (Patient not taking: Reported on 03/10/2024) 28 capsule 0 cephALEXin (KEFLEX) 500 MG capsule Take 1 capsule (500 mg) by mouth 3 times daily For 5 days (Patient not taking: Reported on 03/10/2024) 15 capsule 0 clotrimazole (LOTRIMIN) 1 % external cream Apply topically 2 times daily (Patient not taking: Reported on 03/10/2024) 28 g 0 empagliflozin (JARDIANCE) 10 MG TABS tablet TAKE 1 TABLET (10 MG) BY MOUTH DAILY. (Patient not taking: Reported on 03/10/2024) 90 tablet 3 escitalopram (LEXAPRO) 10 MG tablet Take 10 mg by mouth every morning (Patient not taking: Reportedon 09/19/2023) hydrOXYzine (ATARAX) 25 MG tablet TAKE 1 TABLET (25 MG) BY MOUTH EVERY 6 HOURS IF NEEDED FOR ITCHING. (Patient not taking: Reported on 03/10/2024) metoprolol succinate ER (TOPROL XL) 25 MG 24 hr tablet Take 0.5 tablets (12.5 mg) by mouth daily (Patient not taking: Reported on 03/10/2024) 45 tablet 0 No current facility-administered medications for this visit. Current OCP is progesterone-only mini pill ALLERGIES: Allergies Allergen Reactions Vancomycin Gluten Meal GI Disturbance Hydrocodone Itching Morphine Oxycodone Itching Nose PHYSICAL EXAM: Vitals: BP 95/64 (BP Location: Left arm, Patient Position: Chair, Cuff Size: Adult Regular) Pulse96 Wt 81 kg (178 lb 9.6 oz) SpO2 94% BMI 34.88 kg/m?? BMI= Body mass index is 34.88 kg/m??. Constitutional: Awake, alert, cooperative, no apparent distress, and appears stated age Eyes: Pupils equal, round, extra ocular muscles intact, sclera clear, conjunctiva normal Mouth: Moist mucous membranes, dentition appears healthy. Hematologic / Lymphatic: No cervical lymphadenopathy Respiratory: No increased work of breathing, good air exchange, clear to auscultation bilaterally, no crackles or wheezing Cardiovascular: Well healed midline scar. Normal S1 and single S2. Soft systolic murmur LMSB, No DM, rubs, or gallops GI: + bowel sounds, soft, non-distended, non-tender, no masses palpated, no hepatosplenomegaly Skin: Normal skin color, texture, turgor. NO caynosis or clubbing. Musculoskeletal: Full range of motion noted Neurologic: Alert, interactive, oriented to name, place and time. No focal deficits A 12 lead EKG was performed today and revealed NSR at a rate of 88 bpm. There is RAD, IRBBB and T wave inversion in precordium. No change from prior ECG's. Echo today: Hypoplastic left heart syndrome. Patient has undergone Glide, Romain and Fontan operations. Status-post Fontan fenestration [...] dilation with qualitatively low- normal systolic function. Peak VO2 (ml/kg/min) VE/VCO2 Frederick RER 14.40 34.22 1.05 Predicted VO2 (ml/kg/min) Predicted VO2 % 34.30 42 Resting Supine BP (mmHg) Resting Standing BP (mmHg) Final Stress BP (mmHg) 116/76 113/71 125/90 Resting Supine HR (bpm) Resting Standing HR (bpm) 79 86 Max HR (bpm) Max Predicted HR (bpm) Max Perdicted HR % 165 193 85 Exercise time (min) Exercise time (sec) Estimated workload (METS) 5 58 7.0 ECG Link No scanned documents Conclusion A cardiopulmonary stress test was performed following [...] a drop in o2 saturation during exercise. ECG Summary ECG Baseline electrocardiogram demonstrates sinus rhythm with right axis of deviation, nonspecific ST-T abnormalities and incomplete right bundle branch block. The stress electrocardiogram was non-diagnostic. The stress electrocardiogram was non-diagnostic due to baseline ST changes. There were no a rrhythmias during stress. There were no arrhythmias during recovery. Technical Comments Cardiac Protocol A cardiopulmonary stress test was performed following [...] patient experienced no angina during the test. Anaerobic threshold Pt did not reach anaerobic threshold. Zio patch Holter March 2022 Average HR 93 range 74-132 No block or sustained arrhythmias Symptoms with isolated ectopy. cMRI 06/24/20 SUMMARY Clinical history: 24-year old female with a history of hypoplastic left heart syndrome. Her procedural history includes the Glide, Jose (right SVC-PA), left SVC-PA anastomosis, and fenestrated Fontan procedures with later ASD occluder device placement in the Fontan. CMR to evaluate cardiac morphology and function. Comparison CMR: None. SITUS: There is normal situs.? The liver is in the right upper quadrant and a single spleen inthe left upper quadrant. ? CAVAE: There is a left-sided SVC, a right-sided SVC, and a right-sided IVC.? All of these vessels drain into the the pulmonary arteries via shunts. The right-sided SVC drains into the right branch pulmonary artery via a Jose shunt. There is a left cavopulmonary anastomosis between the left SVC and the left branch pulmonary artery. The IVC drains into the right pulmonary artery via a Fontan shunt. There is no evidence of thrombi or leakage in the shunts. An ASD closure device is visualized in the Fontan shunt. PULMONARY VEINS: There are four pulmonary veins with?two left-sided veins and ?two right-sided veins. They drain in an unobstructed fashion into the systemic (morphologic right) ventricle. ATRIA: There is a single atrium that drains into the systemic (morphologic right) ventricle. There is no atrial septum, consistent with the patient's prior Ariaan procedure. ATRIOVENTRICULAR CONNECTION: The atrioventricular connection is discordant. There is no regurgitation of the right-sided atrioventricular (tricuspid) valve.?The mitral valve is atretic and not visualized. VENTRICLES: There is levocardia. There morphologic ventricle supplies the the systemic circulation, consistent with single ventricle physiology. The systemic (morphologic right) ventricle is normal in cavity size. The global systolic function is normal. The systemic ventricle's EF is 55%. There is no evidence of late gadolinium enhancement. VENTRICULOARTERIAL CONNECTION: The ventriculoarterial connection is discordant. The aorta emerges from the systemic (morphologic right) ventricle. There is a trileaflet leland-aortic valve. There is no stenosis or regurgitation of the leland-aortic valve. AORTA AND SUPRA-AORTIC VESSELS: The aorta is left-sided with normal variant branching of the vessels. The vertebral artery emerges from the aortic arch. There is no coarctation or patent ductus.?A stent is visualized in the aortic arch. It extends from just distal to the innominate artery to just past the left subclavian artery. The aortic lumen cannot be visualized inside the stent. PULMONARY ARTERY: The main and branch pulmonary arteries are normal in size. ? OTHER FINDINGS: There are post-operative changes consistent with a prior sternotomy. STRESS TEST: Regadenoson stress perfusion imaging shows no ischemia.? CONCLUSIONS: Hypoplastic left heart syndrome status post Glide procedure and ASD occluder placement in Fontan shunt. There is normal function of the systemic ventricle. There is no evidence of shunt obstruction or leakage. Max BP 126/77 CPX 2020 7 mets 55% predicted VO2. HR 96-155 Max BP 126/77 RER 1.07 and VE/VCO2 slope 32.7 A cardiopulmonary stress test was performed following a Jimbo ramp protocol with the patient exercising for 6 minutes and 43 seconds under the supervision of Dr. Kwon. Blood pressure demonstrated a normal response to exercise. Heart rate demonstrated a blunted response to exercise. The stress electrocardiogram was non-diagnostic due to baseline ST changes. The patient's exercise capacity is severely impaired. A prior study was conducted on 02/09/2018. This study has changes noted with the prior study. When compared to the previous study, this is a 2.2% decrease in functional capacity. The patient completed a Cardiopulmonary Stress Test. The patient terminated the test for fatigue. The testing suggested a cardiac and pulmonary limitation to exercise. A cardiac limitation is suggested given the low VO2, O2 pulse, abnormal heart rate response, low sats and achieved but low anaerobic threshold. A pulmonary limitation is suggested given the low VO2, anaerobic threshold a high percentage of VO2, breathing reserve below 50%, drop in O2 sats and submaximal heart rate. Last Cardiac Cath 02/24/2018: Hemodynamics: Normal baseline cardiac index (3.3 L/min/m??) under room air and monitored anesthesia care. No gradient from the arch to the descending aorta across the stent (standing wave of 4). There is mild elevation in the Fontan pressure (average 14-16) in the setting of upper normal wedge pressure and RV end diastolic pressure and mild right SVC narrowing. Normal PVR. Angiography: Mild angiographic right SVC-Romain narrowing. Mild LPA in setting of bilateral Romain (only 1 mmHg from left SVC to LPA). No significant angiographic narrowing of the aortic arch.No narrowing of the IVC-Fontan conduit. There is no leland-aortic valve insufficiency and no significant AV valve insufficiency. No significant AP or VV collaterals seen. Liver US 2019 IMPRESSION: 1. Mild diffuse coarsening of the hepatic parenchyma has a similar appearance to 03/05/2019, again suggesting chronic liver disease. 2. Otherwise unremarkable right upper quadrant ultrasound. No hepatic masses are identified. 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 Recent hysterectomy, she and her are considering optionsfor starting a family. SHe is interested in breast reduction surgery, will make plastic surgery referral as it is safer for her to be operated on at cardiac center. Palpitations well controlled on low dose metoprolol. She is known known arch obstruction, low normal LV function and 1-2+ AV valve regurgitation by echo, all stable. Recommendations: Needs liver evaluation - Needs to increase regular activity, discussed the importance of exercise in keeping Fontan Circulation healthy. Complete a liver MRI- we will reach out to schedule Complete a heart cath with liver biopsy- we will reach out to schedule Follow-up Plan: Follow up with Dr Pryor 1 month after heart cath Recommendations from your Cardiology Provider: Please have labs drawn on the 1st floor today before going home. We will let you know about results. START Jardiance 10mg daily. Discussed risks of UTI and vaginal yeast infection. You will need labs drawn again in 2 weeks to make sure that this medication is not too hard on yourkidneys. You can self-schedule a lab draw at a [facility] location online or call [phone] to schedule. If you want your labs drawn at a clinic outside the [facility] system, please let me know the name of the clinic and I will fax the orders over to that clinic. Increase walking to 30 minutes a day. We will get you scheduled for an MRI of your liver and refer you to have an appointment with Dr. Marilou Suresh, a liver doctor after the MRI. We will place a referral for plastic surgery regarding breast reduction. If you don't hear from a telephone service representative within 2 business days, please call . General Cardiac Recommendations: Continue to eat a heart healthy, low salt diet. Continue to get 20-30 minutes of aerobic activity, 4-5 days per week. Examples of aerobic activity include walking, running, swimming, cycling, etc. Continue to observe good oral hygiene, with regular dental visits. SBE prophylaxis: Yes__X__ No____ SBE prophylaxis applies to patients with certain heart conditions who are recommended to take antibiotics before dental appointments and other specific procedures. These antibiotics are to help prevent an infection of the heart (endocarditis) that certain patients are at higher risk of developing. The guidelines used come from the [place] [employer] and are periodically updated. If YES is checked, follow the recommendations outlined below: Take antibiotic(s) prior to recommended dental procedures and procedures involving the respiratory tract or procedures involving infections of the skin, muscle or bones. SBE prophylaxis is not needed for routine gastrointestinal and genitourinary procedures (ie. Colonoscopy or vaginal delivery) Observe good oral hygiene daily, as advised by your dentist. Get regular professional dental care. Keep cuts and other open injuries clean. All infections should be treated as soon as possible. Symptoms of Infective Endocarditis could include: fever lasting more than 4-5 days or a recurrent fever that initially resolves but returns within 1-2 days). Call us a [phone] if you are experiencing these symptoms. If you have questions or concerns, please call us at [phone] or contact us through [employer]. Meño Pryor M.D. [facility] Pediatric and Adult Congenital Cardiology [facility] Pediatric Cardiology Office [phone] Adult Congenital Cardiology Triage and Scheduling [phone] A total of 45 minutes were spent in personal review of testing, review of documented history and interval events in chart, additional history from , face to face visit with discussion of findings and plan, and care coordination. LE FUSION MIDDLEWARE DEVELOPER LE FUSION MIDDLEWARE DEVELOPER documented in this encounter Nursing Notes * Gennaro Dash - 03/10/2024 1:15 PM CST Chief Complaint Patient presents with Follow Up RETURN CONGENITAL HEART Vitals were taken, medications reconciled, and EKG was performed. Gennaro Dash, EMT 1:25 PM LE FUSION MIDDLEWARE DEVELOPER documented in this encounter Plan of Treatment Upcoming Encounters Date Type Department Care Team (Latest Contact Info) Description 04/27/2024 7:30 AM ORACLE FUSION MIDDLEWARE DEVELOPER Lab [facility] [address] [place] [address] 04/27/2024 9:30 AM ORACLE FUSION MIDDLEWARE DEVELOPER Hospital Encounter [facility] [address] [place] [address] Supa Herrera MD [address] [place] [address] Hypoplastic left heart syndrome; S/P Fontan procedure; Adult congenital heart disease; Single ventricle 04/27/2024 9:30 AM ORACLE FUSION MIDDLEWARE DEVELOPER - 04/27/2024 11:30 AM ORACLE FUSION MIDDLEWARE DEVELOPER Surgery [facility] [address] [place] [address] Supa Herrera MD [address] [place] [address] Congenital Right Heart Catheterization 05/28/2024 2:30 PM CDT Office Visit [facility] [place] [address] [place] [address] Meño Pryor MD [address] [facility] [place] [address] Scheduled Procedures Name Priority Associated Diagnoses Date/Ti me Congenital Coronary Angiogram 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 04/27/2024 9:30 AM ORACLE FUSION MIDDLEWARE DEVELOPER documented as of this encounter Procedures Procedure Name Priority Date/Time Associated Diagnosis Comments EKG 12-LEAD, TRACING ONLY Routine 03/10/2024 1:13 PM ORACLE FUSION MIDDLEWARE DEVELOPER Palpitations documented in this encounter Results * EKG 12-lead, tracing only (Same Day) (03/10/2024 1:13 PM ORACLE FUSION MIDDLEWARE DEVELOPER) Systolic Blood Pressure mmHg RADIOLOGY RESULTS Diastolic Blood Pressure mmHg RADIOLOGY RESULTS Ventricular Rate 91 BPM RAD IOLOGY RESULTS Atrial Rate 91 BPM RADIOLOG Y RESULTS CA Interval 174 ms RADIOLOG Y RESULTS QRS Duration 106 ms RADIOLO GY RESULTS QT 384 ms RADIOLOGY RESULTS QTc 472 ms RADIOLOGY RESULTS P Deputy 20 degrees RADIOLOGY RESULTS R AXIS 123 degrees RADIOLOGY RESULTS T Deputy -1 degrees RADIOLOGY RESULTS Interpretation ECG Sinus rhythm Right axis deviation Incomplete right bundle branch block T wave abnormality, consider anterior ischemia Prolonged QT Abnormal ECG When compared with ECG of 19-Sep-2023 09:24, No significant change was found Confirmed by fellow Humble Hodge ([id number]) on 03/12/2024 2:55:37 PM Confirmed by MD ZAMORA HENRI ([id number]) on 03/12/2024 6:53:57 PM RADIOLOGY RESULTS 03/10/2024 1:13 PM ORACLE FUSION MIDDLEWARE DEVELOPER 03/12/2024 6:53 PM ORACLE FUSION MIDDLEWARE DEVELOPER us Meño Pryor MD ECG ORDERABLES Edited Resul t - Final RADIOLOGY RESULTS * Hemoglobin A1c (03/10/2024 9:38 AM ORACLE FUSION MIDDLEWARE DEVELOPER) Estimated Average Glucose 114 <117 mg/dL 03/11/2024 1:45 AM ORACLE FUSION MIDDLEWARE DEVELOPER [facility] Hemoglobin A1C 5.6 <5.7 % 03/11/2024 1:45 AM ORACLE FUSION MIDDLEWARE DEVELOPER [facility] Comment: Normal <5.7% Prediabetes 5.7-6.4% Diabetes 6.5% or higher Note: Adopted from ADA consensus guidelines. Blood STRUCTURE OF LEFT UPPER LIMB / Unknown Venipuncture / Unknown 03/10/2024 9:38 AM ORACLE FUSION MIDDLEWARE DEVELOPER 03/10/2024 10:21 AM ORACLE FUSION MIDDLEWARE DEVELOPER Meño Pryor MD LAB - BLOOD ORDERABLES Final Result [facility] Core Lab [address] [facility], [address] [id number] * Hepatic panel (03/10/2024 9:38 AM ORACLE FUSION MIDDLEWARE DEVELOPER) [facility] Protein Total 6.8 6.4 - 8.3 g/dL 03/10/2024 2:19 PM ORACLE FUSION MIDDLEWARE DEVELOPER [facility] Albumin 4.8 3.5 - 5.2 g/dL 03/10/2024 2:19 PM ORACLE FUSION MIDDLEWARE DEVELOPER [facility] Bilirubin Total 0.8 <=1.2 mg/dL 03/10/2024 2:19 PM ORACLE FUSION MIDDLEWARE DEVELOPER [facility] Alkaline Phosphatase 48 40 - 150 U/L 03/10/2024 2:19 PM ORACLE FUSION MIDDLEWARE DEVELOPER [facility] AST 32 0 - 45 U/L 03/10/2024 2:19 PM ORACLE FUSION MIDDLEWARE DEVELOPER [facility] ALT 35 0 - 50 U/L 03/10/2024 2:19 PM ORACLE FUSION MIDDLEWARE DEVELOPER [facility] Bilirubin Direct 0.22 0.00 - 0.30 mg/dL 03/10/2024 2:19 PM ORACLE FUSION MIDDLEWARE DEVELOPER [facility] Blood STRUCTURE OF LEFT UPPER LIMB / Unknown Venipuncture / Unknown 03/10/2024 9:38 AM ORACLE FUSION MIDDLEWARE DEVELOPER 03/10/2024 10:06 AM ORACLE FUSION MIDDLEWARE DEVELOPER Meño Pryor MD LAB - BLOOD ORDERABLES Final Result [facility] Lab [address] [facility], [address] [id number] * N terminal pro BNP outpatient (03/10/2024 9:38 AM ORACLE FUSION MIDDLEWARE DEVELOPER) N Terminal Pro BNP Outpatient 120 0 - 450 pg/mL 03/10/2024 2:19 PM ORACLE FUSION MIDDLEWARE DEVELOPER [facility] Comment: Reference range shown and [...] Unknown Venipuncture / Unknown 03/10/2024 9:38 AM ORACLE FUSION MIDDLEWARE DEVELOPER 03/10/2024 10:06 AM ORACLE FUSION MIDDLEWARE DEVELOPER us Meño Pryor MD LAB - BLOOD ORDERABLES Final Result [facility] Core Lab [address] [facility], [address] [phone] documented in this encounter Visit [...] ventricle documented in this encounter Care Teams Design Engineering Technician Relationship Specialty Start Date End Date Mayrellen Monterroso PCP - General Physician [place] House Worker 02/03/13 Abby Nicolas MD [facility] [place] [address] Pediatric Cardiology 02/02/15 documented as of this encounter
--- OUTSIDE RECORDS SUMMARY | 2024-04-22 13:17 | XMS_ITS | Encounter Summary ---
Author Organization [place] Address [address] [facility] [place] [address] Care Team Providers Care Dairy Helper Name Role Phone Maryellen Monterroso Primary Care Provider Abby Nicolas MD Unavailable [phone] Encounter Details Date Type Department Care Team (Late st Contact Info) Description 04/17/2024 MyC Medical Advice [facility] Interventional Radiology [address] [place] [address] Phill Johnson, RN Social History Tobacco Use Types Packs/Day [...] on file Legal Sex Female 4:04 AM FRANCHISE FIELD CONSULTANT Gender Identity Not on file Sexual Orientation Not on file documented as of this encounter Plan of Treatment Upcoming Encounters Date Type Department Care Team (Latest Contact Info) Description 04/27/2024 7:30 AM FRANCHISE FIELD CONSULTANT Lab [facility] [place] [facility] [address] [place] [address] 04/27/2024 9:30 AM FRANCHISE FIELD CONSULTANT Hospital Encounter [facility] Heart Care [address] [place] [address] Supa Herrera MD [address] [place] [address] Hypoplastic left heart syndrome; S/P Fontan procedure; Adult congenital heart disease; Single ventricle 04/27/2024 9:30 AM FRANCHISE FIELD CONSULTANT - 04/27/2024 11:30 AM FRANCHISE FIELD CONSULTANT Surgery [facility] Heart Care [address] [place] [address] Supa Herrera MD [address] [place], [place] [id number] Congenital Right Heart Catheterization 05/28/2024 2:30 PM CDT Office Visit [facility] [place] [address] [facility] [address] [place] [address] Meño Pryor MD [address] [place] [id number] Scheduled Procedures Name Priority Associated Diagnoses Date/Ti pr Congenital Coronary Angiogram 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
--- OUTSIDE RECORDS SUMMARY | 2024-04-22 13:18 | XMS_ITS | Encounter Summary ---
Author Organization [place] Address [address] [facility] [place] [address] Care Team Providers Care Commander Internal Affairs Name Role Phone KrissMaryellen johnson Shemar Primary Care Provider [phone] Abby Nicolas MD Unavailable [phone] Encounter Details Date Type Department Care Team (Latest Contact Info) Description 03/10/2024 Travel Social History Tobacco Use Types Packs/Day [...] on file Legal Sex Female 4:04 AM ACROBATIC RIGGER Gender Identity Not on file Sexual Orientation Not on file documented as of this encounter Plan of Treatment Upcoming Encounters Date Type Department Care Team (Latest Contact Info) Description 04/27/2024 7:30 AM ACROBATIC RIGGER [facility] Laboratory [address] [place] [address] 04/27/2024 9:30 AM ACROBATIC RIGGER Hospital Encounter [facility] Heart Care [address] [place] [address] Supa Herrera MD [address] [place] [address] Hypoplastic left heart syndrome; S/P Fontan procedure; Adult congenital heart disease; Single ventricle 04/27/2024 9:30 AM ACROBATIC RIGGER - 04/27/2024 11:30 AM ACROBATIC RIGGER Surgery [facility] Care [address] [place] [address] Supa Herrera MD [address] [place] [address] Congenital Right Heart Catheterization 05/28/2024 2:30 PM CDT Office Visit [facility] [place] [address] [facility] [address] [place] [address] Meño Pryor MD [address] [place] [id number] Scheduled Procedures Name Priority Associated Diagnoses Date/Ti mo Congenital Coronary Angiogram 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
[2024-04-22 13:27] VITALS: BP 105/61; PULSE 92; RESP 18; TEMP 36.6; O2SAT 92; BMI 31.2
--- NOTE | 2024-04-22 13:39 | ED.GENADULT ---
HPI - General Adult General Chief complaint: Unspecified Complaint, Adult Stated complaint: unexplained bruising, heart surgery upcoming Time Seen by Provider: 04/22/24 13:39 History of Present Illness HPI narrative: Patient presents to the emergency department complaining of unexplained bruising. Patient is due to have exploratory heart surgery on Saturday. Initially noticed bruising on inner thigh on Saturday and today noticed another bruise. Telecommunications Officer wanted patient to be seen rule out any blood clots prior to surgery. Patient doctors with MD Roy[facility] in the [facility]. 28-year-old young woman presenting to the emergency department with concern of unexplained bruising in her left leg. First noticed 2 days ago and then today some more bruising. Called in anticipating cardiac surgery and recommended for evaluation for potential blood clot. She is not having any pain. No new chest pain or shortness of breath. Does not recall any specific trauma. No bleeding problems. No clotting problems. Not on anticoagulation Related Data Home Medications ?Medication ?Instructions ?Recorded ?Confirmed hydroxyzine HCl 25 mg tablet 25 mg PO Q6H PRN anxiety 10/04/23 04/22/24 lurasidone 40 mg tablet 20 mg PO DAILY 10/04/23 04/22/24 Allergies Allergy/AdvReac Type Severity Reaction Status Date / Time hydrocodone Allergy Mild Itching Verified 04/22/24 13:34 oxycodone Allergy Mild Itching Verified 04/22/24 13:34 vancomycin AdvReac Intermediate Verified 04/22/24 13:34 morphine AdvReac Mild Nausea/Vomi Verified 04/22/24 13:34 ting Review of Systems Status of ROS: Reports: 6 or more systems reviewed and unremarkable except as noted in History and below PFSH PFS Surgical History History of Amplatzer atrial septal defect closure ?Z87.74 - Personal history of (corrected) congenital malformations of heart and circulatory system (ICD-10) Status post aortic coarctation stent placement ?Z95.828 - Presence of other vascular implants and grafts (ICD-10) ?Z87.74 - Personal history of (corrected) congenital malformations of heart and circulatory system (ICD-10) History of right heart catheterization ?Z98.890 - Other specified postprocedural states (ICD-10) Social History Smoking Status: Never smoker Do you use any of these nicotine containing products: None How often do you have a drink containing alcohol: never How often do you have six or more drinks on one occasion: Never AUDIT-C Alcohol total score: 0 Non-prescribed substance use: denies use Exam Narrative: Exam Narrative: Very pleasant. NAD. Good energy. Breathing easily. Lungs are clear. Heart in mildly elevated rate. I do not hear a murmur here. Well-perfused peripherally. No lower extremity edema. A couple areas of patchy bruising on the left upper and lower leg. No particular pain to palpation. No induration, calor or significant erythema otherwise. Moving all extremities without difficulty. Ambulating without difficulty. Const: Vital Signs, click to edit/add: Vital Signs - 24 hr 04/22/24 13:27 Temperature 97.9 F Pulse Rate [Right Pulse Oximeter] 92 Respiratory Rate 18 Blood Pressure [Ri ght Upper Arm] 105/61 Pulse Oximetry 92 Oxygen Delivery Me thod Room Air Documenting provider has reviewed patient's vital signs: yes Course Vital Signs Vital signs: Initial Vital Signs Temperature 97.9 F 04/22/24 13:27 Temperature Source Temporal Artery Scan 04/22/24 13:27 Pulse Rate 92 04/22/24 13:27 Pulse Rhythm Regular 04/22/24 13:27 Pulse Strength 3+ Normal 04/22/24 13:27 Respiratory Rate 18 04/22/24 13:27 Blood Pressure 105/61 04/22/24 13:27 Blood Pressure Mean 75 04/22/24 13:27 Blood Pressure Position Sitting 04/22/24 13:27 Pulse Oximetry 92 04/22/24 13:27 Oxygen Delivery Method Room Air 04/22/24 13:27 Vital Signs Temperature 97.9 F 04/22/24 13:27 Pulse Rate 92 04/22/24 13:27 Respiratory Rate 18 04/22/24 13:27 Blood Pressure 105/61 04/22/24 13:27 Pulse Oximetry 92 04/22/24 13:27 Oxygen Delivery Method Room Air 04/22/24 13:27 Temperature 97.9 F 04/22/24 13:27 Pulse Rate 92 04/22/24 13:27 Respiratory Rate 18 04/22/24 13:27 Blood Pressure 105/61 04/22/24 13:27 Pulse Oximetry 92 04/22/24 13:27 Oxygen Delivery Method Room Air 04/22/24 13:27 Medical Decision Making MDM Narrative Medical decision making narrative: Bruising does not appear to have any cause at this point. I doubt DVT but considering potential consequences in and upcoming surgery will check for this. Check coags as well. I do not think this is related to a thrombophlebitis either? Microvascular? Labs are reassuring. Discussed findings of left lower extremity ultrasound with food management aide. No DVT. Radiology over-read available later as below COMPARISON: None. FINDINGS: RIGHT LOWER EXTREMITY: Common femoral vein: Fully compressible. No deep vein thrombus. Normal flow and response to augmentation on color Doppler imaging. LEFT LOWER EXTREMITY: Common femoral vein: Fully compressible. No deep vein thrombus. Normal flow and response to augmentation on color Doppler imaging. Superficial femoral vein: Fully compressible. No deep vein thrombus. Normal flow on color Doppler imaging. Deep femoral vein: No deep vein thrombus Popliteal vein: Fully compressible. No deep vein thrombus. Normal flow on color Doppler imaging. Lower calf: The visualized posterior tibial and peroneal veins are fully compressible. No deep vein thrombus. Normal flow and response to augmentation on color Doppler imaging. Superficial veins: The superficial veins, including the greater saphenous vein, remain patent and are fully compressible. Soft tissues: No popliteal fossa fluid collection identified. IMPRESSION: No deep vein thrombus within the left lower extremity. See patient discharge plan for further discussion Lab Data Lab results reviewed: Yes I reviewed the patient's lab results Labs: Lab Results 04/22/24 Range/Units 14:24 WBC 4.51 (4.50-11.00) K/uL RBC 4.47 (4.00-5.20) m/uL Hgb 13.9 (12.0-16.0) gm/dL Hct 42.5 (33.0-51.0) % MCV 95 (80-100) fL MCH 31 (26-34) pg MCHC 33 (32-36) gm/dL RDW Coeff of Jessie 13.1 (11.5-15.5) % Plt Count 136 L (140-440) K/uL Neut % (Auto) 74.5 H (42.0-72.0) % Lymph % (Auto) 16.2 L (20-44) % Alfalfa % (Auto) 6.7 (0.0-11.0) % Eos % (Auto) 2.2 (0.0-7.0) % Baso % (Auto) 0.4 (0.0-3.0) % Neut # (Auto) 3.40 (1.7-7.0) K/uL Lymph # (Auto) 0.70 L (0.90-2.90) K/uL Alfalfa # (Auto) 0.30 (0.00-0.90) K/UL Eos # (Auto) 0.10 (0.00-0.50) K/uL Baso # (Auto) 0.02 (0.00-0.30) K/uL Abs Immat Gran (auto) 0.00 (0.00-0.30) K/uL Imm/Tot Granulo (auto) 0.0 % INR 1.05 (0.91-1.10) APTT 26 (23-33) Seconds D-Dimer Quant (PE/DVT) < 0.27 (0.00-0.50) ug/ml Sodium 140 (135-149) mmol/L Potassium 3.9 (3.6-5.1) mmol/L Chloride 105 (96-114) mmol/L Carbon Dioxide 26 (20-32) mmol/L Anion Gap 9 (7-15) mEq/L BUN 11 (5-24) mg/dL Creatinine 0.7 (0.5-1.5) mg/dL Estimated Creat Clear 86.71 Estimated GFR 121 ml/min Glucose 79 (60-115) mg/dL Calcium 9.3 (8.4-10.6) mg/dL Total Bilirubin 1.2 (0.1-1.5) mg/dL Direct Bilirubin 0.3 (0.0-0.5) mg/dL AST 27 (12-35) U/L ALT 38 H (4-35) U/L Alkaline Phosphatase 35 L (40-150) U/L Total Protein 6.8 (6.0-8.3) g/dL Albumin 4.9 (3.3-5.0) g/dL Discharge Plan Discharge Clinical Impression: Abnormal bruising Patient Disposition: Home w/ Parent or Adult Condition: Stable Additional Instructions: best wishes on saturday... and regarding your decision as to whether or not to eat scallops I will call you if Radiology sees anything more of significance in your ultrasound. Prescriptions: No Action hydroxyzine HCl 25 mg tablet 25 mg PO Q6H PRN (Reason: anxiety) lurasidone 40 mg tablet 20 mg PO DAILY Follow Up/Referrals: Provider,Not a Local [Primary Care Provider] - Stand Alone Forms: [facility] Info Instructions
--- OUTSIDE RECORDS SUMMARY | 2024-04-22 14:22 | XMS_ITS | Encounter Summary ---
Author Organization [place] Address [address] [facility] [place] [address] Care Team Providers Care Pin Machine Tender Name Role Phone KrissMaryellen Shemar Primary Care Provider Abby Nicolas MD Unavailable [phone] Encounter Details Date Type Department Care Team (Late st Contact Info) Description 10/02/2023 MyC Medical Advice [facility] Clinic [address] [address] Meño Pryor MD [address] [facility] [place], [place] [address] Social History Tobacco Use Types Packs/Day Years [...] on file Legal Sex Female 4:04 AM DIGITAL FORENSICS INVESTIGATOR Gender Identity Not on file Sexual Orientation Not on file documented as of this encounter Plan of Treatment Upcoming Encounters Date Type Department Care Team (Latest Contact Info) Description 04/27/2024 7:30 AM DIGITAL FORENSICS INVESTIGATOR Lab [facility] Laboratory [address] [place] [address] 04/27/2024 9:30 AM DIGITAL FORENSICS INVESTIGATOR Hospital Encounter [facility] Heart Care [address] [place] [address] Supa Herrera MD [address] [place] [id number] Hypoplastic left heart syndrome; S/P Fontan procedure; Adult congenital heart disease; Single ventricle 04/27/2024 9:30 AM DIGITAL FORENSICS INVESTIGATOR - 04/27/2024 11:30 AM DIGITAL FORENSICS INVESTIGATOR Surgery [facility] Heart Care [address] [place] [address] Supa Herrera MD [address] [place] [id number] Congenital Right Heart Catheterization 05/28/2024 2:30 PM CDT Office Visit [facility] [place] [address] [facility] [address] [place] [address] Meño Pryor MD [address] [place] [address] Scheduled Procedures Name Priority Associated Diagnoses Date/Ti me Congenital Coronary Angiogram 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
--- OUTSIDE RECORDS SUMMARY | 2024-04-22 14:22 | XMS_ITS | Clinical Summary ---
Author Organization [place] Address [address] [place] [address] Care Team Providers Care Sleeping Car Conductor Name Role Phone Unavailable Primary Care Provider [...] for each transition of care or referral. [facility] Allergies Active Allergy Reactions Criticality Noted Date [...] Comments Blood Pressure 109/76 03/08/2021 8:35 AM GLOBAL LOGISTICS ANALYST Pulse 97 03/08/2021 8:35 AM GLOBAL LOGISTICS ANALYST Temperature 37.2 C (98.9 F) 03/08/2021 8:35 AM GLOBAL LOGISTICS ANALYST Respiratory Rate 18 03/08/2021 8:35 AM GLOBAL LOGISTICS ANALYST Oxygen Saturation 94% 03/08/2021 8:35 AM GLOBAL LOGISTICS ANALYST Inhaled Oxygen Concentration - - Weight 24.5 [...]
--- OUTSIDE RECORDS SUMMARY | 2024-04-22 14:22 | XMS_ITS | Clinical Summary ---
Author Organization [place] Address [address] [facility] [place] [address] Care Team Providers Care Functional Consultant Name Role Phone Maryellen Monterroso Primary Care Provider Abby Nicolas MD Unavailable Allergies Active Allergy [...] left heart syndrome 1995 Overview (01/26/2016): Overview: Site Controller is Dr Cory Velazquez in [facility] Resolved Problems Problem Noted Date Diagnosed Date Resolved Date Inadequate pain control 02/03/201308/26 Apnea of 05/01/2006 09/22/2020 Encounters Date Type Department Care Team Description 04/20/2024 MyC Medical Advice [address] [phone] Meño Schreiber MD 04/17/2024 MyC Medical Advice [facility] Interventional Radiology [address] [place] [phone] Phill Johnson RN 04/10/2024 4:00 PM TEAR DOWN WORKER Ancillary Procedure [facility] [address] [place] [phone] Meño Schreiber MD Hypoplastic left heart syndrome; Adult congenital heart disease; HLHS (hypoplastic left heart syndrome); S/P Fontan procedure; Palpitations 04/10/2024 Travel 03/24/2024 Orders Only [facility] Interventional Radiology [address] [place] [phone] Kelsy Greenfield, ISIDRO NEWSPAPER CORRESPONDENT 03/10/2024 1:15 PM TEAR DOWN WORKER Office Visit [address] [phone] Meño Schreiber MD Hypoplastic left heart syndrome; Adult congenital heart disease; HLHS (hypoplastic left heart syndrome); S/P Fontan procedure; Palpitations 03/10/2024 1:00 PM TEAR DOWN WORKER Ancillary Procedure [address] [place] [phone] Meño Schreiber MD Hypoplastic left heart syndrome; Adult congenital heart disease; HLHS (hypoplastic left heart syndrome); S/P Fontan procedure; Palpitations 03/10/2024 10:00 AM TEAR DOWN WORKER Lab [facility] [place] [facility] [address] [place] [address] Meño Schreiber MD Hypoplastic left heart syndrome; Adult congenital heart disease; HLHS (hypoplastic left heart syndrome); S/P Fontan procedure; Palpitations 03/10/2024 9:42 AM TEAR DOWN WORKER - 03/10/2024 11:59 PM TEAR DOWN WORKER Hospital Encounter [facility] Heart Care [address] [place] [address] Meño Schreiber MD Hypoplastic left heart syndrome; Adult congenital heart disease; HLHS (hypoplastic left heart syndrome); S/P Fontan procedure; Palpitations Discharge Disposition: Home or Self Care 03/10/2024 9:04 AM TEAR DOWN WORKER - 03/10/2024 9:41 AM TEAR DOWN WORKER Hospital Encounter [facility] Imaging [address] [place] [address] Meño Schreiber MD Hypoplastic left heart syndrome; Adult congenital heart disease; S/P Fontan procedure; Hypoxemia Discharge Disposition: Home or Self Care 03/10/2024 [address] [phone] Starla Carter RN Clinic Care Coordination - Follow-up 03/10/2024 Travel 02/27/2024 MyC Medical Advice [address] [phone] Meño Schreiber MD Clinic Care Coordination - Follow-up 01/27/[address] [phone] Meño Schreiber MD Refill Request ([email or web address] (JARDIANCE) 10 [...] on file Legal Sex Female 4:04 AM TEAR DOWN WORKER Gender Identity Not on file Sexual Orientation Not on file Last Filed Vital Signs Vital Sign Reading Time Taken Comments Blood Pressure 95/64 03/10/2024 1:18 PM TEAR DOWN WORKER Pulse 96 03/10/2024 1:18 PM TEAR DOWN WORKER Temperature 37 C (98.6 F) 12/12/2022 3:08 PM CDT Respiratory Rate 18 12/12/2022 3:08 PM CDT Oxygen Saturation 94% 03/10/2024 1:18 PM TEAR DOWN WORKER Inhaled Oxygen Concentration - - Weight 81 kg (178 lb 9.6 oz) 03/10/2024 1:18 PM TEAR DOWN WORKER Height 152.4 cm (5') 03/10/2024 10:00 AM TEAR DOWN WORKER Body Mass Index 34.88 03/10/2024 10:00 AM TEAR DOWN WORKER Plan of Treatment Upcoming Encounters Date Type Department Care Team (Latest Contact Info) Description 04/27/2024 7:30 AM TEAR DOWN WORKER Lab [facility] [address] [place] [address] 04/27/2024 9:30 AM TEAR DOWN WORKER Hospital Encounter [facility] [address] [place] [address] Supa Herrera MD [address] [place], [place] [phone] Hypoplastic left heart syndrome; S/P Fontan procedure; Adult congenital heart disease; Single ventricle 04/27/2024 9:30 AM TEAR DOWN WORKER - 04/27/2024 11:30 AM TEAR DOWN WORKER Surgery [facility] [address] [place] [address] Supa Herrera MD [address] [place] [id number] Congenital Right Heart Catheterization 05/28/2024 2:30 PM CDT Office Visit [facility] [place] [address] [facility] [address] [place] [address] CandieMeño MD [address] [facility] [place] [address] Scheduled Procedures Name Priority Associated Diagnoses Date/Ti me Congenital Coronary Angiogram 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 04/27/2024 9:30 AM TEAR DOWN WORKER Health Maintenance Due Date Last Done Comments [...] & W CONTRAST Routine 04/10/2024 3:46 PM TEAR DOWN WORKER 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 Palpitations EKG 12-LEAD, TRACING ONLY Routine 03/10/2024 1:13 PM TEAR DOWN WORKER Palpitations ECHO CONGENITAL ADULT (TTE) Routine 03/10/2024 1:09 PM TEAR DOWN WORKER 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 Palpitations CARDIOPULMONARY STRESS TEST - ADULT Routine 03/10/2024 10:57 AM TEAR DOWN WORKER 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 Palpitations XR CHEST 2 VIEWS Routine 03/10/2024 10:4 6 AM TEAR DOWN WORKER 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 Hypoxemia HEMOGLOBIN A1C Add-On 03/10/2024 9:38 AM TEAR DOWN WORKER 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 HEPATIC FUNCTION PANEL Add-On 9:38 AM TEAR DOWN WORKER 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 N TERMINAL PRO BNP OUTPATIENT Add-On 03/10/2024 9:38 AM TEAR DOWN WORKER 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 EXTRA PURPLE TOP TUBE Routine 03/10/2024 9:38 AM TEAR DOWN WORKER EXTRA TUBE Routine 03/10/2024 9:38 AM TEAR DOWN WORKER BASIC METABOLIC PANEL Routine 03/10/2024 9:38 AM TEAR DOWN WORKER 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 Focal arterial enhancing observation in [...] LIONEL LAU MD Narrative 04/14/2024 11:31 AM TEAR DOWN WORKER Exam: MR ELASTOGRAPHY W LIVER W/O & [...] tracing only (Same Day) (03/10/2024 1:13 PM TEAR DOWN WORKER) Systolic Blood Pressure mmHg RADIOLOGY RESULTS Diastolic Blood Pressure mmHg RADIOLOGY RESULTS Ventricular Rate 91 BPM RAD IOLOGY RESULTS Atrial Rate 91 BPM RADIOLOG Y RESULTS AZ Interval 174 ms RADIOLOG Y RESULTS QRS Duration 106 ms RADIOLO GY RESULTS QT 384 ms RADIOLOGY RESULTS QTc 472 ms RADIOLOGY RESULTS P Castle 20 degrees RADIOLOGY RESULTS R AXIS 123 degrees RADIOLOGY RESULTS T [place] -1 degrees RADIOLOGY RESULTS Interpretation ECG Sinus rhythm Right axis deviation Incomplete right bundle branch block T wave abnormality, consider anterior ischemia Prolonged QT Abnormal ECG When compared with ECG of 19-Sep-2023 09:24, No significant change was found Confirmed by fellow Humble Hodge ([id number]) on 03/12/2024 2:55:37 PM Confirmed by MD NOAH, DEBORA ([id number]) on 03/12/2024 6:53:57 PM RADIOLOGY RESULTS 03/10/2024 1:13 PM TEAR DOWN WORKER 03/12/2024 6:53 PM TEAR DOWN WORKER us Meño Schreiber MD ECG ORDERABLES Edited Resul t - Final RADIOLOGY RESULTS * ECHO CONGENITAL ADULT (TTE) (03/10/2024 1:09 PM TEAR DOWN WORKER) Anatomical Region Laterality Modality Echocardiography 03/10/2024 12:4 4 PM TEAR DOWN WORKER Narrative 03/10/2024 1:17 PM TEAR DOWN WORKER [id number]^CANDIE^ALBA Study ID: [id number] [facility] [address] [address] Pediatric Echocardiogram Name: DELMER DAVIS Study Date: 03/10/2024 12:44 PM Patient Location: [facility] Age: 28 yrs : 1995 Gender: Female Patient Class: Outpatient Height: 152 cm Ordering Provider: MEÑO SCHREIBER Weight: 81 kg Referring Provider: MEÑO SCHREIBER BSA: 1.8 m2 Performed By: Angela Pickering Report approved by: Cristian Appiah MD Reason For Study: Hypoplastic left heart syndrome, Adult congenital heart disease, ##### CONCLUSIONS ##### Hypoplastic left heart syndrome. Patient has undergone [place], [place] and Fontan operations. Status-post Fontan fenestration [...] Procedure Note Cristian Appiah MD - 03/10/2024 [id number]^CANDIE^MEÑO^LOCO Study ID:[id number] [place] [id number] [place] [address] Pediatric Echocardiogram Name: DELMER DAVIS Study Date: [...] Hypoplastic left heart syndrome. Patient has undergone [place], [place] Fontan operations. Status-post Fontan fenestration closure [...] Stress Test - Adult (03/10/2024 10:57 AM TEAR DOWN WORKER) Target HR 193 Exercise duration (min) 5 min Exercise duration (sec) 58 sec Estimated workload 7.0 METS Angina Index 0 Max 20,625 CARPULSTRPH1 2 mins CARPULSTRPH1 103 bpm CARPULBPPH1 110/65 mmHg CARPULSTRPH1 95 % SpO2 CARPULSTRPH2 4 mins CARPULSTRPH2 121 bpm CARPULBPPH2 128/70 mmHg CARPULSTRPH2 90 % SpO2 CARPULSTRPH3 5 mins [id number] C 58 sec CARPULSTRPH3 165 bpm CARPULBPPH3 125/90 mmHg CARPULSTRPH3 93 % SpO2 Baseline BP 116/76 mmHg Baseline HR 79 bpm Rest BP 113/71 mmHg Rest 86 bpm Last Stress BP 125/90 mmHg Max HR 165 Max Predicted HR 85 % PREDICTED VO2MAX 34.3 Max 14.40 ml/kg/min Predicted 34.30 ml/kg/min Percent 42 % RER 1.05 VE/VCO2 [place] 34.22 Actual SVC (L) 2.65 Predicted SVC [...] Laterality Modality Other Narrative 03/11/2024 7:37 AM TEAR DOWN WORKER A cardiopulmonary stress test was performed following [...] did not reach anaerobic threshold. us Meño Scheriber MD CV CARDIAC SERVICES ORDERABL ES Final Result * X-ray Chest 2 vws* (03/10/2024 10:46 AM TEAR DOWN WORKER) Anatomical Region Laterality Modality Chest Digital Radiogra phy Narrative 03/10/2024 10:54 AM TEAR DOWN WORKER Chest 2 views INDICATION: Hypoplastic left heart [...] Extra Purple Top Tube (03/10/2024 9:38 AM TEAR DOWN WORKER) [facility] Hold Specimen JI 03/10/2024 11:31 AM TEAR DOWN WORKER [facility] Blood STRUCTURE OF LEFT UPPER LIMB / Unknown Venipuncture / Unknown 03/10/2024 9:38 AM TEAR DOWN WORKER 03/10/2024 10:21 AM TEAR DOWN WORKER Meño Schreiber MD LAB - BLOOD ORDERABLES Final Result [facility] [place] [facility] [address] [facility], [address] [place] [address] * N terminal pro BNP outpatient (03/10/2024 9:38 AM TEAR DOWN WORKER) [facility] N Terminal Pro BNP Outpatient 120 0 - 450 pg/mL 03/10/2024 2:19 PM TEAR DOWN WORKER [facility] Comment: Reference range shown and [...] Unknown Venipuncture / Unknown 03/10/2024 9:38 AM TEAR DOWN WORKER 03/10/2024 10:06 AM TEAR DOWN WORKER us Meño Schreiber MD LAB - BLOOD ORDERABLES Final Result [facility] [place] [facility] [address] [facility], [address] [phone] * Hepatic panel (03/10/2024 9:38 AM TEAR DOWN WORKER) Protein Total 6.8 6.4 - 8.3 g/dL 03/10/2024 2:19 PM TEAR DOWN WORKER [facility] Albumin 4.8 3.5 - 5.2 g/dL 03/10/2024 2:19 PM TEAR DOWN WORKER [facility] Bilirubin Total 0.8 <=1.2 mg/dL 03/10/2024 2:19 PM TEAR DOWN WORKER [facility] Alkaline Phosphatase 48 40 - 150 U/L 03/10/2024 2:19 PM TEAR DOWN WORKER [facility] AST 32 0 - 45 U/L 03/10/2024 2:19 PM TEAR DOWN WORKER [facility] ALT 35 0 - 50 U/L 03/10/2024 2:19 PM TEAR DOWN WORKER [facility] Bilirubin Direct 0.22 0.00 - 0.30 mg/dL 03/10/2024 2:19 PM TEAR DOWN WORKER [facility] Blood STRUCTURE OF LEFT UPPER LIMB / Unknown Venipuncture / Unknown 03/10/2024 9:38 AM TEAR DOWN WORKER 03/10/2024 10:06 AM TEAR DOWN WORKER Meño Schreiber MD LAB - BLOOD ORDERABLES Final Result [facility] [place] [facility] [address] [facility], [address] * Hemoglobin A1c (03/10/2024 9:38 AM TEAR DOWN WORKER) Pathologist [facility] Estimated Average Glucose 114 <117 mg/dL 03/11/2024 1:45 AM TEAR DOWN WORKER [facility] Hemoglobin A1C 5.6 <5.7 % 03/11/2024 1:45 AM TEAR DOWN WORKER [facility] Comment: Normal <5.7% Prediabetes 5.7-6.4% Diabetes 6.5% or higher Note: Adopted from ADA consensus guidelines. Blood STRUCTURE OF LEFT UPPER LIMB / Unknown Venipuncture / Unknown 03/10/2024 9:38 AM TEAR DOWN WORKER 03/10/2024 10:21 AM TEAR DOWN WORKER Meño Schreiber MD LAB - BLOOD ORDERABLES Final Result Performing Organization Address [facility] de Phone Number [facility] [place] [facility] [address] [facility], [address] * Basic metabolic panel (03/10/2024 9:38 AM TEAR DOWN WORKER) [facility] Sodium 140 135 - 145 mmol/L 03/10/2024 10:44 AM TEAR DOWN WORKER [facility] Potassium 4.2 3.4 - 5.3 mmol/L 03/10/2024 10:44 AM TEAR DOWN WORKER [facility] Chloride 107 98 - 107 mmol/L 03/10/2024 10:44 AM TEAR DOWN WORKER [facility] Carbon Dioxide (CO2) 23 22 - 29 mmol/L 03/10/2024 10:44 AM TEAR DOWN WORKER [facility] Anion Gap 10 7 - 15 mmol/L 03/10/2024 10:44 AM TEAR DOWN WORKER [facility] Urea Nitrogen 15.3 6.0 - 20.0 mg/dL 03/10/2024 10:44 AM TEAR DOWN WORKER [facility] Creatinine 0.85 0.51 - 0.95 mg/dL 03/10/2024 10:44 AM TEAR DOWN WORKER [facility] GFR Estimate >90 >60 mL/min/1.7 3m2 03/10/2024 10:44 AM TEAR DOWN WORKER [facility] Comment:eGFR calculated usin 2020 CKD-EPI equation. Calcium 9.3 8.8 - 10.4 mg/dL 03/10/2024 10:44 AM TEAR DOWN WORKER [facility] Comment:Reference intervals for this test were updated on 09/10/2023 to reflect our healthy population more accurately. There may be differences in the flagging of prior results with similar values performed with this method. Those prior results can be interpreted in the context of the updated reference intervals. Glucose 98 70 - 99 mg/dL 03/10/2024 10:44 AM TEAR DOWN WORKER [facility] Blood STRUCTURE OF LEFT UPPER LIMB / Unknown Venipuncture / Unknown 03/10/2024 9:38 AM TEAR DOWN WORKER 03/10/2024 10:06 AM TEAR DOWN WORKER us Meño Schreiber MD LAB - BLOOD ORDERABLES Final Result [facility] [place] [facility] [address] [facility], [address] * Chlamydia trachomatis PCR (04/07/2014 11:55 PM TEAR DOWN WORKER) Specimen Description Midstream Urine U [facility] Chlamydia Trachomatis PCR Negative Negative for C. trachomatis rRNA by mechanical engineering coop mediated amplification. A negative result by mechanical engineering coop mediated amplification does not preclude the presence of C. trachomatis infection because results are dependent on proper and adequate collection, absence of inhibitors, and sufficient rRNA to be detected. NEG [facility] Urine specimen (specimen) 04/07/2014 11:55 PM TEAR DOWN WORKER 04/08/2014 1:47 AM TEAR DOWN WORKER us Norman Woodall MD LAB - MICRO GENERAL ORDERABLES F inal Result Performing Organization Address City/[facility]/ZIP Co de Phone Number [facility] [address] U OF [facility] from Last 3 Months or Most Recently Relevant to Health Maintenance Insurance [address] [place] [address] [facility] INDIVIDUAL FAMILY PLANS [address] [place] [address] [facility] INDIVIDUAL FAMILY PLANS Advance Directives For more information, please contact: [phone] * Full Code (Latest Code Status on [...] 2:31 PM 01/27/2016 6:48 AM Care Teams Functional Consultant Relationship Specialty Start Date End Date Maryellen Monterroso PCP - General Physician Extended Day Teacher 02/03/13 Abby Nicolas MD [address] [place] [id number] Pediatric Cardiology 02/02/15
--- OUTSIDE RECORDS SUMMARY | 2024-04-22 14:22 | XMS_ITS | Encounter Summary ---
Author Organization [place] Address [address] [place] [address] Care Team Providers Care Medical Reviewer Name Role Phone Maryellen Monterroso Primary Care Provider Abby Nicolas MD Unavailable [phone] Yenifer Ibrahim PA-C Unavailable [phone] Encounter Details Date Type Department Care Team (Late st Contact Info) Description 01/08/2023 Josi Medical Advice [facility] [address] [phone] Avelina Jackson CMA Social History [...] on file Legal Sex Female 4:04 AM BUSINESS OBJECTS CONSULTANT Gender Identity Not on file Sexual Orientation Not on file documented as of this encounter Plan of Treatment Upcoming Encounters Date Type Department Care Team (Latest Contact Info) Description 04/27/2024 7:30 AM BUSINESS OBJECTS CONSULTANT Lab [facility] [address] [place] [address] 04/27/2024 9:30 AM BUSINESS OBJECTS CONSULTANT Hospital Encounter [facility] [address] [place] [address] Supa Herrera MD [address] [place] [address] Hypoplastic left heart syndrome; S/P Fontan procedure; Adult congenital heart disease; Single ventricle 04/27/2024 9:30 AM BUSINESS OBJECTS CONSULTANT - 04/27/2024 11:30 AM BUSINESS OBJECTS CONSULTANT Surgery [facility] [address] [place] [address] Supa Herrera MD [address] [place] [address] Congenital Right Heart Catheterization 05/28/2024 2:30 PM CDT Office Visit [facility] [place] [address] [facility] [address] [place] [phone] Meño Pryor MD [address] [place], [place] [address] Scheduled Procedures Name Priority Associated Diagnoses Date/Ti ri Congenital Coronary Angiogram 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 04/27/2024 9:30 AM BUSINESS OBJECTS CONSULTANT documented as of this encounter Visit Diagnoses Not on filedocumented in this encounter Care Teams Medical Reviewer Relationship Specialty Start Date End Date Maryellen Monterroso PCP - General Physician Satellite Tv Technician Installer 02/03/13 Abby Nicolas MD [address] [facility] [address] [place] [address] Pediatric Cardiology 02/02/15 Yenifer Ibrahim PA-C [address] [address] Assigned Neuroscience Provider 09/01/22 03/20/23 documented as of this encounter
--- OUTSIDE RECORDS SUMMARY | 2024-04-22 14:22 | XMS_ITS | Encounter Summary ---
Author Organization [place] Address [address] [facility] [address] Care Team Providers Care Graphic Illustrator Name Role Phone Kriss Maryellen Shemar Primary Care Provider [phone] Abby Nicolas MD Unavailable [phone] Encounter Details Date Type Department Care Team (Late st Contact Info) Description 09/19/2023 MyC Medical Advice [facility] [address] [address] Iwona Velazquez, [place] [address] Social History Tobacco Use Types [...] on file Legal Sex Female 4:04 AM CUSTOM WOOD STAIR BUILDER Gender Identity Not on file Sexual Orientation Not on file documented as of this encounter Plan of Treatment Upcoming Encounters Date Type Department Care Team (Latest Contact Info) Description 04/27/2024 7:30 AM CUSTOM WOOD STAIR BUILDER Lab [facility] [address] [place] [address] 04/27/2024 9:30 AM CUSTOM WOOD STAIR BUILDER Hospital Encounter [facility] [address] [place] [address] Supa Herrera MD [address] [place] [address] Hypoplastic left heart syndrome; S/P Fontan procedure; Adult congenital heart disease; Single ventricle 04/27/2024 9:30 AM CUSTOM WOOD STAIR BUILDER - 04/27/2024 11:30 AM CUSTOM WOOD STAIR BUILDER Surgery [facility] [address] [place] [address] Supa Herrera MD [address] [place], [place] [phone] Congenital Right Heart Catheterization 05/28/2024 2:30 PM CDT Office Visit [facility]ty [facility] [address] [facility] [address] [place] [phone] Meño Pryor MD [facility] [place] [address] Scheduled Procedures Name Priority Associated Diagnoses Date/Ti dc Congenital Coronary Angiogram 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 04/27/2024 9:30 AM CUSTOM WOOD STAIR BUILDER documented as of this encounter Visit Diagnoses Not on filedocumented in this encounter Care Teams Graphic Illustrator Relationship Specialty Start Date End Date Maryellen Monterroso PCP - General Physician Supervisor Research Shop 02/03/13 Abby Nicolas MD [address] [address] Pediatric Cardiology 02/02/15 documented as of this encounter
--- OUTSIDE RECORDS SUMMARY | 2024-04-22 14:22 | XMS_ITS | Encounter Summary ---
Author Organization Centre Address [address] [place] [address] Care Team Providers Care Oven Tender Bagels Name Role Phone KrissAnyadwoa Staton Primary Care Provider [phone] Abby Nicolas MD Unavailable [phone] Marilou Suresh MD Unavailable + Yenifer Ibrahim PA-C Unavailable [phone] Reason for Visit * Reason Onset Date Comments Appointment 07/06/2020 Patient being re ferred for S/P Fontan procedure, s/p Fontan, assess and follow liver by Meño Flores Encounter Details Date Type Department Care Team (Late st Contact Info) Description 07/06/2020 Telephone [facility] [address] [address] None Appointment (Patient being referred [...] on file Legal Sex Female 4:04 AM WEBSITE OPTIMIZATION STRATEGIST Gender Identity Not on file Sexual Orientation Not on file COVID-19 Exposure Response Date Recorded In the last month, have you been in contact with someone who was confirmed or suspected to have Coronavirus / COVID-19? No / Unsure 07/05/2020 8:41 AM CDT documented as of this encounter Miscellaneous Notes * Telephone Encounter - Zarina Rodrigues - 07/06/2020 9:33 AM CDT [facility] Phone Message May a detailed message be left on voicemail: yes Reason for Call: Patient being referred for S/P Fontan procedure, s/p Fontan, assess and follow liver by Meño Pryor. [employer] sending TE message for clinic review and follow-up with patient, because Dxis not in guidelines for scheduling. Action Taken: Message routed to: [facility] Hepatology Travel Screening: Not Applicable documented in this encounter Plan of Treatment Upcoming Encounters Date Type Department Care Team (Latest Contact Info) Description 04/27/2024 7:30 AM WEBSITE OPTIMIZATION STRATEGIST Lab [facility] Laboratory [address] [place] [address] 04/27/2024 9:30 AM WEBSITE OPTIMIZATION STRATEGIST Hospital Encounter [facility] [address] [place] [address] Supa Herrera MD [address] [place] [address] Hypoplastic left heart syndrome; S/P Fontan procedure; Adult congenital heart disease; Single ventricle 04/27/2024 9:30 AM WEBSITE OPTIMIZATION STRATEGIST - 04/27/2024 11:30 AM WEBSITE OPTIMIZATION STRATEGIST Surgery [facility] [address] [place] [address] Supa Herrera MD [address] [place] [address] Congenital Right Heart Catheterization 05/28/2024 2:30 PM CDT Office Visit [facility] [place] [address] [place] [address] Meño Pryor MD [address] [place] [address] Scheduled Procedures Name Priority Associated Diagnoses Date/Ti me Congenital Coronary Angiogram 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 04/27/2024 9:30 AM WEBSITE OPTIMIZATION STRATEGIST documented as of this encounter Visit Diagnoses Not on filedocumented in this encounter Care Teams Oven Tender Bagels Relationship Specialty Start Date End Date Maryellen Monterroso PCP - General Physician Dictating Machine Transcriber 02/03/13 Abby Nicolas MD [address] [place], [place] [address] Pediatric Cardiology 02/02/15 Marilou Suresh MD [address] [facility] [place] [address] Assigned Gastroenterology Provider 07/31/20 06/24/21 Yenifer Ibrahim PA-C [address] [id number] Assigned Neuroscience Provider 09/01/22 03/20/23 documented as of this encounter
--- OUTSIDE RECORDS SUMMARY | 2024-04-22 14:22 | XMS_ITS | Encounter Summary ---
Author Organization [place] Address [address] [facility] 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 If you have concerns about scheduling, please call [phone]. Comments Follow up with Dr Pryor with an echo and labs prior [facility] will call you to coordinate your care as prescribed by your provider. If you have concerns about scheduling, please call [phone]. * CV Testing (Routine) - Pending Review [...] ECHO COLOR FLOW VELOCITY MAP NE ECHO XTHORACIC,MARIO ANOM,COMPLETE NE ECHO CONGENITAL W/O CONTRAST HC DOPPLER ECHO PULSED, COMPLETE HC DOPPLER ECHO COLOR FLOW VELOCITY MAP HC STATISTIC IV PUSH SINGLE INITIAL SUBSTANCE HC ECHO CONGENITAL ANOM W/CONTRAST HC ECHO CONGENITAL ANOM W/O CONTRAST Meño Pryor MD [address] [place] [address] [address] Phone: tel: fax: Referral ID Status Reason Start Date Expiration Date V isits Requested Visits Authorized [id number] Pending Review 05/28/2023 05/27/2024 1 1 Reason for Visit * Reason Onset Date Comments Clinic Care Coordination - Follow-up 05/28/2023 Encounter Details Date Type Department Care Team (Late st Contact Info) Description 05/28/2023 MyC Medical Advice [facility]ty [facility] [place] [address] [place] [address] Meño Pryor MD [address] [facility] [place], [place] [address] Clinic Care Coordination - Follow-up Social History [...] on file Legal Sex Female 4:04 AM WATCH TECHNICIAN Gender Identity Not on file Sexual Orientation Not on file documented as of this encounter Plan of Treatment Upcoming Encounters Date Type Department Care Team (Latest Contact Info) Description 04/27/2024 7:30 AM WATCH TECHNICIAN Lab [facility] Laboratory [address] [place] [address] 04/27/2024 9:30 AM WATCH TECHNICIAN Hospital Encounter [facility] [address] [place] [address] Supa Herrera MD [address] [place] [address] Hypoplastic left heart syndrome; S/P Fontan procedure; Adult congenital heart disease; Single ventricle 04/27/2024 9:30 AM WATCH TECHNICIAN - 04/27/2024 11:30 AM WATCH TECHNICIAN Surgery [facility] [address] [place] [address] Supa Herrera MD [address] [place] [address] Congenital Right Heart Catheterization 05/28/2024 2:30 PM CDT Office Visit [facility] [place] [address] [facility] [address] [place] [address] Meño Pryor MD [address] [place] [address] Scheduled Orders Name Type Priority Associated Diagnoses Order Schedule ECHO Congenital Transthoracic (TTE) Echocardiography Routine 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 Expected: 07/28/2023 (Approximate), Expires: 05/27/2024 Scheduled Procedures Name Priority Associated Diagnoses Date/Ti me Congenital Coronary Angiogram 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 04/27/2024 9:30 AM WATCH TECHNICIAN Scheduled Referrals Name Type Priority Associated Diagnoses [...] [address] [facility], [address] [address] * AFP tumor marker (09/19/2023 11:58 [...] LAB - BLOOD ORDERABLES Final Result LABORATORY [facility] Core Lab 500 [facility], [address] [address] * Prealbumin (09/19/2023 11:58 AM CDT) Prealbumin 23.9 20.0 - 40.0 mg/dL 09/19/2023 5:23 PM CDT LABORATORY Blood STRUCTURE OF LEFT UPPER LIMB / Unknown Venipuncture / Unknown 09/19/2023 11:58 AM CDT 09/19/2023 11:58 AM CDT Meño Pryor MD LAB - BLOOD ORDERABLES Final Result LABORATORY [facility] Core Lab [address] [facility], [address] [address] * (ABNORMAL) IgG (09/19/2023 11:58 AM CDT) Immunoglobulin G 602(L) 610 - 1,616 mg/dL 09/20/2023 7:50 AM CDT SPECIALTY CORE/PROT/END O Blood STRUCTURE OF LEFT UPPER LIMB / Unknown Venipuncture / Unknown 09/19/2023 11:58 AM CDT 09/19/2023 11:58 AM CDT Meño Pryor MD LAB - BLOOD ORDERABLES Final Result SPECIALTY CORE/PROT/ENDO [facility] Specialty Core/Prot/Endo [address] [facility], [address] documented in this encounter Visit Diagnoses [...] ventricle documented in this encounter Care Teams Lockstitch Front Edge Tape Sewer Relationship Specialty Start Date End Date Maryellen Monterroso PCP - General Physician Local Flatbed Driver 02/03/13 Abby Nicolas MD [address] [address] Pediatric Cardiology 02/02/15 documented as of this encounter
--- OUTSIDE RECORDS SUMMARY | 2024-04-22 14:22 | XMS_ITS | Encounter Summary ---
Author Organization [place] Address [address] [facility] [place] [address] Care Team Providers Care Senior Financial Name Role Phone Maryellen Monterroso Shemar Primary Care Provider [phone] Abby Nicolas MD Unavailable [phone] Marilou Suresh MD Unavailable + Yenifer Ibrahim PA-C Unavailable [phone] Encounter Details Date Type Department Care Team (Late st Contact Info) Description 05/19/2021 Telephone [facility] Heart Clinic [address] [address] Unknown Social History Tobacco Use Types Packs/Day Years Used Date Smoking Tobacco: Never Smokeless Tobacco: Never Alcohol Use Standard Drinks/Week Comments Yes 0 (1 standard drink = 0.6 oz pur e alcohol) occasionally PHQ-2 Answer Date Recorded PHQ-2 Score 0 07/26/2020 Comments No Sex and Gender Information Value Date Recorded Sex Assigned at Not on file Legal Sex Female 4:04 AM LINK AND LINK KNITTING MACHINE OPERATOR Gender Identity Not on file Sexual [...] (Latest Contact Info) Description 04/27/2024 7:30 AM LINK AND LINK KNITTING MACHINE OPERATOR Lab [facility] Laboratory [address] [place] [address] 04/27/2024 9:30 AM LINK AND LINK KNITTING MACHINE OPERATOR Hospital Encounter [facility] Heart Care [address] [place] [address] Supa Herrera MD [address] [place], [place] [address] Hypoplastic left heart syndrome; S/P Fontan procedure; Adult congenital heart disease; Single ventricle 04/27/2024 9:30 AM LINK AND LINK KNITTING MACHINE OPERATOR - 04/27/2024 11:30 AM LINK AND LINK KNITTING MACHINE OPERATOR Surgery [facility] Heart Care [address] [place] [address] Supa Herrera MD [address] [place], [place] [address] Congenital Right Heart Catheterization 05/28/2024 2:30 PM CDT Office Visit [facility]ty [facility] [place] [address] [facility] [address] [place] [address] Meño Pryor MD [address] [place] [address] Scheduled Procedures Name Priority Associated Diagnoses Date/Ti me Congenital Coronary Angiogram 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 04/27/2024 9:30 AM LINK AND LINK KNITTING MACHINE OPERATOR documented as of this encounter Visit Diagnoses Not on filedocumented in this encounter Care Teams Senior Financial Relationship Specialty Start Date End Date Maryellen Monterroso PCP - General Physician Iap Displays Analyst 02/03/13 Abby Nicolas MD [facility] [address] [address] Pediatric Cardiology 02/02/15 Marilou Suresh MD [address] [place] [id number] Assigned Gastroenterology Provider 07/31/20 06/24/21 Yenifer Ibrahim PA-C [address] [place] [id number] Assigned Neuroscience Provider 09/01/22 03/20/23 documented as of this encounter
--- OUTSIDE RECORDS SUMMARY | 2024-04-22 14:22 | XMS_ITS | Encounter Summary ---
Author Organization [place] Address [address] [facility] [address] Care Team Providers Care Account Coordinator Name Role Phone Maryellen Monterroso Primary Care Provider [phone] Abby Nicolas MD Unavailable [phone] Encounter Details Date Type Department Care Team (Late st Contact Info) Description 10/03/2023 MyC Medical Advice [facility] [address] [address] Cristina, Tia Social History Tobacco [...] on file Legal Sex Female 4:04 AM UTILITY OPERATOR Gender Identity Not on file Sexual Orientation Not on file documented as of this encounter Plan of Treatment Upcoming Encounters Date Type Department Care Team (Latest Contact Info) Description 04/27/2024 7:30 AM UTILITY OPERATOR Lab [facility] [place] [facility] [address] [place] [address] 04/27/2024 9:30 AM UTILITY OPERATOR Hospital Encounter [facility] Heart Care [address] [place] [address] Supa Herrera MD [address] [place], [place] [address] Hypoplastic left heart syndrome; S/P Fontan procedure; Adult congenital heart disease; Single ventricle 04/27/2024 9:30 AM UTILITY OPERATOR - 04/27/2024 11:30 AM UTILITY OPERATOR Surgery [facility] Care [address] [place] [address] Supa Herrera MD [address] [place], [place] [address] Congenital Right Heart Catheterization 05/28/2024 2:30 PM CDT Office Visit [facility] [place] [address] [facility] [address] [place] [address] Meño Pryor MD [address] [place] [id number] Scheduled Procedures Name Priority Associated Diagnoses Date/Ti nc Congenital Coronary Angiogram 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
--- OUTSIDE RECORDS SUMMARY | 2024-04-22 14:22 | XMS_ITS | Clinical Summary ---
Author Organization [employer] [facility] Address [address] [place] [address] Care Team Providers Care Registered Nurse Cardiac Name Role Phone Deepthi Reyes MD Unavailable [phone] Claire Mai DO Primary Care Provider [phone] Allergies Active Allergy Reactions Criticality Noted Date [...] Overview (05/07/2022): 08/22/2016: ASCUS/HPV+ 06/16/2020: LSIL 07/07/2020: [place] - benign 04/17/2022: ASCUS/HPV+ (16/18 neg) Plan: [...] Supervision of high-risk 11/05/2019 12/24/2022 Overview (11/10/2019): [facility] CONSULTATION ON 11/10/19 REASON FOR CONSULT: Maternal [...] ventricle palliation Ariana Ajay-fontan LSVC to LPA Romain Fenestrated Fontan closed with Amplatzer ASD closure device (2004) Aortic coarctation - s/p stenting of the proximal descending aorta 01/2016 d/t elevated gradient in her proximal descending thoracic aortic arch (01/2016) 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 HLHS S/p Fontan pathway completion ([facility]). Fontan fenestration closure with Amplatzer device (04/2004). [...] BNP: 74 PERTINENT MEDS: Preferred delivery location: [place] PLAN OF CARE: Nexplanon in place 01/27/2019 [...] device to close the Fontan fenestration. H/O Venus, Romain, and Fontan operations H/O CHF 04/24/16 Diagnostic hysteroscopy, endometrial sampling REFERRING PHYSICIAN/PHONE/LAST UPDATE: Maryellen Monterroso [phone] Primary MD approves scheduling of recommended ultrasounds/testing: Yes SPECIALISTS/PHONE: Dr Kong Lu, ~ Vb Net Programmer [facility] : Last seen for Pediatric Echo 08/08/16. LV 08/15/16 Report in Care Everywhere Cardiology -Had appointment at the [facility] 11/06/16. Patient cancelled it. 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 LINE TECHNICIAN did NOB after consult. NOB labs already [...] endometrial sampling LAST GROWTH: 08/08/16 U/S @ [facility] Clinic per patient (no records) 08/02/16 5w 3d TESTING PLANS: REFERRING PHYSICIAN/PHONE/LAST UPDATE: Suri HINES Primary MD approves scheduling of recommended ultrasounds/testing: Unknown SPECIALISTS/PHONE: Dr Cory Velazquez ~ Vb Net Programmer [facility] : Last seen for Pediatric Echo 08/08/16. Report in Care Everywhere Dr Shavonne Piper ~ appointment scheduled for 09/07/16 FERDINAND: FERDINAND signed for [facility]: CARE COORDINATION: Marta Nicolas and Majrorie Adame messaged 08/17/16 PROMOTION PRODUCER: GENETICS: 08/22/16 Counsyl sent; Planning First Tri [...] Type Department Care Team Description 04/21/2024 Refill [facility] [address] [place] [address] Ann Parkinson NP Refill Request (Lurasidone) 02/18/2024 Refill [facility] [address] [place] [address] Ann Parkinson NP Refill Request (Lurasidone) from [...] on file Legal Sex Female 5:27 AM LIBRARIAN SPECIAL LIBRARY Gender Identity Not on file Sexual Orientation Not on file 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 on file Not on file Not [...] 36.8 C (98.3 F) 01/09/2023 10:21 AM LIBRARIAN SPECIAL LIBRARY Respiratory Rate 18 01/09/2023 10:2 1 AM LIBRARIAN SPECIAL LIBRARY Oxygen Saturation 92% 07/26/2023 10: 48 AM CDT Inhaled Oxygen Concentration - - Weight 78.3 kg (172 lb 11.2 oz) 08/13/2023 1:18 PM CDT Height 152.4 cm (5') 01/08/2023 6:20 AM LIBRARIAN SPECIAL LIBRARY Body Mass Index 33.73 01/08/2023 6:20 AM LIBRARIAN SPECIAL LIBRARY Plan of Treatment Upcoming Encounters Date Type Department Care Team (Late st Contact Info) Description 04/23/2024 10:15 AM LIBRARIAN SPECIAL LIBRARY Telemedicine [facility] [address] [place] [address] Ann Parkinson NP [address] [place] [address] Telehealth; Medication Management (Things are going good, [...] HPV HIGH RISK Routine 04/17/2022 11:40 AM LIBRARIAN SPECIAL LIBRARY Screening for cervical cancer ANTI HIV 1/2 Routine 09/28/2019 11:30 AM CDT , unspecified gestational age ANTI HCV Routine 09/28/2019 11:30 AM CDT Supervision of high risk in first trimester from Last 3 Months or Most Recently Relevant to Health Maintenance Results * (ABNORMAL) HPV HIGH RISK (04/17/2022 11:40 AM LIBRARIAN SPECIAL LIBRARY) TYPE 16 Negative Negative 04/20/2022 11:14 AM LIBRARIAN SPECIAL LIBRARY [facility] TYPE 18 Negative Negative 04/20/2022 11:14 [address] LIB[address] [facility] OTHER HIGH RISK TYPES Positive(A) Negative 04/20/2022 11:14 AM LIBRARIAN SPECIAL [facility] [facility] Other (Cervical) Non-Blood / Unknown 04/17/2022 11:40 AM LIBRARIAN SPECIAL LIBRARY 04/17/2022 6:38 PM LIBRARIAN SPECIAL LIBRARY Narrative [facility] - 04/20/2022 11:14 AM LIBRARIAN SPECIAL LIBRARY Specimen is positive for the DNA of any one of, or combination of, the following high risk HPV types: 31, 33, 35, 39, 45, 51, 52, 56, 58, 59, 66, 68. HPV types 16 and 18 DNA were undetectable or below the pre-set threshold. Methodology: Lianet Akash 4800 HPV Test Claire Mai DO MICROBIOLOGY Final Result [facility] [address] [place] [address], * ANTI HCV (09/28/2019 11:30 AM CDT) HEPATITIS C ANTIBODY Non-React martha Non-React martha 09/28/2019 8:59 PM CDT [facility] LABORATORY Comment:Antibodies to HCV no t detected; does not exclude the possibility of exposure to HCV. Blood BLOOD SPECIMEN / Unknown Venipuncture / Unknown 09/28/2019 11:30 AM CDT 09/28/2019 11:31 AM CDT us Beba Garcia CNM SEND OUTS Final Result Performing Organization Address City/[facility]/ZIP Co de Phone Number [facility] [address] [place] [address], [place] * ANTI HIV 1/2 (09/28/2019 11:30 AM CDT) HIV-1/HIV-2 ANTIBODY Non-Reacti ve Non-Reacti ve 09/28/2019 9:01 PM CDT [facility] TRAL LABORATORY Comment:HIV-1 p24 and HIV-1/ HIV-2 Ab not detected. Blood BLOOD SPECIMEN / Unknown Venipuncture / Unknown 09/28/2019 11:30 AM CDT 09/28/2019 11:31 AM CDT us Brisa Gómez MD SEND OUTS Final Re sult Performing Organization Address City/[facility] Co de Phone Number [facility] [address] [place] [address], from Last 3 Months or Most Recently Relevant to Health Maintenance Insurance [facility] [employer] INDIVIDUAL AND FAMILY PLANS [place] [id number] [facility] REJI R[address]RIGUEZ [id number] [address] [facility] [place] [id number] [place] [id number] ATTN A/P [address] [address] [place] [address] [place] [address] Advance Directives * Full Code (Latest Code [...] Comments Code Status Discussion: Discussed Care Teams Registered Nurse Cardiac Relationship Specialty Start Date End Date Claire Mai [place] [address] PCP - General Family Practice 07/26/23 Deepthi Reyes MD Adult Congenital Heart Disease Program Cardiology - Pediatric 10/29/19
--- OUTSIDE RECORDS SUMMARY | 2024-04-22 14:22 | XMS_ITS | Encounter Summary ---
Author Organization [place] Address [address] [facility] [place] [address] Care Team Providers Care Change Management Coordinator Name Role Phone Kriss Maryellen Staton Primary Care Provider [phone] Abby Nicolas MD Unavailable [phone] Encounter Details Date Type Department Care Team (Late st Contact Info) Description 10/14/2023 MyC Medical Advice [facility] [address] [address] Starla Carter, RN Social History [...] on file Legal Sex Female 4:04 AM RN DOCUMENT IMPROVEMENT Gender Identity Not on file Sexual Orientation Not on file documented as of this encounter Plan of Treatment Upcoming Encounters Date Type Department Care Team (Latest Contact Info) Description 04/27/2024 7:30 AM RN DOCUMENT IMPROVEMENT Lab [facility] [address] [place] [address] 04/27/2024 9:30 AM RN DOCUMENT IMPROVEMENT Hospital Encounter [facility] [address] [place] [address] Supa Herrera MD [address] [place] [address] Hypoplastic left heart syndrome; S/P Fontan procedure; Adult congenital heart disease; Single ventricle 04/27/2024 9:30 AM RN DOCUMENT IMPROVEMENT - 04/27/2024 11:30 AM RN DOCUMENT IMPROVEMENT Surgery [facility] [address] [place] [address] Supa Herrera MD [address] [place] [address] Congenital Right Heart Catheterization 05/28/2024 2:30 PM CDT Office Visit [facility] [place] [address] [facility] [address] [place] [address] Meño Pryor MD [address] [place] [address]75194 Scheduled Procedures Name Priority Associated Diagnoses Date/Ti va Congenital Coronary Angiogram 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
--- OUTSIDE RECORDS SUMMARY | 2024-04-22 14:23 | XMS_ITS | Encounter Summary ---
Author Organization [place] Address [address] [place] [address] Care Team Providers Care Communication Clerk Name Role Phone Maryellen Monterroso Primary Care Provider [phone] Abby Nicolas MD Unavailable [phone] Yenifer Ibrahim PA-C Unavailable [phone] Encounter Details Date Type Department Care Team (Late st Contact Info) Description 11/07/2021 Josi Medical Advice [facility] [address] [address] Avelina Jackson CMA Social History [...] on file Legal Sex Female 4:04 AM MARINE CARGO SURVEYOR Gender Identity Not on file Sexual Orientation [...] (Latest Contact Info) Description 04/27/2024 7:30 AM MARINE CARGO SURVEYOR Lab [facility] Laboratory [address] [place] [address] 04/27/2024 9:30 AM MARINE CARGO SURVEYOR Hospital Encounter [facility] [address] [place] [address] April, Supa Wilde MD [address] [place], [place] [address] Hypoplastic left heart syndrome; S/P Fontan procedure; Adult congenital heart disease; Single ventricle 04/27/2024 9:30 AM MARINE CARGO SURVEYOR - 04/27/2024 11:30 AM MARINE CARGO SURVEYOR Surgery [facility] [address] [place] [address] April, Supa Wilde MD [address] [place], [place] [address] Congenital Right Heart Catheterization 05/28/2024 2:30 PM CDT Office Visit [facility] [place] [address] [facility] [address] [place] [address] Meño Pryor MD [address] [place], [place] [address] Scheduled Procedures Name Priority Associated Diagnoses Date/Ti nv Congenital Coronary Angiogram 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
--- OUTSIDE RECORDS SUMMARY | 2024-04-22 14:23 | XMS_ITS | Encounter Summary ---
Author Organization [place] Address [address] [facility] [place] [address] Care Team Providers Care Advanced Nursing Professor Name Role Phone KrissMaryellen johnson Shemar Primary Care Provider [phone] Abby Nicolas MD Unavailable [phone] Encounter Details Date Type Department Care Team [...] on file Legal Sex Female 4:04 AM DRY CANS OPERATOR Gender Identity Not on file Sexual Orientation Not on file documented as of this encounter Plan of Treatment Upcoming Encounters Date Type Department Care Team (Latest Contact Info) Description 04/27/2024 7:30 AM DRY CANS OPERATOR [facility] Laboratory [address] [place] [address] 04/27/2024 9:30 AM DRY CANS OPERATOR Hospital Encounter [facility] Heart Care [address] [place] [address] Supa Herrera MD [address] [place] [address] Hypoplastic left heart syndrome; S/P Fontan procedure; Adult congenital heart disease; Single ventricle 04/27/2024 9:30 AM DRY CANS OPERATOR - 04/27/2024 11:30 AM DRY CANS OPERATOR Surgery [facility] Heart Care [address] [place] [address] Supa Herrera MD [address] [place] [address] Congenital Right Heart Catheterization 05/28/2024 2:30 PM CDT Office Visit [facility] [place] [address] [facility] [address] [place] [address] Meño Pryor MD [address] [place] [address] Scheduled Procedures Name Priority Associated Diagnoses Date/Ti dc Congenital Coronary Angiogram 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
--- OUTSIDE RECORDS SUMMARY | 2024-04-22 14:23 | XMS_ITS | Encounter Summary ---
Author Organization [place] Address [address] 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 Palpitations Procedures ECHO Congenital Transthoracic (TTE) [facility] ECHO XTHORACIC,MRAIO ANOM,COMPLETE [facility] ECHO CONGENITAL W/CONTRAST [facility] ECHO CONGENITAL W/O CONTRAST [facility] DOPPLER ECHO PULSED, COMPLETE [facility] DOPPLER ECHO COLOR FLOW VELOCITY MAP [facility] STATISTIC IV PUSH SINGLE INITIAL SUBSTANCE MI DOPPLER ECHO PULSED, COMPLETE MI DOPPLER ECHO COLOR FLOW VELOCITY MAP MI ECHO XTHORACIC,MARIO ANOM,COMPLETE MI ECHO CONGENITAL W/O CONTRAST HC DOPPLER ECHO PULSED, COMPLETE HC DOPPLER ECHO COLOR FLOW VELOCITY MAP HC STATISTIC IV PUSH SINGLE INITIAL SUBSTANCE HC ECHO CONGENITAL ANOM W/CONTRAST HC ECHO CONGENITAL ANOM W/O CONTRAST Meño Pryor MD [address] [address] Phone: tel: fax: [facility] [address] [address] Phone: tel: fax: Referral ID Status Reason Start Date Expiration Date Visits Re quested Visits Authorized [id number] Closed 09/19/2023 09/18/2024 1 1 Encounter Details Date Type Department Care Team (Late st Contact Info) Description 03/10/2024 1:00 PM AWS SOLUTION ARCHITECT Ancillary Procedure [address] [address] Meño Pryor MD [address] [address] Hypoplastic left heart syndrome; Adult [...] on file Legal Sex Female 4:04 AM AWS SOLUTION ARCHITECT Gender Identity Not on file Sexual Orientation Not on file documented as of this encounter Plan of Treatment Upcoming Encounters Date Type Department Care Team (Latest Contact Info) Description 04/27/2024 7:30 AM AWS SOLUTION ARCHITECT Lab [facility] [place] [facility] [address] [place] [address] 04/27/2024 9:30 AM AWS SOLUTION ARCHITECT Hospital Encounter [facility] Heart Care [address] [place] [address] Supa Herrera MD [address] [place] [id number] Hypoplastic left heart syndrome; S/P Fontan procedure; Adult congenital heart disease; Single ventricle 04/27/2024 9:30 AM AWS SOLUTION ARCHITECT - 04/27/2024 11:30 AM AWS SOLUTION ARCHITECT Surgery [facility] Heart Care [address] [place] [address] Supa Herrera MD [address] [place] [id number] Congenital Right Heart Catheterization 05/28/2024 2:30 PM CDT Office Visit [facility] [place] [address] [facility] [address] [place] [address] CandieMeño MD [address] [place] [address] Scheduled Procedures Name Priority Associated Diagnoses Date/Ti me Congenital Coronary Angiogram 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 04/27/2024 9:30 AM AWS SOLUTION ARCHITECT documented as of this encounter Procedures Procedure Name Priority Date/Time Associated Diagnosis Comments ECHO CONGENITAL ADULT (TTE) Routine 03/10/2024 1:09 PM AWS SOLUTION ARCHITECT 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 Palpitations EXTRA TUBE Routine 03/10/2024 9:38 AM AWS SOLUTION ARCHITECT EXTRA PURPLE TOP TUBE Routine 03/10/2024 9:38 AM AWS SOLUTION ARCHITECT HEMOGLOBIN A1C Add-On 03/10/2024 9:38 AM AWS SOLUTION ARCHITECT 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 Outflow tracts: Patient has undergone Blythe operation. The systemic outflow tract is unobstructed. [...] Procedure Note Cristian Appiah MD - 03/10/2024 [id number]^CANDIE^MEÑO^LOCO Study ID:[id number] [facility]'[address] [address] Pediatric Echocardiogram Name: DELMER DAVIS Study Date: [...] Final * Hemoglobin A1c (03/10/2024 9:38 AM AWS SOLUTION ARCHITECT) Pathologist [facility] Estimated Average Glucose 114 <117 mg/dL 03/11/2024 1:45 AM AWS SOLUTION ARCHITECT [facility] Hemoglobin A1C 5.6 <5.7 % 03/11/2024 1:45 AM AWS SOLUTION ARCHITECT [facility] Comment: Normal <5.7% Prediabetes 5.7-6.4% Diabetes 6.5% or higher Note: Adopted from ADA consensus guidelines. Blood STRUCTURE OF LEFT UPPER LIMB / Unknown Venipuncture / Unknown 03/10/2024 9:38 AM AWS SOLUTION ARCHITECT 03/10/2024 10:21 AM AWS SOLUTION ARCHITECT Meño Pryor MD LAB - BLOOD ORDERABLES Final Result [facility] [place] [facility] 500 [facility], [address] [place] [id number] * Extra Purple Top Tube (03/10/2024 9:38 AM AWS SOLUTION ARCHITECT) Hold Specimen JIC 03/10/2024 11:31 AM AWS SOLUTION ARCHITECT [facility] Blood STRUCTURE OF LEFT UPPER LIMB / Unknown Venipuncture / Unknown 03/10/2024 9:38 AM AWS SOLUTION ARCHITECT 03/10/2024 10:21 AM AWS SOLUTION ARCHITECT Meño Pryor MD LAB - BLOOD ORDERABLES Final Result [facility] [place] [facility] [address] [facility] [facility], [address] [place] [address], [facility] documented in this encounter Visit Diagnoses Diagnosis [...] ventricle documented in this encounter Care Teams Gender Studies Professor Relationship Specialty Start Date End Date Maryellen Monterroso PCP - General Physician International Banker 02/03/13 Abby Nicolas MD [address] [place] [address] Pediatric Cardiology 02/02/15 documented as of this encounter
--- OUTSIDE RECORDS SUMMARY | 2024-04-22 14:23 | XMS_ITS | Encounter Summary ---
Author Organization [place] Address [address] [facility] [place] [address] Care Team Providers Care Watch Crystal Edge Grinder Name Role Phone KrissMaryellen Shemar Primary Care Provider [phone] Abby Nicolas MD Unavailable [phone] Encounter Details Date Type Department Care Team (Late st Contact Info) Description 04/20/2024 MyC Medical Advice [facility] [address] [address] Meño Pryor MD [address] [facility] [place], [place] [address] Social History Tobacco Use Types Packs/Day Years [...] on file Legal Sex Female 4:04 AM TRUCKING CONTRACTOR Gender Identity Not on file Sexual Orientation Not on file documented as of this encounter Miscellaneous Notes * Telephone Encounter - Starla Carter RN - 04/21/2024 4:50 PM CST Blood work no longer needed, Dr Pryor consulted patient KING CONTRACTOR documented in this encounter Plan of Treatment Upcoming Encounters Date Type Department Care Team (Latest Contact Info) Description 04/27/2024 7:30 AM TRUCKING CONTRACTOR Lab [facility] Laboratory [address] [place] [address] 04/27/2024 9:30 AM TRUCKING CONTRACTOR Hospital Encounter [facility] Heart Care [address] [place] [address] Supa Herrera MD [address] [place] [address] Hypoplastic left heart syndrome; S/P Fontan procedure; Adult congenital heart disease; Single ventricle 04/27/2024 9:30 AM TRUCKING CONTRACTOR - 04/27/2024 11:30 AM TRUCKING CONTRACTOR Surgery [facility] Heart Care [address] [place] [address] Supa Herrera MD [address] [place] [address] Congenital Right Heart Catheterization 05/28/2024 2:30 PM CDT Office Visit [facility] [place] [address] [facility] [address] [place] [address] Meño Pryor MD [address] [place] [address] Scheduled Procedures Name Priority Associated Diagnoses Date/Ti me Congenital Coronary Angiogram 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
--- OUTSIDE RECORDS SUMMARY | 2024-04-22 14:23 | XMS_ITS | Encounter Summary ---
Author Organization [place] Address [address] [facility] [address] Care Team Providers Care Visual Artist Name Role Phone KrissMaryellen johnson Shemar Primary Care Provider Abby Nicolas MD Unavailable [phone] Encounter Details Date Type Department Care Team (Late st Contact Info) Description 03/24/2024 Orders Only [facility] Interventional Radiology [address] [place] [address] Kelsy Greenfield APRN MANAGER COMMERCIAL [address] [place] [address] Social History Tobacco Use Types [...] on file Legal Sex Female 4:04 AM CAMBERING MACHINE OPERATOR Gender Identity Not on file Sexual Orientation Not on file documented as of this encounter Plan of Treatment Upcoming Encounters Date Type Department Care Team (Latest Contact Info) Description 04/27/2024 7:30 AM CAMBERING MACHINE OPERATOR Lab [facility] Laboratory [address] [place] [address] 04/27/2024 9:30 AM CAMBERING MACHINE OPERATOR Hospital Encounter [facility] [address] [place] [address] Supa Herrera MD [address] [place] [address] Hypoplastic left heart syndrome; S/P Fontan procedure; Adult congenital heart disease; Single ventricle 04/27/2024 9:30 AM CAMBERING MACHINE OPERATOR - 04/27/2024 11:30 AM CAMBERING MACHINE OPERATOR Surgery [facility] Care [address] [place] [address] Supa Herrera MD [address] [place] [address] Congenital Right Heart Catheterization 05/28/2024 2:30 PM CDT Office Visit [facility] Specialty [facility] [place] [address] [facility] [address] [place] [address] Meño Pryor MD [facility] [place] [address] Scheduled Procedures Name Priority Associated Diagnoses Date/Ti me Congenital Coronary Angiogram 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
--- OUTSIDE RECORDS SUMMARY | 2024-04-22 14:23 | XMS_ITS | Encounter Summary ---
Author Organization [place] Address [address] [place] [address] Care Team Providers Care Shovel Logger Name Role Phone Maryellen Monterroso Primary Care Provider [phone] Abby Nicolas MD Unavailable [phone] Reason for Referral * Therapeutic Imaging/IR (Routine: Next available opening) - Authorized Specialty Diagnoses / Procedures Referred By Contac t Referred To Contact Radiology. 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 Palpitations Hypoxemia Single ventricle Procedures IR Liver Biopsy Percutaneous IR Referral Meño Pryor MD [address] [facility] [place] [address] Phone: tel: fax: [facility] Interventional Radiology [address] [place] [address] Phone: tel: Referral ID Status Reason Start Date Expiration Date V isits Requested Visits Authorized [id number] Authorized 03/24/2024 03/24/2025 1 1 AR MAKER * (Routine) - Pending Review Specialty Diagnoses / Procedures Referred By Contac t Referred To Contact 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 Procedures Case Request Plant Propagator: Congenital Right Heart Catheterization, Congenital Left Heart Catheterization, Congenital Coronary Angiogram Supa Herrera MD [address] [facility] [address] [place] [address] Phone: tel: fax: Referral ID Status Reason Start Date Expiration Date V isits Requested Visits Authorized [id number] Pending Review 03/23/2024 03/23/2025 1 1 AR MAKER * Consultation (Routine: Next available opening) - Pending Review Specialty Diagnoses / Procedures Referred By Luz sanchez Referred To Contact Cardiovascular Disease Diagnoses 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 If you have concerns about scheduling, please call [phone]. Comments Follow up with Dr Pryor 1 month after heart cath is complete [facility] will call you to coordinate your care as prescribed by your provider. If you have concerns about scheduling, please call [phone]. AR MAKER Reason for Visit * Reason Comments Clinic Care Coordination - Follow-up Encounter Details Date Type Department Care Team (Latest Contact Info) Description 03/10/2024 Care Coordination [facility] [address] [address] Starla Carreno, RN Clinic Care Coordination - [...] on file Legal Sex Female 4:04 AM GUITAR MAKER Gender Identity Not on file Sexual Orientation Not on file documented as of this encounter Miscellaneous Notes * Addendum Note - Starla Carreno RN - 03/10/2024 4:22 PM CSTAddended by: STARLA CARRENO on: 03/23/2024 05:07 PM Modules accepted: Orders AR MAKER * Addendum Note - Starla Carreno RN - 03/10/2024 4:22 PM CSTAddended by: STARLA CARRENO on: 03/24/2024 12:13 PM Modules accepted: Orders AR MAKER documented in this encounter Plan of Treatment Upcoming Encounters Date Type Department Care Team (Latest Contact Info) Description 04/27/2024 7:30 AM GUITAR MAKER Lab [facility] [address] [place] [address] 04/27/2024 9:30 AM GUITAR MAKER Hospital Encounter [facility] Heart Care [address] [place] [address] April, Supa Wilde MD [address] [place] [address] Hypoplastic left heart syndrome; S/P Fontan procedure; Adult congenital heart disease; Single ventricle 04/27/2024 9:30 AM GUITAR MAKER - 04/27/2024 11:30 AM GUITAR MAKER Surgery [facility] Heart Care [address] [place] [address] April, Supa Wilde MD [address] [place] [address] Congenital Right Heart Catheterization 05/28/2024 2:30 PM CDT Office Visit [facility] [place] [address] [place] [address] Meño Pryor MD [address] [place] [address] Scheduled Orders Name Type Priority Associated Diagnoses Order Schedule IR Liver Biopsy Percutaneous Imaging Routine: Next available opening 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 Palpitations Hypoxemia Single ventricle Expected: 04/27/2024 (Approximate), Expires: 06/22/2024 Scheduled Procedures Name Priority Associated Diagnoses Date/Ti al Congenital Coronary Angiogram 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
--- OUTSIDE RECORDS SUMMARY | 2024-04-22 14:23 | XMS_ITS | Encounter Summary ---
Author Organization [place] Address [address] [facility] [place] [address] Care Team Providers Care Cold Rolling Machine Setter Name Role Phone KrissMaryellen johnson Shemar Primary Care Provider [phone] Abby Nicolas MD Unavailable [phone] Encounter Details Date Type Department Care Team [...] file Legal Sex Female 4:04 AM CHIEF OF POLICE Gender Identity Not on file Sexual Orientation Not on file documented as of this encounter Plan of Treatment Upcoming Encounters Date Type Department Care Team (Latest Contact Info) Description 04/27/2024 7:30 AM CHIEF OF POLICE [facility] Laboratory [address] [place] [address] 04/27/2024 9:30 AM CHIEF OF POLICE Hospital Encounter [facility] [address] [place] [address] Supa Herrera MD [address] [place] [address] Hypoplastic left heart syndrome; S/P Fontan procedure; Adult congenital heart disease; Single ventricle 04/27/2024 9:30 AM CHIEF OF POLICE - 04/27/2024 11:30 AM CHIEF OF POLICE Surgery [facility] [address] [place] [address] Supa Herrera MD [address] [place] [address] Congenital Right Heart Catheterization 05/28/2024 2:30 PM CDT Office Visit [facility] [place] [address] [facility] [address] [place] [address] Meño Pryor MD [address] [place] [id number] Scheduled Procedures Name Priority Associated Diagnoses Date/Ti hi Congenital Coronary Angiogram 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
--- OUTSIDE RECORDS SUMMARY | 2024-04-22 14:23 | XMS_ITS | Encounter Summary ---
Author Organization [place] Address [address] [facility] 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 Palpitations Procedures Cardiopulmonary Stress Test - Adult Meño Pryor MD [address] [facility] [address] [place] [address] Phone: tel: fax: [facility] [address] [place] [address] Phone: tel: Referral ID Status Reason Start Date Expiration Date Visits Re quested Visits Authorized [id number] Closed 09/19/2023 09/18/2024 1 1 LINER Reason for Visit * CV Testing (Routine) - Closed Specialty Diagnoses / Procedures Referred By Luz t Referred To Contact Cardiology Diagnoses 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 Palpitations Procedures Cardiopulmonary Stress Test - Adult Meño Pryor MD [facility] NOLAN DEMARCO [address] [address] Phone: tel: fax: [facility] [address] [place] [address] Phone: tel: Referral ID Status Reason Start Date Expiration Date Visits Re quested Visits Authorized [id number] Closed 09/19/2023 09/18/2024 1 1 Encounter Details Date Type Department Care Team (Late st Contact Info) Description 03/10/2024 9:42 AM VAMP LINER - 03/10/2024 11:59 PM VAMP LINER Hospital Encounter [facility] [address] [place] [address] Meño Pryor MD [address] [place] [address] [id number] Hypoplastic left heart syndrome; Adult congenital heart [...] on file Legal Sex Female 4:04 AM VAMP LINER Gender Identity Not on file Sexual Orientation Not on file documented as of this encounter Last Filed Vital Signs Vital Sign Reading Time Taken Comments Blood Pressure - - Pulse - - Temperature - - Respiratory Rate - - Oxygen Saturation - - Inhaled Oxygen Concentration - - Weight 80.6 kg (177 lb 11.1 oz) 025 10:00 AM VAMP LINER Height 152.4 cm (5') 03/10/2024 10:00 AM VAMP LINER Body Mass Index 34.7 03/10/2024 10:00 AM VAMP LINER documented in this encounter Medications at Time [...] (Latest Contact Info) Description 04/27/2024 7:30 AM [facility] Laboratory [address] [place] [address] 04/27/2024 9:30 AM VAMP LINER Hospital Encounter [facility] [address] [place] [address] Supa Herrera MD [address] [place] [address] Hypoplastic left heart syndrome; S/P Fontan procedure; Adult congenital heart disease; Single ventricle 04/27/2024 9:30 AM VAMP LINER - 04/27/2024 11:30 AM VAMP LINER Surgery [facility] [address] [place] [address] Supa Herrera MD [address] [place] [address] Congenital Right Heart Catheterization 05/28/2024 2:30 PM CDT Office Visit [facility] [place] [address] [facility] [address] [place] [address] Meño Pryor MD [address] [facility] [address] [address] Scheduled Procedures Name Priority Associated Diagnoses Date/Ti me Congenital Coronary Angiogram 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 04/27/2024 9:30 AM VAMP LINER documented as of this encounter Procedures Procedure Name Priority Date/Time Associated Diagnosis Comments CARDIOPULMONARY STRESS TEST - ADULT Routine 03/10/2024 10:57 AM VAMP LINER 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 Palpitations documented in this encounter Results * Cardiopulmonary Stress Test - Adult (03/10/2024 10:57 AM VAMP LINER) Target HR 193 Exercise duration (min) 5 min Exercise duration (sec) 58 sec Estimated workload 7.0 METS Angina Index 0 Max 20,625 CARPULSTRPH1 2 mins CARPULSTRPH1 103 bpm CARPULBPPH1 110/65 mmHg CARPULSTRPH1 95 % SpO2 CARPULSTRPH2 4 mins CARPULSTRPH2 121 bpm CARPULBPPH2 128/70 mmHg CARPULSTRPH2 90 % SpO2 CARPULSTRPH3 5 mins [id number] C 58 sec CARPULSTRPH3 165 bpm CARPULBPPH3 125/90 mmHg CARPULSTRPH3 93 % SpO2 Baseline BP 116/76 mmHg Baseline HR 79 bpm Rest BP 113/71 mmHg Rest 86 bpm Last Stress BP 125/90 mmHg Max HR 165 Max Predicted HR 85 % PREDICTED VO2MAX 34.3 Max 14.40 ml/kg/min Predicted 34.30 ml/kg/min Percent 42 % RER 1.05 VE/VCO2 [place] 34.22 Actual SVC (L) 2.65 Predicted SVC [...] Laterality Modality Other Narrative 03/11/2024 7:37 AM VAMP LINER A cardiopulmonary stress test was performed following [...] ventricle documented in this encounter Care Teams Php Web Developer Relationship Specialty Start Date End Date Maryellen Monterroso PCP - General Physician Prepared Foods Supervisor 02/03/13 Abby Nicolas MD [facility] [address] [address] Pediatric Cardiology 02/02/15 documented as of this encounter
--- OUTSIDE RECORDS SUMMARY | 2024-04-22 14:23 | XMS_ITS | Encounter Summary ---
Author Organization [place] Address [address] [facility] [place] [address] Care Team Providers Care Rn Hemodialysis Name Role Phone Maryellen Monterroso Primary Care Provider [phone] Abby Nicolas MD Unavailable [phone] Yenifer Ibrahim PA-C Unavailable [phone] Reason for Referral * CV Testing [...] ZZHC STATISTIC IV PUSH SINGLE INITIAL SUBSTANCE RI DOPPLER ECHO PULSED, COMPLETE RI DOPPLER ECHO COLOR FLOW VELOCITY MAP RI ECHO XTHORACIC,MARIO ANOM,COMPLETE RI ECHO CONGENITAL W/O CONTRAST HC DOPPLER ECHO PULSED, COMPLETE HC DOPPLER ECHO COLOR FLOW VELOCITY MAP HC STATISTIC IV PUSH SINGLE INITIAL SUBSTANCE HC ECHO CONGENITAL ANOM W/CONTRAST HC ECHO CONGENITAL ANOM W/O CONTRAST Meño Pryor MD [address] [employer] [address] [address] Phone: tel: fax: [facility] [address] [facility] 3rd [place] [address] Phone: tel: fax: Referral ID Status Reason Start Date Expiration Date Visits Re quested Visits Authorized [id number] Closed 09/25/2021 09/25/2022 1 1 Reason for Visit * Reason Onset Date Comments Call to schedule test 09/25/2021 Candie hanna nital Encounter Details Date Type Department Care Team (Late st Contact Info) Description 09/25/2021 Telephone [facility] [place] [address] [place] [address] Meño Pryor MD [address] [employer] [address] [id number] Call to schedule test (Candie congenital ) [...] on file Legal Sex Female 4:04 AM OFFICE LEAD Gender Identity Not on file Sexual Orientation Not on file documented as of this encounter Miscellaneous Notes * Telephone Encounter - Dali Evans - 09/25/2021 5:03 PM CDT Scheduled and confirmed with pt.. * Telephone Encounter - Brisa Lezama - 09/25/2021 1:08 PM CDT [facility] Call Center Phone Message May a detailed message be left on voicemail: yes Reason for Call: Other: please call to schedule with Dr pryor Action Taken: Other: routed to cardiology Travel Screening: Not Applicable documented in this encounter Plan of Treatment Upcoming Encounters Date Type Department Care Team (Latest Contact Info) Description 04/27/2024 7:30 AM OFFICE LEAD Lab [facility] [place] [facility] [address] [place] [address] 04/27/2024 9:30 AM OFFICE LEAD Hospital Encounter [facility] [address] [place] [address] Supa Herrera MD [address] [place] [address] Hypoplastic left heart syndrome; S/P Fontan procedure; Adult congenital heart disease; Single ventricle 04/27/2024 9:30 AM OFFICE LEAD - 04/27/2024 11:30 AM OFFICE LEAD Surgery [facility] [address] [place] [address] Supa Herrera MD [address] [place] [address] Congenital Right Heart Catheterization 05/28/2024 2:30 PM CDT Office Visit [facility] [place] 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 04/27/2024 9:30 AM OFFICE LEAD documented as of this encounter Results * ECHO CONGENITAL ADULT (TTE) (2021 3:27 PM CDT) Anatomical Region Laterality Modality Echocardiography 2021 3:13 PM CDT Narrative 2021 4:07 PM CDT [id number]^CANDIE^MEÑO^LOCO Study ID: [id number] [facility]'[address] [address] Pediatric Echocardiogram Name: DELMER DAVIS Study Date: 2021 03:13 PM Patient Location: [facility] Age: 26 yrs : 1995 Gender: Female HR: 93 Patient Class: Outpatient Height: 152 cm Ordering Provider: MEOÑ PRYOR Weight: 68 kg Referring Provider: MEÑO PRYOR BSA: 1.6 m2 Performed By: Luisa Gardner Report approved by: James Goodman MD Reason For Study: Hypoplastic left heart syndrome ##### CONCLUSIONS ##### 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 Outflow tracts: Patient has undergone Ludlow operation. The systemic outflow tract is unobstructed. [...] ventricle documented in this encounter Care Teams Rn Hemodialysis Relationship Specialty Start Date End Date Maryellen Monterroso PCP - General Physician Conservator Artifacts 02/03/13 Abby Nicolas MD [address] [place] [address] Pediatric Cardiology 02/02/15 Yenifer Ibrahim PA-C [address] [place] [place] [address] Assigned Neuroscience Provider 09/01/22 03/20/23 documented as of this encounter
--- OUTSIDE RECORDS SUMMARY | 2024-04-22 14:23 | XMS_ITS | Encounter Summary ---
Author Organization [place] Address [address] [facility] [place] [address] Care Team Providers Care Sharepoint Analyst Name Role Phone Maryellen Monterroso Primary Care Provider [phone] Abby Nicolas MD Unavailable [phone] Yenifer Ibrahim PA-C Unavailable [phone] Encounter Details Date Type Department Care Team (Late st Contact Info) Description 11/27/2021 [facility] Medical Advice [facility] [address] [address] Starla Carter RN Social History [...] on file Legal Sex Female 4:04 AM LIQUID CENTER ASSEMBLER Gender Identity Not on file Sexual Orientation Not on file documented as of this encounter Plan of Treatment Upcoming Encounters Date Type Department Care Team (Latest Contact Info) Description 04/27/2024 7:30 AM LIQUID CENTER ASSEMBLER Lab [facility] Laboratory [address] [place] [address] 04/27/2024 9:30 AM LIQUID CENTER ASSEMBLER Hospital Encounter [facility] [address] [place] [address] Supa Herrera MD [address] [place] [address] Hypoplastic left heart syndrome; S/P Fontan procedure; Adult congenital heart disease; Single ventricle 04/27/2024 9:30 AM LIQUID CENTER ASSEMBLER - 04/27/2024 11:30 AM LIQUID CENTER ASSEMBLER Surgery 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
--- OUTSIDE RECORDS SUMMARY | 2024-04-22 14:23 | XMS_ITS | Encounter Summary ---
Author Organization [place] Address [address] [facility] [place] [address] Care Team Providers Care Photo Manager Name Role Phone Maryellen Monterroso Primary Care Provider Abby Nicolas MD Unavailable [phone] Yenifer Ibrahim PA-C Unavailable [phone] Reason for Visit * Reason Onset Date Comments Appointment 10/06/2021 Pt would like to do her echo today - please call to advise Encounter Details Date Type Department Care Team (Late st Contact Info) Description 10/06/2021 Telephone [facility] [place] [address] [facility] [address] [place] [address] Meño Pryor MD [address] [facility] [place] [address] Appointment (Pt would like to [...] on file Legal Sex Female 4:04 AM INSTRUCTOR ADJUNCT SURGICAL TECHNICIAN Gender Identity Not on file Sexual Orientation Not on file documented as of this encounter Miscellaneous Notes * Telephone Encounter - Ashlie Marcano - 10/06/2021 9:[address] [facility] Call Center Phone Message May a [...] (Latest Contact Info) Description 04/27/2024 7:30 AM INSTRUCTOR ADJUNCT SURGICAL TECHNICIAN Lab [facility] Laboratory [address] [place] [address] 04/27/2024 9:30 AM INSTRUCTOR ADJUNCT SURGICAL TECHNICIAN Hospital Encounter [facility] [address] [place] [address] Supa Herrera MD [address] [place] [address] Hypoplastic left heart syndrome; S/P Fontan procedure; Adult congenital heart disease; Single ventricle 04/27/2024 9:30 AM INSTRUCTOR ADJUNCT SURGICAL TECHNICIAN - 04/27/2024 11:30 AM INSTRUCTOR ADJUNCT SURGICAL TECHNICIAN Surgery [facility] [address] [place] [address] Supa Herrera MD [address] [place] [address] Congenital Right Heart Catheterization 05/28/2024 2:30 PM CDT Office Visit [facility] [place] [address] [facility] [address] [place] [address] Meño Pryor MD [address] [facility] [place] [address] Scheduled Procedures Name Priority Associated Diagnoses Date/Ti nd Congenital Coronary Angiogram 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
--- OUTSIDE RECORDS SUMMARY | 2024-04-22 14:23 | XMS_ITS | Encounter Summary ---
Author Organization [place] Address [address] [place] [address] Care Team Providers Care Motor Vehicle License Clerk Name Role Phone Maryellen Monterroso Primary Care Provider [phone] Abby Nicolas MD Unavailable [phone] Encounter Details Date Type Department Care Team (Late st Contact Info) Description 04/17/2024 MyC Medical Advice [facility] Interventional Radiology [address] [place] [address] Phill Johnson, RN Social History [...] on file Legal Sex Female 4:04 AM SUGAR CANE FARM MANAGER Gender Identity Not on file Sexual Orientation Not on file documented as of this encounter Plan of Treatment Upcoming Encounters Date Type Department Care Team (Latest Contact Info) Description 04/27/2024 7:30 AM SUGAR CANE FARM MANAGER Lab [facility] [place] [facility] [address] [place] [address] 04/27/2024 9:30 AM SUGAR CANE FARM MANAGER Hospital Encounter [facility] Heart Care [address] [place] [address] Supa Herrera MD [address] [place] [address] Hypoplastic left heart syndrome; S/P Fontan procedure; Adult congenital heart disease; Single ventricle 04/27/2024 9:30 AM SUGAR CANE FARM MANAGER - 04/27/2024 11:30 AM SUGAR CANE FARM MANAGER Surgery [facility] [address] [place] [address] Supa Herrera MD [address] [place], [place] [id number] Congenital Right Heart Catheterization 05/28/2024 2:30 PM CDT Office Visit [facility] [place] [address] [facility] [address] [place] [address] Meño Pryor MD [address] [place] [id number] Scheduled Procedures Name Priority Associated Diagnoses Date/Ti in Congenital Coronary Angiogram 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
--- OUTSIDE RECORDS SUMMARY | 2024-04-22 14:23 | XMS_ITS | Encounter Summary ---
Author Organization [place] Address [address] [facility] [place] [address] Care Team Providers Care Project/Production Manager Imaging Name Role Phone Maryellen Monterroso Primary Care Provider [phone] Abby Nicolas MD Unavailable [phone] Reason for Visit * Diagnostic Imaging MRI (Routine) - Closed Specialty Diagnoses / Procedures Referred By Contac t Referred To Contact Radiology. Diagnoses 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 Palpitations Procedures MR Elastography w Liver w/o&w Contrast Meño Pryor MD [address] [facility] [address] [place] [address] Phone: tel: fax: Referral ID Status Reason Start Date Expiration Date Visits Re quested Visits Authorized [id number] Closed 09/19/2023 09/18/2024 1 1 Encounter Details Date Type Department Care Team (Late st Contact Info) Description 04/10/2024 4:00 PM [facility] Ancillary Procedure [facility] [place] [address] [facility] [address] 1st [place] [address] Meño Pryor MD [address] [place] [address] Hypoplastic left heart syndrome; Adult congenital heart [...] on file Legal Sex Female 4:04 AM [facility] ORDINARY Gender Identity Not on file Sexual Orientation Not on file documented as of this encounter Plan of Treatment Upcoming Encounters Date Type Department Care Team (Latest Contact Info) Description 04/27/2024 7:30 AM [facility]ARY Lab [facility] [address] [place] [address] 04/27/2024 9:30 AM [facility] Hospital Encounter [facility] [address] [place] [address] Supa Herrera MD [address] [place] [address] Hypoplastic left heart syndrome; S/P Fontan procedure; Adult congenital heart disease; Single ventricle 04/27/2024 9:30 AM [facility] ORD[facility] - 04/27/2024 11:30 AM [facility] Surgery [facility] [address] [place] [address] Supa Herrera MD [address] [place] [address] Congenital Right Heart Catheterization 05/28/2024 2:30 PM CDT Office Visit [facility] [place] [address] [facility] [address] [place] [address] Meño Pryor MD [address] [facility] [place] [address] Scheduled Procedures Name Priority Associated Diagnoses Date/Ti me Congenital Coronary Angiogram 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 04/27/2024 9:30 AM [facility] documented as of this encounter Procedures Procedure Name Priority Date/Time Associated Diagnosis Comments MR ELASTOGRAPHY W LIVER W/O & W CONTRAST Routine 04/10/2024 3:46 PM [facility] 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 Palpitations documented in this encounter Results * MR Elastography w Liver w/o&w Contrast (04/10/2024 3:46 PM [facility] ORDINARY) Anatomical Region Laterality Modality Abdomen/Pelvis, SUBRAD MR BODY, UMP MR BODY, RAD MR Magnetic Resonance Impressions 04/14/2024 11:31 AM [facility] IMPRESSION: 1. Focal arterial enhancing observation in [...] LIONEL JACK MD Narrative 04/14/2024 11:31 AM [facility] Exam: MR ELASTOGRAPHY W LIVER W/O & [...] administered by MRI. $Given 04/10/2024 4:29 PM [facility] 8 mLs documented in this encounter Care Teams Project/Production Manager Imaging Relationship Specialty Start Date End Date Kriss Maryellen M PCP - General Physician Personal Lines Sales Executive 02/03/13 Abby Nicolas MD [address] [address] Pediatric Cardiology 02/02/15 documented as of this encounter
--- OUTSIDE RECORDS SUMMARY | 2024-04-22 14:23 | XMS_ITS | Encounter Summary ---
Author Organization [place] Address [address] [facility] [place] [address] Care Team Providers Care Fiber Technologist Name Role Phone Maryellen Monterroso Primary Care Provider [phone] Abby Nicolas MD Unavailable [phone] Reason for Visit * Reason Comments Follow Up RETURN CONGENITAL HE ART * Consultation (Routine: Next available opening) - Closed Specialty Diagnoses / Procedures Referred By Luz sanchez Referred To Contact Cardiovascular Disease Diagnoses Hypoplastic left heart syndrome Meño Pryor MD [address] [facility] [place] [address] Phone: tel: fax: Referral ID Status Reason Start Date Expiration Date Visits Re quested Visits Authorized [id number] Closed 09/25/2021 09/25/2022 1 1 Encounter Details Date Type Department Care Team (Late st Contact Info) Description 03/10/2024 1:15 PM FIREPROOF DOOR MAKER Office Visit [facility] [address] [address] Meño Pryor MD [address] [facility] [address] [place] [address] Hypoplastic left heart syndrome; Adult congenital heart [...] on file Legal Sex Female 4:04 AM FIREPROOF DOOR MAKER Gender Identity Not on file Sexual Orientation Not on file documented as of this encounter Last Filed Vital Signs Vital Sign Reading Time Taken Comments Blood Pressure 95/64 03/10/2024 1:18 PM FIREPROOF DOOR MAKER Pulse 96 03/10/2024 1:18 PM FIREPROOF DOOR MAKER Temperature - - Respiratory Rate - - Oxygen Saturation 94% 03/10/2024 1:18 PM FIREPROOF DOOR MAKER Inhaled Oxygen Concentration - - Weight 81 kg (178 lb 9.6 oz) 03/10/2024 1:18 PM FIREPROOF DOOR MAKER Height - - Body Mass Index 34.88 03/10/2024 10:00 AM FIREPROOF DOOR MAKER documented in this encounter Patient Instructions * Patient Instructions* Starla Carter RN - 03/10/2024 1:15 PM FIREPROOF DOOR MAKER Images from the original note were not included. Thank you for visiting the Adult Congenital and Cardiovascular Genetics Clinic at the [facility]. Cardiology Providers you saw during your visit: Meño Pryor MD Diagnosis: Fontan Results: Meño Pryor MD reviewed the results of your EKG, lab, CPX, xray and echocardiogram testingtoday in clinic. If you have questions or concerns, please call us at [phone] or contact us through [employer]. Recommendations from your Cardiology Provider TODAY: Complete a liver MRI- we will reach out to schedule Complete a heart cath with liver biopsy- we will reach out to schedule Follow-up Plan: Follow up with Dr Pryor 1 month after heart cath If you have questions or concerns, please call us at [phone] or contact us through [employer]. Our fax number is [phone] Starla Carter RN RN, BSN Sue [place] (Scheduling) Nurse Sales And Marketing Specialist Clinic Director Transportation Adult Congenital and CV Genetics Adult Congenital and CV Genetics [facility] Heart Care [facility] Care For after hours urgent needs, call [phone] and ask to speak to the On-Call Motor Vehicle Escort Driver. For emergencies call [phone]. Additional Important Information for Your Heart Health [...] developing. The guidelines used come from the [place] [employer] and are periodically updated. If [...] returns within 1-2 days). Call us a [phone] if you are experiencing these symptoms. FASTING CHOLESTEROL was checked in the last 5 years YES__X__ NO____ (2021) If no, please follow up with your primary care physician. You should have a cholesterol screening every 5 years at minimum, and every year if taking a medication for your cholesterol levels. PROOF DOOR MAKER documented in this encounter Progress Notes * Meño Pryor MD - 03/10/2024 1:15 PM CST Images from the original note were not included. Adult Congenital Cardiology Visit Primary MD: Dr. 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 She has been seen at both [facility] and our [facility] clinic. Last cath 2017 with coarct stenting. [...] HISTORY: hysterectomy for endometriosis (fall 2022) at [facility] without complications. Past Surgical History: Procedure Laterality Date CARDIAC SURGERY fontan and ariana CV HEART BIOPSY N/A 02/24/2018 Procedure: HEART BIOPSY; Surgeon: Abby Schaefer MD; Location: HEART PEDS CARDIAC CRITICAL CARE CNS DILATION AND CURETTAGE HEART CATH CHILD 04/02/2013 [...] Schaefer MD; Location: [facility] HEART PEDS CARDIAC CRITICAL CARE CNS FAMILY HISTORY: No known cardiac history, HTN, [...] Hypoplastic left heart syndrome. Patient has undergone [place], Romain and Fontan operations. Status-post Fontan fenestration [...] normal systolic function. Peak VO2 (ml/kg/min) VE/VCO2 Swain RER 14.40 34.22 1.05 Predicted VO2 (ml/kg/min) [...] heart syndrome. Her procedural history includes the [place], Jose (right SVC-PA), left SVC-PA anastomosis, and [...] atrial septum, consistent with the patient's prior Ariana procedure. 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 If you want your labs drawn at a clinic outside the [facility] system, please let me know the name [...] reduction. If you don't hear from a tour sales representative within 2 business days, please call [...] developing. The guidelines used come from the [place] [employer] and are periodically updated. If [...] returns within 1-2 days). Call us a [phone] if you are experiencing these symptoms. If you have questions or concerns, please call us at [phone] or contact us through [employer]. Meño Pryor M.D. Transformation Lead of Pediatrics Pediatric and Adult Congenital Cardiology [facility] Pediatric Cardiology Office [phone] Adult Congenital Cardiology Triage and Scheduling [phone] A total of 45 minutes were spent in personal review of testing, review of documented history and interval events in chart, additional history from , face to face visit with discussion of findings and plan, and care coordination. PROOF DOOR MAKER PROOF DOOR MAKER documented in this encounter Nursing Notes * Gennaro Dash - 03/10/2024 1:15 PM CST Chief Complaint Patient presents with Follow Up RETURN CONGENITAL HEART Vitals were taken, medications reconciled, and EKG was performed. Gennaro Dash, EMT 1:25 PM PROOF DOOR MAKER documented in this encounter Plan of Treatment Upcoming Encounters Date Type Department Care Team (Latest Contact Info) Description 04/27/2024 7:30 AM FIREPROOF DOOR MAKER Lab [facility] [address] [place] [address] 04/27/2024 9:30 AM FIREPROOF DOOR MAKER Hospital Encounter [facility] Heart Care [address] [place] [address] Supa Herrera MD [address] [place] [address] Hypoplastic left heart syndrome; S/P Fontan procedure; Adult congenital heart disease; Single ventricle 04/27/2024 9:30 AM FIREPROOF DOOR MAKER - 04/27/2024 11:30 AM FIREPROOF DOOR MAKER Surgery [facility] Heart Care [address] [place] [address] Supa Herrera MD [address] [place] [address] Congenital Right Heart Catheterization 05/28/2024 2:30 PM CDT Office Visit [facility] [place] [address] [place] [address] Meño Pryor MD [address] [facility] [place] [address] Scheduled Procedures Name Priority Associated Diagnoses Date/Ti me Congenital Coronary Angiogram 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 04/27/2024 9:30 AM FIREPROOF DOOR MAKER documented as of this encounter Procedures Procedure Name Priority Date/Time Associated Diagnosis Comments EKG 12-LEAD, TRACING ONLY Routine 03/10/2024 1:13 PM FIREPROOF DOOR MAKER Palpitations documented in this encounter Results * EKG 12-lead, tracing only (Same Day) (03/10/2024 1:13 PM FIREPROOF DOOR MAKER) Systolic Blood Pressure mmHg RADIOLOGY RESULTS Diastolic Blood Pressure mmHg RADIOLOGY RESULTS Ventricular Rate 91 BPM RAD IOLOGY RESULTS Atrial Rate 91 BPM RADIOLOG Y RESULTS MA Interval 174 ms RADIOLOG Y RESULTS QRS Duration 106 ms RADIOLO GY RESULTS QT 384 ms RADIOLOGY RESULTS QTc 472 ms RADIOLOGY RESULTS P Gerald 20 degrees RADIOLOGY RESULTS R AXIS 123 degrees RADIOLOGY RESULTS T Gerald -1 degrees RADIOLOGY RESULTS Interpretation ECG Sinus rhythm Right axis deviation Incomplete right bundle branch block T wave abnormality, consider anterior ischemia Prolonged QT Abnormal ECG When compared with ECG of 19-Sep-2023 09:24, No significant change was found Confirmed by fellow Humble Hodge ([id number]) on 03/12/2024 2:55:37 PM Confirmed by MD ZAMORA HENRI ([id number]) on 03/12/2024 6:53:57 PM RADIOLOGY RESULTS 03/10/2024 1:13 PM FIREPROOF DOOR MAKER 03/12/2024 6:53 PM FIREPROOF DOOR MAKER us Meño Pryor MD ECG ORDERABLES Edited Resul t - Final RADIOLOGY RESULTS * Hemoglobin A1c (03/10/2024 9:38 AM FIREPROOF DOOR MAKER) Estimated Average Glucose 114 <117 mg/dL 03/11/2024 1:45 AM FIREPROOF DOOR MAKER [facility] Hemoglobin A1C 5.6 <5.7 % 03/11/2024 1:45 AM FIREPROOF DOOR MAKER [facility] Comment: Normal <5.7% Prediabetes 5.7-6.4% Diabetes 6.5% or higher Note: Adopted from ADA consensus guidelines. Blood STRUCTURE OF LEFT UPPER LIMB / Unknown Venipuncture / Unknown 03/10/2024 9:38 AM FIREPROOF DOOR MAKER 03/10/2024 10:21 AM FIREPROOF DOOR MAKER Meño Pryor MD LAB - BLOOD ORDERABLES Final Result [facility] Core Lab [address] [facility], [address] [address] * Hepatic panel (03/10/2024 9:38 AM FIREPROOF DOOR MAKER) [facility] Protein Total 6.8 6.4 - 8.3 g/dL 03/10/2024 2:19 PM FIREPROOF DOOR MAKER [facility] Albumin 4.8 3.5 - 5.2 g/dL 03/10/2024 2:19 PM FIREPROOF DOOR MAKER [facility] Bilirubin Total 0.8 <=1.2 mg/dL 03/10/2024 2:19 PM FIREPROOF DOOR MAKER [facility] Alkaline Phosphatase 48 40 - 150 U/L 03/10/2024 2:19 PM FIREPROOF DOOR MAKER [facility] AST 32 0 - 45 U/L 03/10/2024 2:19 PM FIREPROOF DOOR MAKER [facility] ALT 35 0 - 50 U/L 03/10/2024 2:19 PM FIREPROOF DOOR MAKER [facility] Bilirubin Direct 0.22 0.00 - 0.30 mg/dL 03/10/2024 2:19 PM FIREPROOF DOOR MAKER [facility] Blood STRUCTURE OF LEFT UPPER LIMB / Unknown Venipuncture / Unknown 03/10/2024 9:38 AM FIREPROOF DOOR MAKER 03/10/2024 10:06 AM FIREPROOF DOOR MAKER Meño Pryor MD LAB - BLOOD ORDERABLES Final Result [facility] Core Lab [address] [facility], [address] [phone] * N terminal pro BNP outpatient (03/10/2024 9:38 AM FIREPROOF DOOR MAKER) N Terminal Pro BNP Outpatient 120 0 - 450 pg/mL 03/10/2024 2:19 PM FIREPROOF DOOR MAKER [facility] Comment: Reference range shown and [...] Unknown Venipuncture / Unknown 03/10/2024 9:38 AM FIREPROOF DOOR MAKER 03/10/2024 10:06 AM FIREPROOF DOOR MAKER us Meño Pryor MD LAB - BLOOD ORDERABLES Final Result [facility] Lab [address] [facility], [address] [address] documented in this encounter [...] ventricle documented in this encounter Care Teams Fiber Technologist Relationship Specialty Start Date End Date Maryellen Monterroso PCP - General Physician Banner Painter 02/03/13 Abby Nicolas MD [facility] [address] [address] Pediatric Cardiology 02/02/15 documented as of this encounter
--- OUTSIDE RECORDS SUMMARY | 2024-04-22 14:23 | XMS_ITS | Encounter Summary ---
Author Organization [place] Address [address] [facility] [place] [address] Care Team Providers Care Storage Garage Attendant Name Role Phone Maryellen Monterroso Primary Care Provider Abby Nicolas MD Unavailable [phone] Encounter Details Date Type Department Care Team (Late st Contact Info) Description 03/10/2024 10:00 AM [facility] [address] [place] [address] Meño Pryor MD [facility] [place] [place], [place] [address] Hypoplastic left heart syndrome; Adult congenital heart [...] on file Legal Sex Female 4:04 AM TRUCK BRACER Gender Identity Not on file Sexual Orientation Not on file documented as of this encounter Plan of Treatment Upcoming Encounters Date Type Department Care Team (Latest Contact Info) Description 04/27/2024 7:30 AM TRUCK BRACER Lab [facility] Laboratory [address] [place] [address] 04/27/2024 9:30 AM TRUCK BRACER Hospital Encounter [facility] [address] [place] [address] Supa Herrera MD [address] [place] [address] Hypoplastic left heart syndrome; S/P Fontan procedure; Adult congenital heart disease; Single ventricle 04/27/2024 9:30 AM TRUCK BRACER - 04/27/2024 11:30 AM TRUCK BRACER Surgery [facility] [address] [place] [address] Supa Herrera MD [address] [place] [address] Congenital Right Heart Catheterization 05/28/2024 2:30 PM CDT Office Visit [facility] [place] [address] [facility] [address] [place] [address] Meño Pryor MD [address] [place], [place] [address] Scheduled Procedures Name Priority Associated Diagnoses Date/Ti me Congenital Coronary Angiogram 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 04/27/2024 9:30 AM TRUCK BRACER documented as of this encounter Procedures Procedure Name Priority Date/Time Associated Diagnosis Comments N TERMINAL PRO BNP OUTPATIENT Add-On 03/10/2024 9:38 AM TRUCK BRACER 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 HEPATIC FUNCTION PANEL Add-On 03/10/2024 9:38 AM TRUCK BRACER 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 BASIC METABOLIC PANEL Routine 03/10/2024 9:38 AM TRUCK BRACER 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 Palpitations documented in this encounter Results * Hepatic panel (03/10/2024 9:38 AM TRUCK BRACER) Protein Total 6.8 6.4 - 8.3 g/dL 03/10/2024 2:19 PM TRUCK BRACER [facility] Albumin 4.8 3.5 - 5.2 g/dL 03/10/2024 2:19 PM TRUCK BRACER [facility] Bilirubin Total 0.8 <=1.2 mg/dL 03/10/2024 2:19 PM TRUCK BRACER [facility] Alkaline Phosphatase 48 40 - 150 U/L 03/10/2024 2:19 PM TRUCK BRACER [facility] AST 32 0 - 45 U/L 03/10/2024 2:19 PM TRUCK BRACER [facility] ALT 35 0 - 50 U/L 03/10/2024 2:19 PM TRUCK BRACER [facility] Bilirubin Direct 0.22 0.00 - 0.30 mg/dL 03/10/2024 2:19 PM TRUCK BRACER [facility] Blood STRUCTURE OF LEFT UPPER LIMB / Unknown Venipuncture / Unknown 03/10/2024 9:38 AM TRUCK BRACER 03/10/2024 10:06 AM TRUCK BRACER us Meño Pryor MD LAB - BLOOD ORDERABLES Final Result [facility] [place] Core Lab [address] [facility], [address] [place] [address] * N terminal pro BNP outpatient (03/10/2024 9:38 AM TRUCK BRACER) N Terminal Pro BNP Outpatient 120 0 - 450 pg/mL 03/10/2024 2:19 PM TRUCK BRACER [facility] Comment: Reference range shown and [...] Unknown Venipuncture / Unknown 03/10/2024 9:38 AM TRUCK BRACER 03/10/2024 10:06 AM TRUCK BRACER us Meño Pryor MD LAB - BLOOD ORDERABLES Final Result [facility] Core Lab [address] [facility], [address] [address] * Basic metabolic panel (03/10/2024 9:38 AM TRUCK BRACER) Sodium 140 135 - 145 mmol/L 03/10/2024 10:44 AM TRUCK BRACER [facility] Potassium 4.2 3.4 - 5.3 mmol/L 03/10/2024 10:44 AM TRUCK BRACER [facility] Chloride 107 98 - 107 mmol/L 03/10/2024 10:44 AM TRUCK BRACER [facility] Carbon Dioxide (CO2) 23 22 - 29 mmol/L 03/10/2024 10:44 AM TRUCK BRACER [facility] Anion Gap 10 7 - 15 mmol/L 03/10/2024 10:44 AM TRUCK BRACER [facility] Urea Nitrogen 15.3 6.0 - 20.0 mg/dL 03/10/2024 10:44 AM TRUCK BRACER [facility] Creatinine 0.85 0.51 - 0.95 mg/dL 03/10/2024 10:44 AM TRUCK BRACER [facility] GFR Estimate >90 >60 mL/min/1.7 3m2 03/10/2024 10:44 AM TRUCK BRACER [facility] Comment:eGFR calculated usin 2020 CKD-EPI equation. Calcium 9.3 8.8 - 10.4 mg/dL 03/10/2024 10:44 AM TRUCK BRACER [facility] Comment:Reference intervals for this test were updated on 09/10/2023 to reflect our healthy population more accurately. There may be differences in the flagging of prior results with similar values performed with this method. Those prior results can be interpreted in the context of the updated reference intervals. Glucose 98 70 - 99 mg/dL 03/10/2024 10:44 AM TRUCK BRACER [facility] Blood STRUCTURE OF LEFT UPPER LIMB / Unknown Venipuncture / Unknown 03/10/2024 9:38 AM TRUCK BRACER 03/10/2024 10:06 AM TRUCK BRACER us Meño Pryor MD LAB - BLOOD ORDERABLES Final Result [facility] [place] Core Lab [address] [facility], [address] [place] [address] documented in this encounter [...] ventricle documented in this encounter Care Teams Storage Garage Attendant Relationship Specialty Start Date End Date Maryellen Monterroso PCP - General Physician Unit Tender 02/03/13 Abby Nicolas MD [address] [address] Pediatric Cardiology 02/02/15 documented as of this encounter
--- OUTSIDE RECORDS SUMMARY | 2024-04-22 14:23 | XMS_ITS | Encounter Summary ---
Author Organization [place] Address [address] [facility] [place] [address] Care Team Providers Care Teacher Industrial Arts Name Role Phone Maryellen Monterroso Primary Care Provider [phone] Abby Nicolas MD Unavailable [phone] Yenifer Ibrahim PA-C Unavailable [phone] Encounter Details Date Type Department Care Team (Late st Contact Info) Description 10/04/2021 [facility] Medical Advice [facility] [address] [address] Avelina Jackson CMA Social History [...] on file Legal Sex Female 4:04 AM SENIOR ACCOUNTS PAYABLE CLERK Gender Identity Not on file Sexual Orientation Not on file documented as of this encounter Plan of Treatment Upcoming Encounters Date Type Department Care Team (Latest Contact Info) Description 04/27/2024 7:30 AM SENIOR ACCOUNTS PAYABLE CLERK Lab [facility] [address] [place] [address] 04/27/2024 9:30 AM SENIOR ACCOUNTS PAYABLE CLERK Hospital Encounter [facility] [address] [place] [address] Supa Herrera MD [address] [place], [place] [address] Hypoplastic left heart syndrome; S/P Fontan procedure; Adult congenital heart disease; Single ventricle 04/27/2024 9:30 AM SENIOR ACCOUNTS PAYABLE CLERK - 04/27/2024 11:30 AM SENIOR ACCOUNTS PAYABLE CLERK Surgery [facility] [address] [place] [address] Supa Herrera MD [address] [place], [place] [id number] Congenital Right Heart Catheterization 05/28/2024 2:30 PM CDT Office Visit [facility] [place] [address] [facility] [address] [place] [address] Meño Pryor MD [address] [place] [address] Scheduled Procedures Name Priority Associated Diagnoses Date/Ti sd Congenital Coronary Angiogram 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 04/27/2024 9:30 AM SENIOR ACCOUNTS PAYABLE CLERK documented as of this encounter Visit Diagnoses Not on filedocumented in this encounter Care Teams Teacher Industrial Arts Relationship Specialty Start Date End Date Maryellen Monterroso PCP - General Physician Electrical Accessories Assembler 02/03/13 Abby Nicolas MD [facility] [address] [address] Pediatric Cardiology 02/02/15 Yenifer Ibrahim PA-C [address] [place] [id number] Assigned Neuroscience Provider 09/01/22 03/20/23 documented as of this encounter
--- OUTSIDE RECORDS SUMMARY | 2024-04-22 14:23 | XMS_ITS | Encounter Summary ---
Author Organization [place] Address [address] [facility] [place] [address] Care Team Providers Care Floorman Name Role Phone Maryellen Monterroso Primary Care Provider [phone] Abby Nicolas MD Unavailable [phone] Reason for Referral * Diagnostic Imaging XR (Routine) - Pending Review Specialty Diagnoses / Procedures Referred By Contwenceslao t Referred To Contact Radiology. 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 Imaging [address] [place] [phone] Meño Pryor MD [address] [place] [address] Hypoplastic left heart syndrome; Adult congenital heart [...] on file Legal Sex Female 4:04 AM BIG DATA PLATFORM ARCHITECT Gender Identity Not on file Sexual [...] (Latest Contact Info) Description 04/27/2024 7:30 AM BIG DATA PLATFORM ARCHITECT Lab [facility] [address] [place] [address] 04/27/2024 9:30 AM BIG DATA PLATFORM ARCHITECT Hospital Encounter [facility] [address] [place] [phone] Supa Herrera MD [address] [place] [address] Hypoplastic left heart syndrome; S/P Fontan procedure; Adult congenital heart disease; Single ventricle 04/27/2024 9:30 AM BIG DATA PLATFORM ARCHITECT - 04/27/2024 11:30 AM BIG DATA PLATFORM ARCHITECT Surgery [facility] [address] [place] [phone] Supa Herrera MD [address] [place] [address] Congenital Right Heart Catheterization 05/28/2024 2:30 PM CDT Office Visit [facility] [place] [address] [place] [address] Roya, Meño Hardin MD [address] [place], [place] [id number] Scheduled Procedures Name Priority Associated Diagnoses Date/Ti me Congenital Coronary Angiogram 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 04/27/2024 9:30 AM BIG DATA PLATFORM ARCHITECT documented as of this encounter Procedures Procedure Name Priority Date/Time Associated Diagnosis Comments XR CHEST 2 VIEWS Routine 03/10/2024 10:4 6 AM BIG DATA PLATFORM ARCHITECT 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 Hypoxemia documented in this encounter Results * X-ray Chest 2 vws* (03/10/2024 10:46 AM BIG DATA PLATFORM ARCHITECT) Anatomical Region Laterality Modality Chest Digital Radiogra phy Narrative 03/10/2024 10:54 AM BIG DATA PLATFORM ARCHITECT Chest 2 views INDICATION: Hypoplastic left heart [...] ventricle documented in this encounter Care Teams Floorman Relationship Specialty Start Date End Date Maryellen Monterroso PCP - General Physician Concrete Mixing Plant Superintendent 02/03/13 Abby Nicolas MD [address] [address] Pediatric Cardiology 02/02/15 documented as of this encounter
--- OUTSIDE RECORDS SUMMARY | 2024-04-22 14:23 | XMS_ITS | Clinical Summary ---
Author Organization [facility] Address [address] [address] Phone Care Team Providers Care Alumni Relations Officer Name Role Phone Elsewhere, Pcp Primary Care [...] on file Legal Sex Female 3:19 PM CLERK CHECKER Gender Identity Not on file Sexual Orientation [...] age to complete this topic Care Teams Alumni Relations Officer Relationship Specialty Start Date End Date Elsewhere, Pcp PCP - General 09/25/20
[2024-04-22 14:40] LABS: Basophils Absolute Auto 0.02 K/uL (0.00-0.30); Basophils Percent Auto 0.4 % (0.0-3.0); Eosinophils Percent Auto 2.2 % (0.0-7.0); Hematocrit 42.5 % (33.0-51.0); Hemoglobin* 13.9 gm/dL (12.0-16.0); Lymphocytes Percent Auto 16.2 % (20-44); Mean Corpuscular HGB Conc 33 gm/dL (32-36); Mean Corpuscular Hemoglobin 31 pg (26-34); Mean Corpuscular Volume 95 fL (80-100); Monocytes Percent Auto 6.7 % (0.0-11.0); Neutrophils Percent Auto 74.5 % (42.0-72.0); Platelet Count* 136 K/uL (140-440); RDW Coefficient of Variation % 13.1 % (11.5-15.5); Red Blood Count 4.47 m/uL (4.00-5.20); White Blood Count* 4.51 K/uL (4.50-11.00)
[2024-04-22 14:52] LABS: Slide Review Reflex No
[2024-04-22 14:54] LABS: Albumin* 4.9 g/dL (3.3-5.0); Chloride* 105 mmol/L (96-114); Potassium* 3.9 mmol/L (3.6-5.1); Sodium* 140 mmol/L (135-149)
[2024-04-22 14:57] LABS: Alanine Aminotransferase* 38 U/L (4-35); Alkaline Phosphatase* 35 U/L (40-150); Anion Gap 9 mEq/L (7-15); Aspartate Amino Transferase* 27 U/L (12-35); Bilirubin Direct* 0.3 mg/dL (0.0-0.5); Bilirubin Total* 1.2 mg/dL (0.1-1.5); Blood Urea Nitrogen* 11 mg/dL (5-24); Calcium* 9.3 mg/dL (8.4-10.6); Carbon Dioxide* 26 mmol/L (20-32); Creatinine* 0.7 mg/dL (0.5-1.5); Est. Creatinine Clearance* 86.71; Estimated Glomerular Filt Rate 121 ml/min; Glucose* 79 mg/dL (60-115); Total Protein* 6.8 g/dL (6.0-8.3)
[2024-04-22 15:00] LABS: INR 1.05 (0.91-1.10); Partial Thromboplastin Time* 26 Seconds (23-33); Prothrombin Time 14.5 Seconds
[2024-04-22 15:17] LABS: D Dimer Quantitative* < 0.27 ug/ml (0.00-0.50)
== END 2024-04-22 15:32 | disposition home or self-care (01) ==
PROVIDERS: Emergency Provider Family Medicine
DX: R09.89 Other specified symptoms and signs involving the circulatory and respiratory systems (principal)
CPT/HCPCS: 36415; 80048; 80076; 85025; 85379; 85610; 85730; 93971; 99284